=== PATIENT | female | born 1985 | race Caucasian/White ===

== ENCOUNTER → 2017-05-20 08:01 | Outpatient (CLI) | payer OTHER, SELFPAY ==
[2017-05-21 18:37] LABS: Vitamin B12 945 pg/mL (232-1245)
== END ==
PROVIDERS: PCP Family Medicine; Visit Provider Family Medicine
DX: G62.9 Polyneuropathy, unspecified (principal)
CPT/HCPCS: 36415; 82607

== ENCOUNTER → 2017-12-01 15:44 | Outpatient (CLI) | payer OTHER, SELFPAY | PROVIDERS: PCP Family Medicine; Visit Provider Nurse Practitioner | DX: G47.30 Sleep apnea, unspecified (principal); R06.83 Snoring; E66.9 Obesity, unspecified | CPT/HCPCS: 95806 ==

== ENCOUNTER → 2017-12-19 13:41 | Outpatient (CLI) | payer OTHER, SELFPAY ==
--- NOTE | 2017-12-19 13:45 | XR_ITS ---
XR chest 2V HISTORY: ITS.REASON: COUGH ORDERING PHYSICIAN: Dangelo Gastelum MD PATIENT AGE: 32 years COMPARISON: 04/09/2011 FINDINGS: The cardiomediastinal silhouette and pulmonary vascularity are within normal limits. The lungs are clear without infiltrates, suspicious nodules, or pleural effusions. No acute bony abnormalities. IMPRESSION: Negative chest, no acute finding
== END ==
PROVIDERS: PCP Family Medicine; Visit Provider Internal Medicine
DX: I49.9 Cardiac arrhythmia, unspecified (principal); R05 Cough
CPT/HCPCS: 71046; 93005; 93225; 93226

== ENCOUNTER → 2018-01-12 10:17 | Outpatient (CLI) | payer OTHER, SELFPAY ==
[2018-01-12 10:19] LABS: Adenovirus,PCR Not Detected (NotDetected); Bordetella Pertussis Not Detected (NotDetected); Chlamydophila Pneumoniae, PCR Not Detected (NotDetected); Coronavirus 229E Not Detected (NotDetected); Coronavirus NL63 Not Detected (NotDetected); Coronavirus OC43 Not Detected (NotDetected); Coronovirus HKU1,PCR Not Detected (NotDetected); Human Metapneumovirus Not Detected (NotDetected); Influenza A, PCR Not Detected (NotDetected); Influenza AH1, 2009 Not Detected (NotDetected); Influenza AH1, PCR Not Detected (NotDetected); Influenza AH3,PCR Not Detected (NotDetected); Influenza B, PCR Not Detected (NotDetected); Mycoplasma Pneumoniae, PCR Not Detected (NotDected); Parainfluenza 1, PCR Not Detected (NotDetected); Parainfluenza 2, PCR Not Detected (NotDetected); Parainfluenza 3, PCR Not Detected (NotDetected); Parainfluenza 4, PCR Not Detected (NotDetected); Respiratory Syncytial Virus Not Detected (NotDetected); Rhinovirus/Enterovirus Not Detected (NotDetected)
[2018-01-12 10:34] LABS: Basophils % 0.3 % (0.1-2.0); Eosinophils # 0.1 K/mm3 (0.0-0.4); Eosinophils % 0.7 % (0.1-12.0); Hematocrit 41.6 % (37.0-47.0); Hemoglobin 13.8 g/dL (12.2-16.2); Lymphocytes # 1.3 K/mm3 (0.7-4.5); Lymphocytes % 19.4 K/mm3 (10-50); Mean Corpuscular HGB Conc 33.1 g/dL (31.8-35.4); Mean Corpuscular Hemoglobin 28.4 pg (27.0-31.2); Mean Platelet Volume 7.4 fl (7.4-10.4); Monocytes # 0.4 K/mm3 (0.1-1.0); Monocytes % 5.9 % (1.7-9.3); Neutrophils # 5.1 K/mm3 (1.8-7.8); Neutrophils % 73.7 % (37.0-80.0); Platelet Count 180 K/mm3 (142-424); Red Blood Count 4.84 M/mm3 (4.20-5.40); White Blood Count 6.9 K/mm3 (4.8-10.8)
== END ==
PROVIDERS: Visit Provider Family Medicine
DX: R50.9 Fever, unspecified (principal); R05 Cough
CPT/HCPCS: 36415; 85025; 87486; 87581; 87633; 87798

== ENCOUNTER → 2020-02-26 12:26 | Outpatient (CLI) | payer OTHER, SELFPAY ==
[2020-02-26 15:13] LABS: Vitamin B12 881 pg/mL (239-931)
[2020-02-26 15:14] LABS: Folate 4.18 ng/mL
[2020-03-01 23:10] LABS: Methylmalonic Acid 189 nmol/L (0-378)
== END ==
PROVIDERS: Visit Provider Family Medicine
DX: E53.8 Deficiency of other specified B group vitamins (principal); G56.92 Unspecified mononeuropathy of left upper limb; G56.91 Unspecified mononeuropathy of right upper limb
CPT/HCPCS: 36415; 82131; 82607; 82746

== ENCOUNTER → 2020-07-16 15:06 | Outpatient (CLI) | payer OTHER, SELFPAY ==
--- NOTE | 2020-07-16 15:10 | XR_ITS ---
PROCEDURE: XR FOOT WT BEARING RT 3V CLINICAL INDICATION: pain COMPARISON: No exams were available for comparison FINDINGS: No fracture or dislocation. No lytic or blastic change. There is normal mineralization. The joint spaces are well-preserved. No significant degenerative/arthritic changes. No erosive changes evident. Other findings:There is borderline pes planus. There is a small calcaneal spur and a small Achilles enthesophyte. IMPRESSION: No acute findings. Dictated by: Sam Adrian MD 07/16/2020 15:51 Sam Adrian MD in [place] 07/16/2020 15:51
--- NOTE | 2020-07-16 15:10 | XR_ITS ---
PROCEDURE: XR FOOT WT BEARING LT 3V CLINICAL INDICATION: pain COMPARISON: No exams were available for comparison FINDINGS: No fracture or dislocation. No lytic or blastic change. There is normal mineralization. The joint spaces are well-preserved. No significant degenerative/arthritic changes. No erosive changes evident. Other findings:Small calcaneal spur and small Achilles enthesophyte IMPRESSION: No acute findings. Dictated by: Sam Adrian MD 07/16/2020 15:52 Sam Adrian MD in [facility] 07/16/2020 15:52
--- NOTE | 2020-07-16 15:11 | XR_ITS ---
PROCEDURE: XR CERVICAL SPINE 5V CLINICAL INDICATION: CERVICOGENIC HEADACHE COMPARISON: No exams were available for comparison FINDINGS: No fracture or dislocation. No lytic or blastic change. There is normal mineralization. There is straightening of the cervical lordosis which may be due to patient positioning or muscle. The disc spaces are well preserved. No foraminal narrowing is evident Other findings:None. IMPRESSION: Straightening of cervical lordosis otherwise negative Dictated by: Sam Adrian MD 07/16/2020 15:50 Sam Adrian MD in [facility] 07/16/2020 15:50
== END ==
PROVIDERS: PCP Family Medicine; Visit Provider Family Medicine
DX: R51.9 Headache, unspecified (principal); M79.671 Pain in right foot; M79.672 Pain in left foot
CPT/HCPCS: 72050; 73630

== ENCOUNTER → 2020-10-16 13:42 | Outpatient (CLI) | payer BC, SELFPAY ==
--- NOTE | 2020-10-16 | ECG_ITS ---
APPROVED REPORT Exam: Resting ECG HR:90 bpm ECG Measurements Heart Rate 90 AXES GA 170 P 53 QRSd 96 QRS 22 QT 356 T 36 QTc 435 Conclusion Normal sinus rhythm Late R wave progression, unchanged from prior Abnormal ECG Electronically signed by : Carlos Coelho MD 10/17/2020 11:38:37
--- NOTE | 2020-10-16 13:50 | XR_ITS ---
PROCEDURE: XR CHEST 2V CLINICAL HISTORY: MORBID OBESITY COMPARISON: CR CXR2V XR chest 2V from 12/19/2017 FINDINGS: The cardiomediastinal silhouette and pulmonary vascularity are within normal limits. The lungs are clear without infiltrates, suspicious nodules, or pleural effusions. Several small nodules are present in the left lower lung zone stable suggesting granulomas. IMPRESSION: No acute findings. Dictated by: Sam Adrian MD 10/16/2020 15:53 Sam Adrian MD in [facility] 10/16/2020 15:53
== END ==
PROVIDERS: PCP Family Medicine; Visit Provider Physician Assistant
DX: E53.8 Deficiency of other specified B group vitamins (principal); E55.9 Vitamin D deficiency, unspecified; E66.01 Morbid (severe) obesity due to excess calories; Z68.43 Body mass index [BMI] 50.0-59.9, adult
CPT/HCPCS: 71046; 93005

== ENCOUNTER → 2020-10-18 07:59 | Outpatient (CLI) | payer BC, SELFPAY ==
[2020-10-18 10:04] LABS: Hematocrit 39.6 % (37.0-47.0); Hemoglobin 13.2 g/dL (12.2-16.2); Mean Corpuscular HGB Conc 33.4 g/dL (31.8-35.4); Mean Corpuscular Hemoglobin 26.7 pg (27.0-31.2); Platelet Count 248 K/mm3 (142-424); Red Blood Count 4.96 M/mm3 (4.20-5.40); Red Cell Distribution Width 14.8 % (11.5-17.5); White Blood Count 6.7 K/mm3 (4.8-10.8)
[2020-10-18 10:49] LABS: Hemoglobin A1C 5.5 % (4.0-6.0)
[2020-10-18 13:17] LABS: Alanine Aminotransferase 29 U/L (12-78); Albumin/Globulin Ratio 1.3 (1.1-1.8); Alkaline Phosphatase 80 U/L (38-126); Anion Gap 13.7 mEq/L (5-15); Aspartate Amino Transferase 24 U/L (14-36); Bilirubin,Total 0.4 mg/dl (0.2-1.3); Blood Urea Nitrogen 14 mg/dl (7-17); Calcium 9.1 mg/dl (8.4-10.2); Carbon Dioxide 27 mmol/L (22.0-30.0); Chloride 103 mmol/L (98-107); Chol/HDL Ratio 4.6 (1-3.5); Cholesterol 181 mg/dl (140-200); Estimated Glomerular Filt Rate 81 ml/min (>60); GFR (African American) 98 ML/MIN (>60); Glucose 96 mg/dl (74-100); HDL Cholesterol 39 mg/dl (40-60); Magnesium 1.8 mg/dl (1.6-2.3); Phosphorous 3.5 mg/dl (2.5-4.5); Potassium 4.7 mmoL/L (3.5-5.1); Sodium 139 mmol/L (136-145); Triglycerides 108 mg/dl (30-150); VLDL Cholesterol 22 mg/dL (0-40)
[2020-10-18 13:28] LABS: Direct LDL Cholesterol 112.09 mg/dL (100-129)
[2020-10-18 13:32] LABS: 25-OH Vitamin D, Total 22.1 ng/mL (30-100)
[2020-10-18 13:46] LABS: Thyroid Stimulating Hormone 0.56 uIU/mL (0.465-4.68)
[2020-10-18 14:29] LABS: Folate 5.26 ng/mL
[2020-10-18 14:38] LABS: Iron 58 ug/dL (37-170)
[2020-10-18 15:15] LABS: Ferritin 12.2 ng/ml (6.24-137)
[2020-10-19 09:17] LABS: Prealbumin 27 mg/dL (14-35)
[2020-10-22 00:06] LABS: Vitamin E Alpha Tocopherol 7.6 mg/L (5.9-19.4); Vitamin E Gamma Tocopherol 1.7 mg/L (0.7-4.9)
[2020-10-23 06:24] LABS: Methylmalonic Acid 213 nmol/L (0-378); Vitamin B1 153.3 nmol/L (66.5-200.0)
[2020-10-23 09:26] LABS: Vitamin A 37.8 ug/dL (18.9-57.3)
== END ==
PROVIDERS: Visit Provider Physician Assistant
DX: E53.8 Deficiency of other specified B group vitamins (principal); E66.01 Morbid (severe) obesity due to excess calories; Z71.3 Dietary counseling and surveillance; Z68.44 Body mass index [BMI] 60.0-69.9, adult
CPT/HCPCS: 80053; 80061; 82131; 82306; 82728; 82746; 83036; 83540; 83735; 83970; 84100; 84134; 84425; 84443; 84446; 84590; 85014; 85018; 85048; 85049

== ENCOUNTER → 2020-11-06 08:20 | Outpatient (CLI) | payer SELFPAY ==
--- NOTE | 2020-11-06 08:23 | CT_ITS ---
PROCEDURE: CT HEART W CALCIUM SCORE CLINICAL HISTORY: screening COMPARISON: No exams were available for comparison TECHNIQUE: Axial images obtained with sagittal and coronal reformats. All CT scans at the facility use one or more dose reduction, viz: automated exposure control, ma/kV adjustment per patient size (including targeted exams where dose is matched to indication, i.e. head), or iterative reconstruction technique. FINDINGS: Coronary artery calcium score is 0. No identifiable calcific atherosclerotic plaque with very low cardiovascular disease risk. Incidental note made calcified hilar nodes. There is a 5 mm opacity in the left upper lobe on the very 1st image and could even be due to partial volume averaging from an overlying vessel. Scattered calcified granulomas are present. IMPRESSION: No identifiable calcific atherosclerotic plaque with very low cardiovascular disease risk Nonspecific 5 mm nodular opacity in the left upper lobe as described above Dictated by: Sam Adrian MD 11/06/2020 10:57 Sam Adrian MD in [facility] 11/06/2020 10:57
== END ==
PROVIDERS: PCP Family Medicine; Visit Provider Internal Medicine Cardiovascular Disease
DX: Z13.6 Encounter for screening for cardiovascular disorders (principal); E11.9 Type 2 diabetes mellitus without complications; R94.31 Abnormal electrocardiogram [ECG] [EKG]; Z82.49 Family history of ischemic heart disease and other diseases of the circulatory system
CPT/HCPCS: 75571

== ENCOUNTER → 2020-11-06 08:28 | Outpatient (CLI) | payer BC, SELFPAY ==
--- NOTE | 2020-11-06 08:29 | CA_ITS ---
APPROVED REPORT EXAM: Comprehensive 2D, Doppler, and color-flow Echocardiogram Finger Buff Sewer: Shelia Brandt RT(R) Ht: 5 ft 3 in Wt: 340lbs BSA: 2.42 BP: 156/98 mmHg Indications: Pre-op bariatric surgery, Abn EKG, SVT, Obesity Echo Enhancing Agent Indication: Endocardial border delineation Agent(s) / Amount(s) Used: Definity 2 cc 2D Dimensions LVOT 2.08 cm (M/F) 1.5-2.5 M-Mode Dimensions RVDd 2.77 cm (0.9-2.6) LA Diam 3.13 cm (1.9-4.0) LVDd 5.08 cm (3.5-5.7) Ao Diam 2.63 cm (2.0-3.7) LVDs 3.90 cm (3.5-5.7) IVSd 0.95 cm (0.6-1.1) PWd 0.76 cm (0.6-1.1) EF (Teich) 46.30% FS 23.20% EDV (Teich) 122.70 mL ESV (Teich) 65.90 mL LV Diastology E Decel Time 270.00 (160-240 msec) E/A Ratio 1.26 MED E' 10.80 (< 7 cm/sec) E'/MED E' Ratio 8.11 (>14) LAT E' 11.80 (<10 cm/sec) E/LAT E' Ratio 7.42 (>14) Mitral Valve MV E Max Davey. 88.00 (40-130 cm/s) MV A Velocity 69.00 (40-130 cm/s) E/A Ratio 1.26 MV Decel. Time 270.00 (160-240 ms) MV PHT 79.00 ms Left Ventricle Left atrium is normal size, left ventricle is normal size, there is no concentric left ventricular hypertrophy, visually estimated ejection fraction 55% with no regional wall motion abnormality, diastolic parameters are within normal range. Definity contrast was utilized to delineate the endocardial surfaces, there is no left ventricular thrombus seen. Right Ventricle Right atrium and right ventricle are normal size and contractility. Aortic Valve Aortic valve is grossly normal, there is no aortic stenosis or aortic insufficiency. Mitral Valve Mitral valve is grossly normal, there is trace mitral regurgitation. Tricuspid Valve Tricuspid valve grossly normal, there is trace tricuspid regurgitation, tricuspid regurgitation jet velocity is inadequate for calculation of the right ventricular systolic pressure. Pulmonic Valve Pulmonic valve is poorly visualized. Great Vessels Aortic root is normal size. Pericardium No significant pericardial effusion noted. Conclusion 1. Normal left ventricular size, preserved left ventricular systolic function, visually estimated ejection fraction 55% with no regional wall motion abnormality, diastolic parameters are within normal range. Definity contrast was utilized to delineate the endocardial surfaces, there is no left ventricular thrombus seen. 2. Trace mitral and tricuspid regurgitation. 3. No significant pericardial effusion noted. Electronically signed by : Matt Whitmore MD 11/07/2020 11:21:19
== END ==
LOC: RT 08:29
PROVIDERS: PCP Family Medicine; Visit Provider Internal Medicine Cardiovascular Disease
DX: Z01.810 Encounter for preprocedural cardiovascular examination (principal); R94.31 Abnormal electrocardiogram [ECG] [EKG]; Z82.49 Family history of ischemic heart disease and other diseases of the circulatory system
CPT/HCPCS: 93306; Q9957

== ENCOUNTER → 2020-11-24 09:08 | Outpatient (CLI) | payer SELFPAY | PROVIDERS: PCP Family Medicine; Visit Provider Family Medicine | DX: U07.1 COVID-19 (principal) | CPT/HCPCS: C9803; U0003; U0005 ==

== ENCOUNTER → 2021-05-06 15:09 | Outpatient (CLI) | payer OTHER, SELFPAY ==
--- NOTE | 2021-05-06 | ECG_ITS ---
APPROVED REPORT Exam: Resting ECG HR:103 bpm ECG Measurements Heart Rate 103 AXES WI 136 P 35 QRSd 98 QRS -1 QT 333 T 13 QTc 393 Conclusion SINUS TACHYCARDIA LOW QRS VOLTAGE IN PRECORDIAL LEADS [QRS DEFLECTION < 1.0 mV IN CHEST LEADS] ABNORMAL RHYTHM ECG UNCONFIRMED REPORT Electronically signed by : Carlos Coelho MD 05/06/2021 21:53:46
--- NOTE | 2021-05-06 15:14 | XR_ITS ---
FINAL REPORT TECHNIQUE: Chest PA & Lateral CLINICAL HISTORY: S/P COVID in November 2020 COMPARISON: October 2020 FINDINGS: 2 views of the chest were performed. The heart size is normal. The mediastinum is within normal limits. There is no acute cardiopulmonary process. There are no pleural effusions. There is no pneumothorax. The bony thorax appears intact. IMPRESSION: No acute cardiopulmonary process. Reviewed, Interpreted and Dictated by Jay Jay Spear MD Transcribed by MELANI Wells Authenticated by Jay Jay Spear MD on 05/06/2021 04:19:34 PM [facility]
== END ==
PROVIDERS: PCP Family Medicine; Visit Provider Physician Assistant
DX: E66.01 Morbid (severe) obesity due to excess calories (principal); K21.9 Gastro-esophageal reflux disease without esophagitis; E53.8 Deficiency of other specified B group vitamins; G47.33 Obstructive sleep apnea (adult) (pediatric); Z71.3 Dietary counseling and surveillance
CPT/HCPCS: 71046; 93005

== ENCOUNTER → 2021-07-15 16:12 | Outpatient (CLI) | payer OTHER, SELFPAY ==
[2021-07-15 16:41] LABS: Hematocrit 40.2 % (37.0-47.0); Hemoglobin 14.1 g/dL (12.2-16.2); Mean Corpuscular HGB Conc 35.1 g/dL (31.8-35.4); Mean Corpuscular Hemoglobin 28.3 pg (27.0-31.2); Mean Corpuscular Volume 80.8 fl (81-99); Platelet Count 231 K/mm3 (142-424); Red Blood Count 4.98 M/mm3 (4.20-5.40); Red Cell Distribution Width 15.4 % (11.5-17.5); White Blood Count 6.3 K/mm3 (4.8-10.8)
[2021-07-15 17:16] LABS: Chloride 106 mmol/L (98-107)
[2021-07-15 17:17] LABS: Potassium 3.8 mmoL/L (3.5-5.1); Sodium 137 mmol/L (136-145)
[2021-07-15 17:20] LABS: Albumin Level 4.2 g/dl (3.5-5.0); Albumin/Globulin Ratio 1.5 (1.1-1.8); Calcium 10.2 mg/dl (8.4-10.2); Globulin 2.8 g/dL (1.3-3.2); Glucose 93 mg/dl (74-100); Magnesium 1.7 mg/dl (1.6-2.3)
[2021-07-15 17:38] LABS: 25-OH Vitamin D, Total 21.4 ng/mL (30-100)
[2021-07-15 17:51] LABS: Thyroid Stimulating Hormone < 0.02 uIU/mL (0.465-4.68)
[2021-07-15 17:55] LABS: Ferritin 15.7 ng/ml (6.24-137)
[2021-07-15 19:04] LABS: Alanine Aminotransferase 51 U/L (12-78); Alkaline Phosphatase 94 U/L (38-126); Anion Gap 12.8 mEq/L (5-15); Aspartate Amino Transferase 31 U/L (14-36); Blood Urea Nitrogen 9 mg/dl (7-17); Carbon Dioxide 22 mmol/L (22.0-30.0); Estimated Glomerular Filt Rate 94 ml/min (>60); GFR (African American) 114 ML/MIN (>60)
[2021-07-15 19:09] LABS: Bilirubin,Total 0.1 mg/dl (0.2-1.3)
[2021-07-15 19:16] LABS: Intact Parathyroid Hormone 11.1 pg/mL (7.5-53.5)
[2021-07-15 20:11] LABS: Folate 6.32 ng/mL
[2021-07-15 20:38] LABS: Iron 42 ug/dL (37-170)
[2021-07-17 12:13] LABS: Prealbumin 22 mg/dL (14-35)
[2021-07-24 01:09] LABS: Vitamin A 28.5 ug/dL (18.9-57.3); Vitamin E Alpha Tocopherol 4.9 mg/L (5.9-19.4); Vitamin E Gamma Tocopherol 1.2 mg/L (0.7-4.9)
[2021-07-24 18:22] LABS: Methylmalonic Acid 132 nmol/L (0-378)
[2021-07-27 14:11] LABS: Vitamin B1 106.8 nmol/L (66.5-200.0)
== END ==
PROVIDERS: Visit Provider Physician Assistant
DX: R63.4 Abnormal weight loss (principal); E55.9 Vitamin D deficiency, unspecified; Z13.21 Encounter for screening for nutritional disorder; Z90.3 Acquired absence of stomach [part of]
CPT/HCPCS: 36415; 80053; 82131; 82306; 82728; 82746; 83540; 83735; 83970; 84100; 84134; 84425; 84443; 84446; 84590; 85014; 85018; 85048; 85049

== ENCOUNTER → 2021-09-11 14:15 | Outpatient (CLI) | payer OTHER, SELFPAY ==
[2021-09-11 16:41] LABS: T4 (Thyroxine) 9.5 ug/dl (5.53-11.0)
[2021-09-11 16:54] LABS: Thyroid Stimulating Hormone 0.19 uIU/mL (0.465-4.68)
== END ==
PROVIDERS: PCP Internal Medicine Adolescent Medicine; Visit Provider Internal Medicine Adolescent Medicine
DX: E03.9 Hypothyroidism, unspecified (principal)
CPT/HCPCS: 36415; 84436; 84443

== ENCOUNTER → 2021-10-22 09:14 | Outpatient (CLI) | payer OTHER, SELFPAY ==
[2021-10-22 09:55] LABS: Hematocrit 42.8 % (37.0-47.0); Hemoglobin 13.2 g/dL (12.2-16.2); Mean Corpuscular HGB Conc 30.8 g/dL (31.8-35.4); Mean Corpuscular Hemoglobin 27.3 pg (27.0-31.2); Mean Corpuscular Volume 88.6 fl (81-99); Platelet Count 246 K/mm3 (142-424); Red Blood Count 4.83 M/mm3 (4.20-5.40); White Blood Count 5.3 K/mm3 (4.8-10.8)
[2021-10-22 10:02] LABS: Hemoglobin A1C 5.5 % (4.0-6.0)
[2021-10-22 10:26] LABS: Chloride 107 mmol/L (98-107); Potassium 4.2 mmoL/L (3.5-5.1); Sodium 142 mmol/L (136-145)
[2021-10-22 10:29] LABS: Alanine Aminotransferase 34 U/L (12-78); Albumin/Globulin Ratio 1.5 (1.1-1.8); Alkaline Phosphatase 95 U/L (38-126); Anion Gap 10.2 mEq/L (5-15); Aspartate Amino Transferase 30 U/L (14-36); Blood Urea Nitrogen 11 mg/dl (7-17); Calcium 9.7 mg/dl (8.4-10.2); Carbon Dioxide 29 mmol/L (22.0-30.0); Cholesterol 157 mg/dl (140-200); Estimated Glomerular Filt Rate 70 ml/min (>60); GFR (African American) 85 ML/MIN (>60); Globulin 2.7 g/dL (1.3-3.2); Glucose 105 mg/dl (74-100); Iron 63 ug/dL (37-170); Total Protein,Serum 6.7 g/dl (6.3-8.2); Triglycerides 150 mg/dl (30-150); VLDL Cholesterol 30 mg/dL (0-40)
[2021-10-22 10:30] LABS: Chol/HDL Ratio 4.8 (1-3.5); HDL Cholesterol 33 mg/dl (40-60)
[2021-10-22 10:36] LABS: Bilirubin,Total < 0.1 mg/dl (0.2-1.3)
[2021-10-22 11:05] LABS: Ferritin 15.9 ng/ml (6.24-137)
[2021-10-22 11:13] LABS: Intact Parathyroid Hormone 21.5 pg/mL (7.5-53.5)
[2021-10-22 11:38] LABS: 25-OH Vitamin D, Total 43.4 ng/mL (30-100)
[2021-10-22 11:50] LABS: Folate > 20.00 ng/mL
[2021-10-23 08:19] LABS: Direct LDL Cholesterol 93 mg/dL (100-129)
[2021-10-23 10:15] LABS: Prealbumin 23 mg/dL (14-35)
[2021-10-25 17:19] LABS: Methylmalonic Acid 168 nmol/L (0-378)
[2021-10-26 13:02] LABS: Vitamin A 35.3 ug/dL (18.9-57.3)
[2021-10-26 14:10] LABS: Vitamin B1 146.7 nmol/L (66.5-200.0)
[2021-10-27 15:18] LABS: Vitamin E Alpha Tocopherol 8.7 mg/L (5.9-19.4); Vitamin E Gamma Tocopherol 1.9 mg/L (0.7-4.9)
== END ==
PROVIDERS: PCP Internal Medicine Adolescent Medicine; Visit Provider Physician Assistant
DX: R63.4 Abnormal weight loss (principal); L65.9 Nonscarring hair loss, unspecified; Z13.21 Encounter for screening for nutritional disorder; Z90.3 Acquired absence of stomach [part of]
CPT/HCPCS: 36415; 80053; 80061; 82131; 82306; 82728; 82746; 83036; 83540; 83970; 84134; 84425; 84446; 84590; 85014; 85018; 85048; 85049

== ENCOUNTER → 2022-03-19 09:50 | Outpatient (CLI) | payer OTHER, SELFPAY ==
[2022-03-19 11:14] LABS: Basophils % 0.7 % (0.1-2.0); Eosinophils # 0.1 K/mm3 (0.0-0.4); Eosinophils % 0.9 % (0.1-12.0); Hematocrit 42.5 % (37.0-47.0); Hemoglobin 13.7 g/dL (12.2-16.2); Lymphocytes # 1.9 K/mm3 (0.7-4.5); Mean Corpuscular HGB Conc 32.1 g/dL (31.8-35.4); Mean Corpuscular Hemoglobin 27.7 pg (27.0-31.2); Mean Corpuscular Volume 86.4 fl (81-99); Monocytes # 0.4 K/mm3 (0.1-1.0); Monocytes % 6.7 % (1.7-9.3); Neutrophils # 3.6 K/mm3 (1.8-7.8); Neutrophils % 59.7 % (37.0-80.0); Platelet Count 263 K/mm3 (142-424); Red Blood Count 4.93 M/mm3 (4.20-5.40); Red Cell Distribution Width 14.2 % (11.5-17.5)
[2022-03-19 11:37] LABS: Alanine Aminotransferase 22 U/L (12-78); Albumin/Globulin Ratio 1.4 (1.1-1.8); Alkaline Phosphatase 86 U/L (38-126); Anion Gap 11.1 mEq/L (5-15); Aspartate Amino Transferase 23 U/L (14-36); Bilirubin,Total 0.4 mg/dl (0.2-1.3); Blood Urea Nitrogen 12 mg/dl (7-17); Calcium 8.9 mg/dl (8.4-10.2); Carbon Dioxide 27 mmol/L (22.0-30.0); Chloride 106 mmol/L (98-107); Chol/HDL Ratio 4.9 (1-3.5); Cholesterol 176 mg/dl (140-200); Estimated Glomerular Filt Rate 70 ml/min (>60); GFR (African American) 85 ML/MIN (>60); Globulin 2.8 g/dL (1.3-3.2); Glucose 90 mg/dl (74-100); HDL Cholesterol 36 mg/dl (40-60); Potassium 4.1 mmoL/L (3.5-5.1); Sodium 140 mmol/L (136-145); Total Protein,Serum 6.8 g/dl (6.3-8.2); Triglycerides 117 mg/dl (30-150); VLDL Cholesterol 23 mg/dL (0-40)
[2022-03-19 11:45] LABS: Iron 75 ug/dL (37-170)
[2022-03-19 11:49] LABS: Direct LDL Cholesterol 110.49 mg/dL (100-129)
[2022-03-19 11:54] LABS: 25-OH Vitamin D, Total 21.5 ng/mL (30-100)
[2022-03-19 12:02] LABS: Total Iron Binding Capacity 362 ug/dL (265-497)
[2022-03-19 12:23] LABS: Hemoglobin A1C 5.3 % (4.0-6.0)
[2022-03-19 12:44] LABS: Folate 4.68 ng/mL
[2022-03-23 14:30] LABS: Methylmalonic Acid 156 nmol/L (0-378)
[2022-03-24 00:07] LABS: Vitamin B1 143.1 nmol/L (66.5-200.0)
[2022-03-24 23:38] LABS: Vitamin E Alpha Tocopherol 6.9
[2022-03-25 00:09] LABS: Vitamin A 42.5 ug/dL (18.9-57.3); Vitamin E Gamma Tocopherol 1.3 mg/L (0.7-4.9)
== END ==
PROVIDERS: PCP Internal Medicine Adolescent Medicine; Visit Provider Nurse Practitioner Family
DX: Z90.3 Acquired absence of stomach [part of] (principal); E55.9 Vitamin D deficiency, unspecified
CPT/HCPCS: 36415; 80053; 80061; 82131; 82306; 82728; 82746; 83036; 83540; 83550; 84425; 84446; 84590; 85025

== ENCOUNTER → 2022-06-28 12:46 | Outpatient (CLI) | payer OTHER, SELFPAY ==
[2022-06-28 14:52] LABS: Chloride 104 mmol/L (98-107); Sodium 140 mmol/L (136-145)
[2022-06-28 14:55] LABS: Alanine Aminotransferase 19 U/L (12-78); Alkaline Phosphatase 91 U/L (38-126); Amylase 64 U/L (30-110); Aspartate Amino Transferase 22 U/L (14-36); Bilirubin,Total 0.3 mg/dl (0.2-1.3); Blood Urea Nitrogen 13 mg/dl (7-17); Calcium 9.1 mg/dl (8.4-10.2); Carbon Dioxide 25 mmol/L (22.0-30.0); Estimated Glomerular Filt Rate 70 ml/min (>60); GFR (African American) 85 ML/MIN (>60); Glucose 89 mg/dl (74-100); Lipase 123 U/L (23-300)
[2022-06-28 14:56] LABS: Albumin/Globulin Ratio 1.2 (1.1-1.8); Globulin 3.3 g/dL (1.3-3.2); Total Protein,Serum 7.3 g/dl (6.3-8.2)
--- NOTE | 2022-06-28 15:00 | US_ITS ---
FINAL REPORT CLINICAL HISTORY: abnormal uterine bleeding FINDINGS: Transvaginal Ultrasound Technique: Transvaginal sonographic images of the pelvis were obtained. Findings: The uterus is a mildly lobular contour and measures 9.1 x 5.7 x 5.1 cm. The endometrium is within normal limits at 3 mm. The right ovary is not identified. The left ovary is unremarkable. There is no significant free fluid. IMPRESSION: Mildly lobular uterus. Small fibroids cannot be excluded. Right ovary not identified. Reviewed, Interpreted and Dictated by Leandro Flores III, MD Transcribed by Ezio Sams Authenticated and [facility]
[2022-06-28 15:18] LABS: Basophils % 0.2 % (0.1-2.0); Eosinophils # 0.2 K/mm3 (0.0-0.4); Eosinophils % 2.9 % (0.1-12.0); Hematocrit 42.1 % (37.0-47.0); Hemoglobin 13.7 g/dL (12.2-16.2); Lymphocytes # 2.1 K/mm3 (0.7-4.5); Lymphocytes % 27.5 % (10-50); Mean Corpuscular HGB Conc 32.6 g/dL (31.8-35.4); Mean Corpuscular Hemoglobin 27.3 pg (27.0-31.2); Mean Corpuscular Volume 83.8 fl (81-99); Mean Platelet Volume 8.8 fl (7.4-10.4); Monocytes # 0.6 K/mm3 (0.1-1.0); Monocytes % 7.9 % (1.7-9.3); Neutrophils # 4.6 K/mm3 (1.8-7.8); Neutrophils % 61.6 % (37.0-80.0); Platelet Count 276 K/mm3 (142-424); Red Blood Count 5.02 M/mm3 (4.20-5.40); Red Cell Distribution Width 13.6 % (11.5-17.5); White Blood Count 7.5 K/mm3 (4.8-10.8)
== END ==
PROVIDERS: PCP Internal Medicine Adolescent Medicine; Visit Provider Obstetrics & Gynecology
DX: N93.9 Abnormal uterine and vaginal bleeding, unspecified (principal)
CPT/HCPCS: 36415; 76830; 80053; 82150; 83690; 85025

== ENCOUNTER 2022-07-06 19:58 | Emergency (ER) | payer OTHER, SELFPAY ==
[2022-07-06] VITALS (7 sets, daily range): BP systolic 127–149; BP diastolic 75–102; PULSE 74–103; RESP 13–24; TEMP 36.7–37; O2SAT 98–99; BMI 46.7
--- NOTE | 2022-07-06 20:07 | ECG_ITS ---
APPROVED REPORT Exam: Resting ECG HR:98 bpm ECG Measurements Heart Rate 98 AXES NJ 167 P 52 QRSd 92 QRS 18 QT 350 T 30 QTc 405 Conclusion SINUS RHYTHM NORMAL ECG UNCONFIRMED REPORT Electronically signed by : Carlos Coelho MD 07/07/2022 20:29:05
--- NOTE | 2022-07-06 20:19 | XR_ITS ---
PROCEDURE INFORMATION: Exam: XR Chest Exam date and time: 07/06/2022 8:22 PM Age: 36 years old Clinical indication: Other: Palpitations; Patient HX: C/O epigastric pain that radiates posterior TECHNIQUE: Imaging protocol: Radiologic exam of the chest. Views: 2 views. COMPARISON: CR XR CHEST 2V 05/06/2021 3:19 PM FINDINGS: Lungs: Unremarkable. No consolidation. Pleural spaces: Unremarkable. No pleural effusion. No pneumothorax. Heart/Mediastinum: Unremarkable. No cardiomegaly. Bones/joints: Unremarkable. IMPRESSION: Stable chest x-ray with no acute disease.
[2022-07-06 20:30] LABS: Basophils % 0.2 % (0.1-2.0); Eosinophils # 0.1 K/mm3 (0.0-0.4); Eosinophils % 0.3 % (0.1-12.0); Hematocrit 44.2 % (37.0-47.0); Hemoglobin 14.6 g/dL (12.2-16.2); Lymphocytes # 1.5 K/mm3 (0.7-4.5); Mean Corpuscular Hemoglobin 27.2 pg (27.0-31.2); Mean Corpuscular Volume 82.3 fl (81-99); Mean Platelet Volume 7.8 fl (7.4-10.4); Monocytes % 6.5 % (1.7-9.3); Neutrophils # 12.5 K/mm3 (1.8-7.8); Platelet Count 329 K/mm3 (142-424); Red Blood Count 5.36 M/mm3 (4.20-5.40); Red Cell Distribution Width 13.6 % (11.5-17.5); White Blood Count 15.1 K/mm3 (4.8-10.8)
--- NOTE | 2022-07-06 20:30 | CT_ITS ---
PROCEDURE INFORMATION: Exam: CTA Chest With Contrast Exam date and time: 07/06/2022 8:43 PM Age: 36 years old Clinical indication: Patient HX: C/O epigastric pain that radiates posterior and to abd; Additional info: Back and abd pain TECHNIQUE: Imaging protocol: Computed tomographic angiography of the chest with contrast. 3D rendering (Not supervised by radiologist): MIP and/or 3D reconstructed images were created by the technologist. Radiation optimization: All CT scans at this facility use at least one of these dose optimization techniques: automated exposure control; mA and/or kV adjustment per patient size (includes targeted exams where dose is matched to clinical indication); or iterative reconstruction. Contrast material: ISOVUE; Contrast volume: 100 ml; Contrast route: INTRAVENOUS (IV); REPORTING DATA: Count of CT and Cardiac NM exams in prior 12 months: This patient has received 0 known CTs and 0 known cardiac nuclear medicine studies in the 12 months prior to the current study. COMPARISON: CR XR CHEST 2V 07/06/2022 8:22 PM FINDINGS: Pulmonary arteries: Normal. No pulmonary emboli. Aorta: Unremarkable. No aortic aneurysm. No aortic dissection. Thyroid: Enlarged right lobe of the thyroid with a 24 mm nodule. Lungs: Bilateral calcified pulmonary nodules compatible with old granulomas. Lungs are otherwise clear. Pleural spaces: Unremarkable. No pneumothorax. No pleural effusion. Heart: Unremarkable. No cardiomegaly. No pericardial effusion. Lymph nodes: Unremarkable. No enlarged lymph nodes. Stomach and bowel: Status post gastric sleeve procedure. Upper abdomen viscera otherwise unremarkable. Bones/joints: Unremarkable. No acute fracture. Soft tissues: See Stomach and bowel finding. IMPRESSION: 1. No evident PE. No other acute findings. 2. Incidental enlarged right lobe of the thyroid with a 24 mm nodule. Advise further assessment with nonemergent ultrasound of the thyroid. COMMENTS: Consistent with the [employer]'s Incidental Findings Committee white paper (J Am Carola Radiol 2015): In patients aged 35 years and older with an incidental thyroid nodule equal to or greater than 1.[address], MRI or extrathyroidal US, further evaluation with dedicated thyroid US is recommended for patients with normal life expectancy and without comorbidities. For smaller nodules without suspicious features, no further evaluation or follow up is recommended.
[2022-07-06 20:32] LABS: MANUAL DIFFERENTIAL MANUAL DIFFERENTIAL (MANUAL DIFF)
[2022-07-06 20:41] LABS: Amylase 79 U/L (30-110); Anion Gap 11.9 mEq/L (5-15); Blood Urea Nitrogen 17 mg/dl (7-17); Calcium 9.1 mg/dl (8.4-10.2); Carbon Dioxide 27 mmol/L (22.0-30.0); Chloride 102 mmol/L (98-107); Creatinine Clearance Estimated 70 mL/min (50-200); Estimated Glomerular Filt Rate 70 ml/min (>60); GFR (African American) 85 ML/MIN (>60); Glucose 101 mg/dl (74-100); Lipase 165 U/L (23-300); Magnesium 2.1 mg/dl (1.6-2.3); Potassium 3.9 mmoL/L (3.5-5.1); Sodium 137 mmol/L (136-145)
[2022-07-06 20:46] LABS: C-Reactive Protein 4.9 mg/L (0-4)
[2022-07-06 20:58] LABS: Erythrocyte Sedimentation Rate 12 mm/hr (0-20)
[2022-07-06 20:59] LABS: Procalcitonin < 0.030 ng/mL (0.0-2.0); Troponin I < 0.01 ng/ml (0.00-0.034)
--- NOTE | 2022-07-06 21:06 | HMH.EDGENADL ---
Discharge Plan Disposition Patient Disposition: Home, Self-Care Prescriptions Prescriptions: New hyoscyamine sulfate [Levsin/SL] 0.125 mg tablet, sublingual 0.125 mg PO Q8H PRN (Reason: dyspepsia) Qty: 10 0RF No Action esomeprazole magnesium 40 mg capsule,delayed release(DR/EC) 40 mg PO DAILY Label Comments: TAKE 1 CAPSULE BY MOUTH ONCE DAILY FOR 30 DAYS prednisone 20 mg tablet 20 mg PO BID Label Comments: TAKE ONE TABLET BY MOUTH TWICE DAILY -- FINISH ALL MEDICINE -- famotidine 20 mg tablet 20 mg PO DAILY Label Comments: TAKE ONE TABLET BY MOUTH TWICE DAILY levonorgestrel-ethinyl estrad [Aviane] 0.1-20 mg-mcg tablet 1 tab PO DAILY clobetasol 0.05 % cream 1 applic topical HS Referrals Follow up/Referrals: Carlos Coelho MD [Primary Care Provider] - See instructions Clinical Impressions Clinical Impression: Abdominal pain, Dysfunction of sphincter of Oddi Instructions Patient Instructions: DI for Acute Pain -- Adult Discharge ED Provider: Mayra (ED)Piero General Adult HPI General Chief complaint: PAIN Stated complaint: upper Abd pain,back, pain Time Seen by Provider: 07/06/22 21:00 Mode of Arrival: Family Vehicle Source of Information: Patient, Spouse and Medical Record Limitations: No Limitations Description of Symptoms (Recalled from ER Triage Doc. by RN): Pt c/o pain throughout abdomen that radiates to her upper to low back. Reports that she hurt my back on 06/20 while lifting tree trunks. States her pain resolved on its own for about a week. Then her pain returned much worse that occurs at rest. Pt saw her PCP, Dr. Coelho, and he ordered labs and prescribed 1 wk of Prednisone and would re-eval on Tuesday (07/10). Pt reports she only had 1 days left of her steriods and she does not feel any better. Reports the pain is sharp & stabbing from abd to her back. Denies any n/v/d, SOA, dyspnea or fever. Pt begain to feel heart palpitations at rest this afternoon, which prompted her to come to the ER. History of Present Illness HPI narrative: upper abd pain over the last few days - worse now with rad to back - has been seen by pcp and has been on steroids for possible radicular pain - no fever /vomiting/diarrhea or melanotic stool- did have episodes of palpitations today Onset (ago): day(s) Location: abdomen Radiation: back Severity: severe Quality: sharp Consistency: intermittent Associated symptoms: denies other symptoms Related Data Home Medications Medication Instructions Recorded Confirmed esomeprazole magnesium 40 mg 40 mg PO DAILY gerd 08/04/20 07/06/22 capsule,delayed release clobetasol 0.05 % topical cream 1 applic topical HS apply to area 07/06/22 07/06/22 famotidine 20 mg tablet 20 mg PO DAILY gerd 07/06/22 07/06/22 levonorgestrel-ethinyl estradiol 1 tab PO DAILY hormone 07/06/22 07/06/22 0.1 mg-20 mcg tablet (Aviane) prednisone 20 mg tablet 20 mg PO BID acute injury 07/06/22 07/06/22 Previous Rx's Medication Instructions Recorded hyoscyamine sulfate 0.125 mg 0.125 mg PO Q8H PRN dyspepsia #10 07/06/22 sublingual tablet (Levsin/SL) tabs Allergies Allergy/AdvReac Type Severity Reaction Status Date / Time erythromycin base Allergy Intermediate I-RASH Verified 06/08/22 10:55 [ERYTHROMYCIN BASE] sulfamethoxazole Allergy Intermediate I-HIVES Verified 06/08/22 10:55 [From BACTRIM] trimethoprim [From BACTRIM] Allergy Intermediate I-HIVES Verified 06/08/22 10:55 PFSH PFS Disclaimer: The information contained in this section may have been updated after the patient was seen, as this information can be updated by other users. Medical History Abnormal EKG Dysmenorrhea Encounter for pre-operative cardiovascular clearance Family history of heart disease Hypertrophic lichen planus of vulva Menorrhagia Vulvar abscess Surgical History (Reviewed 06/08/22 @ 12:08
[2022-07-06 21:13] LABS: Lymphocytes % 17 % (10-50); Monocytes % 3 % (2-9); Neutrophils % 80 % (42-76); Platelet Estimate Normal; RBC Morphology Normal; Total Cells Counted 100
--- NOTE | 2022-07-06 21:14 | CT_ITS ---
PROCEDURE INFORMATION: Exam: CT Abdomen And Pelvis Without Contrast Exam date and time: 07/06/2022 9:18 PM Age: 36 years old Clinical indication: Abdominal pain; Additional info: Abd pain TECHNIQUE: Imaging protocol: Computed tomography of the abdomen and pelvis without contrast. Radiation optimization: All CT scans at this facility use at least one of these dose optimization techniques: automated exposure control; mA and/or kV adjustment per patient size (includes targeted exams where dose is matched to clinical indication); or iterative reconstruction. REPORTING DATA: Count of CT and Cardiac NM exams in prior 12 months: This patient has received 0 known CTs and 0 known cardiac nuclear medicine studies in the 12 months prior to the current study. COMPARISON: US TRANSVAGINAL 06/28/2022 4:02 PM FINDINGS: Lungs: Lung bases are clear. Liver: Normal. No mass. Gallbladder and bile ducts: Gallbladder has been removed. No evident bile duct dilatation. Pancreas: Normal. No ductal dilation. Spleen: Normal. No splenomegaly. Adrenal glands: Normal. No mass. Kidneys and ureters: Residual contrast noted in the pelvocaliceal systems and ureters from earlier contrast-enhanced CT chest. Kidneys and ureters otherwise unremarkable with no obstructing stones or uropathy. Stomach and bowel: Gastric sleeve procedure noted. GI tract structures otherwise unremarkable with no evident wall thickening allowing for incomplete distention. Appendix: Appendix is normal. No evidence of appendicitis. Intraperitoneal space: Unremarkable. No free air. No significant fluid collection. Vasculature: Unremarkable. No abdominal aortic aneurysm. Lymph nodes: Unremarkable. No enlarged lymph nodes. Urinary bladder: Residual contrast noted in the bladder from the earlier contrast-enhanced CT chest. Asymmetric prominence of the left ovary which contains a 20 mm low-density lesion with a density of 26. Pelvic viscera otherwise unremarkable. Reproductive: See Urinary bladder finding. Bones/joints: Unremarkable. No acute fracture. Soft tissues: See Urinary bladder finding. IMPRESSION: 1. No acute findings of the abdomen and pelvis. 2. Incidental asymmetric prominence of the left ovary that contains a 20 mm low-density lesion with greater than fluid density that may reflect a complex or hemorrhagic cyst. Consider further assessment with ultrasound of the pelvis.
--- NOTE | 2022-07-06 21:19 | PC.NURSE ---
v/o for t4,tsh r/t cta chest reading
[2022-07-06 21:52] LABS: T4 (Thyroxine) 12.2 ug/dl (5.53-11.0)
[2022-07-06 22:05] LABS: Thyroid Stimulating Hormone < 0.02 uIU/mL (0.465-4.68)
== END 2022-07-06 23:21 | disposition home or self-care (01) ==
PROVIDERS: Emergency Provider Emergency Medicine; PCP Internal Medicine Adolescent Medicine
DX: K83.4 Spasm of sphincter of Oddi (principal); R10.10 Upper abdominal pain, unspecified
CPT/HCPCS: 71046; 71275; 74176; 80048; 82150; 83690; 83735; 84145; 84436; 84443; 84484; 85007; 85025; 85651; 86140; 93005; 96361; 96374; 96375; 99285; Q9967

== ENCOUNTER → 2022-07-16 08:47 | Outpatient (CLI) | payer OTHER, SELFPAY ==
--- NOTE | 2022-07-16 | MR_ITS ---
FINAL REPORT CLINICAL HISTORY: mid back and lower back pain bilateral radiation anteriorly x 1 month FINDINGS: Multiplanar MR imaging of the thoracic spine was performed without contrast. On the sagittal T2-weighted images, mild disc degeneration is seen throughout. There is no evidence of fracture. The vertebral alignment is normal. There is a rounded focus of signal abnormality in T9 which shows increased signal on the T1 and T2 weighted images, probably related to a hemangioma. The thoracic cord demonstrates normal signal and configuration. On the axial images, no focal disc protrusion is identified. There is no evidence of significant canal stenosis. No paraspinous soft tissue abnormality is seen. IMPRESSION: Mild disc degeneration without significant disc bulge or protrusion. Reviewed, Interpreted and Dictated by Jay Jay Spear MD Transcribed by Anila Whalen Authenticated and [facility]
--- NOTE | 2022-07-16 | MR_ITS ---
FINAL REPORT CLINICAL HISTORY: mid back and lower back pain bilateral radiation anteriorly x 1 month FINDINGS: Multiplanar MR imaging of the lumbar spine was performed without contrast. On the sagittal T2-weighted images, abnormal decreased signal is seen from L3-4 through L5-S1. The vertebrae are of normal height. The vertebral alignment is normal. L1-2: There is no significant canal stenosis or neural foraminal narrowing. L2-3: There is no significant canal stenosis or neural foraminal narrowing. L3-4: There is no significant canal stenosis or neural foraminal narrowing. L4-5: Small midline disc protrusion is present with mild spinal canal compromise. L5-S1: There is no significant canal stenosis or neural foraminal narrowing. IMPRESSION: Small midline disc protrusion is present with mild spinal canal compromise. Reviewed, Interpreted and Dictated by Jay Jay Spear MD Transcribed by Anila Whalen Authenticated and . [facility]
== END ==
LOC: RAD 08:47
PROVIDERS: PCP Internal Medicine Adolescent Medicine; Visit Provider Internal Medicine Adolescent Medicine
DX: M54.6 Pain in thoracic spine (principal); M79.2 Neuralgia and neuritis, unspecified; M54.41 Lumbago with sciatica, right side
CPT/HCPCS: 72146; 72148; 76376

== ENCOUNTER 2022-07-23 12:32 | Day surgery (SDC) | payer OTHER, SELFPAY ==
[2022-07-23 12:40] VITALS: BP 137/84; PULSE 91; RESP 20; BMI 46.5
[2022-07-23 13:00] VITALS: BP 128/91; PULSE 91; RESP 20
--- NOTE | 2022-07-23 13:29 | EXP.PAIN.PRO ---
Procedure Date: 07/23/22 Time: 13:29 Anesthesiologist:: Rishi Collado MD Complications:: None Pre-procedure Diagnosis:: Degenerative disc disease of lumbar spine with lumbar radiculopathy symptoms Post-procedure Diagnosis:: Same Indications for Procedure:: The patient is a pleasant 36-year-old white female who we are treating for low back pain with lumbar radicular symptoms. She was referred to [facility] by Dr. Powell for possible surgical intervention. They said that she was not a surgical candidate and schedule her for injections. She was unable to get a lumbar epidural steroid injection at [facility] for several weeks so she presented to us for lumbar epidural steroid injection under fluoroscopy. Most of her pain is in her back and down her legs. Procedure Details:: Informed consent was obtained and the risk and benefits of the procedure was explained to the patient. The patient was taken to the procedure room. The patient was placed prone on the procedure table. The patient was prepped and draped in sterile fashion. C-arm fluoroscopy was used to view the lumbar spine. Skin and subcutaneous tissues were anesthetized using lidocaine. I placed an 18-gauge epidural needle and advanced into the L4-L5 interspace using fluoroscopic guidance and [id number] to air. After confirmation of needle placement in the epidural space with dye I injected 2 mL of lidocaine 1.5% with Depo-Medrol 80 mg. Patient tolerated the procedure well with no complications. Plan and Disposition:: We will follow-up with this patient in 2 weeks. Will reevaluate symptoms at that time.
== END 2022-07-23 13:00 | disposition home or self-care (01) ==
PROVIDERS: PCP Internal Medicine Adolescent Medicine; Visit Provider Anesthesiology
DX: M51.16 Intervertebral disc disorders with radiculopathy, lumbar region (principal)
CPT/HCPCS: 62323; J1040; Q9966

== ENCOUNTER → 2022-08-06 08:03 | Outpatient (POV) | payer OTHER, SELFPAY ==
[2022-08-06 08:12] VITALS: BP 129/97; PULSE 104; RESP 18; BMI 45.7
--- NOTE | 2022-08-06 09:20 | EXP.PAIN.SOA ---
[facility] Pain Management SOAP Note Subjective:: This patient is a very pleasant 36-year-old female comes our clinic today for follow-up visit after having lumbar epidural steroid injection at the L4-5 level. Patient reports 70 to 80% improvement in her overall low back symptoms as well as bilateral hip and leg radicular symptoms. 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 She is on her feet 8 to 12 hours a day. Patient states she is able to work with minimal pain now. Work around the house and yard with minimal pain. Patient's lumbar MRI shows multilevel degenerative disc. Patient rates her pain today 05/21. Patient's Stuart report #[id number] is been reviewed and appropriate. Objective:: Patient is awake alert [place] x3. In no acute distress. Flexion-extension lumbar spine somewhat guarded secondary to pain. Deep tendon reflexes upper lower extremities normal. Motor strength upper and lower extremities normal. There is no gross sensory deficit. Gait is normal. Assessment:: Degenerative disc disease lumbar spine multilevels. Lumbar radiculopathy Plan:: Patient will schedule a second lumbar epidural steroid injection for the near future. I discussed in detail with the patient regarding a second lumbar epidural steroid injection. She will cancel the appointment if in fact she is continuing to feel well. Otherwise, we will give her a second epidural. [facility] Disclaimer: The information contained in this section may have been updated after the patient was seen, as this information can be updated by other users. Medical History Abnormal EKG Dysmenorrhea Encounter for pre-operative cardiovascular clearance Family history of heart disease Hypertrophic lichen planus of vulva Menorrhagia Vulvar abscess Surgical History History of sleeve gastrectomy Hx of section Hx of cholecystectomy Hx of tonsillectomy Hx of tubal ligation Family History Other Cancer Diabetes Hyperlipidemia Hypertension Social History (Updated 07/23/22 @ 12:48 by Tonia Abbott RN) Smoking Status: Never smoker alcohol intake: never substance use type: denies use current occupational status: employed Travel in the last 8 weeks: None housing: house
--- NOTE | 2022-08-06 09:40 | PC.NURSE ---
called in Rx to [facility] pharmacy for Flexeril 10mg PO HS #30 with no refills per provider order.
== END ==
PROVIDERS: PCP Internal Medicine Adolescent Medicine; Visit Provider Nurse Anesthetist, Certified Registered
DX: M51.16 Intervertebral disc disorders with radiculopathy, lumbar region (principal)
CPT/HCPCS: 99212; G0463

== ENCOUNTER → 2022-10-08 09:24 | Outpatient (CLI) | payer OTHER, SELFPAY ==
[2022-10-08 10:42] LABS: Basophils % 0.6 % (0.1-2.0); Eosinophils # 0.1 K/mm3 (0.0-0.4); Eosinophils % 1.3 % (0.1-12.0); Hematocrit 40.8 % (37.0-47.0); Hemoglobin 13.2 g/dL (12.2-16.2); Lymphocytes # 1.8 K/mm3 (0.7-4.5); Lymphocytes % 27.3 % (10-50); Mean Corpuscular HGB Conc 32.4 g/dL (31.8-35.4); Mean Corpuscular Volume 83.3 fl (81-99); Mean Platelet Volume 8.2 fl (7.4-10.4); Monocytes # 0.6 K/mm3 (0.1-1.0); Monocytes % 8.5 % (1.7-9.3); Neutrophils # 4.1 K/mm3 (1.8-7.8); Neutrophils % 62.4 % (37.0-80.0); Platelet Count 257 K/mm3 (142-424); Red Cell Distribution Width 14.5 % (11.5-17.5); White Blood Count 6.5 K/mm3 (4.8-10.8)
[2022-10-08 11:01] LABS: Hemoglobin A1C 5.2 % (4.0-6.0)
[2022-10-08 11:44] LABS: Alanine Aminotransferase 26 U/L (12-78); Albumin/Globulin Ratio 1.3 (1.1-1.8); Alkaline Phosphatase 91 U/L (38-126); Anion Gap 10.4 mEq/L (5-15); Aspartate Amino Transferase 23 U/L (14-36); Bilirubin,Total 0.2 mg/dl (0.2-1.3); Blood Urea Nitrogen 13 mg/dl (7-17); Calcium 9.3 mg/dl (8.4-10.2); Carbon Dioxide 26 mmol/L (22.0-30.0); Chloride 108 mmol/L (98-107); Chol/HDL Ratio 5.5 (1-3.5); Cholesterol 180 mg/dl (140-200); Estimated Glomerular Filt Rate 80 ml/min (>60); GFR (African American) 97 ML/MIN (>60); Globulin 3.1 g/dL (1.3-3.2); Glucose 88 mg/dl (74-100); HDL Cholesterol 33 mg/dl (40-60); Potassium 4.4 mmoL/L (3.5-5.1); Sodium 140 mmol/L (136-145); Total Protein,Serum 7.1 g/dl (6.3-8.2); Triglycerides 129 mg/dl (30-150); VLDL Cholesterol 26 mg/dL (0-40)
[2022-10-08 11:56] LABS: Direct LDL Cholesterol 109.19 mg/dL (100-129)
[2022-10-08 12:01] LABS: 25-OH Vitamin D, Total 35.8 ng/mL (30-100)
[2022-10-08 12:02] LABS: Free Thyroxine Index 3.8 ug/dL (5.93-13.13); T4 (Thyroxine) 11.6 ug/dl (5.53-11.0); Triiodothryronine (T3) Uptake 33 % (23.5-40.5)
[2022-10-08 12:16] LABS: Thyroid Stimulating Hormone < 0.02 uIU/mL (0.465-4.68)
[2022-10-08 12:35] LABS: Vitamin B12 338 pg/mL (239-931)
== END ==
PROVIDERS: PCP Internal Medicine Adolescent Medicine; Visit Provider Internal Medicine Adolescent Medicine
DX: E05.90 Thyrotoxicosis, unspecified without thyrotoxic crisis or storm (principal); R53.81 Other malaise; R53.83 Other fatigue; Z90.3 Acquired absence of stomach [part of]; Z86.39 Personal history of other endocrine, nutritional and metabolic disease
CPT/HCPCS: 36415; 80053; 80061; 82306; 82607; 83036; 84436; 84443; 84479; 85025

== ENCOUNTER → 2022-11-18 09:53 | Outpatient (CLI) | payer OTHER, SELFPAY ==
--- NOTE | 2022-11-18 09:55 | US_ITS ---
FINAL REPORT CLINICAL HISTORY: NODULE THS LEVELS ARE LOW COMPARISON: None FINDINGS: THYROID ULTRASOUND: The right lobe of the thyroid gland is enlarged, measuring 5.8 x 2.4 x 3.4 cm in size. There is a 4.4 x 2.2 x 2.9 cm well-circumscribed mass in the right lobe, which is mixed cystic and solid isoechoic with a thin hypoechoic rim. This is a TI-RADS 2 category nodule. The left lobe of the thyroid measures 4.8 x 1 x 1.9 cm in size, and no focal nodules or masses are identified. The isthmus is 4 mm in thickness and unremarkable in appearance. IMPRESSION: 4.4 x 2.2 x 2.9 cm well-circumscribed mass in the right lobe as described, a TI-RADS 2 category nodule. Reviewed, Interpreted and Dictated by Leandro Flores III, MD Transcribed by Sunita Conti Authenticated and [facility]
[2022-11-19 05:11] LABS: Thyroid Peroxidase Antibodies 156 IU/mL (0-34)
[2022-11-19 19:35] LABS: Thyroglobulin Level <1.0 IU/mL (0.0-0.9)
== END ==
PROVIDERS: PCP Internal Medicine Adolescent Medicine; Visit Provider Internal Medicine Adolescent Medicine
DX: E05.90 Thyrotoxicosis, unspecified without thyrotoxic crisis or storm (principal); E04.1 Nontoxic single thyroid nodule; R79.9 Abnormal finding of blood chemistry, unspecified
CPT/HCPCS: 36415; 76536; 86376; 86800

== ENCOUNTER → 2022-12-16 06:51 | Outpatient (CLI) | payer OTHER, SELFPAY ==
--- OUTSIDE RECORDS SUMMARY | 2022-12-16 06:53 | XMS_ITS ---
Author Name Unknown Address [address] [place] [address] Phone Organization [facility] , [facility] Address [address] [place] [address] Phone Care Team Providers Care Seat Builder Name Role Phone GRANT BIRCH, ELIAZAR Unavailable [phone] Tracey BIRCH, [facility] Unavailable [phone] Problems Includes: Active, inactive, and resolved Problems All Visits Onset Date Resolved Date Provider Condition S tatus Lower Back Pain 07/20/2022 ROBERT WALLIS PA-C Active Plan of Treatment Instructions to patient Lose weight Last Documented On 3 2:43PM ; [facility] Assessments Includes: Assessments for all patient encounters No Assessments Recorded Instructions Includes: Instructions for all patient encounters Instructions to patient Lose weight Last Documented On 3 2:43PM ; [facility] Medical Equipment - Implanted Devices Includes: Current and historical Devices No Medical Equipment Recorded Medications Includes: Current and historical Medications Current Medications (continue as prescribed) NexIUM 20 MG Oral Capsule Delayed Release 07/20/2022 Provider: Diagnosis:
--- OUTSIDE RECORDS SUMMARY | 2022-12-16 06:53 | XMS_ITS ---
Care Plan - [facility], [facility] Created on: December 16, 2022 Garrett Feliz : 1985 Sex: Female Author Name Unknown Address [address] [place] [address] Phone Organization [facility] Address [address] [place] [address] Phone Care Team Providers Care Egg Grader Name Role Phone GRANT BIRCH, ELIAZAR Unavailable [phone] Tracey BIRCH, Abiola Unavailable [phone]
--- OUTSIDE RECORDS SUMMARY | 2022-12-16 06:53 | XMS_ITS | Clinical Summary ---
Author Name Unknown Address [address] [place] [address] Phone Organization [facility] , [facility] Address [address] [place] [address] Phone Care Team Providers Care Rough Rib Grader Name Role Phone GRANT BIRCH, ELIAZAR Unavailable [phone] Tracey BIRCH, [facility] Unavailable [phone] Reason for Visit and Chief Complaint The Chief Complaint is: Lumbar Spine Pain Problems Includes: Problems addressed during this encounter and other active Problems Current Visit Onset Date Resolved Date Provider Alisa marquez Status Lower Back Pain 07/20/2022 ROBERT WALLIS PA-C Active Plan of Treatment We will set up for an epidural injection to see if this will improve her symptoms further. She may also require some facet blocks depending on her response to the epidural. I do not see any immediate surgical needs. - Last Documented On 07/20/2022 3:30PM ; [facility] Instructions to patient Lose weight Last Documented On 2:43PM ; [facility] Assessments Includes: Assessments from this encounter Findings Symptomatic disc bulge L4-5 with some facet arthritis L4-5 L5-S1. This seems to be causing some lower back pain and right sciatic symptoms but not associated with nerve root compression. - Last Documented On 07/20/2022 3:30PM ; [facility] Instructions Includes: Instructions from this encounter
--- NOTE | 2022-12-16 06:54 | NM_ITS ---
FINAL REPORT TECHNIQUE: Nuclear medicine I-123 examination with 25-hour uptake and imaging. CLINICAL HISTORY: THYROID NODULE 7:00 am 356 uci I123 taken orally FINDINGS: The patient received an oral dose of 356 uCi I-123. Imaging of the thyroid was performed at 25 hours. 25-hour uptake were performed. Thyroid gland uptake is elevated at 43% at 25 hours. There is tracer activity in the right thyroid lobe corresponding to a right thyroid lobe mass consistent with hyperfunctioning nodule/mass and can be seen with both benign and malignant nodules. IMPRESSION: Tracer activity in the right thyroid lobe consistent with a hyperfunctioning nodule/mass and can be seen with both benign and malignant nodules. Reviewed, Interpreted and Dictated by Leandro Flores III, MD Transcribed by Ching Lazar Authenticated and [facility]
== END ==
PROVIDERS: PCP Internal Medicine Adolescent Medicine; Visit Provider Internal Medicine Adolescent Medicine
DX: E05.90 Thyrotoxicosis, unspecified without thyrotoxic crisis or storm (principal)
CPT/HCPCS: 78014; A9516

== ENCOUNTER 2023-06-15 12:29 | Outpatient (CLI) | payer OTHER, SELFPAY ==
[2023-06-16 08:54] LABS: Prolactin 12.4 ng/mL (4.8-33.4)
[2023-06-16 12:01] LABS: Triiodothyronine (T3) Total 147 ng/dL (71-180)
== END 2023-06-15 23:59 ==
LOC: LAB 12:29
PROVIDERS: Specialist; PCP Internal Medicine Adolescent Medicine; Visit Provider Internal Medicine Adolescent Medicine
DX: E04.1 Nontoxic single thyroid nodule (principal); E05.90 Thyrotoxicosis, unspecified without thyrotoxic crisis or storm; E07.9 Disorder of thyroid, unspecified; E65 Localized adiposity
CPT/HCPCS: 36415; 84146; 84480

== ENCOUNTER 2023-06-24 07:39 | Outpatient (CLI) | payer OTHER, SELFPAY ==
--- OUTSIDE RECORDS SUMMARY | 2023-06-24 07:42 | XMS_ITS ---
Care Plan - [facility], [facility] Created on: June 24, 2023 Garrett Feliz : 1985 Sex: Female Author Name Unknown Address [address] [place] [address] Phone Organization [facility] Address [address] [place] [address] Phone Care Team Providers Care Computer Support Technician Name Role Phone GRANT BIRCH, ELIAZAR Unavailable [phone] Tracey BIRCH, Abiola Unavailable [phone]
--- OUTSIDE RECORDS SUMMARY | 2023-06-24 07:42 | XMS_ITS ---
Author Name Unknown Address [address] [place] [address] Phone Organization [facility] , [facility] Address [address] [place] [address] Phone Care Team Providers Care Blockmason Name Role Phone GRANT BIRCH, ELIAZAR Unavailable [phone] Tracey BIRCH, [facility] Unavailable [phone] Problems Includes: Active, inactive, and resolved Problems All Visits Onset Date Resolved Date Provider Condition S tatus Lower Back Pain 07/20/2022 ROBERT WALLIS PA-C Active Last Documented On 3 2:43PM ; [facility] Plan of Treatment Instructions to patient Lose weight Last Documented On 3 2:43PM ; [facility] Assessments Includes: Assessments for all patient encounters No Assessments Recorded Instructions Includes: Instructions for all patient encounters Instructions to patient Lose weight Last Documented On 3 2:43PM ; [facility] Medical Equipment - Implanted Devices Includes: Current and historical Devices No Medical Equipment Recorded Medications Includes: Current and historical Medications Current Medications (continue as prescribed) NexIUM 20 MG Oral Capsule Delayed Release 07/20/2022 Provider: Diagnosis: Last Documented On 3 3:17PM By Garrett Key ; [facility] ZyrTEC Allergy 10 MG Oral Tablet 07/20/2022 Provider : Diagnosis: Last Documented On 3 3:17PM By Garrett Key ; [facility] MiraLax Mix-In [place] 17 GM Oral Packet 07/20/2022 Prov ider: Diagnosis: Last Documented On 3 3:17PM By Garrett Key ; [facility] Daily Multiple Vitamins Oral Tablet 07/20/2022 Provi bettina: Diagnosis: Last Documented On 3 3:17PM By Garrett Key ; [facility] Vitamin D3 1.25 MG (49380 UT) Oral Capsule 07/12/2022 Provider: Diagnosis: Last Documented On 3 3:16PM By Garrett Key ; [facility] HYDROcodone-Acetaminophen 7. 5-325 MG Oral Tablet 07/10/2022 Provider: ELIAZAR BURNS MD Diagnosis: Last Documented On 3 3:16PM By Garrett Key ; [facility] predniSONE 20 MG Oral Tablet 06/30/2022 Provider: ELIAZAR BURNS MD Diagnosis: Last Documented On 3 3:16PM By Garrett Key ; [facility] Medications Administered Includes: Administered Medications in patient's chart No Administered Medications Recorded Vital Signs Includes: Vital Signs from 06/23/2022 through 06/24/2023 Vital Name 07/20/2022 02:43P Height (in) 63 Weight (lb) 263 Body Mass Index 46.6 Body Surface Area 2.2 Note: asn Last Documented: On 07/20/2022 3:08PM ; [facility] Results Includes: Results from 06/23/2022 through 06/24/2023 No Results Recorded For Specified Dates History of Present Illness History of Present Illness not supported for this document type No History of Present Illness Recorded Social History Description Last Updated Tobacco non-user 07/20/2022 Last Documented On 3 3:30PM ; [facility] Caffeine use 07/20/2022 Last Documented On 3 3:30PM ; [facility] Exercising regularly 07/20/2022 Last Documented On 3 3:30PM ; [facility] No recent change in diet 07/20/2022 Last Documented On 3 3:30PM ; [facility] Not a current smoker. 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 Last Documented On 3 3:30PM ; [facility] Smoking Status Unknown Procedures and Surgical History Includes: Procedures from 06/23/2022 through 06/24/2023 Procedures Code Diagnosis Performing Provider Service Location Service Date X-RAY EXAM OF LOWER SPINE 2-3 VIEWS LIMITED 00161 Other intervertebral disc displacement, lumbar region, Sciatica, right side ROBERT WALLIS PA-C [facility] 07/20/2022 Last Documented On 3 8:42AM ; [facility] Surgical History Last Updated Hernia repair 07/20/2022 Last Documented On 3 3:30PM ; [facility] History of Past Surgical History: 2022 Last Documented On 3 3:30PM ; [facility] Medical History Includes: Medical History in patient's chart Description Last Updated Depression 07/20/2022 Last Documented On 3 3:30PM ; [facility] Heartburn / Acid Reflux 07/20/2022 Last Documented On 3 3:30PM ; [facility] History of Fractures 07/20/2022 Last Documented On 3 3:30PM ; [facility] History of Gallbladder 07/20/2022 Last Documented On 3 3:30PM ; [facility] Hypertension 07/20/2022 Last Documented On 3 3:30PM ; [facility] Family History Includes: Family History in patient's chart Description Last Updated Diabetes mellitus 07/20/2022 Last Documented On 3 3:30PM ; [facility] Family history of cancer 07/20/2022 Last Documented On 3 3:30PM ; [facility] Family history of heart disease 07/21/19 Last Documented On 3 3:30PM ; [facility] Family history of systemic hypertension 07/20/2022 Last Documented On 3 3:30PM ; [facility] Maternal grandfather's history of family history of cancer 07/20/2022 Last Documented On 3 3:30PM ; [facility] Maternal grandfather's history of family history of heart disease 07/20/2022 Last Documented On 3 3:30PM ; [facility] Maternal grandfather's history of system ic hypertension 07/20/2022 Last Documented On 3 3:30PM ; [facility] Maternal grandmother's history of diabet es mellitus 07/20/2022 Last Documented On 3 3:30PM ; [facility] Maternal grandmother's history of family history of heart disease 07/20/2022 Last Documented On 3 3:30PM ; [facility] Maternal grandmother's history of system ic hypertension 07/20/2022 Last Documented On 3 3:30PM ; [facility] Maternal history of systemic hypertensio n 07/20/2022 Last Documented On 3 3:30PM ; [facility] Paternal grandfather's history of family history of cancer 07/20/2022 Last Documented On 3 3:30PM ; [facility] Paternal grandfather's history of system ic hypertension 07/20/2022 Last Documented On 3 3:30PM ; [facility] Paternal grandmother's history of family history of cancer 07/20/2022 Last Documented On 3 3:30PM ; [facility] Paternal grandmother's history of system ic hypertension 07/20/2022 Last Documented On 3 3:30PM ; [facility] Paternal history of family history of he art disease 07/20/2022 Last Documented On 3 3:30PM ; [facility] Paternal history of systemic hypertensio n 07/20/2022 Last Documented On 3 3:30PM ; [facility] Review of Systems Review of Systems not supported for this document type No Review of Systems Recorded Mental Status Description Anxiety Depression Functional Status No Functional Status Recorded Physical Exam Physical Exam not supported for this document type No Physical Exam Recorded Allergies Includes: Active, inactive, and resolved Allergies Substance Type Reaction Onset Date Resolved Date Statu s Erythromycin Allergy 07/20/2022 Active Last Documented On 3 3:16PM ; [facility] Bactrim Allergy 07/20/2022 Active Last Documented On 3 3:15PM ; [facility] Encounters Includes: Encounters from 06/23/2022 through 06/24/2023 Encounter Provider Location Date Check-In Time Check-Out Time Diagnosis Physician Specified ROBERT WALLIS PA-C [facility] 07/21/19 23 2:38PM 3:37PM Insurance Includes: Active Insurance Policies Plan Name Member ID Group # Subscriber Relationship Effect lamont Dates 1 - [facility] [id number] Garrett Feliz Self Clinical Notes Includes: Signed Clinical Notes starting from 02/25/2022 * Progress note Date Encounter Last Documented by 07/20/2022 Physician Specified Last thuan karson on 07/20/2022; 3:30 PM, ROBERT WALLIS PA-C; [facility] Active Problems & Conditions - Lower Back Pain Chief Complaint The Chief Complaint is: Lumbar Spine Pain. Referred Here Referred by Dr. Burns. History of Present Illness Garrett Feliz is a 36 year old female. - Symptoms Pain is better with lying on the left side and pain medication Pain is worse with bending, lifting and standing. - Allergy list reviewed - Problem list reviewed - Medication list reviewed - Previous history of new onset pain 06/2022 Injury is not work related or an automotive accident - Patient pain level from 1-10: 8 - Yes, previous treatment. Dr. Burns, PCP Medications used for this condition: Patient presents today with ongoing complaints of pain across the lower back into the right hip and buttock area. Patient reports her symptoms started back on Tuesday when she was throwing wood into the back of a trailer on the. Patient started having symptoms immediately at that time. And since then she has had quite a bit of pain and discomfort across the lumbosacral area and into the right buttock area. Activities worsen her symptoms but she can still get pain at rest. She does not have nerve root compression complaints associated with this. Patient has seen her family physician. He is treated this with some oral steroids and some anti- inflammatories which do not seem to help much. She has had some physical therapy also without much improvement. 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 Patient's come to see us for further assessment treatment options. Current Medication - Daily Multiple Vitamins Oral Tablet 0 days, 0 refills - HYDROcodone-Acetaminophen 7.5-325 MG Oral Tablet 7 days, 0 refills - MiraLax Mix-In [place] 17 GM Oral Packet 0 days, 0 refills - NexIUM 20 MG Oral Capsule Delayed Release 0 days, 0 refills - predniSONE 20 MG Oral Tablet 7 days, 0 refills - Vitamin D3 1.25 MG (13107 UT) Oral Capsule 28 days, 0 refills - ZyrTEC Allergy 10 MG Oral Tablet 0 days, 0 refills Past Medical/Surgical History Reported: History of Fractures. Diagnoses: Heartburn / Acid Reflux Hypertension. Depression Procedural: - History of Gallbladder Surgical: - Past Surgical History: - Hernia repair Social History Not a current smoker. Current diet: No recent change in diet. Caffeine use: Caffeine use. Tobacco use: Tobacco non-user. Never smoked. Alcohol: Not using alcohol. Never drank alcohol. Drug Use: Not using drugs. Habits: Exercising regularly. 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 Allergies - Bactrim - Erythromycin Family History Cancer Heart disease Diabetes mellitus Systemic hypertension Paternal: Heart disease Systemic hypertension Maternal: Systemic hypertension Paternal grandfather's: Cancer Systemic hypertension Paternal grandmother's: Cancer Systemic hypertension Maternal grandfather's: Cancer Heart disease Systemic hypertension Maternal grandmother's: Heart disease Systemic hypertension Diabetes mellitus Review Of Systems Systemic: No symptoms, not feeling tired, no recent weight loss, and no recent weight gain. Head: Headache. No sinus pain. Eyes: No vision problems and no Cataracts. Glasses/Contacts. No Glaucoma. Otolaryngeal: No hearing loss and no tinnitus. Cardiovascular: No chest pain or discomfort, no palpitations, no Hypertension, and no High Cholesterol. Pulmonary: No daytime asthma symptoms and no chronic cough. No wheezing. Gastrointestinal: Heartburn. No abdominal pain. No Indigestion, no Acid Reflux, no Peptic Ulcer, no GI Stomach Bleed, and no Ulcers. Endocrine: No hot flashes. Muscle weakness. No Diabetes and no Hypothyroid. Hyperthyroid. Hematologic: No easy bleeding, no tendency for easy bruising, and no Anemia. Musculoskeletal: No Arthritis and no lower back pain. No soft tissue swelling. Pain localized to one or more joints. Neurological: No dizziness, no convulsions, and no numbness. Psychological: Anxiety. No emotional lability. Depression. No insomnia. Not crying for no reason. Skin: No dry skin. No Ulcers, no Scars, and no rash. Allergic and Immunologic: Complaint of seasonal allergic reaction. Physical Findings - Vitals taken 07/20/2022 02:43 pm asn Height 63 in 60 - 75 Weight 263 lbs 98 - 183 Body Mass Index 46.6 kg/m2 Body Surface Area 2.2 m2 Standard Measurements: - Patient was overweight. Skin is unremarkable. No appreciable spasm or scoliosis. She has some pain with forward flexion. But mostly with extension causing increasing pain across the lower back and into the right buttock and sciatic nerve area. Hip knee and ankle motion normal. She has normal gait. Straight leg raising causing increasing pain in the lower back and right buttock area. But no nerve root compression symptoms distally. Tests X-rays demonstrate some disc degeneration facet arthritis. No evidence of fractures or gross instability. Recent MRI scanning identifying a disc bulge at the L4-5 level which appears to be encroaching upon the nerve roots at that level. Assessment Symptomatic disc bulge L4-5 with some facet arthritis L4-5 L5-S1. This seems to be causing some lower back pain and right sciatic symptoms but not associated with nerve root compression. Previous Tests Imaging: MRI Scan: An MRI was performed. Counseling/Education - Lose weight Plan We will set up for an epidural injection to see if this will improve her symptoms further. She may also require some facet blocks depending on her response to the epidural. I do not see any immediate surgical needs. Notes This dictation was done with voice recognition software and may contain errors and omissions. Practice Management Use of tobacco assessment performed. Care Team - ELIAZAR BURNS MD - EDUCATION OFFICER Health Reminders - Assess BMI satisfied 07/20/2022. - Assess Tobacco Use satisfied 07/20/2022. - Follow Up Plan BMI Management satisfied 07/20/2022.
--- OUTSIDE RECORDS SUMMARY | 2023-06-24 07:42 | XMS_ITS | Clinical Summary ---
Author Name Unknown Address [address] [place] [address] Phone Organization [facility] , [facility] Address [address] [place] [address] Phone Care Team Providers Care Tag Meter Operator Name Role Phone GRANT BIRCH, ELIAZAR Unavailable [phone] Tracey BIRCH, [facility] Unavailable [phone] Reason for Visit and Chief Complaint The Chief Complaint is: Lumbar Spine Pain Problems Includes: Problems addressed during this encounter and other active Problems Current Visit Onset Date Resolved Date Provider Alisa marquez Status Lower Back Pain 07/20/2022 ROBERT WALLIS PA-C Active Last Documented On 3 2:43PM ; [facility], [facility] Plan of Treatment We will set up for an epidural injection to see if this will improve her symptoms further. She may also require some facet blocks depending on her response to the epidural. I do not see any immediate surgical needs. - Last Documented On 07/20/2022 3:30PM ; [facility], [facility] Instructions to patient Lose weight Last Documented On 3 2:43PM ; [facility], [facility] Assessments Includes: Assessments from this encounter Findings Symptomatic disc bulge L4-5 with some facet arthritis L4-5 L5-S1. This seems to be causing some lower back pain and right sciatic symptoms but not associated with nerve root compression. - Last Documented On 07/20/2022 3:30PM ; [facility], [facility] Instructions Includes: Instructions from this encounter Instructions to patient Lose weight Last Documented On 3 2:43PM ; [facility], [facility] Medical Equipment - Implanted Devices Includes: Current Devices No Medical Equipment Recorded Medications Includes: Medications discussed during this encounter and other current Medications Current Medications (continue as prescribed) NexIUM 20 MG Oral Capsule Delayed Release 07/20/2022 Provider: Diagnosis: Last Documented On 3 3:17PM By Garrett Key ; [facility], [facility] ZyrTEC Allergy 10 MG Oral Tablet 07/20/2022 Provider : Diagnosis: Last Documented On 3 3:17PM By Garrett Key ; [facility], [facility] MiraLax Mix-In Delta 17 GM Oral Packet 07/20/2022 Prov ider: Diagnosis: Last Documented On 3 3:17PM By Garrett Key ; [facility], [facility] Daily Multiple Vitamins Oral Tablet 07/20/2022 Provi bettina: Diagnosis: Last Documented On 3 3:17PM By Garrett Key ; [facility], [facility] Vitamin D3 1.25 MG (73045 UT) Oral Capsule 07/12/2022 Provider: Diagnosis: Last Documented On 3 3:16PM By Garrett Key ; [facility], [facility] HYDROcodone-Acetaminophen 7. 5-325 MG Oral Tablet 07/10/2022 Provider: ELIAZAR BURNS MD Diagnosis: Last Documented On 3 3:16PM By Garrett Key ; [facility] predniSONE 20 MG Oral Tablet 06/30/2022 Provider: ELIAZAR BURNS MD Diagnosis: Last Documented On 3 3:16PM By Garrett Key ; [facility] Medications Administered Includes: Administered Medications from this encounter No Administered Medications Recorded Vital Signs Includes: Vital Signs from this encounter Vital Name 07/20/2022 02:43P Height (in) 63 Weight (lb) 263 Body Mass Index 46.6 Body Surface Area 2.2 Note: asn Last Documented: On 07/20/2022 3:08PM ; [facility], [facility] Results Includes: Results discussed during this encounter No Results Recorded For Specified Dates History of Present Illness Includes: History of Present Illness from this encounter HPI Garrett Feliz is a 36 year old [...] 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 Patient's come to see us for further assessment treatment options. Social History Description Last Updated Tobacco non-user 07/20/2022 Last Documented On 3 3:30PM ; [facility], [facility] Caffeine use 07/20/2022 Last Documented On 3 3:30PM ; [facility], [facility] Exercising regularly 07/20/2022 Last Documented On 3 3:30PM ; [facility], [facility] No recent change in diet 07/20/2022 Last Documented On 3 3:30PM ; [facility], [facility] Not a current smoker. 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 Last Documented On 3 3:30PM ; [facility], [facility] Smoking Status Unknown Procedures and Surgical History Includes: Procedures from this encounter Procedures Code Diagnosis Performing Provider Service Location Service Date X-RAY EXAM OF LOWER SPINE 2-3 VIEWS LIMITED 61900 Other intervertebral disc displacement, lumbar region, Sciatica, right side ROBERT WALLIS PA-C [facility] 07/20/2022 Last Documented On 3 8:42AM ; [facility], [facility] use of tobacco assessment performed 1000F Last Documented On 3 2:43PM ; [facility], [facility] an MRI was performed 71850 Last Documented On 3 3:15PM ; [facility], [facility] Surgical History Last Updated Hernia repair 07/20/2022 Last Documented On 3 3:30PM ; [facility], [facility] History of Past Surgical History: 2022 Last Documented On 3 3:30PM ; [facility], [facility] Medical History Includes: Medical History addressed during this encounter Description Last Updated Depression 07/20/2022 Last Documented On 3 3:30PM ; [facility], [facility] Heartburn / Acid Reflux 07/20/2022 Last Documented On 3 3:30PM ; [facility], [facility] History of Fractures 07/20/2022 Last Documented On 3 3:30PM ; [facility], [facility] History of Gallbladder 07/20/2022 Last Documented On 3 3:30PM ; [facility], [facility] Hypertension 07/20/2022 Last Documented On 3 3:30PM ; [facility], [facility] Family History Includes: Family History addressed during this encounter Description Last Updated Diabetes mellitus 07/20/2022 Last Documented On 3 3:30PM ; [facility], [facility] Family history of cancer 07/20/2022 Last Documented On 3 3:30PM ; [facility], [facility] Family history of heart disease 07/21/19 Last [...] 3 3:30PM ; [facility] Paternal history of family history of he art disease 07/20/2022 Last Documented On 3 3:30PM ; [facility] Paternal history of systemic hypertensio n 07/20/2022 Last Documented On 3 3:30PM ; [facility] Review of Systems Includes: Review of Systems from this encounter Systemic: No symptoms, not feeling tired, no [...] and Immunologic: Complaint of seasonal allergic reaction. Mental Status Includes: Mental Status from this encounter Description Anxiety Depression Functional Status Includes: Functional Status from this encounter No Functional Status Recorded Physical Exam Includes: Physical Exam from this encounter Allergies Includes: Active Allergies Substance Type Reaction Onset Date Resolved Date Statu s Erythromycin Allergy 07/20/2022 Active Last Documented On 3 3:16PM ; [facility] Bactrim Allergy 07/20/2022 Active Last Documented On 3 3:15PM ; [facility] Encounters Encounter Provider Location Date Check-In Time Check-Out Time Diagnosis Physician Specified ROBERT WALLIS PA-C [facility] 07/21/19 23 2:38PM 3:37PM Insurance Includes: Active Insurance Policies Plan Name Member ID Group # Subscriber Relationship Effect lamont Dates 1 - [facility] [id number] Garrett Feliz Self Clinical Notes Includes: Clinical Notes from this encounter * Progress note Date Encounter Last Documented by 07/20/2022 Physician Specified Last thuan ty on 07/20/2022; 3:30 PM, ROBERT WALLIS PA-C; [facility], [facility] Active Problems & Conditions - Lower Back [...] 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 Patient's come to see us for further assessment treatment options. Current Medication - Daily Multiple Vitamins Oral Tablet 0 days, 0 refills - HYDROcodone-Acetaminophen 7.5-325 MG Oral Tablet 7 days, 0 refills - MiraLax Mix-In Delta 17 GM Oral Packet 0 days, 0 refills - NexIUM 20 MG Oral Capsule Delayed Release 0 days, 0 refills - predniSONE 20 MG Oral Tablet 7 days, 0 refills - Vitamin D3 1.25 MG (94442 UT) Oral Capsule 28 days, 0 refills [...] using drugs. Habits: Exercising regularly. 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 Allergies - Bactrim - Erythromycin Family History [...] Care Team - ELIAZAR BURNS MD - SHOE ASSOCIATE Health Reminders - Assess BMI satisfied 07/20/2022. - Assess Tobacco Use satisfied 07/20/2022. - Follow Up Plan BMI Management satisfied 07/20/2022.
[2023-07-02 07:04] LABS: Miscellaneous Test SCANNED IMAGE
== END 2023-06-24 23:59 | disposition home or self-care (01) ==
LOC: LAB.DROPOF 07:40
PROVIDERS: PCP Internal Medicine Adolescent Medicine; Visit Provider Specialist
DX: E65 Localized adiposity (principal)

== ENCOUNTER 2023-07-15 13:08 | Outpatient (CLI) | payer OTHER, SELFPAY ==
--- OUTSIDE RECORDS SUMMARY | 2023-07-15 13:10 | XMS_ITS ---
Care Plan - [facility], [facility] Created on: July 15, 2023 Garrett Feliz : 1985 Sex: Female Author Name Unknown Address [address] [place] [address] Phone Organization [facility] Address [address] [place] [address] Phone Care Team Providers Care Saddle Stitching Machine Operator Name Role Phone GRANT BIRCH, ELIAZAR Unavailable [phone] Tracey BIRCH, Abiola Unavailable [phone]
--- OUTSIDE RECORDS SUMMARY | 2023-07-15 13:10 | XMS_ITS | Clinical Summary ---
Author Name Unknown Address [address] [place] [address] Phone Organization [facility] , [facility] Address [address] [place] [address] Phone Care Team Providers Care Sack Lifter Name Role Phone GRANT BIRCH, ELIAZAR Unavailable [phone] Tracey BIRCH, [facility] Unavailable [phone] Reason for Visit and Chief Complaint The Chief Complaint is: Lumbar Spine Pain Problems Includes: Problems addressed during this encounter and other active Problems Current Visit Onset Date Resolved Date Provider Alisa marquez Status Lower Back Pain 07/20/2022 ROBERT WALLIS PA-C Active Last Documented On 3 2:43PM ; [facility], [facility] Plan of Treatment We will set up for an epidural injection to see if this will improve her symptoms further. She may also require some facet blocks depending on her response to the epidural. I do not see any immediate surgical needs. - Last Documented On 07/20/2022 3:30PM ; [facility], [facility] Instructions to patient Lose weight Last Documented On 3 2:43PM ; [facility], [facility] Assessments Includes: Assessments from this encounter Findings Symptomatic disc bulge L4-5 with some facet arthritis L4-5 L5-S1. This seems to be causing some lower back pain and right sciatic symptoms but not associated with nerve root compression. - Last Documented On 07/20/2022 3:30PM ; [facility], [facility] Instructions Includes: Instructions from this encounter Instructions to patient Lose weight Last Documented On 3 2:43PM ; [facility], [facility] Medical Equipment - Implanted Devices Includes: Current Devices No Medical Equipment Recorded Medications Includes: Medications discussed during this encounter and other current Medications Current Medications (continue as prescribed) NexIUM 20 MG Oral Capsule Delayed Release 07/20/2022 Provider: Diagnosis: Last Documented On 3 3:17PM By Garrett Key ; [facility], [facility] ZyrTEC Allergy 10 MG Oral Tablet 07/20/2022 Provider : Diagnosis: Last Documented On 3 3:17PM By Garrett Key ; [facility], [facility] MiraLax Mix-In [place] 17 GM Oral Packet 07/20/2022 Prov ider: Diagnosis: Last Documented On 3 3:17PM By Garrett Key ; [facility], [facility] Daily Multiple Vitamins Oral Tablet 07/20/2022 Provi bettina: Diagnosis: Last Documented On 3 3:17PM By Garrett Key ; [facility], [facility] Vitamin D3 1.25 MG (83707 UT) Oral Capsule 07/12/2022 Provider: Diagnosis: Last Documented On 3 3:16PM By Garrett Key ; [facility], [facility] HYDROcodone-Acetaminophen 7. 5-325 MG Oral Tablet 07/10/2022 Provider: ELIAZAR BURNS MD Diagnosis: Last Documented On 3 3:16PM By Garrett Key ; [facility] predniSONE 20 MG Oral Tablet 06/30/2022 Provider: ELIAZAR BURNS MD Diagnosis: Last Documented On 3 3:16PM By Garrett Key ; [facility] Medications Administered Includes: Administered Medications from this encounter No Administered Medications Recorded Vital Signs Includes: Vital Signs from this encounter Vital Name 07/20/2022 02:43P Height (in) 63 Weight (lb) 263 Body Mass Index 46.6 Body Surface Area 2.2 Note: asn Last Documented: On 07/20/2022 3:08PM ; [facility], [facility] Results Includes: Results discussed during [...] 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 Social History Description Last Updated Tobacco non-user 07/20/2022 Last Documented On 3 3:30PM ; [facility], [facility] Caffeine use 07/20/2022 Last Documented On 3 3:30PM ; [facility], [facility] Exercising regularly 07/20/2022 Last Documented On 3 3:30PM ; [facility], [facility] No recent change in diet 07/20/2022 Last Documented On 3 3:30PM ; [facility], [facility] Not a current smoker. 07/20/2022 Last Documented On 3 3:30PM ; [facility], [facility] Not using alcohol 07/20/2022 Last Documented On 3 3:30PM ; [facility], [facility] Not using drugs 07/20/2022 Last Documented On 3 3:30PM ; [facility], [facility] Never drank alcohol 07/20/2022 Last Documented On 3 3:30PM ; [facility], [facility] Never smoked 07/20/2022 Last Documented On 3 3:30PM ; [facility], [facility] 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 Last Documented On 3 3:30PM ; [facility], [facility] Smoking Status Unknown Procedures and Surgical History Includes: Procedures from this encounter Procedures Code Diagnosis Performing Provider Service Location Service Date X-RAY EXAM OF LOWER SPINE 2-3 VIEWS LIMITED 97286 Other intervertebral disc displacement, lumbar region, Sciatica, right side ROBERT WALLIS PA-C [facility] 07/20/2022 Last Documented On 3 8:42AM ; [facility], [facility] use of tobacco assessment performed 1000F Last Documented On 3 2:43PM ; [facility], [facility] an MRI was performed 01984 Last Documented On 3 3:15PM ; [facility], [facility] Surgical History Last Updated Hernia repair 07/20/2022 Last Documented On 3 3:30PM ; [facility], [facility] History of Past Surgical History: 2022 Last Documented On 3 3:30PM ; [facility], [facility] Medical History Includes: Medical History addressed during this encounter Description Last Updated Depression 07/20/2022 Last Documented On 3 3:30PM ; [facility], [facility] Heartburn / Acid Reflux 07/20/2022 Last Documented On 3 3:30PM ; [facility], [facility] History of Fractures 07/20/2022 Last Documented On 3 3:30PM ; [facility], [facility] History of Gallbladder 07/20/2022 Last Documented On 3 3:30PM ; [facility], [facility] Hypertension 07/20/2022 Last Documented On 3 3:30PM ; [facility], [facility] Family History Includes: Family History addressed during this encounter Description Last Updated Diabetes mellitus 07/20/2022 Last Documented On 3 3:30PM ; [facility], [facility] Family history of cancer 07/20/2022 Last Documented On 3 3:30PM ; [facility], [facility] Family history of heart disease [...] Time Diagnosis Physician Specified ROBERT WALLIS PA-C [facility] 07/21/19 23 2:38PM 3:37PM Insurance Includes: Active Insurance Policies Plan Name Member ID Group # Subscriber Relationship Effect lamont Dates 1 - [facility] [id number] Garrett Feliz Self Clinical Notes Includes: Clinical Notes from this encounter * Progress note Date Encounter Last Documented by 07/20/2022 Physician Specified Last thuan ty on 07/20/2022; 3:30 PM, ROBERT WALLIS PA-C; [facility], [facility] Active Problems & Conditions - [...] 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 Current Medication - Daily Multiple Vitamins Oral Tablet 0 days, 0 refills - HYDROcodone-Acetaminophen 7.5-325 MG Oral Tablet 7 days, 0 refills - MiraLax Mix-In [place] 17 GM Oral Packet 0 days, 0 refills - NexIUM 20 MG Oral Capsule Delayed Release 0 days, 0 refills - predniSONE 20 MG Oral Tablet 7 days, 0 refills - Vitamin D3 1.25 MG (07407 UT) Oral Capsule 28 days, 0 refills [...] using drugs. Habits: Exercising regularly. 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 Allergies - Bactrim - Erythromycin Family History [...] Care Team - ELIAZAR BURNS MD - OIL PAINT SHADER Health Reminders - Assess BMI satisfied 07/20/2022. - Assess Tobacco Use satisfied 07/20/2022. - Follow Up Plan BMI Management satisfied 07/20/2022.
--- OUTSIDE RECORDS SUMMARY | 2023-07-15 13:10 | XMS_ITS ---
Author Name Unknown Address [address] [place] [address] Phone Organization [facility] , [facility] Address [address] [place] [address] Phone Care Team Providers Care Hydrochloric Acid Operator Name Role Phone GRANT BIRCH, ELIAZAR Unavailable [phone] Tracey BIRCH, [facility] Unavailable [phone] Problems Includes: Active, inactive, and resolved Problems All Visits Onset Date Resolved Date Provider Condition S tatus Lower Back Pain 07/20/2022 ROBERT WALLIS PA-C Active Last Documented On 3 2:43PM ; [facility], [facility] Plan of Treatment Instructions to patient Lose weight Last Documented On 3 2:43PM ; [facility], [facility] Assessments Includes: Assessments for all patient encounters No Assessments Recorded Instructions Includes: Instructions for all patient encounters Instructions to patient Lose weight Last Documented On 3 2:43PM ; [facility], [facility] Medical Equipment - Implanted Devices Includes: Current and historical Devices No Medical Equipment Recorded Medications Includes: Current and historical Medications Current Medications (continue as prescribed) NexIUM 20 MG Oral Capsule Delayed Release 07/20/2022 Provider: Diagnosis: Last Documented On 3 3:17PM By Garrett Key ; [facility], [facility] ZyrTEC Allergy 10 MG Oral Tablet 07/20/2022 Provider : Diagnosis: Last Documented On 3 3:17PM By Garrett Key ; [facility], [facility] MiraLax Mix-In Lisco 17 GM Oral Packet 07/20/2022 Prov ider: Diagnosis: Last Documented On 3 3:17PM By Garrett Key ; MARILU PINEDO [facility] Daily Multiple Vitamins Oral Tablet 07/20/2022 Provi bettina: Diagnosis: Last Documented On 3 3:17PM By Garrett Key ; [facility]ILU PINEDO, [facility] Vitamin D3 1.25 MG (79917 UT) Oral Capsule 07/12/2022 Provider: Diagnosis: Last [...] Recorded Vital Signs Includes: Vital Signs from 07/14/2022 through 07/15/2023 Vital Name 07/20/2022 02:43P Height (in) 63 Weight (lb) 263 Body Mass Index 46.6 Body Surface Area 2.2 Note: asn Last Documented: On 07/20/2022 3:08PM ; MARILU PINEDO [facility] Results Includes: Results from 07/14/2022 through 07/15/2023 No Results Recorded For Specified Dates History [...] Documented On 3 3:30PM ; MARILU PINEDO [facility] No recent change in diet 07/20/2022 Last Documented On 3 3:30PM ; MARYBETH ALICEA Not a current smoker. 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 07/20/2022 Last Documented On 3 8:42AM ; [facility] Surgical History Last Updated Hernia repair 07/20/2022 Last Documented On 3 3:30PM ; [facility] History of Past Surgical History: 2022 Last Documented On 3 3:30PM ; [facility] Medical History Includes: Medical History in patient's chart Description Last Updated Depression 07/20/2022 Last Documented On 3 3:30PM ; [facility], [facility] Heartburn / Acid Reflux 07/20/2022 Last Documented On 3 3:30PM ; [facility] History of Fractures 07/20/2022 Last Documented On 3 3:30PM ; [facility] History of Gallbladder 07/20/2022 Last Documented On 3 3:30PM ; [facility] Hypertension 07/20/2022 Last Documented On 3 3:30PM ; [facility], [facility] Family History Includes: Family History in [...] 07/20/2022 Last Documented On 3 3:30PM ; [facility] Paternal history of family history of he art disease 07/20/2022 Last Documented On 3 3:30PM ; [facility] Paternal history of systemic hypertensio n 07/20/2022 Last Documented On 3 3:30PM ; [facility] Review of Systems Review of Systems not [...] Active Last Documented On 3 3:16PM ; [facility] Bactrim Allergy 07/20/2022 Active Last Documented On 3 3:15PM ; [facility] Encounters Includes: Encounters from 07/14/2022 through 07/15/2023 Encounter Provider Location Date Check-In Time Check-Out Time Diagnosis Physician Specified ROBERT WALLIS PA-C [facility] 07/21/19 23 2:38PM 3:37PM Insurance Includes: Active Insurance Policies Plan Name Member ID Group # Subscriber Relationship Effect lamont Dates 1 - [facility] [id number] Garrett Feliz Self Clinical Notes Includes: Signed Clinical Notes starting from 02/25/2022 * Progress note Date Encounter Last Documented by 07/20/2022 Physician Specified Last thuan karson on 07/20/2022; 3:30 PM, ROBERT WALLIS PA-C; [facility] Active Problems & Conditions - Lower Back [...] 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 Patient's come to see us for further assessment treatment options. Current Medication - Daily Multiple Vitamins Oral Tablet 0 days, 0 refills - HYDROcodone-Acetaminophen 7.5-325 MG Oral Tablet 7 days, 0 refills - MiraLax Mix-In Lisco 17 GM Oral Packet 0 days, 0 refills - NexIUM 20 MG Oral Capsule Delayed Release 0 days, 0 refills - predniSONE 20 MG Oral Tablet 7 days, 0 refills - Vitamin D3 1.25 MG (90916 UT) Oral Capsule 28 days, 0 refills [...] using drugs. Habits: Exercising regularly. 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 Allergies - Bactrim - Erythromycin Family History [...] Care Team - ELIAZAR BURNS MD - AGENCY SERVICE COORDINATOR Health Reminders - Assess BMI satisfied 07/20/2022. - Assess Tobacco Use satisfied 07/20/2022. - Follow Up Plan BMI Management satisfied 07/20/2022.
[2023-07-15 14:39] LABS: Free T4 (Free Thyroxine) 1.11 ng/dl (0.78-2.19)
[2023-07-15 14:58] LABS: Thyroid Stimulating Hormone < 0.02 uIU/mL (0.465-4.68)
== END 2023-07-15 23:59 | disposition home or self-care (01) ==
LOC: LAB 13:08
PROVIDERS: PCP Internal Medicine Adolescent Medicine; Visit Provider Specialist
DX: E04.1 Nontoxic single thyroid nodule (principal)
CPT/HCPCS: 36415; 84439; 84443

== ENCOUNTER 2023-12-01 10:19 | Outpatient (CLI) | payer OTHER, SELFPAY ==
--- NOTE | 2023-12-01 10:36 | XR_ITS ---
FINAL REPORT CLINICAL HISTORY: Pre-Op Testing Palpitations, sob COMPARISON: 05/06/2021 FINDINGS: 2 views of the chest were obtained . The heart is normal in size. The mediastinum is within normal limits. The lungs are clear. There is no pneumothorax. Osseous structures are unremarkable. IMPRESSION: No acute cardiopulmonary process. Reviewed, Interpreted and Dictated by Jay Jay Spear MD Transcribed by Alexa Sultana Authenticated and [facility]
[2023-12-01 10:50] LABS: Urine Pregnancy, HCG Qual. Negative (Negative)
--- NOTE | 2023-12-01 10:52 | ECG_ITS ---
APPROVED REPORT Exam: Resting ECG HR:77 bpm ECG Measurements Heart Rate 77 AXES WY 164 P 42 QRSd 117 QRS 23 QT 368 T 16 QTc 400 Conclusion SINUS RHYTHM LOW QRS VOLTAGE IN PRECORDIAL LEADS [QRS DEFLECTION < 1.0 mV IN CHEST LEADS] MODERATE INTRAVENTRICULAR CONDUCTION DELAY [110+ ms QRS DURATION] BORDERLINE ECG UNCONFIRMED REPORT Electronically signed by : Carlos Coelho MD 12/02/2023 14:18:32
[2023-12-01 10:53] LABS: Basophils # 0.1 K/mm3 (0-0.2); Eosinophils # 0.2 K/mm3 (0.0-0.4); Eosinophils % 2.7 % (0.1-12.0); Hematocrit 28.9 % (37.0-47.0); Hemoglobin 8.6 g/dL (12.2-16.2); Lymphocytes # 1.8 K/mm3 (0.7-4.5); Lymphocytes % 31.5 % (10-50); Mean Corpuscular HGB Conc 29.8 g/dL (31.8-35.4); Mean Corpuscular Hemoglobin 19.6 pg (27.0-31.2); Mean Corpuscular Volume 65.8 fl (81-99); Mean Platelet Volume 8.2 fl (7.4-10.4); Monocytes # 0.6 K/mm3 (0.1-1.0); Monocytes % 10.5 % (1.7-9.3); Neutrophils % 54.3 % (37.0-80.0); Platelet Count 364 K/mm3 (142-424); Red Cell Distribution Width 17.8 % (11.5-17.5); White Blood Count 5.6 K/mm3 (4.8-10.8)
[2023-12-01 11:06] LABS: Albumin Level 3.9 g/dl (3.5-5.0); Chloride 108 mmol/L (98-107); Sodium 137 mmol/L (136-145)
[2023-12-01 11:09] LABS: Alanine Aminotransferase 24 U/L (12-78); Albumin/Globulin Ratio 1.3 (1.1-1.8); Alkaline Phosphatase 87 U/L (38-126); Aspartate Amino Transferase 25 U/L (14-36); Bilirubin,Total 0.4 mg/dl (0.2-1.3); Blood Urea Nitrogen 15 mg/dl (7-17); Carbon Dioxide 26 mmol/L (22.0-30.0); Estimated Glomerular Filt Rate 61 ml/min (>60); GFR (African American) 74 ML/MIN (>60); Globulin 2.9 g/dL (1.3-3.2); Total Protein,Serum 6.8 g/dl (6.3-8.2)
[2023-12-01 11:10] LABS: Calcium 9.4 mg/dl (8.4-10.2); Glucose 99 mg/dl (74-100)
== END 2023-12-01 23:59 | disposition home or self-care (01) ==
PROVIDERS: PCP Internal Medicine Adolescent Medicine; Visit Provider Nurse Practitioner
DX: E04.1 Nontoxic single thyroid nodule (principal); E05.90 Thyrotoxicosis, unspecified without thyrotoxic crisis or storm
CPT/HCPCS: 36415; 71046; 80053; 81025; 85025; 93005

== ENCOUNTER 2023-12-02 10:02 | Outpatient (CLI) | payer OTHER, SELFPAY ==
[2023-12-02 11:09] LABS: Iron 32 ug/dL (37-170)
[2023-12-02 11:19] LABS: Total Iron Binding Capacity 469 ug/dL (265-497)
[2023-12-02 11:45] LABS: Ferritin 4.63 ng/ml (6.24-137)
== END 2023-12-02 23:59 | disposition home or self-care (01) ==
LOC: LAB 10:03
PROVIDERS: PCP Internal Medicine Adolescent Medicine; Visit Provider Internal Medicine Adolescent Medicine
DX: D64.9 Anemia, unspecified (principal)
CPT/HCPCS: 36415; 82728; 83540; 83550

== ENCOUNTER 2023-12-06 14:03 | Outpatient (CLI) | payer OTHER, SELFPAY ==
[2023-12-06 12:19] LABS: Microscopic, Urine URINE MICROSCOPIC (MICROSCOPIC)
[2023-12-06 12:57] LABS: Appearance,Urine CLEAR (Clear); Blood, Urine Negative (Negative); Color,Urine YELLOW (Yellow); Glucose,Urine (UA) Negative (Negative); Ketones,Urine TRACE (Negative); Leukocyte Esterase,Urine Negative (Negative); Nitrate,Urine Negative (Negative); Protein,Urine 1+ (Negative); Specific Gravity, Urine >= 1.030 (1.005-1.030)
[2023-12-06 13:02] LABS: Bilirubin,Urine 1+ (Negative)
[2023-12-06 13:15] LABS: Bacteria,Urine 2+ /lpf; Hyaline Casts,Urine OCC #/lpf (0); Yeast,Urine Occasional /lpf
[2023-12-06 13:31] LABS: Cholesterol 170 mg/dl (140-200); HDL Cholesterol 34 mg/dl (40-60); Triglycerides 143 mg/dl (30-150); VLDL Cholesterol 29 mg/dL (0-40)
[2023-12-06 13:53] LABS: Free T4 (Free Thyroxine) 1.26 ng/dl (0.78-2.19)
[2023-12-06 14:02] LABS: Thyroid Stimulating Hormone 0.09 uIU/mL (0.465-4.68)
[2023-12-06 14:14] LABS: 25-OH Vitamin D, Total 31.4 ng/mL (30-100)
[2023-12-06 14:52] LABS: Vitamin B12 871 pg/mL (239-931)
[2023-12-06 15:24] LABS: Hemoglobin A1C 5.4 % (4.0-6.0)
[2023-12-06 15:40] LABS: HIV (1&2) Antibody Rapid NONREACTIVE (NONREACTIVE)
[2023-12-07 08:35] LABS: HCV Ab Non Reactive (Non Reactive)
== END 2023-12-06 23:59 | disposition home or self-care (01) ==
LOC: LAB.DROPOF 14:04
PROVIDERS: PCP Nurse Practitioner Family; Visit Provider Nurse Practitioner Family
DX: R53.83 Other fatigue (principal); D50.9 Iron deficiency anemia, unspecified; E04.1 Nontoxic single thyroid nodule; Z13.1 Encounter for screening for diabetes mellitus; E06.3 Autoimmune thyroiditis; Z13.220 Encounter for screening for lipoid disorders; Z11.4 Encounter for screening for human immunodeficiency virus [HIV]; E05.90 Thyrotoxicosis, unspecified without thyrotoxic crisis or storm; Z11.59 Encounter for screening for other viral diseases
CPT/HCPCS: 80061; 81001; 82306; 82607; 83036; 84439; 84443; 86803; 87086; 87389

== ENCOUNTER 2023-12-09 11:30 | Outpatient (CLI) | payer OTHER, SELFPAY ==
[2023-12-09 12:00] VITALS: BP 123/90; PULSE 91; RESP 18; TEMP 36.9; O2SAT 98
[2023-12-09] MEDS: SODIUM CHLORIDE 0.9% 50ML BAG 50 ML IV (12:00)
[2023-12-09] MEDS: FERRIC CARBOXYMALTOSE 750 MG in 0.9 % SODIUM CHLORIDE 250 ML 530 MG IV (12:01)
[2023-12-09] MEDS: SODIUM CHLORIDE 0.9% 10ML FLUSH SYRINGE 10 ML IV (12:01)
== END 2023-12-09 12:45 | disposition home or self-care (01) ==
LOC: INF 11:30
PROVIDERS: PCP Nurse Practitioner Family; Visit Provider Nurse Practitioner Family
DX: D50.9 Iron deficiency anemia, unspecified (principal)
CPT/HCPCS: 96365; J1439

== ENCOUNTER 2023-12-16 11:32 | Outpatient (CLI) | payer OTHER, SELFPAY ==
[2023-12-16 11:53] VITALS: BP 129/74; PULSE 109; RESP 20; O2SAT 98
[2023-12-16] MEDS: FERRIC CARBOXYMALTOSE 750 MG in 0.9 % SODIUM CHLORIDE 250 ML 530 MG IV (11:53)
[2023-12-16] MEDS: SODIUM CHLORIDE 0.9% 50ML BAG 50 ML IV (11:53)
[2023-12-16] MEDS: SODIUM CHLORIDE 0.9% 10ML FLUSH SYRINGE 10 ML IV (11:53)
== END 2023-12-16 12:29 | disposition home or self-care (01) ==
LOC: INF 11:32
PROVIDERS: PCP Nurse Practitioner Family; Visit Provider Nurse Practitioner Family
DX: D50.9 Iron deficiency anemia, unspecified (principal)
CPT/HCPCS: 96365; J1439

== ENCOUNTER 2023-12-21 10:25 | Outpatient (CLI) | payer OTHER, SELFPAY ==
[2023-12-21 11:32] LABS: Basophils % 0.8 % (0.1-2.0); Eosinophils # 0.1 K/mm3 (0.0-0.4); Eosinophils % 1.1 % (0.1-12.0); Hematocrit 37.7 % (37.0-47.0); Hemoglobin 11.7 g/dL (12.2-16.2); Lymphocytes # 1.5 K/mm3 (0.7-4.5); Lymphocytes % 27.4 % (10-50); Mean Corpuscular HGB Conc 30.9 g/dL (31.8-35.4); Mean Corpuscular Volume 74.5 fl (81-99); Mean Platelet Volume 7.4 fl (7.4-10.4); Monocytes # 0.4 K/mm3 (0.1-1.0); Monocytes % 7.4 % (1.7-9.3); Neutrophils # 3.4 K/mm3 (1.8-7.8); Neutrophils % 63.3 % (37.0-80.0); Platelet Count 288 K/mm3 (142-424); Red Blood Count 5.06 M/mm3 (4.20-5.40); White Blood Count 5.4 K/mm3 (4.8-10.8)
[2023-12-21 11:36] LABS: Red Cell Distribution Width 32.5 % (11.5-17.5)
[2023-12-21 11:44] LABS: Hemoglobin A1C 4.3 % (4.0-6.0)
[2023-12-21 11:48] LABS: Chloride 105 mmol/L (98-107)
[2023-12-21 11:49] LABS: Albumin Level 4.2 g/dl (3.5-5.0); Potassium 4.2 mmoL/L (3.5-5.1); Sodium 138 mmol/L (136-145)
[2023-12-21 11:51] LABS: Alanine Aminotransferase 29 U/L (12-78); Anion Gap 11.2 mEq/L (5-15); Aspartate Amino Transferase 27 U/L (14-36); Blood Urea Nitrogen 12 mg/dl (7-17); Carbon Dioxide 26 mmol/L (22.0-30.0); Estimated Glomerular Filt Rate 69 ml/min (>60); GFR (African American) 84 ML/MIN (>60)
[2023-12-21 11:52] LABS: Albumin/Globulin Ratio 1.4 (1.1-1.8); Alkaline Phosphatase 77 U/L (38-126); Bilirubin,Total 0.5 mg/dl (0.2-1.3); Calcium 9.6 mg/dl (8.4-10.2); Chol/HDL Ratio 4.7 (1-3.5); Cholesterol 156 mg/dl (140-200); Glucose 90 mg/dl (74-100); HDL Cholesterol 33 mg/dl (40-60); Iron 73 ug/dL (37-170); Total Protein,Serum 7.2 g/dl (6.3-8.2); Triglycerides 117 mg/dl (30-150); VLDL Cholesterol 23 mg/dL (0-40)
[2023-12-21 12:02] LABS: Total Iron Binding Capacity 362 ug/dL (265-497)
[2023-12-21 12:03] LABS: Direct LDL Cholesterol 86.89 mg/dL (100-129)
[2023-12-21 12:09] LABS: Free T4 (Free Thyroxine) 1.43 ng/dl (0.78-2.19)
[2023-12-21 12:13] LABS: 25-OH Vitamin D, Total 31.2 ng/mL (30-100)
[2023-12-21 12:25] LABS: Thyroid Stimulating Hormone < 0.02 uIU/mL (0.465-4.68)
[2023-12-21 12:31] LABS: Ferritin 392 ng/ml (6.24-137)
[2023-12-21 13:47] LABS: Folate 2.75 ng/mL
[2023-12-22 08:19] LABS: Prealbumin 24 mg/dL (14-35)
[2023-12-26 07:09] LABS: Vitamin B1 134.5 nmol/L (66.5-200.0)
[2023-12-27 23:08] LABS: Vitamin A 44.8 ug/dL (20.1-62.0)
[2023-12-28 06:14] LABS: Methylmalonic Acid 226 nmol/L (0-378)
[2023-12-28 19:10] LABS: Vitamin E Alpha Tocopherol 7.3 mg/L (7.0-25.1)
== END 2023-12-21 23:59 | disposition home or self-care (01) ==
LOC: LAB 10:26
PROVIDERS: PCP Nurse Practitioner Family; Visit Provider Nurse Practitioner Family
DX: I10 Essential (primary) hypertension (principal); E55.9 Vitamin D deficiency, unspecified; Z91.89 Other specified personal risk factors, not elsewhere classified
CPT/HCPCS: 36415; 80050; 80053; 80061; 82306; 82728; 82746; 83036; 83540; 83550; 83921; 84134; 84425; 84439; 84443; 84446; 84590; 85025

== ENCOUNTER 2023-12-22 13:46 | Outpatient (CLI) | payer OTHER, SELFPAY ==
--- NOTE | 2023-12-22 13:46 | MM_ITS ---
PROCEDURE INFORMATION: Exam: MG Bilateral Screening 3D Mammography Exam date and time: 12/22/2023 2:07 PM Age: 38 years old Clinical indication: Screening examination. TECHNIQUE: Imaging protocol: Bilateral Screening tomosynthesis and 2D mammography including computer-aided detection (CAD) when performed. COMPARISON: No relevant prior studies available. FINDINGS: MAMMOGRAPHY: Breast composition: There are scattered areas of fibroglandular density. Mass: None. Architectural distortion: None. Calcifications: No suspicious calcifications. Asymmetric density: None. Skin thickening: None. Axillary adenopathy: None. IMPRESSION: No mammographic evidence of malignancy. Annual screening is recommended unless otherwise clinically indicated. ASSESSMENT: BI-RADS Category 1: Negative.
== END 2023-12-22 23:59 | disposition home or self-care (01) ==
LOC: RAD 13:46
PROVIDERS: PCP Nurse Practitioner Family; Visit Provider Nurse Practitioner Family
DX: Z12.31 Encounter for screening mammogram for malignant neoplasm of breast (principal)
CPT/HCPCS: 77063; 77067

== ENCOUNTER 2024-03-24 07:56 | Outpatient (CLI) | payer OTHER, SELFPAY ==
[2024-03-24 08:28] LABS: Basophils % 0.6 % (0.1-2.0); Eosinophils # 0.2 K/mm3 (0.0-0.4); Eosinophils % 2.2 % (0.1-12.0); Hematocrit 39.9 % (37.0-47.0); Hemoglobin 13.5 g/dL (12.2-16.2); Lymphocytes # 1.6 K/mm3 (0.7-4.5); Lymphocytes % 23.2 % (10-50); Mean Corpuscular HGB Conc 33.8 g/dL (31.8-35.4); Mean Corpuscular Hemoglobin 28.4 pg (27.0-31.2); Mean Platelet Volume 10.1 fl (7.4-10.4); Monocytes # 0.7 K/mm3 (0.1-1.0); Monocytes % 10.3 % (1.7-9.3); Neutrophils # 4.3 K/mm3 (1.8-7.8); Neutrophils % 63.4 % (37.0-80.0); Platelet Count 272 K/mm3 (142-424); Red Blood Count 4.75 M/mm3 (4.20-5.40); Red Cell Distribution Width 14.3 % (11.5-17.5); White Blood Count 6.8 K/mm3 (4.8-10.8)
[2024-03-24 08:55] LABS: Albumin Level 4.1 g/dl (3.5-5.0)
[2024-03-24 08:56] LABS: Chloride 107 mmol/L (98-107); Potassium 3.9 mmoL/L (3.5-5.1); Sodium 137 mmol/L (136-145)
[2024-03-24 08:58] LABS: Alanine Aminotransferase 34 U/L (12-78); Aspartate Amino Transferase 27 U/L (14-36); Blood Urea Nitrogen 11 mg/dl (7-17); Estimated Glomerular Filt Rate 79 ml/min (>60); GFR (African American) 96 ML/MIN (>60)
[2024-03-24 08:59] LABS: Albumin/Globulin Ratio 1.5 (1.1-1.8); Alkaline Phosphatase 84 U/L (38-126); Anion Gap 8.9 mEq/L (5-15); Bilirubin,Total 0.2 mg/dl (0.2-1.3); Calcium 9.6 mg/dl (8.4-10.2); Carbon Dioxide 25 mmol/L (22.0-30.0); Chol/HDL Ratio 6.5 (1-3.5); Cholesterol 176 mg/dl (140-200); Globulin 2.8 g/dL (1.3-3.2); Glucose 94 mg/dl (74-100); HDL Cholesterol 27 mg/dl (40-60); Iron 81 ug/dL (37-170); Total Protein,Serum 6.9 g/dl (6.3-8.2); Triglycerides 163 mg/dl (30-150); VLDL Cholesterol 33 mg/dL (0-40)
[2024-03-24 09:03] LABS: Hemoglobin A1C 5.3 % (4.0-6.0)
[2024-03-24 09:09] LABS: Total Iron Binding Capacity 388 ug/dL (265-497)
[2024-03-24 09:10] LABS: Direct LDL Cholesterol 117.59 mg/dL (100-129)
[2024-03-24 09:15] LABS: Free T4 (Free Thyroxine) 1.24 ng/dl (0.78-2.19)
[2024-03-24 10:10] LABS: Folate 2.44 ng/mL
[2024-03-24 10:13] LABS: Thyroid Stimulating Hormone < 0.02 uIU/mL (0.465-4.68)
[2024-03-25 07:08] LABS: Prealbumin 23 mg/dL (14-35)
[2024-03-28 18:08] LABS: Vitamin E Alpha Tocopherol 8.1 mg/L (7.0-25.1); Vitamin E Gamma Tocopherol 1.1 mg/L (0.5-5.5)
[2024-03-28 18:08] LABS: Vitamin B1 145.1 nmol/L (66.5-200.0)
[2024-03-28 23:07] LABS: Methylmalonic Acid 182 nmol/L (0-378)
[2024-03-29 06:03] LABS: Vitamin A 37.1 ug/dL (20.1-62.0)
== END 2024-03-24 23:59 | disposition home or self-care (01) ==
PROVIDERS: PCP Nurse Practitioner Family; Visit Provider Nurse Practitioner Family
DX: Z91.89 Other specified personal risk factors, not elsewhere classified (principal); E61.1 Iron deficiency; I10 Essential (primary) hypertension; E55.9 Vitamin D deficiency, unspecified
CPT/HCPCS: 36415; 80053; 80061; 82306; 82746; 83036; 83540; 83550; 83921; 84134; 84425; 84439; 84443; 84446; 84590; 85025

== ENCOUNTER 2024-05-23 11:50 | Outpatient (CLI) | payer OTHER, SELFPAY ==
--- NOTE | 2024-05-23 12:18 | ECG_ITS ---
APPROVED REPORT Exam: Resting ECG HR:76 bpm ECG Measurements Heart Rate 76 AXES TN 171 P 38 QRSd 98 QRS -6 QT 361 T -2 QTc 392 Conclusion SINUS RHYTHM LOW QRS VOLTAGE IN PRECORDIAL LEADS [QRS DEFLECTION < 1.0 mV IN CHEST LEADS] MINIMAL VOLTAGE CRITERIA FOR LVH, CONSIDER NORMAL VARIANT [MEETS CRITERIA IN ONE OF: R(aVL), S(V1), R(V5), R(V5/V6)+S(V1)] POSSIBLE ANTERIOR MYOCARDIAL INFARCTION , PROBABLY OLD [30 ms Q WAVE IN V3/V4, OR R < 0.2 mV IN V4] BORDERLINE ECG UNCONFIRMED REPORT Electronically signed by : Carlos Coelho MD 05/28/2024 08:55:10
[2024-05-23 12:22] VITALS: BMI 52.6
[2024-05-23 12:33] LABS: Basophils % 0.4 % (0.1-2.0); Eosinophils # 0.1 K/mm3 (0.0-0.4); Eosinophils % 0.9 % (0.1-12.0); Hematocrit 39.6 % (37.0-47.0); Lymphocytes % 25.2 % (10-50); Mean Corpuscular HGB Conc 32.8 g/dL (31.8-35.4); Mean Corpuscular Hemoglobin 28.3 pg (27.0-31.2); Mean Corpuscular Volume 86.1 fl (81-99); Mean Platelet Volume 10.3 fl (7.4-10.4); Monocytes # 0.9 K/mm3 (0.1-1.0); Monocytes % 11.1 % (1.7-9.3); Neutrophils # 4.9 K/mm3 (1.8-7.8); Platelet Count 294 K/mm3 (142-424); Red Cell Distribution Width 13.6 % (11.5-17.5); White Blood Count 7.9 K/mm3 (4.8-10.8)
[2024-05-23 12:44] LABS: Anion Gap 10.8 mEq/L (5-15); Blood Urea Nitrogen 13 mg/dl (7-17); Carbon Dioxide 24 mmol/L (22.0-30.0); Chloride 108 mmol/L (98-107); Creatinine Clearance Estimated 69 mL/min (50-200); Estimated Glomerular Filt Rate 69 ml/min (>60); GFR (African American) 84 ML/MIN (>60); Glucose 86 mg/dl (74-100); Potassium 3.8 mmoL/L (3.5-5.1); Sodium 139 mmol/L (136-145)
[2024-05-23 12:50] LABS: HCG Qualitative, Serum Negative (Negative)
== END 2024-05-23 23:59 | disposition home or self-care (01) ==
LOC: PREOP 11:51
PROVIDERS: PCP Nurse Practitioner Family; Visit Provider Student in an Organized Health Care Education/Training Program
DX: Z01.810 Encounter for preprocedural cardiovascular examination (principal); Z01.812 Encounter for preprocedural laboratory examination; R94.31 Abnormal electrocardiogram [ECG] [EKG]
CPT/HCPCS: 80048; 84703; 85025; 93005

== ENCOUNTER 2024-05-30 14:49 | Observation (INO) | payer OTHER, SELFPAY ==
[2024-05-23 12:53] VITALS: BMI 52.6
[2024-05-30] VITALS (26 sets, daily range): BP systolic 110–150; BP diastolic 61–96; PULSE 57–88; RESP 16–20; TEMP 35.8–36.8; O2SAT 90–97; BMI 53.2
--- NOTE | 2024-05-30 08:48 | EXP.ANES.CKL ---
[facility] Disclaimer: The information contained in this section may have been updated after the patient was seen, as this information can be updated by other users. 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 Hx of tonsillectomy Hx of tubal ligation Hx of section Family History Other Cancer Diabetes Hyperlipidemia Hypertension Social History Smoking Status: Never smoker alcohol intake: never substance use type: denies use current occupational status: employed Travel in the last 8 weeks: None housing: house Have you lived/traveled outside US in past 30 days?: No Contact w/someone who lives/traveled outside US past 30 days?: No Exposure to someone with infectious disease in past 14 days?: No Do you have a fever (greater than 100.4 F or 38 C)?: No Have you tested positive for COVID-19: No Exposed to someone with COVID-19 in past 14 days?: No Do you have a sore throat?: No Do you have a cough?: No Do you have any weakness?: No Do you have any diarrhea?: No Are you experiencing any unusual bleeding?: No Do you have any muscle aches/pain?: No Do you have any abdominal pain?: No Are you experiencing loss of taste or smell?: No [facility] Anesthesia Checklist Patient Identification Patient Identification: Arm Band Structural Data Admitted From: Home Planned Operative Procedure/s: Right Hemithyroidectomy Consent for Planned Operative Procedure(s) Verified: Yes Verified Documents: Surgical Consent and History and Physical NPO Status Verified Time NPO: 00:00 Additional verifications Anesthesia Reactions: Yes (PONV after Gastric Sleeve) Hx Blood Transfusions: No Blood Transfusion Reaction: No Airway Assessment Mallampati Score:: Class II C-Spine Mobility Assessed: Yes TMJ Mobility Assessed: Yes Dentition: Good Dentition Neurological Assessment Level of Consciousness: Awake, Alert and Appropriate Anesthesia Plan Anesthesia Risk discussed: Yes Anesthesia Plan: Verified ASA Class: III Anesthesia Type: General
[2024-05-30] MEDS: LACTATED RINGERS 1000ML 1,000 ML 25 ML IV (08:53)
[2024-05-30] MEDS: CEFAZOLIN SODIUM 2 GM in 0.9 % SODIUM CHLORIDE 100 ML IV (09:40)
[2024-05-30] MEDS: LIDOCAINE 1% W/EPI 1:100,000 20ML VIAL 20 ML (10:02)
--- NOTE | 2024-05-30 12:34 | P.OP_ITS ---
Date of procedure: 05/30/24 Pre-op Diagnosis:: subclinical hyperthyroidism thyroid nodule Post-op Diagnosis:: same Procedure performed:: right hemithyroidectomy Surgeon:: Ubaldo Faulkner MD FISHERIES DIRECTOR:: Dasha Craven Anesthesia: CLAY Estimated blood loss (mL): 20 Operative findings:: large right thyroid nodule Operative note:: The patient was brought to the OR, laid in the supine position, and general anesthesia with a Nims nerve monitoring endotracheal tube was induced.? The nerve monitor was set up and confirmed to be working appropriately.? Patient was prepped and draped in usual fashion.? Lidocaine with epinephrine 1-100,000 was injected below the transverse neck incision site.? I dissected through the skin, subcutaneous tissues, and platysma.? The strap muscles were identified at the midline raphae.? The strap muscles were divided at the raphae.? I then began to dissect the strap muscles off of the right side of the thyroid. She had a palpable large nodule within this love.? I isolated the superior pedicle and was taken down with a harmonic.?? We then came inferiorly again freeing thyroid from the surrounding tissue.? I then began to roll the thyroid in a lateral to medial fashion out of the patient's neck.? The recurrent laryngeal nerve was identified and preserved during this process.? I dissected through Prasad's ligament and dissected the lobe off the trachea. The thyroid was divided at the midline isthmus and then sent for permanent pathology.? Patient's neck was then thoroughly irrigated out.? Hemostasis was achieved with bipolar cautery.? The recurrent laryngeal nerve stimulated both proximally and distally at the end of the case.? 15 Solomon Islander drain was fashioned in the patient's neck.? The incision was then closed in three layers.? They were then turned back over to anesthesia to be awoken and extubated. Condition: stable Disposition: PACU Complications:: none
[2024-05-30] MEDS: MORPHINE 2MG/ML SYRINGE 1 MG IV ×2 (12:48→12:54)
[2024-05-30] MEDS: HYDROMORPHONE 2MG/ML SYRINGE 0.5 MG IV (13:14)
[2024-05-30] MEDS: ACETAMINOPHEN 1,000MG/100ML VIAL 1000 MG IV (13:15)
[2024-05-30] MEDS: HYDROCODONE 10MG/APAP 325MG TAB 1 TAB PO (13:34)
[2024-05-30] MEDS: IBUPROFEN 400 MG TABLET PO (13:35)
[2024-05-30] MEDS: ONDANSETRON 4MG/2ML VIAL 4 MG IV ×2 (13:42→18:07)
--- NOTE | 2024-05-30 15:27 | SUR.PHASEII ---
1435: Dr. Faulkner in [place] seeing patient related to pain control. Decision to admit made per MD to admit to floor over night for pain management.
[2024-05-30] MEDS: HYDROMORPHONE 2MG/ML SYRINGE 1 MG IV ×2 (15:35→21:27)
--- NOTE | 2024-05-30 17:58 | P.HP_ITS ---
History of Present Illness *Admission Date: 05/30/24 *Reason for visit:: Intractable pain *History of present illness: Ms. Feliz is a 38-year-old female who has hypermetabolic thyroid nodule. Presented for elective partial thyroidectomy today. After procedure, patient had intractable pain. Discussed case with ENT, request admission for pain control and monitoring overnight. I agreed to admit for further care. Patient states her pain was so bad that it is radiating up the right side of her head, causing her to have double vision. Denies chest pain or shortness of breath. Was having some nausea associated with pain. Afebrile at this time. Minimal blood in SHEA. Otherwise baseline health prior to surgery today. Takes minimal medication, on propranolol for PVC's. On Nexium for GERD. Vitamin supplementation due to history of gastric bypass. at bedside, he is her surrogate decision-maker. [facility] Disclaimer: The information contained in this section may have been updated after the patient was seen, as this information can be updated by other users. 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 pylori) Pain in both feet Plantar fasciitis, bilateral Plantar fasciitis Calcaneal spur of both feet Arch pain of left foot Muscle strain, lower leg Abdominal pain Dysmenorrhea Menorrhagia Hypertrophic lichen planus of vulva Vulvar abscess Family history of heart disease Abnormal EKG Encounter for pre-operative cardiovascular clearance Surgical History History of esophagogastroduodenoscopy (EGD) Hx of cholecystectomy History of sleeve gastrectomy Hx of tonsillectomy Hx of tubal ligation Hx of section Family History Diabetes Hyperlipidemia Cancer Hypertension Social History Smoking Status: Never smoker alcohol intake: never substance use type: denies use current occupational status: employed Travel in the last 8 weeks: None housing: house Have you lived/traveled outside US in past 30 days?: No Contact w/someone who lives/traveled outside US past 30 days?: No Exposure to someone with infectious disease in past 14 days?: No Do you have a fever (greater than 100.4 F or 38 C)?: No Have you tested positive for COVID-19: No Exposed to someone with COVID-19 in past 14 days?: No Do you have a sore throat?: No Do you have a cough?: No Do you have any weakness?: No Do you have any diarrhea?: No Are you experiencing any unusual bleeding?: No Do you have any muscle aches/pain?: No Do you have any abdominal pain?: No Are you experiencing loss of taste or smell?: No Other Medical History Have you received the Flu Vaccine for this season: Yes Have you received the Pneumonia Vaccine: No Review of Systems Review of Systems Review of systems (narrative): 14 point review of systems performed, pertinent positives and negatives as per [facility] Meds Home Medications and Allergies Home Medications ?Medication ?Instructions ?Recorded ?Confirmed ?Type esomeprazole magnesium 40 mg 40 mg PO DAILY 08/04/20 05/30/24 History capsule,delayed release propranolol 20 mg tablet 20 mg PO BID 10/04/23 05/30/24 History cyclobenzaprine 10 mg tablet 10 mg PO HS PRN muscle spasms 12/06/23 05/30/24 History cyanocobalamin (vitamin B-12) 1,000 mcg IM MONTHLY 02/02/24 05/30/24 History 1,000 mcg/mL injection solution cholecalciferol (vitamin D3) 10 10 mcg PO DAILY 05/23/24 05/30/24 History mcg (400 unit) capsule (Vitamin D3) hydrocodone 5 mg-acetaminophen 325 1 tab PO Q6H PRN pain 7 days #20 05/30/24 Rx mg tablet tabs ondansetron HCl 4 mg tablet 4 mg PO TIDP PRN Nausea #10 tabs 05/30/24 Rx New Prescriptions to Start Prescriptions: hydrocodone-acetaminophen Ubaldo Faulkner ondansetron HCl Ubaldo Faulkner Allergies Allergy/AdvReac Type Severity Reaction Status Date / Time tetracycline Allergy Severe Rash Verified 05/30/24 08:19 erythromycin base Allergy Intermediate I-RASH Verified 05/30/24 08:19 (ERYTHROMYCIN BASE) sulfamethoxazole (From Allergy Intermediate I-HIVES Verified 05/30/24 08:19 BACTRIM) trimethoprim (From BACTRIM) Allergy Intermediate I-HIVES Verified 05/30/24 08:19 Exam Data for Last 24 hours Vital signs and Labs for Last 24 Hours: Temp Pulse Resp BP Pulse Ox O2 Del Method 98.0 F 78 18 128/88 96 Room Air 05/30/24 17:30 05/30/24 17:30 05/30/24 17:30 05/30/24 17:30 05/30/24 17:30 05/30/24 17:30 I & O for Last 24 hours: Intake & Output 05/27/24 05/28/24 05/29/24 05/30/24 23:59 23:59 23:59 23:59 Output Total 0 / 0 Balance 0 / 0 Weight 136.259 kg Constitutional Constitutional: mild distress, morbidly obese and cooperative *Routine HEENT Exam Head: Present normocephalic Eye: Present EOMI and PERRL ENT: Present mucous membranes moist *Routine Neck Exam Neck: Present supple; Absent lymphadenopathy Comments: Clean incision anterior neck with SHEA with bloody discharge. Tender to palpation. *Routine Respiratory Exam Respiratory: Present CTA bilaterally; Absent rhonchi, wheezes or crackles *Routine Cardiovascular Exam Cardiovascular: Present RRR *Routine Abdominal Exam Abdominal: Present soft and normoactive bowel sounds; Absent tenderness *Routine Rectal Exam Rectal:: deferred *Routine Genitalia Exam Genitalia:: deferred *Routine Extremities Exam Extremities: Absent cyanosis, clubbing or edema *Routine Skin Exam Skin: Present intact and warm; Absent rash *Routine Neurological Exam Neurological: Present alert, oriented X3 and moving all extremities; Absent altered mental status Routine Psychiatric Exam Psychiatric: Present normal affect Assessment and Plan *Assessment and plan (1) Post-operative pain: Status: Acute Category: Medical Code(s): G89.18 - Other acute postprocedural pain (2) S/P partial thyroidectomy: Status: Acute Category: Surgical Code(s): E89.0 - Postprocedural hypothyroidism (3) Thyroid nodule: Status: Acute Category: Medical Code(s): E04.1 - Nontoxic single thyroid nodule (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 Had on controllable pain postop. Discussed case with ENT, request admission for pain control. I agreed to admit for further management. Started on aggressive opiate regimen with Dilaudid IV and oxycodone p.o. Monitoring for toxicity. ENT to evaluate in the morning and remove SHEA drain if not having significant output. Will continue home medications including Nexium for GERD, propranolol for PVCs and headache prophylaxis, Flexeril 10 mg nightly for muscle spasm. Zofran 4 mg as needed every 6 hours for nausea CBC, CMP, magnesium ordered for the morning. Review of chart shows preop labs obtained 1 week ago with normal white count of 7.9, hemoglobin normal with 13. Platelets 294. Kidney function normal with BUN 13, creatinine 0.9. Full code Regular diet
[2024-05-30] MEDS: OXYCODONE 10MG W/APAP 325MG TABLET 1 EACH PO (18:02)
[2024-05-30] MEDS: PROPRANOLOL 20MG TAB 20 MG PO (20:33)
[2024-05-30] MEDS: PANTOPRAZOLE 40MG TABLET 40 MG PO (20:33)
[2024-05-31] VITALS: BP 124/94; PULSE 91; RESP 18; TEMP 37.1; O2SAT 98
[2024-05-31] MEDS: OXYCODONE 10MG W/APAP 325MG TABLET 1 EACH PO ×2 (00:39→08:09)
[2024-05-31 04:00] VITALS: BP 144/74; PULSE 63; RESP 16; TEMP 36.6; O2SAT 96; BMI 52.8
[2024-05-31] MEDS: HYDROMORPHONE 2MG/ML SYRINGE 1 MG IV ×2 (04:30→09:50)
[2024-05-31 06:13] LABS: Basophils % 0.1 % (0.1-2.0); Hematocrit 34.8 % (37.0-47.0); Hemoglobin 11.4 g/dL (12.2-16.2); Lymphocytes # 1.6 K/mm3 (0.7-4.5); Lymphocytes % 17.6 % (10-50); Mean Corpuscular HGB Conc 32.8 g/dL (31.8-35.4); Mean Corpuscular Hemoglobin 28.4 pg (27.0-31.2); Mean Corpuscular Volume 86.6 fl (81-99); Mean Platelet Volume 10.5 fl (7.4-10.4); Monocytes # 0.9 K/mm3 (0.1-1.0); Monocytes % 10.2 % (1.7-9.3); Neutrophils # 6.3 K/mm3 (1.8-7.8); Neutrophils % 71.9 % (37.0-80.0); Platelet Count 258 K/mm3 (142-424); Red Blood Count 4.02 M/mm3 (4.20-5.40); Red Cell Distribution Width 13.6 % (11.5-17.5); White Blood Count 8.8 K/mm3 (4.8-10.8)
[2024-05-31 06:42] LABS: Alanine Aminotransferase 30 U/L (12-78); Albumin Level 3.9 g/dl (3.5-5.0); Albumin/Globulin Ratio 1.4 (1.1-1.8); Alkaline Phosphatase 66 U/L (38-126); Anion Gap 9.9 mEq/L (5-15); Aspartate Amino Transferase 36 U/L (14-36); Bilirubin,Total 0.3 mg/dl (0.2-1.3); Blood Urea Nitrogen 14 mg/dl (7-17); Calcium 9.1 mg/dl (8.4-10.2); Carbon Dioxide 23 mmol/L (22.0-30.0); Chloride 106 mmol/L (98-107); Creatinine Clearance Estimated 74 mL/min (50-200); Estimated Glomerular Filt Rate 79 ml/min (>60); GFR (African American) 96 ML/MIN (>60); Globulin 2.7 g/dL (1.3-3.2); Glucose 100 mg/dl (74-100); Potassium 3.9 mmoL/L (3.5-5.1); Sodium 135 mmol/L (136-145); Total Protein,Serum 6.6 g/dl (6.3-8.2)
[2024-05-31 08:00] VITALS: BP 116/87; PULSE 53; RESP 17; TEMP 36.4; O2SAT 97
--- NOTE | 2024-05-31 08:18 | EXP.ANES.I ---
[facility] Anesthesia Record Part I Anesthesia Record I Intake, IV Amount: 800 Hydration: Adequate Estimated blood loss (mL): 50 Urine output (mL): 0 Blood Products used (#): none Blood Pressure: 149/104 SaO2: 92 Pulse Rate: 79 Airway Patency: Patent Respiratory Rate: 18 Temperature: 96.5 F Patient is:: Awake and Stable Stable to PACU at:: 12:31
[2024-05-31 08:19] VITALS: BP 149/104; PULSE 79; RESP 18; TEMP 35.8; O2SAT 92
--- NOTE | 2024-05-31 08:31 | EXP.ANES.II ---
[facility] Anesthesia Record Part II Anesthesia Record Part II Discharge Time: 13:56 Destination: Medical Surgical Department PACU nurse assessment reviewed?: Yes Patient Condition:: Good Anesthesia Complications:: None Swallowing reflex intact?: Yes Airway Patency: Patent Cyanosis?: No Blood Pressure: 138/85 SaO2: 94 Respiratory Rate: 16 Pulse Rate: 70 Temperature: 96.5 F Mental Status: Alert & Oriented Pain level:: 4 Nausea and/or vomitting:: None Intake, IV Amount: 800 Hydration: Adequate
[2024-05-31 08:33] VITALS: BP 138/85; PULSE 70; RESP 16; TEMP 35.8; O2SAT 94
--- NOTE | 2024-05-31 10:40 | P.CONS_ITS ---
History of Present Illness *Admission Date: 05/30/24 *History of present illness: Ms. Feliz is a 38-year-old female who had hypermetabolic thyroid nodule; thus resulting in a elective partial thyroidectomy on 05/30/2024. After procedure was completed patient had intractable pain and was admitted overnight for observation due to pain control. Patient did well overnight and is ultimately ready for discharge today 05/31/2024. [facility] Disclaimer: The information contained in this section may have been updated after the patient was seen, as this information can be updated by other users. 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 pylori) Pain in both feet Plantar fasciitis, bilateral Plantar fasciitis Calcaneal spur of both feet Arch pain of left foot Muscle strain, lower leg Abdominal pain Dysmenorrhea Menorrhagia Hypertrophic lichen planus of vulva Vulvar abscess Family history of heart disease Abnormal EKG Encounter for pre-operative cardiovascular clearance Surgical History History of esophagogastroduodenoscopy (EGD) Hx of cholecystectomy History of sleeve gastrectomy Hx of tonsillectomy Hx of tubal ligation Hx of section Family History Diabetes Hyperlipidemia Cancer Hypertension Social History Smoking Status: Never smoker alcohol intake: never substance use type: denies use current occupational status: employed Travel in the last 8 weeks: None housing: house Review of Systems Review of Systems Review of systems:: pertinent systems reviewed and negative unless documented below ENT Ears, Nose, Mouth, and Throat: Reports as per HPI and Reports neck pain (Secondary to partial thyroidectomy performed on 05/30/2024) *Musculoskeletal Musculoskeletal: Reports neck pain (Secondary to partial thyroidectomy performed on 05/30/2024) Meds Home Medications and Allergies Home Medications ?Medication ?Instructions ?Recorded ?Confirmed ?Type esomeprazole magnesium 40 mg 40 mg PO DAILY 08/04/20 05/30/24 History capsule,delayed release propranolol 20 mg tablet 20 mg PO BID 10/04/23 05/30/24 History cyclobenzaprine 10 mg tablet 10 mg PO HS PRN muscle spasms 12/06/23 05/30/24 History cyanocobalamin (vitamin B-12) 1,000 mcg IM MONTHLY 02/02/24 05/30/24 History 1,000 mcg/mL injection solution cholecalciferol (vitamin D3) 10 10 mcg PO DAILY 05/23/24 05/30/24 History mcg (400 unit) capsule (Vitamin D3) hydrocodone 5 mg-acetaminophen 325 1 tab PO Q6H PRN pain 7 days #20 05/30/24 Rx mg tablet tabs ondansetron HCl 4 mg tablet 4 mg PO TIDP PRN Nausea #10 tabs 05/30/24 Rx New Prescriptions to Start Prescriptions: hydrocodone-acetaminophen Ubaldo Faulkner ondansetron HCl Ubaldo Faulkner Allergies Allergy/AdvReac Type Severity Reaction Status Date / Time tetracycline Allergy Severe Rash Verified 05/30/24 08:19 erythromycin base Allergy Intermediate I-RASH Verified 05/30/24 08:19 (ERYTHROMYCIN BASE) sulfamethoxazole (From Allergy Intermediate I-HIVES Verified 05/30/24 08:19 BACTRIM) trimethoprim (From BACTRIM) Allergy Intermediate I-HIVES Verified 05/30/24 08:19 Results Labs 05/31/24 05:25 05/31/24 05:25 Labs: Abnormal lab results 05/31/24 Range/Units 05:25 RBC 4.02 L (4.20-5.40) M/mm3 Hgb 11.4 L (12.2-16.2) g/dL Hct 34.8 L (37.0-47.0) % MPV 10.5 H (7.4-10.4) fl [place] % (Auto) 10.2 H (1.7-9.3) % Eos % (Auto) 0.0 L (0.1-12.0) % Sodium 135 L (136-145) mmol/L H & H 05/31/24 Range/Units 05:25 Hgb 11.4 L (12.2-16.2) g/dL Hct 34.8 L (37.0-47.0) % All other labs normal. Assessment and Plan *Assessment and plan (1) S/P partial thyroidectomy: Status: Acute Category: Surgical Code(s): E89.0 - Postprocedural hypothyroidism (2) Post-operative pain: Status: Acute Category: Medical Code(s): G89.18 - Other acute postprocedural pain Plan Patient had a SHEA drain that was placed yesterday 05/30/2024 directly postoperative partial thyroidectomy. Upon further report from nurse, overnight patient had approximately 20 cc of blood drainage emptied from the SEHA drain. Upon arrival to her room today. Patient is sitting up in bed in no acute distress with at bedside ready to have the drain removed and be discharged home. Approximately 10 cc was present in the bulb drainage and emptied. The drain was then removed atraumatically and the patient tolerated well. Dressing placed over puncture site where the drain was in place. Patient will be discharged home and will follow-up in approximately [address] Faulkner (surgical MD). Patient to continue all at home medications as directed. Patient to remain on activity restrictions until follow-up in approximately 2 weeks. Patient to contact office for any further concerns or symptoms.
--- NOTE | 2024-05-31 10:43 | EXP.DC.SUM ---
General Admission date:: 05/30/24 Discharge date: 05/31/24 HPI HPI HPI: Ms. Feliz is a 38-year-old female who has hypermetabolic thyroid nodule. Presented for elective partial thyroidectomy today. After procedure, patient had intractable pain. Discussed case with ENT, request admission for pain control and monitoring overnight. I agreed to admit for further care. Patient states her pain was so bad that it is radiating up the right side of her head, causing her to have double vision. Denies chest pain or shortness of breath. Was having some nausea associated with pain. Afebrile at this time. Minimal blood in SHEA. Otherwise baseline health prior to surgery today. Takes minimal medication, on propranolol for PVC's. On Nexium for GERD. Vitamin supplementation due to history of gastric bypass. at bedside, he is her surrogate decision-maker. Hospital Course Hospital Course Hospital Course: 38-year-old female who presents for elective partial thyroidectomy. Had on controllable pain postop. Discussed case with ENT, request admission for pain control. I agreed to admit for further management. Started on aggressive opiate regimen with Dilaudid IV and oxycodone p.o. no signs of toxicity. Pain improved overnight. ENT evaluated in the morning and remove SHEA drain. Plan for close follow-up. Continued home medications including her Nexium for GERD and propranolol for PVCs and headache prophylaxis. Nausea improved by morning. Tolerating p.o. intake. Labs remain stable. Stable discharge home with close follow-up with ENT. Pain meds already sent by ENT after surgery. Exam Data for Last 24 hours Vital signs and Labs for Last 24 Hours: Temp Pulse Resp BP Pulse Ox O2 Del Method 96.5 F L 79 16 149/104 H 97 Room Air 05/31/24 08:19 05/31/24 08:19 05/31/24 08:33 05/31/24 08:19 05/31/24 08:00 05/31/24 08:00 Laboratory Results - last 24 hr 05/31/24 05:25: WBC 8.8, RBC 4.02 L, Hgb 11.4 L, Hct 34.8 L, MCV 86.6, MCH 28.4, MCHC 32.8, RDW 13.6, Plt Count 258, MPV 10.5 H, Neut % (Auto) 71.9, Lymph % (Auto) 17.6, [place] % (Auto) 10.2 H, Eos % (Auto) 0.0 L, Baso % (Auto) 0.1, Neut # (Auto) 6.3, Lymph # (Auto) 1.6, [place] # (Auto) 0.9, Eos # (Auto) 0.0, Baso # (Auto) 0.0, Sodium 135 L, Potassium 3.9, Chloride 106, Carbon Dioxide 23, Anion Gap 9.9, BUN 14, Creatinine 0.80, Estimated Creat Clear 74, Estimated GFR 79, Est GFR ( Amer) 96, Glucose 100, Calcium 9.1, Magnesium 2.0, Total Bilirubin 0.3, AST 36, ALT 30, Alkaline Phosphatase 66, Total Protein 6.6, Albumin 3.9, Globulin 2.7, Albumin/Globulin Ratio 1.4 I & O for Last 24 hours: Intake & Output 05/28/24 05/29/24 05/30/24 05/31/24 23:59 23:59 23:59 23:59 Intake Total 2079 Output Total 0 / 0 0 / 0 Balance 0 / 480 2079 Weight 136.259 kg 135.171 kg Constitutional Constitutional: no acute distress and cooperative *Routine HEENT Exam Head: Present normocephalic Eye: Present EOMI and PERRL ENT: Present mucous membranes moist *Routine Neck Exam Neck: Present supple; Absent lymphadenopathy Comments: Clean anterior incision of neck with stable bruising on right side of neck. SHEA site clean dry and intact after removal. *Routine Respiratory Exam Respiratory: Present CTA bilaterally; Absent rhonchi, wheezes or crackles *Routine Cardiovascular Exam Cardiovascular: Present RRR *Routine Abdominal Exam Abdominal: Present soft and normoactive bowel sounds; Absent tenderness *Routine Rectal Exam Patient deferred: visual exam *Routine Exam Patient deferred: external exam *Routine Extremities Exam Extremities: Absent cyanosis, clubbing or edema *Routine Skin Exam Skin: Present warm; Absent rash *Routine Neurological Exam Neurological: Present alert, oriented X3 and moving all extremities; Absent altered mental status Results Data Completed and Pending Labs on day of discharge: Labs from last 24 hours 05/31/24 05:25 WBC 8.8 RBC 4.02 L Hgb 11.4 L Hct 34.8 L MCV 86.6 MCH 28.4 MCHC 32.8 RDW 13.6 Plt Count 258 MPV 10.5 H Neut % (Auto) 71.9 Lymph % (Auto) 17.6 [place] % (Auto) 10.2 H Eos % (Auto) 0.0 L Baso % (Auto) 0.1 Neut # (Auto) 6.3 Lymph # (Auto) 1.6 [place] # (Auto) 0.9 Eos # (Auto) 0.0 Baso # (Auto) 0.0 Sodium 135 L Potassium 3.9 Chloride 106 Carbon Dioxide 23 Anion Gap 9.9 BUN 14 Creatinine 0.80 Estimated Creat Clear 74 Estimated GFR 79 Est GFR ( Amer) 96 Glucose 100 Calcium 9.1 Magnesium 2.0 Total Bilirubin 0.3 AST 36 ALT 30 Alkaline Phosphatase 66 Total Protein 6.6 Albumin 3.9 Globulin 2.7 Albumin/Globulin Ratio 1.4 DS: Diagnosis Discharge Diagnosis (1) Post-operative pain: Status: Acute Code(s): G89.18 - Other acute postprocedural pain (2) S/P partial thyroidectomy: Status: Acute Code(s): E89.0 - Postprocedural hypothyroidism (3) Thyroid nodule: Status: Acute Code(s): E04.1 - Nontoxic single thyroid nodule (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 Meds Home Medications and Allergies Home Medications ?Medication ?Instructions ?Recorded ?Confirmed ?Type esomeprazole magnesium 40 mg 40 mg PO DAILY 08/04/20 05/30/24 History capsule,delayed release propranolol 20 mg tablet 20 mg PO BID 10/04/23 05/30/24 History cyclobenzaprine 10 mg tablet 10 mg PO HS PRN muscle spasms 12/06/23 05/30/24 History cyanocobalamin (vitamin B-12) 1,000 mcg IM MONTHLY 02/02/24 05/30/24 History 1,000 mcg/mL injection solution cholecalciferol (vitamin D3) 10 10 mcg PO DAILY 05/23/24 05/30/24 History mcg (400 unit) capsule (Vitamin D3) hydrocodone 5 mg-acetaminophen 325 1 tab PO Q6H PRN pain 7 days #20 05/30/24 Rx mg tablet tabs ondansetron HCl 4 mg tablet 4 mg PO TIDP PRN Nausea #10 tabs 05/30/24 Rx New Prescriptions to Start Prescriptions: hydrocodone-acetaminophen Ubaldo Faulkner ondansetron HCl Ubaldo Faulkner Allergies Allergy/AdvReac Type Severity Reaction Status Date / Time tetracycline Allergy Severe Rash Verified 05/30/24 08:19 erythromycin base Allergy Intermediate I-RASH Verified 05/30/24 08:19 (ERYTHROMYCIN BASE) sulfamethoxazole (From Allergy Intermediate I-HIVES Verified 05/30/24 08:19 BACTRIM) trimethoprim (From BACTRIM) Allergy Intermediate I-HIVES Verified 05/30/24 08:19 Discharge Plan Disposition Patient Disposition: Home, Self-Care Condition: Fair Follow up Plan Follow up with: Ubaldo Faulkner MD [Physician] - 06/27/24 3:00 pm Clari Bailey APRN [Primary Care Provider] - 06/14/24 1:00 pm Prescriptions/Medication Reconciliation: New hydrocodone-acetaminophen 5-325 mg tablet 1 tab PO Q6H PRN (Reason: pain) 7 Days Qty: 20 0RF ondansetron HCl 4 mg tablet 4 mg PO TIDP PRN (Reason: Nausea) Qty: 10 0RF Continued esomeprazole magnesium 40 mg capsule,delayed release(DR/EC) 40 mg PO DAILY Patient Comments: TAKE 1 CAPSULE BY MOUTH ONCE DAILY FOR 30 DAYS propranolol 20 mg tablet 20 mg PO BID Patient Comments: TAKE ONE TABLET BY MOUTH TWICE DAILY cyanocobalamin (vitamin B-12) 1,000 mcg/mL solution 1,000 mcg IM MONTHLY cyclobenzaprine 10 mg tablet 10 mg PO HS PRN (Reason: muscle spasms) cholecalciferol (vitamin D3) [Vitamin D3] 10 mcg (400 unit) Capsule 10 mcg PO DAILY Problem Reconciliation Problems Reviewed?: Yes Patient Discharge Instructions ACTIVITY: Limited activity DIET: continue same diet Additional Instructions: no strenuous activity for one week Print Language: Mozambican Providers Primary Care Provider: Clari Bailey Admit Provider: Yaw Carrillo Attending Provider: Yaw Carrillo
--- NOTE | 2024-06-01 10:29 | SW/DCPLANNER ---
Spoke with patient on the phone. Patient stated that she is doing better just a little horse. Patient stated that she is aware of her upcoming appointments. Patient stated that she was able to get her medicine from clinic pharmacy and that she done the meds to bed. Patient stated that she has no concerns or questions at this time. Tiffany Sherman
== END 2024-05-31 11:30 | disposition home or self-care (01) ==
LOC: 2ND 14:49
PROVIDERS: Student in an Organized Health Care Education/Training Program; Admitting Provider Internal Medicine Adolescent Medicine; PCP Nurse Practitioner Family; Visit Provider Internal Medicine Adolescent Medicine
PROC: (CPT 60220; principal; 2024-05-30 09:45)
DX: E04.1 Nontoxic single thyroid nodule (principal); E06.3 Autoimmune thyroiditis; G89.18 Other acute postprocedural pain
CPT/HCPCS: 60220; 36415; 80053; 83735; 85025; G0378; J0131; J0690; J1100; J1171; J2250; J2270; J2405; J3010; J7120

== ENCOUNTER 2024-06-27 15:35 | Outpatient (CLI) | payer OTHER, SELFPAY ==
[2024-06-27 16:11] LABS: Basophils % 0.5 % (0.1-2.0); Eosinophils # 0.3 K/mm3 (0.0-0.4); Eosinophils % 4.1 % (0.1-12.0); Hematocrit 38.9 % (37.0-47.0); Hemoglobin 12.7 g/dL (12.2-16.2); Lymphocytes # 2.1 K/mm3 (0.7-4.5); Lymphocytes % 34.6 % (10-50); Mean Corpuscular HGB Conc 32.6 g/dL (31.8-35.4); Mean Corpuscular Hemoglobin 27.7 pg (27.0-31.2); Mean Corpuscular Volume 84.9 fl (81-99); Mean Platelet Volume 9.4 fl (7.4-10.4); Monocytes # 0.6 K/mm3 (0.1-1.0); Monocytes % 9.9 % (1.7-9.3); Neutrophils # 3.1 K/mm3 (1.8-7.8); Neutrophils % 50.7 % (37.0-80.0); Nucleated Red Blood Cells # 0 10^3/uL; Nucleated Red Blood Cells % 0 %; Platelet Count 275 K/mm3 (142-424); Red Blood Count 4.58 M/mm3 (4.20-5.40); Red Cell Distribution Width 13.5 % (11.5-17.5); Red Cell Distribution Width-SD 41.8 fL; White Blood Count 6.1 K/mm3 (4.8-10.8)
[2024-06-27 17:14] LABS: Free T4 (Free Thyroxine) 1.02 ng/dl (0.78-2.19)
[2024-06-27 17:26] LABS: Thyroid Stimulating Hormone 6.97 uIU/mL (0.465-4.68)
[2024-07-12 11:55] LABS: Miscellaneous Test SCANNED IMAGE
== END 2024-06-27 23:59 | disposition home or self-care (01) ==
PROVIDERS: Specialist; PCP Nurse Practitioner Family; Visit Provider Student in an Organized Health Care Education/Training Program
DX: E89.0 Postprocedural hypothyroidism (principal)
CPT/HCPCS: 36415; 84439; 84443; 85025

== ENCOUNTER 2024-08-03 12:50 | Outpatient (CLI) | payer OTHER, SELFPAY ==
--- OUTSIDE RECORDS SUMMARY | 2024-08-03 12:54 | XMS_ITS | Data Portability ---
Author Organization [place] - [facility] [place] [facility] [place] [facility] ADMIN Address [address] [place] [id number] Care Team Providers Care Editor Book Name Role Phone EMERSON CROSSA Primary Care Provider [phone] Assessment Encounter Date Assessment Date Assessment LastModified by Organization Details LastModified Time 12/20/2023 12/20/2023 A total of 20 minutes was spent with the pt today. ??? Recommendations: 1. Start taking MVI with 45 mg of iron 2. Provided pt with a list of high to moderate sources of foods with iron - pair plant based iron products with a vitamin C for better absorption 3. Start tracking calories and protein with UCROO tammy 4. Add in 1 protein shake per day, try protein water, and try making own smoothies 5. Try adding in more fiber such as fruits, oats 6. F/U with RD in 3 months ??? Pt doing well overall. Addressed concerns today. Pt was reassured at today's visit. Pt verbally agreed to recommendations and goals. Denied further questions/concerns . ??? RDN will monitor weight loss, labs, meds, and lifestyle modifications. Will f/up as scheduled or PRN. [email or web address] Not available 12/20/2023 15:43:40 Plan of Treatment Reminders Order Date Submit Date Provider Last Modified By Organization Details Last Modified Time Details Appointments OV EST 20 2024 01:20P M Raffi Pruitt, DNP, LADDERMAN, TECHNICAL EDITOR-C Not available Not available Not available Lab iron + TIBC + ferritin, serum 2024 025 [email or web address] [facility], [address], [address], [place], [address], 04/06/2024 12:14:45 folate, serum 2024 025 [email or web address] [facility], [address], [address], [place], [address], 04/06/2024 12:14:45 vitamin D, 25-hydrox y, total, serum 2024 025 VANESSA [facility], [address], [address], [place], [address], 03/24/2024 10:52:24 H pylori Ag, qual immunoass ay, stool 2024 025 [email or web address] Not available 04/06/2024 12:14:46 prealbumi n, serum 2024 025 VANESSA [facility], [address], [address], [place], [address], 03/29/2024 08:47:03 thiamine, QN, blood 2024 025 [facility], [address], [address], [place], [address], 04/06/2024 12:14:45 methylmal ruel, QN, serum or plasma 2024 025 [email or web address] [facility], [address], [address], [place], [address], 04/06/2024 12:14:45 vitamin E, serum 2024 025 VANESSA [facility], [address], [address], [place], [address], 03/29/2024 02:57:35 vitamin A (retinol) , serum 2024 025 [email or web address] [facility], [address], [address], [place], [address], 04/06/2024 12:14:45 CBC w/ auto diff 2024 025 VANESSA [facility], [address], [address], [place], [address], 03/24/2024 10:42:19 CMP, serum or plasma 2024 025 VANESSA [facility], [address], [address], [place], [address], 03/24/2024 11:09:55 HbA1c (hemoglob in A1c), blood 2024 025 [facility], [address], [address], [place], [address], 04/06/2024 12:14:45 TSH + free T4, serum 2024 025 [email or web address] [facility], [address], [address], [place], [address], 04/06/2024 12:14:46 lipid panel, serum 2024 025 [email or web address] [facility], [address], [address], [place], [address], 04/06/2024 12:14:46 vitamin D, 25-hydrox y, total, serum 2023 024 VANESSA [facility], [address], [address], [place], [address], 12/21/2023 13:08:14 iron + TIBC + ferritin, serum 2023 024 [email or web address] [facility], [address], [address], [place], [address], 12/27/2023 15:36:37 folate, serum 2023 [email or web address] [facility], [address], [address], [place], [address], 12/27/2023 15:36:37 prealbumi n, serum 2023 024 [email or web address] [facility], [address], [address], [place], [address], 12/27/2023 15:36:38 thiamine, QN, blood 2023 024 [email or web address] [facility], [address], [address], [place], [address], 12/27/2023 15:36:38 methylmal ruel, QN, serum or plasma 2023 024 [email or web address] [facility], [address], [address], [place], [address], 12/27/2023 15:36:38 vitamin E, serum 2023 024 [email or web address] [facility], [address], [address], [place], [address], 12/27/2023 15:36:38 vitamin A (retinol) , serum 2023 024 [email or web address] [facility], [address], [address], [place], [address], 12/27/2023 15:36:38 CBC w/ auto diff 2023 024 VANESSA [facility], [address], [address], [place], [address], 12/21/2023 12:38:48 CMP, serum or plasma 2023 024 VANESSA [facility], [address], [address], [place], [address], 12/21/2023 14:06:08 HbA1c (hemoglob in A1c), blood 2023 024 [email or web address] [facility], [address], [address], [place], [address], 12/27/2023 15:36:38 TSH + free T4, serum 2023 024 VANESSA [facility], [address], [address], [place], [address], 12/21/2023 14:06:09 lipid panel, serum 2023 024 VANESSA [facility], [address], [address], [place], [address], 12/21/2023 14:06:08 CBC w/ auto diff 2022 023 [email or web address] 17 Not available 12/15/2022 11:47:48 CMP, serum or plasma 2022 023 [email or web address] 17 Not available 12/15/2022 11:47:48 HbA1c (hemoglob in A1c), blood 2022 023 [email or web address] 17 Not available 12/15/2022 11:47:48 lipid panel, blood 2022 023 [email or web address] 17 Not available 12/15/2022 11:47:49 iron + TIBC + ferritin, serum 2022 023 [email or web address] 17 Not available 12/15/2022 11:47:49 folate, serum 2022 023 [email or web address] 17 Not available 12/15/2022 11:47:49 mma (methylma lonic acid), serum 2022 023 [email or web address] 17 Not available 12/15/2022 11:47:49 vitamin B1 (thiamine ), blood 2022 023 [email or web address] 17 Not available 12/15/2022 11:47:49 vitamin D, 25-hydrox y, total, serum 2022 023 [email or web address] 17 Not available 12/15/2022 11:47:49 vitamin E, serum 2022 023 [email or web address] 17 Not available 12/15/2022 11:47:49 vitamin A (retinol) , serum 2022 023 [email or web address] 17 Not available 12/15/2022 11:47:50 TSH, serum or plasma 2022 023 [email or web address] 17 Not available 12/15/2022 11:47:50 CBC w/ auto diff 2022 023 [email or web address] [facility], [address] [place] [address] [address] [place], [id number], 07/14/2022 13:58:21 CMP, serum or plasma 2022 023 [email or web address] [facility], [address] [place] [address] [address] [place], [id number], 07/14/2022 13:58:22 HbA1c (hemoglob in A1c), blood 2022 023 [email or web address] 53 [facility], [address] [place] [address] [address] [place], [id number], 07/14/2022 13:58:22 lipid panel, blood 2022 023 [email or web address] 53 [facility], [address] [place] [address] [address] [place], [id number], 07/14/2022 13:58:22 iron + TIBC + ferritin, serum 2022 023 [email or web address] 53 [facility], [address] [place] [address] [address] [place], [id number], 07/14/2022 13:58:22 folate, serum 2022 [facility] [place] [address] [facility], [address] [place] [address] [place], [id number], 07/14/2022 13:58:22 mma (methylma lonic acid), serum [address] [facility], [address] [place] [address] [place], [id number], 07/14/2022 13:58:22 vitamin B1 (thiamine ), blood [address], [address] [place] [address] [place], [id number], 07/14/2022 13:58:23 vitamin D, 25-hydrox y, total, serum 2022 023 [facility] [place] [address] Pharmacy [facility], [address] [place] [address] [place], [id number], 07/14/2022 13:58:23 vitamin E, serum 2022 023 [facility] [place] [address], [address] [place] [address] [place], [id number], 07/14/2022 13:58:23 vitamin A (retinol) , serum 2022 023 [facility] [place] [address] Pharmacy [facility], [address] [place] [address] [place], [id number], 07/14/2022 13:58:23 Referral None recorded. Procedures None recorded. Surgeries esophagog astroduod enoscopy (SURG) 2023 024 [email or web address] Mar Dolan MD, [address], [address], [place], [address], 03/01/2024 13:21:48 Imaging XR, abdomen + RF, upper gastroint estinal tract, w/ contrast PO 2023 [email or web address] [facility] ([facility]), [address] [place] [address] [address], [place], [address], 03/08/2024 11:43:03 Medication Orders ondansetr on 4 mg disintegr ating tablet 2023 [facility], [address] [place] [address] [address], [place], [id number], 03/05/2024 17:09:00 Patient TargetsNo targets recorded. Patient InstructionsNo instructions recorded. Reason for Referral None Reported. Results Created Date Observation Date Name Description Value Unit Range Abnormal Flag Note LastModifiedBy Organization Detail LastModifiedTime 01/05/2001/06/[address] (H PYLOR I AB QUAL) meghan test 20 min NEGATI VE negati ve Not Available [facility] ([facility]) [address] , [place], [address], 01/06/2024 09:52:41 01/05/2001/06/[address] (H PYLOR I AB QUAL) meghan test 1HR NEGATI VE negati ve Not Available [facility] ([facility]) [address] , [place], [address], 01/06/2024 09:52:41 01/05/2001/06/[address] (H PYLOR I AB QUAL) meghan test 3 HR NEGATI VE negati ve Not Available [facility] ([facility]) [address] , [place], [address], 01/06/2024 09:52:41 01/05/2001/06/[address] (H PYLOR I AB QUAL) meghan test 24 HR POSITI VE negati ve delta Not Available [facility] ([facility]) [address], [place], [address], 01/06/2024 09:52:41 01/05/2001/06/[address] (H PYLOR I AB QUAL) meghan test kit lot# [id number] Not Available [facility] ([facility]) [address] , [place], [address], 01/06/2024 09:52:41 01/05/2001/06/[address] (H PYLOR I AB QUAL) meghan test kit exp date 2023 Not Available [facility] ([facility]) [address] , [place], [address], 01/06/2024 09:52:41 Result Notes None recorded. Problems Name Problem SNOMED Code Status Onset Date Resolution Date Notes Provider Name and Address Organization Details Recorded Time History of Helicobac ter pylori infection 972408188188 23418 Active 2024 Raffi Pruitt DNP, LADDERMAN, TECHNICAL EDITOR-C [address], [place], [address] , [place] - [facility] [place] 5 11:01:52 Essential hypertens ion 22104478 Active 2022 Raffi Pruitt DNP, LADDERMAN, TECHNICAL EDITOR-C [address] [facility], [place], [address] , [place] [facility] [place] 3 11:09:29 Low back pain 434371612 Active 2022 Raffi Pruitt DNP, LADDERMAN, TECHNICAL EDITOR-C [address] [facility], [place], [address] , [place] [facility] [place] 3 11:57:53 Obstructi ve sleep apnea syndrome 73153872 Active 2020 Not Available [facility] 2 13:28:45 Morbid obesity 569177128 Active 2020 Morbid obesity Not Available [facility] 2 13:28:45 History of sleeve gastrecto my 356201537440 107 Active 2021 Not Available [facility] 2 13:28:45 Gastroeso phageal reflux disease without esophagit is 360724494 Active 2020 Not Available [facility] 2 13:28:45 Vitamin D deficienc y 87884289 Active 2023 Raffi Pruitt DNP, LADDERMAN, TECHNICAL EDITOR-C [address], [place], [place], [address] [place] [address] , [place] [facility] [place] 4 14:35:59 Unintenti onal weight gain 264531204634 104 Active 2023 Raffi Pruitt DNP, LADDERMAN, TECHNICAL EDITOR-C [address], [place], [place], [address] [place] [address] , [place] [facility] [place] 4 14:40:00 Abdominal pain 15467656 Active 2023 Raffi Pruitt DNP, LADDERMAN, TECHNICAL EDITOR-C [address], [place], [place], [address] [place] [address] , [place] [facility] [place] 4 14:49:15 Nausea 154366350 Active 2023 Raffi Pruitt DNP, LADDERMAN, TECHNICAL EDITOR-C [address], [place], [address] , [place] [facility] [place] 4 14:49:44 Dysphagia 82973841 Active 2023 Raffi Pruitt DNP, LADDERMAN, TECHNICAL EDITOR-C [address], [place], [address] , [place] [facility] [place] 4 14:52:23 Fatigue 18744488 Active 2023 Raffi Pruitt DNP, LADDERMAN, TECHNICAL EDITOR-C [address], [place], [address] [place] [address] , [place] [facility] [place] 4 15:12:50 Iron deficienc y 86506520 Active 2023 Raffi Pruitt, DNP, LADDERMAN, TECHNICAL EDITOR-C [address] [facility], [place], [address] , [facility] & [place] 4 15:12:59 Problem Notes None recorded. Procedures Surgical History Date Name Laterality Status Provider Name and Address Organization Details Recorded Time cholecystectomy completed Jim Paez [place] - [facility] & [place] 12/16/2021 14:48:38 laparoscopic sleeve gastrectomy completed Jim Paez [place] - [facility] & [place] 12/16/2021 14:49:01 ligation of fallopian tube completed Jim Paez m [place] - [facility] & [place] 12/16/2021 14:49:12 [facility] [place] - [facility] & [place] 12/16/2021 14:49:22 [facility] [place] [facility] & [place] 12/16/2021 14:49:35 Imaging Results None recorded. Procedure Notes None recorded. Medical Equipment None Reported. Allergies Allergen ID Allergen Name Allergen Category Reaction Reaction Severity Criticality Documentation Date Start Date Code Code System Note Provider Name and Address Organization Details Recorded Time 496721 Medicinal product containin g tetracycl ine structure and acting as antibacte rial agent (product) medicatio n Not available Not available Not available 03/23/2024 64512 1004 SNOMED Claudia Whittaker [facility], [place] - [facility] & [place] 5 10:45:03 4546 erythromy kendra medicatio n Not available Not available Not available 11/19/2021 4053 RxNorm React ion: Unkno wn, sever ity: Unkno wn Not Available [facility] 2 22:31:06 4548 peanut allergeni c extract food,medi cation Not available Not available Not available 11/19/2021 75444 8 RxNorm React ion: hives , swell ing, sever ity: Unkno wn Not Available [facility] 2 22:31:06 73382 Bactrim medicatio n Not available Not available Not available 03/22/2022 95475 9 RxNorm Jim Ino-Bec [facility], [place] - [facility] - [place] & [place] 3 11:00:17 Medications Name Sig Start Date Stop Date Status Note LastModified by Organization Details LastModified Time tetracyclin e 500 mg capsule TAKE ONE CAPSULE BY MOUTH FOUR TIMES DAILY FOR FOURTEEN DAYS 03/23 completed Not Available Not Available Not Available celecoxib 200 mg capsule TAKE 1 CAPSULE BY MOUTH TWICE DAILY 12/19 completed Not Available Not Available Not Available cyclobenzap rine 10 mg tablet TAKE ONE TABLET BY MOUTH AT BEDTIME active Not Available Not Available No t Available amoxicillin 500 mg capsule 03/23 completed Not Available Not Available Not Available clindamycin HCl 300 mg capsule TAKE ONE CAPSULE BY MOUTH EVERY 6 HOURS FOR 7 DAYS -- FINISH ALL MEDICINE -- 07/12 completed Not Available Not Available Not Available prednisone 20 mg tablet TAKE ONE TABLET BY MOUTH TWICE DAILY -- FINISH ALL MEDICINE -- 07/12 completed Not Available Not Available Not Available metronidazo le 250 mg tablet TAKE ONE TABLET BY MOUTH FOUR TIMES DAILY FOR FOURTEEN DAYS --AVOID ANY PRODUCT(S ) CONTAININ G ALCOHOL WHILE TAKING THIS MEDICATIO N-- 03/23 completed Not Available Not Available Not Available clobetasol 0.05 % topical cream APPLY TOPICALLY TO THE AFFECTED AREA(S) EVERY NIGHT AT BEDTIME DIRECTED -- FOR EXTERNAL USE ONLY-- 07/12 completed Not Available Not Available Not Available ciprofloxac in 500 mg tablet TAKE 1 TABLET BY MOUTH EVERY 12 HOURS FOR 7 DAYS 07/12 completed Not Available Not Available Not Available amoxicillin 500 mg tablet Take 2 tablets twice a day by oral route for 7 days. 03/23 completed Not Available Not Available Not Available meloxicam 7.5 mg tablet TAKE 1 TABLET BY MOUTH ONCE DAILY FOR PAIN AND INFLAMMAT ION 12/16 completed Not Available Not Available Not Available famotidine 20 mg tablet TAKE ONE TABLET BY MOUTH TWICE DAILY 12/19 completed Not Available Not Available Not Available hydrocodone 7.5 mg-acetamin ophen 325 mg tablet TAKE 1 TO 2 TABLETS BY MOUTH EVERY 6 HOURS FOR 7 DAYS (MAX OF 6 TABS PER DAY) 12/19 completed Not Available Not Available Not Available cyanocobala min (vit B-12) 1,000 mcg/mL injection solution inject 1ml intramusc ularly ONCE a MONTH active Not Available Not Available No t Available oseltamivir 75 mg capsule TAKE 1 CAPSULE BY MOUTH ONCE DAILY FOR 10 DAYS 12/16 completed Not Available Not Available Not Available esomeprazol e magnesium 40 mg capsule,del ayed release TAKE ONE CAPSULE BY MOUTH EVERY DAY active Not Available Not Available No t Available hyoscyamine 0.125 mg sublingual tablet DISSOLVE 1 TABLET IN MOUTH EVERY 8 HOURS NEEDED FOR DYSPEPSIA 07/12 completed Not Available Not Available Not Available promethazin e 25 mg tablet TAKE 1 TABLET BY MOUTH EVERY 6 HOURS NEEDED FOR NAUSEA AND VOMITING 12/19 completed Not Available Not Available Not Available metoprolol tartrate 50 mg tablet TAKE 1 TABLET BY MOUTH TWICE DAILY FOR 30 DAYS 12/19 completed Not Available Not Available Not Available gabapentin 300 mg capsule TAKE 1 CAPSULE BY MOUTH EVERY 8 HOURS NEEDED FOR 7 DAYS 12/16 completed Not Available Not Available Not Available omeprazole 20 mg capsule,del ayed release TAKE ONE CAPSULE BY MOUTH TWICE DAILY FOR FOURTEEN DAYS 03/23 completed Not Available Not Available Not Available propranolol 20 mg tablet TAKE ONE TABLET BY MOUTH TWICE DAILY active Not Available Not Available No t Available ondansetron 4 mg disintegrat ing tablet DISSOLVE ONE TABLET in MOUTH TWICE DAILY NEEDED FOR NAUSEA active Not Available Not Available No t Available tetracyclin e 500 mg tablet Take 1 tablet 4 times a day by oral route for 14 days. 03/23 completed Not Available Not Available Not Available hydroxyzine pamoate 25 mg capsule TAKE ONE CAPSULE BY MOUTH FOUR TIMES DAILY NEEDED FOR ANXIETY MAY CAUSE DROWSINES S 12/19 completed Not Available Not Available Not Available enoxaparin 60 mg/0.6 mL subcutaneou s syringe INJECT 1 SYRINGE SUBCUTANE OUSLY TWICE DAILY FOR 14 DAYS 12/16 completed Not Available Not Available Not Available escitalopra m 10 mg tablet TAKE ONE TABLET BY MOUTH EVERY DAY 12/19 completed Not Available Not Available Not Available ciprofloxac in 0.3 %-dexametha sone 0.1 % ear drops,suspe nsion 03/23 completed Not Available Not Available Not Available duloxetine 30 mg capsule,del ayed release TAKE ONE CAPSULE BY MOUTH EVERY DAY 12/19 completed Not Available Not Available Not Available Vitamin C active Not Available Not Gaby ilable Not Available calcium patch 12/19 completed Not Available Not Available Not Available biotin 12/19 completed Not Available Not Available Not Available cetirizine 12/19 completed Not Available Not Available Not Available multivitami n 12/19 completed Not Available Not Available Not Available cholecalcif akilah (vitamin D3) 1,250 mcg (50,000 unit) capsule TAKE 1 CAPSULE BY MOUTH ONCE A WEEK 12/19 completed Not Available Not Available Not Available Vitamin D3 10 mcg (400 unit) chewable tablet Take by oral route. active Not Available Not Available No t Available Vienva 0.1 mg-20 mcg tablet TAKE ONE TABLET BY MOUTH EVERY DAY 07/12 completed Not Available Not Available Not Available omeprazole 20 mg delayed release,dis integrating tablet Take 1 tablet twice a day by oral route for 14 days. 03/23 completed Not Available Not Available Not Available Injectafer 100 mg iron/2 mL intravenous solution Inject by intraveno us route. 03/23 completed Not Available Not Available Not Available bismuth subsalicyla te 525 mg tablet Take 1 tablet 4 times a day by oral route for 14 days. 03/23 completed Not Available Not Available Not Available Vitals Date Recorded Body height Body temperature Heart rate Body mass index (BMI) Body weight Systolic blood pressure Diastolic blood pressure Provider Name and Address Organization Details Last Updated DateTime 3 160.02 cm 97.5 [degF] 65 /min 47.4 kg/m2 130253. 6 g 149 mm[Hg] 104 mm[Hg] Jim Mckinnon-Bec [place] - [facility] - [place] & [place] 3 11:01:14 Date Recorded Body height Body mass index (BMI) Body weight Body temperature Heart rate Systolic blood pressure Diastolic blood pressure Provider Name and Address Organization Details Last Updated DateTime 3 160.02 cm 46.6 kg/m2 594947. 79 g 97.5 [degF] 78 /min 151 mm[Hg] 98 mm[Hg] Sierra Mcconnell [place] - [facility] & [place] 3 11:05:45 Date Recorded Body temperature Body weight Body mass index (BMI) Body height Heart rate Systolic blood pressure Diastolic blood pressure Provider Name and Address Organization Details Last Updated DateTime 4 97.1 [degF] 572615. 61 g 53.5 kg/m2 160.02 cm 78 /min 140 mm[Hg] 93 mm[Hg] Jim pineda [facility] & [place] 4 14:21:38 Date Recorded Body height Body temperature Heart rate Body mass index (BMI) Body weight Systolic blood pressure Diastolic blood pressure Provider Name and Address Organization Details Last Updated DateTime 5 160.02 cm 98.1 [degF] 68 /min 52.8 kg/m2 789252. 24 g 146 mm[Hg] 102 mm[Hg] Claudia Whittaker [facility] & [place] 5 10:49:47 Social History None recorded. Functional Status None recorded. Mental Status None recorded. Family History Relationship Description Onset Age of this Age Resolved Age Notes LastModified by Organization Details LastModified Time Maternal Grandmother Disorder of endocrine system pt. added direct ly (12/13) [email or web address] Not available 12/13/2021 13:21:57 Maternal Grandmother Hypercholest erolemia pt. added direct ly (12/13) [email or web address] Not available 12/13/2021 13:22:43 Maternal Grandmother Hypertensive disorder pt. added direct ly (12/13) [email or web address] Not available 12/13/2021 13:23:03 Maternal Aunt Disorder of endocrine system pt. added direct ly (12/13) [email or web address] Not available 12/13/2021 13:21:57 Maternal Aunt Hypertensive disorder pt. added direct ly (12/13) [email or web address] Not available 12/13/2021 13:23:03 Father Myocardial infarction pt. added direct ly (12/13) [email or web address] Not available 12/13/2021 13:22:08 Father Heart disease pt. added direct ly (12/13) [email or web address] Not available 12/13/2021 13:22:22 Father Hypercholest erolemia pt. added direct ly (12/13) [email or web address] Not available 12/13/2021 13:22:43 Father Hypertensive disorder pt. added direct ly (12/13) [email or web address] Not available 12/13/2021 13:23:03 Mother Hypercholest erolemia pt. added direct ly (12/13) [email or web address] Not available 12/13/2021 13:22:43 Mother Hypertensive disorder pt. added direct ly (12/13) [email or web address] Not available 12/13/2021 13:23:03 Mother Disorder of thyroid gland pt. added direct ly (12/13) [email or web address] Not available 12/13/2021 13:23:23 Maternal Grandfather Hypercholest erolemia pt. added direct ly (12/13) [email or web address] Not available 12/13/2021 13:22:43 Maternal Grandfather Hypertensive disorder pt. added direct ly (12/13) [email or web address] Not available 12/13/2021 13:23:03 Paternal Grandfather Hypercholest erolemia pt. added direct ly (12/13) [email or web address] Not available 12/13/2021 13:22:43 Paternal Grandfather Hypertensive disorder pt. added direct ly (12/13) [email or web address] Not available 12/13/2021 13:23:03 Medical History Condition Response Allergies/Hayfever Y Anxiety Disorder Y Muscle, Joint, or Bone Problems Y Other Y Anemia Y Constipation Y Reflux/GERD Y Headaches Y Hypertension Y Depression Y Gynecological HistoryNo gynecological history recorded. Obstetrics History GPAL:G 0 P 0 0 0 0 Past Encounters Encounter ID Performer Location Encounter Start Date Encounter Closed Date Diagnosis/Indication Diagnosis SNOMED-CT Code Diagnosis ICD10 Code Diagnosis Note [id number] Raffi Pruitt, DNP, LADDERMAN, TECHNICAL EDITOR-C [facility] [place] [facility] [address] [facility] [address] [place] [address] 12/16/2021 14:29:46 12/16/2021 15:35:52 History of bariatric surgical procedure 725227189 Z98.84 History of gastrectomy 340168565 Z90.3 Patient is status post bariatric surgery and at increased risk for vitamin deficienci es and malnutriti on. Bariatric vitamin panel ordered today. Patient will be contacted to correct any vitamin deficienci es. History of sleeve gastrectomy 7664621322 Z90.3 Obstructiv e sleep apnea syndrome 69658345 G47.33 Gastroesop hageal reflux disease without esophagitis 214681080 K21.9 Morbid obesity 863174932 E66.01 Intentiona l weight loss 532254547 R63.8 [id number] Raffi Pruitt DNP, LADDERMAN, TECHNICAL EDITOR-C [facility] [address] [facility] [address] [place] [place] [address] 03/22/2022 10:44:42 03/22/2022 11:24:55 History of bariatric surgical procedure 853372294 Z98.84 Advised qid intake 50% protein 3696-5379 calories/d y less than 100 carbs/dy Long discussion today of InBody results including PBF(percen t body fat) SMM (skeletal muscle mass) Visceral fat level level BMR Segmental Fat Analysis and Segmental Lean Analysis. Patient encouraged pt to take minimal calories as per BMR and to anticipate changes in SMM and PBF values not just total weight. Repeat CAROLINA in 2-3mth suggested Patient is to have bariatric vitamin lab panel. Patient was reassured on today's visit. Dialogue content in great detail regarding the benefits of proper diet as well as regular and routine exercise. In regards to exercise, we discussed reaching target heart rate for least 20 minutes 3 times a week. We also highlighte d the importance of staying well hydrated. Proper handwashin g was also encouraged . Patient was advised to keep in close contact with their primary care provider and/or any specialty provider (s). We will contact patient with any deficienci es. History of gastrectomy 540673906 Z90.3 Patient is status post bariatric surgery and at increased risk for vitamin deficienci es and malnutriti on. Bariatric vitamin panel ordered today. Patient will be contacted to correct any vitamin deficienci es. History of sleeve gastrectomy 8669492424 Z90.3 Intentiona l weight loss 098018745 R63.8 Obstructiv e sleep apnea syndrome 02995252 G47.33 Morbid obesity 639894860 E66.01 [id number] Raffi Pruitt DNP, LADDERMAN, TECHNICAL EDITOR-C [facility] [address] [facility] [address] [place] [address] 07/12/2022 10:47:58 07/12/2022 11:51:25 History of bariatric surgical procedure 288017642 Z98.84 Advised qid intake 50% protein 0202-1970 calories/d y less than 100 carbs/dyLo ng discussion today of InBody results including PBF(percen t body fat) SMM (skeletal muscle mass) Visceral fat level level BMR Segmental Fat Analysis and Segmental Lean Analysis. Patient encouraged pt to take minimal calories as per BMR and to anticipate changes in SMM and PBF values not just total weight. Repeat CAROLINA in 2-3mth suggestedP atient is to have bariatric vitamin lab panel. Patient was reassured on today's visit. Dialogue content in great detail regarding the benefits of proper diet as well as regular and routine exercise. In regards to exercise, we discussed reaching target heart rate for least 20 minutes 3 times a week. We also highlighte d the importance of staying well hydrated. Proper handwashin g was also encouraged . Patient was advised to keep in close contact with their primary care provider and/or any specialty provider (s). We will contact patient with any deficienci es. Pt will see dietitian today. History of gastrectomy 858597003 Z90.3 Patient is status post bariatric surgery and at increased risk for vitamin deficienci es and malnutriti on. Bariatric vitamin panel ordered today. Patient will be contacted to correct any vitamin deficienci es. Essential hypertension 44125953 I10 History of sleeve gastrectomy 7339337466 29946 Z90.3 Intentiona l weight loss 681098236 R63.8 Morbid obesity 468439831 E66.01 Obstructiv e sleep apnea syndrome 70831238 G47.33 Low back pain 625797991 M54.50 [id number] Raffi Pruitt DNP, LADDERMAN, TECHNICAL EDITOR-C [facility] [address] [facility] [address] [place] [address] 12/20/2023 14:11:37 12/21/2023 09:03:12 History of bariatric surgical procedure 578911719 Z98.84 Advised qid intake 50% protein 5617-4152 calories/d y less than 100 carbs/dyLo ng discussion today of InBody results including PBF(percen t body fat) SMM (skeletal muscle mass) Visceral fat level level BMR Segmental Fat Analysis and Segmental Lean Analysis. Patient encouraged pt to take minimal calories as per BMR and to anticipate changes in SMM and PBF values not just total weight. Repeat CAROLINA in 2-3mth suggestedP atient is to have bariatric vitamin lab panel. Patient was reassured on today's visit. Dialogue content in great detail regarding the benefits of proper diet as well as regular and routine exercise. In regards to exercise, we discussed reaching target heart rate for least 20 minutes 3 times a week. We also highlighte d the importance of staying well hydrated. Proper handwashin g was also encouraged . Patient was advised to keep in close contact with their primary care provider and/or any specialty provider (s). We will contact patient with any deficienci es. Pt will see dietitian today. Intentiona l weight loss 197509944 R63.8 History of gastrectomy 100815491 Z90.3 Advised qid intake 50% protein 0412-3928 calories/d y less than 100 carbs/dyLo ng discussion today of InBody results including PBF(percen t body fat) SMM (skeletal muscle mass) Visceral fat level level BMR Segmental Fat Analysis and Segmental Lean Analysis.E ncouraged pt to take minimal calories as per BMR and to anticipate changes in SMM and PBF values not just total weight.Fol low-up with Repeat CAROLINA in 3mth suggested . I have asked that patient get labs done here today but she states they will be cheaper if she gets them done at [facility]. She verbalizes that she will get these done fasting 1st thing in the morning. I will notify her with any abnormal results. Patient is status post bariatric surgery and at increased risk for vitamin deficienci es and malnutriti on. Bariatric vitamin panel ordered today. Patient will be contacted to correct any vitamin deficienci es. At community health risk of nutritional deficit 753624076 Z91.89 Essential hypertension 25748163 I10 History of sleeve gastrectomy [id number] 49644 Z90.3 Obstructiv e sleep apnea syndrome 83619169 G47.33 Vitamin D deficiency 347 12254 E55.9 Morbid obesity 045529864 E66.01 Unintentio nal weight gain 7159153329 79384 R63.5 Abdominal pain 58621661 R10.9 Nausea 743244301 R11.0 Dysphagia 29439666 R13.1 0 I would like to proceed with ordering upper GI as well as EGD. Patient will be notified of the time and date of these appointmen ts. I have asked that she contact me by Tuesday of this week if [facility] does not contact her about getting her scheduled for the upper GI. Patient verbalizes adequate understand ing. Iron deficiency 16443669 E61.[id number] [facility] n Bariatric s and Adv Surg [address] [facility] [address] [place] [address] 12/20/2023 15:12:42 12/20/2023 15:44:46 Dietary management surveillance 683452532 Z71.3 see klever caal for discussion and plan [id number] Raffi Pruitt, DNP, LADDERMAN, TECHNICAL EDITOR-C [facility] [address] [facility] [address] [place] [address] 03/23/2024 10:30:48 03/23/2024 11:58:53 History of bariatric surgical procedure 164376990 Z98.84 Advised qid intake 50% protein 6621-6966 calories/d y less than 100 carbs/dyLo ng discussion today of InBody results including PBF(percen t body fat) SMM (skeletal muscle mass) Visceral fat level level BMR Segmental Fat Analysis and Segmental Lean Analysis. Patient encouraged pt to take minimal calories as per BMR and to anticipate changes in SMM and PBF values not just total weight. Repeat CAR[place]INA in 2-3mth suggestedP atient is to have bariatric vitamin lab panel. Patient was reassured on today's visit. Dialogue content in great detail regarding the benefits of proper diet as well as regular and routine exercise. In regards to exercise, we discussed reaching target heart rate for least 20 minutes 3 times a week. We also highlighte d the importance of staying well hydrated. Proper handwashin g was also encouraged . Patient was advised to keep in close contact with their primary care provider and/or any specialty provider (s). We will contact patient with any deficienci es. Pt will not see dietitian today. Intentiona l weight loss 615088561 R63.8 History of gastrectomy 272584557 Z90.3 Advised qid intake 50% protein 4426-0727 calories/d y less than 100 carbs/dy Long discussion today of InBody results including PBF(percen t body fat) SMM (skeletal muscle mass) Visceral fat level level BMR Segmental Fat Analysis and Segmental Lean Analysis. Encouraged pt to take minimal calories as per BMR and to anticipate changes in SMM and PBF values not just total weight. Follow-up with Repeat CAROLINA in 3mth suggested Patient is status post bariatric surgery and at increased risk for vitamin deficienci es and malnutriti on. Bariatric vitamin panel ordered today. Patient will be contacted to correct any vitamin deficienci es. At community health risk of nutritional deficit 996920521 Z91.89 Essential hypertension 08516612 I10 Iron deficiency 67396359 E61.1 Vitamin D deficiency 347 83189 E55.9 Morbid obesity 538230658 E66.01 History of Helicobacter pylori infection 9420964846 3858374 Z86.19 Health Concerns Section Related Observation LastModified by Organization Detai ls LastModified Time None Recorded Concern Status LastModified by Organization Details LastModified Time None Recorded Advance Directives Directive None Recorded Payers Insurance Date Sequence Insurance Name Policy Number Policy Bolivar Covered Member ID Bolivar Member ID Guarantor Name 06/29/2021 2 *SELF PAY* Alycia rom Feliz 03/26/2024 1 UMR [id number] Garrett Feliz [id number] Garrett Feliz 06/22/2021 1 [place] [id number] Garrett Feliz [id number] Garrett Feliz 06/22/2021 2 [place] [id number] Garrett Feliz [id number] Garrett Feliz Notes Date Note Type Note Provider Name and Address Organization Details Recorded Time 03/22/2022 text/html Patient presents the office today for routine 9 month follow-up status post bariatric gastric sleeve surgery (06.15.2021). Patient doing well. Reports q.i.d. small meal intake. Reports 70-90g/dy protein intake and good hydration.Patient is drinking 64 ounces of water a day.Daily Calories 1200Taking routine vitamins as advised.Heartburn /gastroesophageal reflux: deniesPt Denies : abdominal pain, prandial issues Nausea, Vomiting, bowel or bladder issuesTotal Weight loss Since last office visit has been 10.6 lbsPt is happy with their quality of life after Weight loss Surgery.patient has recently seen primary care provider. He placed her on propranolol for her heart rate and BP. She is to follow up with him in 2 weeks.Today's InBody reveals a skeletal muscle mass = 67.9 lb,body fat mass = 145.0 lb,BMI = 47.4Percent body fat = 54.2Basal Metabolic Rate = 1568 kilo calories Raffi Pruitt DNP, LADDERMAN, TECHNICAL EDITOR-C [address] , [place], [address], [facility] & [place] 03/22/2022 11:24:09 07/12/2022 text/html Patient presents the office today for routine 12 month follow-up status post bariatric gastric sleeve surgery (06.15.2021). Patient doing well. Reports q.i.d. small meal intake. Reports 70-90g/dy protein intake and good hydration.Patient is drinking 64 ounces of water a day.Daily Calories 1300-1500Taking routine vitamins as advised.Heartburn /gastroesophageal reflux: deniesPt Denies : abdominal pain, prandial issues Nausea, Vomiting, bowel or bladder issuesTotal Weight loss Since last office visit has been 4.3 lbsPt is happy with their quality of life after Weight loss Surgery.She has been avoiding breads and pastas.she tells me that she has been having some low back pain for the past 3 weeks. She states that she was helping pruning a tree and was lifting some heavy limbs and developed low back pain. Since he has been having back pain she has not been able to concentrate much on her diet or exercise. She has had x-rays performed and is scheduled to have an MRI performed tomorrow. Today's InBody reveals a skeletal muscle mass = 67.0 lb,body fat mass = 142.6 lb,BMI = 46.6Percent body fat = 54.2Basal Metabolic Rate = 1550 kilo calories Raffi Pruitt DNP, LADDERMAN, TECHNICAL EDITOR-C [address], [place], [address], [place] - [facility] - [place] & [place] 07/12/2022 11:58:21 12/20/2023 text/html Patient presents the office today for routine follow-up status post bariatric gastric sleeve gastrectomy surgery (06.15.2021). She has not been seen since July 2022. Labs ordered on that visit and she did not get these performed. Patient doing well. Reports q.i.d. small meal intake. Reports has not been counting g/dy protein intake and good hydration.Patient is drinking 64 ounces of water a day.Daily Calories has not been counting.She has not been taking routine vitamins as advised. She is taking it D and Vit C. Hx of Vit D and Iron deficiencyHeajose luis rn/gastroesophage al reflux: denies. Is taking Nexium daily.Pt Denies : abdominal pain, prandial issues Nausea, Vomiting, bowel or bladder issues. She reports no blood in bowel movements.Patient states that she is felt really bad over the past several months. She was found to have a mass on the right thyroid. She has been followed by [facility] department of endocrinology. Biopsy has performed which did reveal not cancerous. She was persuaded to go ahead and have a thyroidectomy. She went for preop labs and was found to have a low hemoglobin and hematocrit of 8 and 28%. She was sent for iron studies. Iron levels were 32, iron saturation 6.28%, TIBC 469, ferritin was 4.63. She has had a total of 2 iron infusions over the past 2 weeks. This does make her feel better. She also tells me that all foods make her stomach hurt. She has been living off popcorn and fluids. She feels like there is a ball in her stomach. She is able to tolerate Nepali fries because they are easy to eat . She does skip breakfast. Her 1st meal isn't until 11:00 a.m. but she states that she snacks throughout the day . She also tells me that I do not know how gained so much weight . She does report symptoms of being fatigued, shortness of breath, palpitations. She can not walk up a flight of steps without getting short of air and she can not bend over to tie her shoe without getting short of breath.Total Weight gain Since last office visit has been 39.2 lbsPt is not happy with their quality of life after Weight loss Surgery. She is fearful that she is missed her surgery up. Today's InBody reveals a skeletal muscle mass = 72.8 lb,body fat mass = 172.1 lb,BMI = 53.5Percent body fat = 57.0Basal Metabolic Rate = 1644 kilo calories Raffi Pruitt, DNP, LADDERMAN, TECHNICAL EDITOR-C [address], [place], [address], [facility] & [place] 12/20/2023 15:22:44 12/20/2023 text/html RDN met w/ pt fo r 2 year f/up s/p sleeve . HT = 63 Current Weight: 302.2#BMI = 302.2 Notes on weight: desires continued weight loss at this time. Gained 39.2# from last visit a year ago. Inbody measurements:Musc le mass%: up 5.8%Body fat% up 2.8%BMR: 1644 Signs/SymptomsN/V /C/D: nausea, no vomiting, constipation/diar vinh both Meds and labs reviewed.Notes - b12, vit D, vit C. Has had 2 vitamin infusions. Physical activity: was doing walking and resistance bands but not lately Tracking meal intakes: was using lose it tammy, but stopped using it Est. daily kcal intake: unsure Est. daily protein intake: unsure Est. daily fluid intake: 64+ Meal Frequency/Pattern : Has not been focusing on protein. Has been living on pocorn and water. Meats/breads feel like a ball in stomach. Can tolerate soft things. Has not been doing protein shakes. Drinks: 64 fluid oz of water with kenyatta and diet soda. Foods Not Tolerated: meats/breads Additional notes/concerns: has been feeling fatigued, has low iron, low hgb, has a mass on thyroid. Will be going to get an EGD/upper GI done. JUWAN LIVINGSTON, RD [address] [facility], [place], [address], [facility] & [place] 12/20/2023 15:44:08 03/23/2024 text/html Patient presents the office today for routine follow-up status post bariatric gastric sleeve gastrectomy surgery (06.15.2021). She has not been seen since July 2022. Patient doing well. Reports q.i.d. small meal intake. Reports 40-50g/dy protein intake and good hydration.Patient is drinking 64 ounces of water a day.Daily Calories 1200Taking routine vitamins as advised. Hx of Iron and Vit D deficiencyHeartbu rn/gastroesophage al reflux deniesPt Denies : abdominal pain, prandial issues Nausea, Vomiting, bowel or bladder issuesTotal Weight loss Since last office visit has been 3.6 lbsPt is happy with their quality of life after Weight loss Surgery. completed treatment for H. pylori.Pain is so much better. Reports 95%. Today's InBody reveals a skeletal muscle mass = 73.4 lb,body fat mass = 167.4 lb,BMI = 52.9Percent body fat = 56.0Basal Metabolic Rate = 1656 kilo calories Raffi Pruitt, DNP, LADDERMAN, TECHNICAL EDITOR-C [address], [place], [address], [facility] - [place] & [place] 03/23/2024 11:57:40 OBGyn Episode No OBEpisode recorded.
--- NOTE | 2024-08-03 12:55 | US_ITS ---
FINAL REPORT CLINICAL HISTORY: THYROID CANCER COMPARISON: None FINDINGS: Sonographic images of the thyroid gland were obtained. The right thyroid lobe has been surgically resected. The left thyroid lobe measures 6.5 mL in volume. The thyroid isthmus measures 4 mm. There is no evidence of a mass seen in the right thyroid bed. No cervical adenopathy is identified. No mass or nodule is identified in the left lobe or isthmus. IMPRESSION: 1. Prior right thyroidectomy, without evidence of mass in the surgical bed. 2. No mass or nodule is noted in the left lobe of the thyroid or isthmus, and no cervical adenopathy is appreciated. Reviewed, Interpreted and Dictated by Aj Bellamy MD Transcribed by Sunita Conti Authenticated and [facility]
== END 2024-08-03 23:59 | disposition home or self-care (01) ==
LOC: RAD 12:51
PROVIDERS: PCP Nurse Practitioner; Visit Provider Nurse Practitioner
DX: C73 Malignant neoplasm of thyroid gland (principal); E89.0 Postprocedural hypothyroidism
CPT/HCPCS: 76536

== ENCOUNTER 2024-08-15 09:02 | Outpatient (CLI) | payer OTHER, SELFPAY ==
--- OUTSIDE RECORDS SUMMARY | 2024-08-15 09:06 | XMS_ITS | Data Portability ---
Author Organization [place] [facility] [place] [facility] [place] [facility] Address [address] [place] [address] Care Team Providers Care Psychological Assistant Name Role Phone LATONIA CROSS Primary Care Provider Assessment Encounter Date Assessment Date Assessment LastModified by Organization Details LastModified Time 12/20/2023 12/20/2023 A total of 20 minutes was spent with the pt today. Recommendations: 1. Start taking MVI with 45 mg of iron 2. Provided pt with a list of high to moderate sources of foods with iron - pair plant based iron products with a vitamin C for better absorption 3. Start tracking calories and protein with KeyMe tammy 4. Add in 1 protein shake per day, try protein water, and try making own smoothies 5. Try adding in more fiber such as fruits, oats 6. F/U with RD in 3 months Pt doing well overall. Addressed concerns today. Pt was reassured at today's visit. Pt verbally agreed to recommendations and goals. Denied further questions/concerns . RDN will monitor weight loss, labs, meds, and lifestyle modifications. Will f/up as scheduled or PRN. [email or web address] Not available 12/20/2023 15:43:40 Plan of Treatment Reminders Order Date Submit Date Provider Last Modified By Organization Details Last Modified Time Details Appointments OV EST 20 2024 01:20P M Raffi Pruitt, DNP, DRUGLESS DOCTOR, OPEN CUT EXAMINER-C Not available Not available Not available Lab iron + TIBC + ferritin, serum 2024 025 [email or web address] [facility], [address], [address], [place], [address], 04/06/2024 12:14:45 folate, serum 2024 025 [email or web address] [facility], [address], [address], [place], [address], 04/06/2024 12:14:45 vitamin D, 25-hydrox y, total, serum 2024 025 VANESSA [facility], [address], [address], [place], [address], 03/24/2024 10:52:24 H pylori Ag, qual immunoass ay, stool 2024 025 [email or web address] Not available 04/06/2024 12:14:46 prealbumi n, serum 2024 025 VANESSA [facility], [address], [address], [place], [address], 03/29/2024 08:47:03 thiamine, QN, blood 2024 025 [email or web address] [facility], [address], [address], [place], [address], 04/06/2024 12:14:45 methylmal ruel, QN, serum or plasma 2024 025 [email or web address] [facility], [address], [address], [place], [address], 04/06/2024 12:14:45 vitamin E, serum 2024 025 VANESSA [facility], [address], [address], [place], [address], 03/29/2024 02:57:35 vitamin A (retinol) , serum 2024 025 [email or web address] [facility], [address], [address], [place], [address], 04/06/2024 12:14:45 CBC w/ auto diff 2024 025 VANESSA [facility], [address], [address], [place], [address], 03/24/2024 10:42:19 CMP, serum or plasma 2024 025 VANESSA [facility], [address], [address], [place], [address], 03/24/2024 11:09:55 HbA1c (hemoglob in A1c), blood 2024 025 [email or web address] [facility], [address], [address], [place], [address], 04/06/2024 12:14:45 TSH + free T4, serum 2024 025 [email or web address] [facility], [address], [address], [place], [address], 04/06/2024 12:14:46 lipid panel, serum 2024 025 [email or web address] [facility], [address], [address], [place], [address], 04/06/2024 12:14:46 vitamin D, 25-hydrox y, total, serum 2023 024 VANESSA [facility], [address], [address], [place], [address], 12/21/2023 13:08:14 iron + TIBC + ferritin, serum 2023 024 [email or web address] [facility], [address], [address], [place], [address], 12/27/2023 15:36:37 folate, serum 2023 024 [facility], [address], [address], [place], [address], 12/27/2023 15:36:37 prealbumi n, serum 2023 024 [email or web address] [facility], [address], [address], [place], [address], 12/27/2023 15:36:38 thiamine, QN, blood 2023 024 [facility], [address], [address], [place], [address], 12/27/2023 15:36:38 methylmal ruel, QN, serum or plasma 2023 024 [email or web address] [facility], [address], [address], [place], [address], 12/27/2023 15:36:38 vitamin E, serum 2023 024 [email or web address] [facility], [address], [address], [place], [address], 12/27/2023 15:36:38 vitamin A (retinol) , serum 2023 [facility], [address], [address], [place], [address], 12/27/2023 15:36:38 CBC w/ auto diff 2023 024 VANESSA [facility], [address], [address], [place], [address], 12/21/2023 12:38:48 CMP, serum or plasma 2023 024 VANESSA [facility], [address], [address], [place], [address], 12/21/2023 14:06:08 HbA1c (hemoglob in A1c), blood 2023 024 [facility], [address], [address], [place], [address], 12/27/2023 15:36:38 TSH + free T4, serum 2023 024 VANESSA [facility], [address], [address], [place], [address], 12/21/2023 14:06:09 lipid panel, serum 2023 024 VANESSA [facility], [address], [address], [place], [address], 12/21/2023 14:06:08 CBC w/ auto diff 2022 [...] diff 2022 023 [email or web address] [facility], [address] [place] [address] [address], [id number], 07/14/2022 13:58:21 CMP, serum or plasma 2022 0[email or web address] [facility], [address] [place] [address] [address], [id number], 07/14/2022 13:58:22 HbA1c (hemoglob in A1c), blood 2022 023 [email or web address] [address] [facility], [address] [place] [address] [address], [id number], 07/14/2022 13:58:22 lipid panel, blood 2022 023 [email or web address] [address] [facility], [address] [place] [address] [address], [id number], 07/14/2022 13:58:22 iron + TIBC + ferritin, serum 2022 023 [email or web address] [address] [facility], [address] [place] [address] [address], [id number], 07/14/2022 13:58:22 folate, serum [address], [address] [place] [address] [place], [id number], 07/14/2022 13:58:22 mma (methylma lonic acid), serum [address], [address] [place] [address] [place], [id number], 07/14/2022 13:58:22 vitamin B1 (thiamine ), blood [address], [address] [place] [address] [place], [id number], 07/14/2022 13:58:23 vitamin D, 25-hydrox y, total, serum [address], [address] [place] [address] [place], [id number], 07/14/2022 13:58:23 vitamin E, serum [address], [address] [place] [address] [place], [id number], 07/14/2022 13:58:23 vitamin A (retinol) , serum [address], [address] [place] [address] [place], [id number], 07/14/2022 13:58:23 Referral None recorded. Procedures None recorded. Surgeries esophagog astroduod enoscopy (SURG) 2023 024 [email or web address] Mar Dolan MD, [address], [address], [place], [address], 03/01/2024 13:21:48 Imaging XR, abdomen + RF, upper gastroint estinal tract, w/ contrast PO 2023 [facility] ([facility]), [address] [place], [place] [address], [place], [address], 03/08/2024 11:43:03 Medication Orders ondansetr on 4 mg disintegr ating tablet 2023 [facility], [address] [place] [address] [address], [place], [id number], 03/05/2024 17:09:00 Patient TargetsNo targets recorded. Patient InstructionsNo instructions recorded. Reason for Referral None Reported. Results Created Date Observation Date Name Description Value Unit Range Abnormal Flag Note LastModifiedBy Organization Detail LastModifiedTime 01/05/2001/06/[address] (H PYLOR I AB QUAL) meghan test 20 min NEGATI VE negati ve Not Available [facility] ([facility]) [address] , [place], [address], 01/06/2024 09:52:41 01/05/2001/06/[address] (H PYLOR I AB QUAL) meghan test 1HR NEGATI VE negati ve Not Available [facility] ([facility]) [address] , [place], [address], 01/06/2024 09:52:41 01/05/2001/06/[address] (H PYLOR I AB QUAL) meghan test 3 HR NEGATI VE negati ve Not Available [facility] ([facility]) [address] , [place], [address], 01/06/2024 09:52:41 01/05/2001/06/[address] (H PYLOR I AB QUAL) meghan test 24 HR POSITI VE negati ve delta Not Available [facility] ([facility]) [address] [place], [address], 01/06/2024 09:52:41 01/05/2001/06/[address] (H PYLOR I AB QUAL) meghan test kit lot# [id number] 0 Not Available [facility] ([facility]) [address], [place], [address], 01/06/2024 09:52:41 01/05/2001/06/[address] (H PYLOR I AB QUAL) meghan test kit exp date 2023 Not Available [facility] ([facility]) [address], [place], [address], 01/06/2024 09:52:41 Result Notes None recorded. Problems Name Problem SNOMED Code Status Onset Date Resolution Date Notes Provider Name and Address Organization Details Recorded Time History of Helicobac ter pylori infection 497694539482 87118 Active 2024 Raffi Pruitt DNP, DRUGLESS DOCTOR, OPEN CUT EXAMINER-C [address], [place], [address] , [place] - [facility] [place] [facility] [place] 5 11:01:52 Essential hypertens ion 86069658 Active 2022 Raffi Pruitt DNP, DRUGLESS DOCTOR, OPEN CUT EXAMINER-C [address] [facility], [place], [address] , [place] - [facility] [place] [facility] [place] 3 11:09:29 Low back pain 861849803 Active 2022 Raffi Pruitt DNP, DRUGLESS DOCTOR, OPEN CUT EXAMINER-C [address] [facility], [place], [address] , [place] - [facility] [place] [facility] [place] 3 11:57:53 Obstructi ve sleep apnea syndrome 09152347 Active 2020 Not Available [facility] 2 13:28:45 Morbid obesity 778881642 Active 2020 Morbid obesity Not Available [facility] 2 13:28:45 History of sleeve gastrecto my 263039210375 107 Active 2021 Not Available [facility] 2 13:28:45 Gastroeso phageal reflux disease without esophagit is 928435517 Active 2020 Not Available [facility] 2 13:28:45 Vitamin D deficienc y 04728869 Active 2023 Raffi Pruitt DNP, LEANN, OPEN CUT EXAMINER-C [address], [place], [place], [address] [place] [address] , [place] - [facility] [place] [facility] [place] 4 14:35:59 Unintenti onal weight gain 970555059964 104 Active 2023 Raffi Pruitt DNP, LEANN, OPEN CUT EXAMINER-C [address], [place], [address] [place] [address] , [place] [facility] [place] [facility] [place] 4 14:40:00 Abdominal pain 97031421 Active 2023 Raffi Pruitt DNP, LEANN, OPEN CUT EXAMINER-C [address], [place], [address] [place] [address] , [place] - [facility] [place] [facility] [place] 4 14:49:15 Nausea 555044360 Active 2023 Raffi Pruitt DNP, DRUGLESS DOCTOR, OPEN CUT EXAMINER-C [address], [place], [address] [place] [address] , [place] [facility] [place] [facility] [place] 4 14:49:44 Dysphagia 40957690 Active 2023 Raffi Pruitt DNP, DRUGLESS DOCTOR, OPEN CUT EXAMINER-C [address], [place], [address] [place] [address] , [place] [facility] [place] [facility] [place] 4 14:52:23 Fatigue 08519756 Active 2023 Raffi Pruitt DNP, LEANN, OPEN CUT EXAMINER-C [address], [place], [address] [place] [address] , [place] [facility] [place] [facility] [place] 4 15:12:50 Iron deficienc y 09972840 Active 2023 Raffi Pruitt, DNP, DRUGLESS DOCTOR, OPEN CUT EXAMINER-C [address] [facility], [place], [address] , [facility] & [place] 4 15:12:59 Problem Notes None recorded. Procedures Surgical History Date Name Laterality Status Provider Name and Address Organization Details Recorded Time cholecystectomy completed Jim Paez m NAYELI - [facility] & [place] 12/16/2021 14:48:38 laparoscopic sleeve gastrectomy completed Jim DozierBeckjosefa m NAYELI - [facility] & [place] 12/16/2021 14:49:01 ligation of fallopian tube completed Jim DozierBeckjosefa m NAYELI - [facility] & [place] 12/16/2021 14:49:12 section completed Jim Paez m NAYELI - [facility] & [place] 12/16/2021 14:49:22 tonsillectomy completed Jim Paez NAYELI - [facility] & [place] 12/16/2021 14:49:35 Imaging Results None recorded. Procedure Notes None recorded. Medical Equipment None Reported. Allergies Allergen ID Allergen Name Allergen Category Reaction Reaction Severity Criticality Documentation Date Start Date Code Code System Note Provider Name and Address Organization Details Recorded Time 958769 Medicinal product containin g tetracycl ine structure and acting as antibacte rial agent (product) medicatio n Not available Not available Not available 03/23/2024 38810 1004 SNOMED Claudia nguyen, [facility] & [place] 5 10:45:03 4546 erythromy kendra medicatio n Not available Not available Not available 11/19/2021 4053 RxNorm React ion: Unkno wn, sever ity: Unkno wn Not Available [facility] 2 22:31:06 4548 peanut allergeni c extract food,medi cation Not available Not available Not available 11/19/2021 41163 8 RxNorm React ion: hives , swell ing, sever ity: Unkno wn Not Available [facility] 2 22:31:06 08945 Bactrim medicatio n Not available Not available Not available 03/22/2022 13280 9 RxNorm Jim [facility], [place] - [facility] - [place] [facility] [place] 3 11:00:17 Medications Name Sig Start Date [...] cm 97.5 [degF] 65 /min 47.4 kg/m2 039227. 6 g 149 mm[Hg] 104 mm[Hg] Jim pineda [place] - [facility] - [place] [facility] [place] 3 11:01:14 Date Recorded Body height Body temperature Heart rate Body mass index (BMI) Body weight Systolic blood pressure Diastolic blood pressure Provider Name and Address Organization Details Last Updated DateTime 5 160.02 cm 98.1 [degF] 68 /min 52.8 kg/m2 926874. 24 g 146 mm[Hg] 102 mm[Hg] Claudia Whittaker [place] - [facility] & [place] 5 10:49:47 Date Recorded Body height Body mass index (BMI) Body weight Body temperature Heart rate Systolic blood pressure Diastolic blood pressure Provider Name and Address Organization Details Last Updated DateTime 3 160.02 cm 46.6 kg/m2 179956. 79 g 97.5 [degF] 78 /min 151 mm[Hg] 98 mm[Hg] Sierra Mcconnell [place] - [facility] & [place] 3 11:05:45 Date Recorded Body temperature Body weight Body mass index (BMI) Body height Heart rate Systolic blood pressure Diastolic blood pressure Provider Name and Address Organization Details Last Updated DateTime 4 97.1 [degF] 902601. 61 g 53.5 kg/m2 160.02 cm 78 /min 140 mm[Hg] 93 mm[Hg] Jim pineda [place] - [facility] & [place] 4 14:21:38 Social History None recorded. Functional Status None [...] SNOMED-CT Code Diagnosis ICD10 Code Diagnosis Note [id number] Raffi Pruitt, DNP, DRUGLESS DOCTOR, OPEN CUT EXAMINER-C [facility] [address] [facility] [address] [place] [address] 12/16/2021 14:29:46 12/16/2021 15:35:52 History of bariatric surgical procedure 527609611 Z98.84 History of gastrectomy 065905382 Z90.3 Patient is status post bariatric surgery and at increased risk for vitamin deficienci es and malnutriti on. Bariatric vitamin panel ordered today. Patient will be contacted to correct any vitamin deficienci es. History of sleeve gastrectomy 5234440835 Z90.3 Obstructiv e sleep apnea syndrome 02500769 G47.33 Gastroesop hageal reflux disease without esophagitis 989388720 K21.9 Morbid obesity 172080489 E66.01 Intentiona l weight loss 225723354 R63.8 [id number] Raffi Pruitt DNP, DRUGLESS DOCTOR, OPEN CUT EXAMINER-C [facility] [address] [facility] [address] [place] [address] 03/22/2022 10:44:42 03/22/2022 11:24:55 History of bariatric surgical procedure 846775336 Z98.84 Advised qid intake 50% protein 4946-4080 calories/d y less than 100 carbs/dy Long [...] with any deficienci es. History of gastrectomy 885949363 Z90.3 Patient is status post bariatric surgery and at increased risk for vitamin deficienci es and malnutriti on. Bariatric vitamin panel ordered today. Patient will be contacted to correct any vitamin deficienci es. History of sleeve gastrectomy 4083390667 Z90.3 Intentiona l weight loss 155494791 R63.8 Obstructiv e sleep apnea syndrome 74145289 G47.33 Morbid obesity 418381329 E66.01 [id number] Raffi Pruitt DNP, DRUGLESS DOCTOR, OPEN CUT EXAMINER-C [facility] [address] [facility] [address] [place] [address] 07/12/2022 10:47:58 07/12/2022 11:51:25 History of bariatric surgical procedure 793573748 Z98.84 Advised qid intake 50% protein 6913-7262 calories/d y less than 100 carbs/dyLo ng [...] will see dietitian today. History of gastrectomy 790532937 Z90.3 Patient is status post bariatric surgery and at increased risk for vitamin deficienci es and malnutriti on. Bariatric vitamin panel ordered today. Patient will be contacted to correct any vitamin deficienci es. Essential hypertension 70143407 I10 History of sleeve gastrectomy 1639588891 95391 Z90.3 Intentiona l weight loss 136923644 R63.8 Morbid obesity 066594817 E66.01 Obstructiv e sleep apnea syndrome 61973638 G47.33 Low back pain 261848586 M54.50 [id number] Raffi Pruitt, DNP, DRUGLESS DOCTOR, OPEN CUT EXAMINER-C [facility] [address] [facility] [address] [place] [address] 12/20/2023 14:11:37 12/21/2023 09:03:12 History of bariatric surgical procedure 098943632 Z98.84 Advised qid intake 50% protein 9354-9944 calories/d y less than 100 carbs/dyLo ng [...] see dietitian today. Intentiona l weight loss 753496940 R63.8 History of gastrectomy 616621732 Z90.3 Advised qid intake 50% protein 0527-2649 calories/d y less than 100 carbs/dyLo ng [...] cheaper if she gets them done at [facility]. She verbalizes that she will get these done fasting 1st thing in the morning. I will notify her with any abnormal results. Patient is status post bariatric surgery and at increased risk for vitamin deficienci es and malnutriti on. Bariatric vitamin panel ordered today. Patient will be contacted to correct any vitamin deficienci es. At counts include [facility] beds at the [facility] risk of nutritional deficit 331545410 Z91.89 Essential hypertension 97279564 I10 History of sleeve gastrectomy 9268882546 23901 Z90.3 Obstructiv e sleep apnea syndrome 87907391 G47.33 Vitamin D deficiency 347 43550 E55.9 Morbid obesity 180009354 E66.01 Unintentio nal weight gain 6659581534 01514 R63.5 Abdominal pain 56394738 R10.9 Nausea 449993184 R11.0 Dysphagia 92141787 R13.1 0 I would like to proceed with ordering upper GI as well as EGD. Patient will be notified of the time and date of these appointmen ts. I have asked that she contact me by Tuesday of this week if [facility] does not contact her about getting her scheduled for the upper GI. Patient verbalizes adequate understand ing. Iron deficiency 34482791 E61.[id number] [facility] [address] [facility] [address] [place] [address] 12/20/2023 15:12:42 12/20/2023 15:44:46 Dietary management surveillance 477176555 Z71.3 see recommenda afua for discussion and plan [id number] Raffi Pruitt, DNP, DRUGLESS DOCTOR, OPEN CUT EXAMINER-C [facility] [address] [facility] [address] [place] [address] 03/23/2024 10:30:48 03/23/2024 11:58:53 History of bariatric surgical procedure 727467520 Z98.84 Advised qid intake 50% protein 0073-2311 calories/d y less than 100 carbs/dyLo ng [...] see dietitian today. Intentiona l weight loss 836543113 R63.8 History of gastrectomy 975149033 Z90.3 Advised qid intake 50% protein 9608-9401 calories/d y less than 100 carbs/dy Long [...] to correct any vitamin deficienci es. At counts include [address] beds at the [facility] risk of nutritional deficit 894473171 Z91.89 Essential hypertension 41293861 I10 Iron deficiency 30358948 E61.1 Vitamin D deficiency 347 42893 E55.9 Morbid obesity 087416772 E66.01 History of Helicobacter pylori infection 0030889946 4399188 Z86.19 Health Concerns Section Related Observation LastModified by Organization Detai ls LastModified Time None Recorded Concern Status LastModified by Organization Details LastModified Time None Recorded Advance Directives Directive None Recorded Payers Insurance Date Sequence Insurance Name Policy Number Policy Bolivar Covered Member ID Bolivar Member ID Guarantor Name 06/29/2021 2 *SELF PAY* Alycia rom Feliz 03/26/2024 1 UMR [id number] Garrett Feliz [id number] Garrett Feliz 06/22/2021 1 [place] [id number] Garrett Feliz [id number] Garrett Feliz 06/22/2021 2 [place] [id number] Garrett Feliz [id number] Garrett Feliz Notes Date Note Type [...] = 1568 kilo calories Raffi Pruitt DNP, DRUGLESS DOCTOR, OPEN CUT EXAMINER-C [address] [place], [address], [facility] 03/22/2022 11:24:09 07/12/2022 text/html Patient presents the [...] = 1550 kilo calories Raffi Pruitt DNP, DRUGLESS DOCTOR, OPEN CUT EXAMINER-C [address] , [place], [address], [facility] & [place] 07/12/2022 11:58:21 12/20/2023 text/html Patient presents the [...] C. Hx of Vit D and Iron deficiencyHeartbu rn/gastroesophage al reflux: denies. Is taking Nexium daily.Pt Denies : abdominal pain, prandial issues Nausea, Vomiting, bowel or bladder issues. She reports no blood in bowel movements.Patient states that she is felt really bad over the past several months. She was found to have a mass on the right thyroid. She has been followed by [facility] department of endocrinology. Biopsy has performed [...] her stomach. She is able to tolerate Irish fries because they are easy to eat [...] = 1644 kilo calories Raffi Pruitt, DNP, DRUGLESS DOCTOR, OPEN CUT EXAMINER-C [address], [place], [address], [facility] & [place] 12/20/2023 15:22:44 12/20/2023 text/html RDN met w/ [...] EGD/upper GI done. JUWAN [address]IV[address], RD [address] [facility], [place], [address], [facility] & [place] 12/20/2023 15:44:08 03/23/2024 text/html Patient presents the office today for routine follow-up status post bariatric gastric sleeve gastrectomy surgery (4.). She has not been seen since July [...] Rate = 1656 kilo calories Raffi Pruitt, ROGER, DRUGLESS DOCTOR, OPEN CUT EXAMINER-C [address], [place], [address], [facility] - [place] - [place] & [place] 03/23/2024 11:57:40 OBGyn Episode No OBEpisode recorded.
[2024-08-15] MEDS: SODIUM CHLORIDE 0.9% 50ML BAG 50 ML IV (09:13)
[2024-08-15] MEDS: IRON SUCROSE COMPLEX 200 MG in 0.9 % SODIUM CHLORIDE 100 ML 220 MG IV (09:13)
[2024-08-15 09:15] VITALS: BP 126/74; PULSE 77; RESP 18; TEMP 36.7; O2SAT 100
[2024-08-15 09:45] VITALS: BP 124/69; PULSE 77
== END 2024-08-15 09:50 | disposition home or self-care (01) ==
LOC: INF 09:03
PROVIDERS: PCP Nurse Practitioner; Visit Provider Family Medicine
DX: D64.9 Anemia, unspecified (principal)
CPT/HCPCS: 96365; J1756

== ENCOUNTER 2024-08-22 12:49 | Outpatient (CLI) | payer OTHER, SELFPAY ==
--- OUTSIDE RECORDS SUMMARY | 2023-12-28 10:15 | XMS_ITS ---
Author Organization [facility] Address [address] [place] [address] Care Team Providers Care Cylinder Machine Operator Pulp Drier Name Role Phone Carlos Coelho Primary Care Provider [phone] Yaw Carrillo [phone] REASON FOR VISIT lab work Encounters Encounter Location Date Provider Diagnosis [facility] [address] [place], [place] [address] 12/28/2023 Carlos Coelho Plan Of Treatment No Information Progress Notes * Pam HIGHTOWERB:1985 (38 yo F)Acc No.[id number]:12/28/2023 Progress Notes Patient: Garrett PAN Provider: Bartolo Coelho MD :1985 A ge:38 Y S ex:Female Date:12/28/2023 Address:[address], [id number] Subjective: * Chief Complaints: * 1 . Lab work. * Medical History: Objective: * Vitals: Assessment: Plan: * Treatment: * * Electronic signature of Yuri Coelho MD FAAP on 08/22/2024 at 12:53 PM EDT Sign off status: Pending * Provider: Bartolo Coelho MD Date: 1 Generated for Printi ng/Faxing/eTransmitting on: 0 08/22/2024 12:53 PM EDT
--- OUTSIDE RECORDS SUMMARY | 2024-06-16 17:30 | XMS_ITS ---
Author Organization [facility] D R[facility] Address [address] [place], [place] [address] Care Team Providers Care Family Court Justice Name Role Phone Carlos Coelho Primary Care Provider Yaw Carrillo Unavailable [phone] Migration, Provider Unavailable Unavailable Allergies Allergen (clinical drug ingredient) Drug/Non Drug Allergy documented on EMR Reaction Allergy Type Onset Date Status sulfamethoxazole / trimethoprim Bactrim epigatric pain Drug Allergy Active erythromycin Erythromycin rash Drug Allergy A ctive REASON FOR VISIT [facility] Conversion Encounter Medications Medication SIG (Take, Route, [...] Active Encounters Encounter Location Date Provider Diagnosis [facility] [address] [place], [place] [address] 06/16/2024 Provider Migration Plan Of Treatment No Information Progress Notes * Christiano HIGHTOWER:1985 (38 yo F)Acc No.[id number]:06/16/2024 Patient: Garrett PAN Provider: Rosetta Suarez :1985 A ge:38 Y S ex:Female Date:06/16/2024 Address: [address], [place], [id number] Pcp:Carlos Coelho Subjective: * Chief Complaints: * [...] Electronic signature of Prov ider Migration on 08/22/2024 at 12:53 PM EDT Sign off status: Pending * Provider: Rosetta schwarz Erick Date: 0 06/16/2024 Generated for López garcia/Kurtis/Fred on: 0 08/22/2024 12:53 PM EDT
--- OUTSIDE RECORDS SUMMARY | 2024-06-26 14:40 | XMS_ITS | Encounter Summary ---
Author Organization [facility] Address [address] [place] [address] Care Team Providers Care Senior Electrical Estimator Name Role Phone Carlos Lind MD Primary Care Provider [phone] Reason for Referral * Consultation (Routine) - Authorized Specialty Diagnoses / Procedures Referred By Contac t Referred To Contact Diagnoses Thyroid cancer (CMS/HCC) Delfino Atwood MD [address] [address] Phone: tel: fax: Referral ID Status Reason Start Date Expiration Date V isits Requested Visits Authorized [id number] Authorized 06/26/2024 12/26/2025 1 1 Reason for Visit * Reason Comments thyroidectomy Encounter Details Date Type Department Care Team (Late st Contact Info) Description 06/26/2024 2:40 PM EDT Office Visit [facility] Endocrinology [address] [place] [address] Delfino Atwood MD [address] [address] Thyroid cancer (CMS/HCC) (Primary Dx); Status post thyroidectomy; Fatigue, unspecified type; Iron deficiency; Dorsocervical fat pad Social History Tobacco Use Types Packs/Day Years Used Date Smoking Tobacco: Never Smokeless Tobacco: Never Alcohol Use Standard Drinks/Week Comments No 0 (1 standard drink = 0.6 oz pur e alcohol) PHQ-2 Answer Date Recorded Patient Health Questionnaire-2 Score 0 06/26/2024 Comments Unknown Sex and Gender Information Value Date Recorded Sex Assigned at Not on file Legal Sex Female 7:48 PM EDT Gender Identity Not on file Sexual Orientation Not on file documented as of this encounter Last Filed Vital Signs Vital Sign Reading Time Taken Comments Blood Pressure 134/91 06/26/2024 2:25 PM EDT Pulse 94 06/26/2024 2:25 PM EDT Temperature - - Respiratory Rate - - Oxygen Saturation - - Inhaled Oxygen Concentration - - Weight 137 kg (302 lb 4 oz) 06/26/2024 2:25 PM E DT Height 160 cm (5' 3 ) 06/26/2024 2:25 PM EDT Body Mass Index 53.54 06/26/2024 2:25 PM EDT documented in this encounter Functional Status * Over the past 2 weeks, how often have you been bothered by any of the following problems? Question Answer Date of Assessment Author Little interest or pleasure in doing things Not at all 06/26/2024 2:31 PM EDT Siliva Mckinnon Feeling down, depressed, or hopeless Not at all 06/26/2024 2:31 PM EDT Silvia Mckinnon Patient Health Questionnaire -2 Score 0 06/26/2024 2:31 PM EDT Silvia Mckinnon documented as of this encounter Miscellaneous Notes * Progress Notes - Delfino Atwood MD - 06/26/2024 2:40 PM EDT Reason for visit: F/U re: Thyroid cancer. She was initially seen at Endocrinology on 05/27/2023 and had a follow-up visit on 09/01/2023. Subjective Garrett Feliz is a 38 y.o. female. The Pt reported that after she had gastric sleeve surgery in 06/2021, her TSH was found < 0.02 on07/15/21 and it stayed in this range on subsequent checks except for a level of 0.19 once. She had TSH checks since 2016 and it was NL prior to 07/2021. Her PCP checked her neck and felt a R thyroid lump on exam in 2022 and sent her for a thyroid US which she had on 11/18/22 and she was later sent for a thyroid uptake and scan which she had in 12/2022. She had a F/U Thyroid US on 05/27/23 followed by FNA of a 4.2 cm R thyroid nodule on 09/01/23 (benign). She is S/P R thyroidectomy on 05/30/24 and her pathology showed a 6 mm PTC. She had Fe def anemia in Fall 2023 which had to be treated before she could undergo thyroid surgery. The anxiousness, palpitations, tremor, and heat intolerance resolved after her anemia was treated. She still has fatigue. The patient reports no problems with swallowing. She has some hoarseness (recovering from surgery). The patient reports weight loss (100 lbs after her wt loss surgery but gained some wt since her visit in 05/2023). She has not been on thyroid drug RX but she has been on Propranolol mainly for CAUSEY. (Metoprolol was stopped d/t tiredness). She had GBS in 2016 and was started on b12 then and she continues on it. She has not been on Fe. She has regular period. Sometimes, it is heavy. There is no personal history of radiation exposure. There is no personal history of cancer other than thyroid cancer. There is no family history of thyroid cancer. There is no family history of thyroid problems. Objective VS: Blood pressure (!) 134/91, pulse 94, height 1.6 m (5' 3 ), weight 137 kg (302 lb 4 oz). Body mass index is 53.54 kg/m??. PE: Constitutional: Appearance: not ill-appearing. HENT: NL voice. Healed thyroid surgery scar. No palpable lymph nodes. Cardiovascular: Heart rate and rhythm: Normal. Normal S1 and S2. Pulmonary: Effort: Pulmonary effort is normal. No wheezing. Neurological: Mental Status: alert. No resting tremor. Laboratory Tests Reviewed 10/08/22: WBC 6.5 Hb 13.2 Cr 0.8 Ca 9.3 AST 23 ALT 26 11/18/22: TPO Ab 156, Tg <1 (this is supposed to be Tg Ab) 06/2023: NIGHT SALIVARY CORTISOL 0.024, 0.019, 0.030 06/15/2023: T3 147 07/15/23: TSH <0.02 FT4 1.11 Thyroid scan and uptake 12/16/22 Thyroid gland uptake is elevated at 43%. There is tracer activity in the R lobe corresponding to the R thyroid mass consistent w/ hyperfunctioning nodule / mass. Thyroid US 11/18/22 The right lobe of the thyroid is enlarged, measuring 5.8 x 2.4 x 3.4 cm. There is a 4.4 x 2.2 x 2.9cm well-circumscribed mass in the right lobe which is mixed cystic and solid isoechoic with a thin hypoechoic rim. This is a TI-RADS 2 category nodule. The left lobe of the thyroid measures 4.8 x 1 x1.9 cm, no focal nodules. The isthmus is 4 mm and unremarkable in appearance. Chest / abdomen CT W/ IV contrast 04/10/16 Mediastinum and Pleura: No mediastinal or hilar adenopathy. No pleural or pericardial effusion. Lungs: Several scattered calcified granulomas. No suspicious lesions within the remaining lungs. Abdomen and Pelvis: Hepatic steatosis. No suspicious focal lesions within solid abdominal organs. Asymmetric prominence of the left ovary, 3.5 x 3 cm in image 67 of series 2, nonspecific. No abnormal soft tissue densities in the regions of right adnexa. C-spine MR 04/09/16 Prevertebral and Paraspinal Soft Tissues: There is no prevertebral or paraspinal soft tissue swelling or mass. Head MR 04/09/16: unremarkable. Assessment/Plan PTC pT1a She was found w/ a 4.4 cm R thyroid nodule on thyroid US in 11/2022. This nodule was reported to be hyperfunctioning on a thyroid uptake and scan in 12/2022. However, her nodule did not appear to be hyperactive based on thyroid US in 05/2023 and the echotexture was suggestive of autoimmune thyroiditis. FNA benign in 08/2023. She is S/P R thyroid LOBECTOMY on 05/30/2024. 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 However, will check a baseline Tg and monitor w/ thyroid US 6-12 months post op. H/O Subclinical hyperthyroidism TSH still low but FT4 normal in 07/2023. T3 nl in 06/2023. She has fatigue. Will check TFTs and start LT4 if needed. Fatigue / Fe def anemia Check CBC. Dorsocervical Pad Nighttime Salivary cortisol in 06/2023 not suggestive of hypercortisolemia. RTC: TSH FT4 Tg CBC soon . Electronically signed by: Delfino Atwood MD [facility] [address] [facility] [address] [place]. [address] PHONE [phone] FAX: [phone] documented in this encounter Plan of Treatment Upcoming Encounters Date Type Department Care Team (Late st Contact Info) Description 12/03/2024 1:00 PM EDT Office Visit [facility] Endocrinology [address] [place] [address] Delfino Atwood MD [address] [facility] [address] [place] [address] Scheduled Orders Name Type Priority Associated Diagnoses Orde r Schedule TSH Lab Routine Status post thyroidectomy Expected: 06/26/2024, Expires: 06/26/2025 T4, free Lab Routine Status post thyroidectomy Expected: 06/26/2024, Expires: 06/26/2025 CBC and differential Lab Routine Fatigue, unspecified type Expected: 06/26/2024, Expires: 06/26/2025 Thyroglobulin Antibody and Thyroglobulin (JARRED or LC-MSMS) Lab Routine Thyroid cancer (CMS/HCC) Fatigue, unspecified type Expected: 06/26/2024, Expires: 12/26/2025 Scheduled Referrals Name Type Priority Associated Diagnoses Orde r Schedule Follow Up [facility] Outpatient Referral Routine Thyroid cancer (CMS/HCC) Expected: 2024, Expires: 07/26/2025 documented as of this encounter Visit Diagnoses Diagnosis Thyroid cancer (CMS/HCC)- Primary Malignant neoplasm of thyroid gland Status post thyroidectomy Other postprocedural status Fatigue, unspecified type Iron deficiency Disorders of iron metabolism Dorsocervical fat pad documented in this encounter Additional Health Concerns Assessment Noted Time A fall risk assessment has been complete d for the patient 09/01/2023 9:07 AM EDT A Body Mass Index follow-up plan has been documented for the patient 07/01/2024 8:33 PM EDT documented as of this encounter Care Teams Senior Electrical Estimator Relationship Specialty Start Date End Date Carlos Lind MD [address] [place] [address] PCP - General 07/25/20 documented as of this encounter
--- OUTSIDE RECORDS SUMMARY | 2024-08-22 12:53 | XMS_ITS | Encounter Summary ---
Author Organization [facility] Address [address] [place] [address] Care Team Providers Care Contact Center Representative Name Role Phone Carlos Lind MD Primary Care Provider [phone] Encounter Details Date Type Department Care Team (Late Contact Info) Description 07/02/2024 Orders Only [facility] Endocrinology [address] [place] [address] Delfino Atwood MD [address] [address] Status post thyroidectomy (Primary Dx) Social History Tobacco Use Types Packs/Day Years [...] on file documented as of this encounter Plan of Treatment Upcoming Encounters Date Type Department Care Team (Late st Contact Info) Description 12/03/2024 1:00 PM EDT Office Visit [facility] Endocrinology [address] [place] [address] Delfino Atwood MD [address] [address] Scheduled Orders Name Type Priority Associated Diagnoses Orde r Schedule TSH Lab Routine Status post thyroidectomy Expected: 08/15/2024, Expires: 07/02/2025 T4, free Lab Routine Status post thyroidectomy Expected: 08/15/2024, Expires: 07/02/2025 documented as of this encounter Visit Diagnoses Diagnosis Status post thyroidectomy- Primary Other postprocedural status documented in this encounter Additional Health Concerns Assessment Noted Time A fall risk assessment has been complete d for the patient 09/01/2023 9:07 AM EDT A Body Mass Index follow-up plan has been documented for the patient 07/01/2024 8:33 PM EDT documented as of this encounter Care Teams Contact Center Representative Relationship Specialty Start Date End Date Carlos Lind MD [address] [place] [address] PCP - General 07/25/20 documented as of this encounter
--- OUTSIDE RECORDS SUMMARY | 2024-08-22 12:53 | XMS_ITS | Data Portability ---
Author Organization [place] [facility] [place] [facility] ADMIN Address [address] [place] [address] Care Team Providers Care Crabbing Machine Operator Name Role Phone LATONIA CROSS Primary Care [...] 3. Start tracking calories and protein with [employer] tammy 4. Add in 1 protein shake [...] modifications. Will f/up as scheduled or PRN. Not available 12/20/2023 15:43:40 Plan of Treatment Reminders Order Date Submit Date Provider Last Modified By Organization Details Last Modified Time Details Appointments OV EST 20 2024 01:20P M Raffi Pruitt, DNP, SQL ETL DEVELOPER, [employer] Not available Not available Not available Lab iron + TIBC + ferritin, serum 2024 025 [email or web address] [facility], [address], [address], [place], [address], 04/06/2024 12:14:45 folate, serum 2024 025 [email or web address] [facility], [address], [address], [place], [address], 04/06/2024 12:14:45 vitamin D, 25-hydrox y, total, serum 2024 025 VANESSA [facility], [address], [address], [place], [address], 03/24/2024 10:52:24 H pylori Ag, qual immunoass ay, stool 2024 025 [email or web address] Not available 04/06/2024 12:14:46 prealbumi n, serum 2024 025 VANESSA [facility], [address], [address], [place], [address], 03/29/2024 08:47:03 thiamine, QN, blood 2024 025 [email or web address] [facility], [address], [address], [place], [address], 04/06/2024 12:14:45 methylmal ruel, QN, serum or plasma 2024 025 [facility], [address], [address], [place], [address], 04/06/2024 12:14:45 vitamin E, serum 2024 025 VANESSA [facility], [address], [address], [place], [address], 03/29/2024 02:57:35 vitamin A (retinol) , serum 2024 025 [email or web address] [facility], [address], [address], [place], [address], 04/06/2024 12:14:45 CBC w/ auto diff 2024 025 VANESSA [facility], [address], [address], [place], [address], 03/24/2024 10:42:19 CMP, serum or plasma 2024 025 VANESSA [facility], [address], [address], [place], [address], 03/24/2024 11:09:55 HbA1c (hemoglob in A1c), blood 2024 025 [email or web address] [facility], [address], [address], [place], [address], 04/06/2024 12:14:45 TSH + free T4, serum 2024 025 [email or web address] [facility], [address], [address], [place], [address], 04/06/2024 12:14:46 lipid panel, serum 2024 025 [email or web address] [facility], [address], [address], [place], [address], 04/06/2024 12:14:46 vitamin D, 25-hydrox y, total, serum 2023 024 VANESSA [facility], [address], [address], [place], [address], 12/21/2023 13:08:14 iron + TIBC + ferritin, serum 2023 024 [email or web address] [facility], [address], [address], [place], [address], 12/27/2023 15:36:37 folate, serum 2023 024 [email or web address] [facility], [address], [address], [place], [address], 12/27/2023 15:36:37 prealbumi n, serum 2023 024 [email or web address] [facility], [address], [address], [place], [address], 12/27/2023 15:36:38 thiamine, QN, blood 2023 024 [email or web address] [facility], [address], [address], [place], [address], 12/27/2023 15:36:38 methylmal ruel, QN, serum or plasma 2023 024 [facility], [address], [address], [place], [address], 12/27/2023 15:36:38 vitamin E, serum 2023 024 [email or web address] [facility], [address], [address], [place], [address], 12/27/2023 15:36:38 vitamin A (retinol) , serum 2023 [email or web address] [facility], [address], [address], [place], [address], 12/27/2023 15:36:38 CBC w/ auto diff 2023 024 VANESSA [facility], [address], [address], [place], [address], 12/21/2023 12:38:48 CMP, serum or plasma 2023 024 VANESSA [facility], [address], [address], [place], [address], 12/21/2023 14:06:08 HbA1c (hemoglob in A1c), blood 2023 024 [email or web address] [facility], [address], [address], [place], [address], 12/27/2023 15:36:38 TSH + free T4, serum 2023 024 VANESSA [facility], [address], [address], [place], [address], 12/21/2023 14:06:09 lipid panel, serum 2023 024 VANESSA [facility], [address], [address], [place], [address], 12/21/2023 14:06:08 CBC w/ auto diff 2022 [...] diff 2022 023 [email or web address] [facility], [address] [place] [address] [address], [id number], 07/14/2022 13:58:21 CMP, serum or plasma 2022 023 [email or web address] [facility], [address] [place] [address] [address], [id number], 07/14/2022 13:58:22 HbA1c (hemoglob in A1c), blood 2022 023 [email or web address] 53 [facility], [address] [place] [address] [address], [id number], 07/14/2022 13:58:22 lipid panel, blood 2022 023 [email or web address] 53 [facility], [address] [place] [address] [address], [id number], 07/14/2022 13:58:22 iron + TIBC + ferritin, serum 2022 023 [email or web address] 53 [facility], [address] [place] [address] [address], [id number], 07/14/2022 13:58:22 folate, serum [address], [address] [place] [address] [place], [id number], 07/14/2022 13:58:22 mma (methylma lonic acid), serum [address], [address] [place] [address] [place], [id number], 07/14/2022 13:58:22 vitamin B1 (thiamine ), blood [address], [address] [place] [address] [place], [id number], 07/14/2022 13:58:23 vitamin D, 25-hydrox y, total, serum [address], [address] [place] [address] [place], [id number], 07/14/2022 13:58:23 vitamin E, serum [address], [address] [place] [address] [place], [id number], 07/14/2022 13:58:23 vitamin A (retinol) , serum [address], [address] [place] [address] [place], [id number], 07/14/2022 13:58:23 Referral None recorded. Procedures None recorded. Surgeries esophagog astroduod enoscopy (SURG) 2023 024 [email or web address] Mar Dolan MD, [address], [address], [place], [address], 03/01/2024 13:21:48 Imaging XR, abdomen + RF, upper gastroint estinal tract, w/ contrast PO 2023 [email or web address] [facility] [address] [place], [place] [address], [place], [address], 03/08/2024 11:43:03 Medication Orders ondansetr on 4 mg disintegr ating tablet 2023 [facility], [address] [place] [address] [address], [place], [id number], 03/05/2024 17:09:00 Patient TargetsNo targets recorded. Patient InstructionsNo instructions recorded. Reason for Referral None Reported. Results Created Date Observation Date Name Description Value Unit Range Abnormal Flag Note LastModifiedBy Organization Detail LastModifiedTime 01/05/2001/06/[address] (H PYLOR I AB QUAL) meghan test 20 min NEGATI VE negati ve Not Available [facility] ([facility]) [address] , [place], [address], 01/06/2024 09:52:41 01/05/2001/06/[address] (H PYLOR I AB QUAL) meghan test 1HR NEGATI VE negati ve Not Available [facility] ([facility]) [address] , [place], [address], 01/06/2024 09:52:41 01/05/2001/06/[address] (H PYLOR I AB QUAL) meghan test 3 HR NEGATI VE negati ve Not Available [facility] ([facility]) [address] , [place], [address], 01/06/2024 09:52:41 01/05/2001/06/[address] (H PYLOR I AB QUAL) meghan test 24 HR POSITI VE negati ve delta Not Available [facility] ([facility]) [address] [place], [address], 01/06/2024 09:52:41 01/05/2001/06/[address] (H PYLOR I AB QUAL) meghan test kit lot# [id number] Not Available [facility] ([facility]) [address], [place], [address], 01/06/2024 09:52:41 01/05/2001/06/[address] (H PYLOR I AB QUAL) meghan test kit exp date 2023 Not Available [facility] ([facility]) [address], [place], [address], 01/06/2024 09:52:41 Result Notes None recorded. Problems Name Problem SNOMED Code Status Onset Date Resolution Date Notes Provider Name and Address Organization Details Recorded Time History of Helicobac ter pylori infection 890122008944 88326 Active 2024 Raffi Pruitt DNP, SQL ETL DEVELOPER, [employer] [address], [place], [address] , [place] - [facility] [place] [facility] [place] 5 11:01:52 Essential hypertens ion 73182860 Active 2022 Raffi Pruitt DNP, SQL ETL DEVELOPER, [employer]C [address] [facility], [place], [address] , [place] - [facility] [place] 3 11:09:29 Low back pain 634902901 Active 2022 Raffi Pruitt DNP, SQL ETL DEVELOPER, [employer] [address] [facility], [place], [address] , [place] [facility] [place] 3 11:57:53 Obstructi ve sleep apnea syndrome 63104770 Active 2020 Not Available [facility] 2 13:28:45 Morbid obesity 510914718 Active 2020 Morbid obesity Not Available [facility] 2 13:28:45 History of sleeve gastrecto my 073556123792 107 Active 2021 Not Available [facility] 2 13:28:45 Gastroeso phageal reflux disease without esophagit is 342890246 Active 2020 Not Available [facility] 2 13:28:45 Vitamin D deficienc y 18013850 Active 2023 Raffi Pruitt DNP, LEANN, [employer] [address], [place], [place], [address] [place] [address] , [place] [facility] [place] 4 14:35:59 Unintenti onal weight gain 654903073697 104 Active 2023 Raffi Pruitt DNP, LEANN, [employer] [address], [place], [place], [address] [place] [address] , [place] [facility] [place] 4 14:40:00 Abdominal pain 73999632 Active 2023 Raffi Pruitt DNP, LEANN, [employer] [address], [place], [address] [place] [address] , [place] [facility] [place] 4 14:49:15 Nausea 621498858 Active 2023 Raffi Pruitt DNP, SQL ETL DEVELOPER, [employer] [address], [place], [address] [place] [address] , [place] [facility] [place] 4 14:49:44 Dysphagia 90446428 Active 2023 Raffi Pruitt DNP, SQL ETL DEVELOPER, [employer] [address], [place], [address] [place] [address] , [place] [facility] [place] 4 14:52:23 Fatigue 59356307 Active 2023 Raffi Pruitt DNP, LEANN, [employer] [address], [place], [address] [place] [address] , [place] [facility] [place] 4 15:12:50 Iron deficienc y 30865922 Active 2023 Raffi Pruitt, DNP, SQL ETL DEVELOPER, [employer]ER-C [address] [facility], [place], [address] , [facility] & [place] 4 15:12:59 Problem Notes None recorded. Procedures Surgical History Date Name Laterality Status Provider Name and Address Organization Details Recorded Time cholecystectomy completed Jim Paez m NAYELI - [facility] & [place] 12/16/2021 14:48:38 laparoscopic sleeve gastrectomy completed Jim DozierBeckjosefa m NAYELI - [facility] & [place] 12/16/2021 14:49:01 ligation of fallopian tube completed Jim DozierBeckjosefa m NAYELI - [facility] & [place] 12/16/2021 14:49:12 section completed Jim Paez m NAYELI - [facility] & [place] 12/16/2021 14:49:22 tonsillectomy completed Jim Paez NAYELI - [facility] & [place] 12/16/2021 14:49:35 Imaging Results None recorded. Procedure Notes None recorded. Medical Equipment None Reported. Allergies Allergen ID Allergen Name Allergen Category Reaction Reaction Severity Criticality Documentation Date Start Date Code Code System Note Provider Name and Address Organization Details Recorded Time 949188 Medicinal product containin g tetracycl ine structure and acting as antibacte rial agent (product) medicatio n Not available Not available Not available 03/23/2024 30209 1004 SNOMED Claudia nguyen, [facility] & [place] 5 10:45:03 4546 erythromy kendra medicatio n Not available Not available Not available 11/19/2021 4053 RxNorm React ion: Unkno wn, sever ity: Unkno wn Not Available [facility] 2 22:31:06 4548 peanut allergeni c extract food,medi cation Not available Not available Not available 11/19/2021 50835 8 RxNorm React ion: hives , swell ing, sever ity: Unkno wn Not Available [facility] 2 22:31:06 43657 Bactrim medicatio n Not available Not available Not available 03/22/2022 00561 9 RxNorm Jim [facility], [place] - [facility] - [place] 3 11:00:17 Medications Name Sig [...] cm 97.5 [degF] 65 /min 47.4 kg/m2 649069. 6 g 149 mm[Hg] 104 mm[Hg] Jim pineda [place] - [facility] - [place] 3 11:01:14 Date Recorded Body height Body temperature Heart rate Body mass index (BMI) Body weight Systolic blood pressure Diastolic blood pressure Provider Name and Address Organization Details Last Updated DateTime 5 160.02 cm 98.1 [degF] 68 /min 52.8 kg/m2 095794. 24 g 146 mm[Hg] 102 mm[Hg] Claudia Whittaker [place] - [facility] & [place] 5 10:49:47 Date Recorded Body height Body mass index (BMI) Body weight Body temperature Heart rate Systolic blood pressure Diastolic blood pressure Provider Name and Address Organization Details Last Updated DateTime 3 160.02 cm 46.6 kg/m2 109793. 79 g 97.5 [degF] 78 /min 151 mm[Hg] 98 mm[Hg] Sierra Mcconnell [place] - [facility] & [place] 3 11:05:45 Date Recorded Body temperature Body weight Body mass index (BMI) Body height Heart rate Systolic blood pressure Diastolic blood pressure Provider Name and Address Organization Details Last Updated DateTime 4 97.1 [degF] 177757. 61 g 53.5 kg/m2 160.02 cm 78 /min 140 mm[Hg] 93 mm[Hg] Jim pineda [place] - [facility] & [place] 4 14:21:38 Social History [...] SNOMED-CT Code Diagnosis ICD10 Code Diagnosis Note [id number] Raffi Pruitt, DNP, SQL ETL DEVELOPER, [employer]ER-C [facility] [address] [facility] [address] [place] [address] 12/16/2021 14:29:46 12/16/2021 15:35:52 History of bariatric surgical procedure 345532406 Z98.84 History of gastrectomy 530243823 Z90.3 Patient is status post bariatric surgery and at increased risk for vitamin deficienci es and malnutriti on. Bariatric vitamin panel ordered today. Patient will be contacted to correct any vitamin deficienci es. History of sleeve gastrectomy 4259179478 Z90.3 Obstructiv e sleep apnea syndrome 68995703 G47.33 Gastroesop hageal reflux disease without esophagitis 039254774 K21.9 Morbid obesity 768685401 E66.01 Intentiona l weight loss 243233702 R63.8 [id number] Raffi Pruitt DNP, SQL ETL DEVELOPER, [employer]-C [facility] [address] [facility] [address] [place] [address] 03/22/2022 10:44:42 03/22/2022 11:24:55 History of bariatric surgical procedure 223711299 Z98.84 Advised qid intake 50% protein 4101-4397 calories/d y less than 100 carbs/dy Long [...] with any deficienci es. History of gastrectomy 699909716 Z90.3 Patient is status post bariatric surgery and at increased risk for vitamin deficienci es and malnutriti on. Bariatric vitamin panel ordered today. Patient will be contacted to correct any vitamin deficienci es. History of sleeve gastrectomy 6482414585 Z90.3 Intentiona l weight loss 949881118 R63.8 Obstructiv e sleep apnea syndrome 10571858 G47.33 Morbid obesity 200528796 E66.01 [id number] Raffi Pruitt DNP, SQL ETL DEVELOPER, [employer]-C Effie marquez [facility] [address] [facility] [address] [place] [address] 07/12/2022 10:47:58 07/12/2022 11:51:25 History of bariatric surgical procedure 077940312 Z98.84 Advised qid intake 50% protein 9946-2125 calories/d y less than 100 carbs/dyLo ng [...] will see dietitian today. History of gastrectomy 501212368 Z90.3 Patient is status post bariatric surgery and at increased risk for vitamin deficienci es and malnutriti on. Bariatric vitamin panel ordered today. Patient will be contacted to correct any vitamin deficienci es. Essential hypertension 21009274 I10 History of sleeve gastrectomy 4037662174 13775 Z90.3 Intentiona l weight loss 730453670 R63.8 Morbid obesity 241688902 E66.01 Obstructiv e sleep apnea syndrome 93908286 G47.33 Low back pain 895760468 M54.50 [id number] Raffi Pruitt, DNP, SQL ETL DEVELOPER, [employer]-C [facility] [address] [facility] [address] [place] [address] 12/20/2023 14:11:37 12/21/2023 09:03:12 History of bariatric surgical procedure 230350927 Z98.84 Advised qid intake 50% protein 2802-5898 calories/d y less than 100 carbs/dyLo ng [...] see dietitian today. Intentiona l weight loss 463546576 R63.8 History of gastrectomy 041586325 Z90.3 Advised qid intake 50% protein 9667-9053 calories/d y less than 100 carbs/dyLo ng [...] cheaper if she gets them done at [facility]. She verbalizes that she will get these done fasting 1st thing in the morning. I will notify her with any abnormal results. Patient is status post bariatric surgery and at increased risk for vitamin deficienci es and malnutriti on. Bariatric vitamin panel ordered today. Patient will be contacted to correct any vitamin deficienci es. At [facility] risk of nutritional deficit 000297618 Z91.89 Essential hypertension 59142763 I10 History of sleeve gastrectomy 2612049892 68966 Z90.3 Obstructiv e sleep apnea syndrome 34770581 G47.33 Vitamin D deficiency 347 36337 E55.9 Morbid obesity 795455562 E66.01 Unintentio nal weight gain 9013636036 18424 R63.5 Abdominal pain 13972980 R10.9 Nausea 745290569 R11.0 Dysphagia 32111670 R13.1 0 I would like to proceed with ordering upper GI as well as EGD. Patient will be notified of the time and date of these appointmen ts. I have asked that she contact me by Tuesday of this week if [facility] does not contact her about getting her scheduled for the upper GI. Patient verbalizes adequate understand ing. Iron deficiency 46804734 E61.[id number] [facility] [address] [facility] [address] [place] [address] 12/20/2023 15:12:42 12/20/2023 15:44:46 Dietary management surveillance 927401027 Z71.3 see recommenda afua for discussion and plan [id number] Raffi Pruitt, DNP, SQL ETL DEVELOPER, [employer]ER-C [facility] [address] [facility] [address] [place] [address] 03/23/2024 10:30:48 03/23/2024 11:58:53 History of bariatric surgical procedure 280650928 Z98.84 Advised qid intake 50% protein 9880-6095 calories/d y less than 100 carbs/dyLo ng [...] see dietitian today. Intentiona l weight loss 030373954 R63.8 History of gastrectomy 085972440 Z90.3 Advised qid intake 50% protein 9202-4838 calories/d y less than 100 carbs/dy Long [...] to correct any vitamin deficienci es. At [facility] risk of nutritional deficit 935126172 Z91.89 Essential hypertension 44775435 I10 Iron deficiency 24903094 E61.1 Vitamin D deficiency 347 86136 E55.9 Morbid obesity 298703476 E66.01 History of Helicobacter pylori infection 9740479469 2303367 Z86.19 Health Concerns Section Related Observation LastModified by Organization Detai ls LastModified Time None Recorded Concern Status LastModified by Organization Details LastModified Time None Recorded Advance Directives Directive None Recorded Payers Insurance Date Sequence Insurance Name Policy Number Policy Bolivar Covered Member ID Bolivar Member ID Guarantor Name 06/29/2021 2 *SELF PAY* Alycia rom Feliz 03/26/2024 1 UMR [id number] Garrett Feliz [id number] Garrett Feliz 06/22/2021 1 [id number] [id number] Garrett Feliz [id number] Garrett Feliz 06/22/2021 2 [place] [id number] Garrett Feliz [id number] Garrett Feliz Notes Date Note Type [...] = 1568 kilo calories Raffi Pruitt DNP, SQL ETL DEVELOPER, [employer]-C [address] [place], [address], [facility] 03/22/2022 11:24:09 07/12/2022 text/html Patient presents [...] = 1550 kilo calories Raffi Pruitt DNP, SQL ETL DEVELOPER, [employer]-C [address] , [place], [address], [facility] & [place] 07/12/2022 11:58:21 12/20/2023 text/html Patient [...] right thyroid. She has been followed by [facility] department of endocrinology. Biopsy has performed which [...] her stomach. She is able to tolerate Syriac fries because they are easy to eat [...] = 1644 kilo calories Raffi Pruitt, DNP, SQL ETL DEVELOPER, [employer]-C [address], [place], [address], [facility] & [place] 12/20/2023 15:22:44 12/20/2023 [...] EGD/upper GI done. [address], [address] [facility], [place], [address], [facility] & [place] 12/20/2023 15:44:08 03/23/2024 [...] = 1656 kilo calories Raffi Pruitt, ROGER, SQL ETL DEVELOPER, [employer]ER-C [address], [place], [address], [facility] - [place] - [place] 03/23/2024 11:57:40 OBGyn Episode No OBEpisode recorded.
--- OUTSIDE RECORDS SUMMARY | 2024-08-22 12:53 | XMS_ITS | Encounter Summary ---
Author Organization [facility] Address [address] [place] [address] Care Team Providers Care Pit Boss Name Role Phone Carlos Lind MD Primary Care Provider [phone] Encounter Details Date Type Department Care Team (Late Contact Info) Description 06/08/2024 Lab Requisition [facility] [address] [place] [address] Delfino Atwood MD [address] [address] Nontoxic single thyroid nodule Social History Tobacco Use Types Packs/Day Years Used Date Smoking Tobacco: Never Smokeless Tobacco: Never Alcohol Use Standard Drinks/Week Comments No 0 (1 standard drink = 0.6 oz pur e alcohol) PHQ-2 Answer Date Recorded Patient Health Questionnaire-2 Score 0 09/01/2023 Comments Unknown Sex and Gender Information Value Date Recorded Sex Assigned at Not on file Legal Sex Female 7:48 PM EDT Gender Identity Not on file Sexual Orientation Not on file documented as of this encounter Plan of Treatment Upcoming Encounters Date Type Department Care Team (Late Contact Info) Description 12/03/2024 1:00 PM EDT Office Visit [facility] Endocrinology [address] [place] [address] Delfino Atwood MD [address] [address] documented as of this encounter Procedures Procedure Name Priority Date/Time Associated Diagnosis Comments SURGICAL PATHOLOGY CONSULT Routine 06/08/2024 10:44 AM EDT Nontoxic single thyroid nodule documented in this encounter Results * Surgical Pathology Consult (06/08/2024 10:44 AM EDT) Case Report Sugical Pathology Consult Case: [id number] Authorizing Provider: Delfino Atwood MD Collected: 06/08/2024 1044 Ordering Location: [facility] Lab Received: 06/08/2024 1044 Pathologist: Lauro Alfaro MD Specimen: Thyroid, [id number] 06/11/2024 11:07 AM EDT [facility] Final Diagnosis A. THYROID, RIGHT, LOBECTOMY (OUTSIDE CASE NUMBER. 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 [id number] Received along with a corresponding pathology report from [facility] are 14 slides labeled outside case: [id number] collected on 05/30/2024. 06/11/2024 11:07 AM EDT [facility] Note: A resident was involved in the service. I attest I examined the relevant preparations for the specimens and confirmed the diagnosis or interpretation. 06/11/2024 11:07 AM EDT [facility] Tissue Thyroid structure / Unknown 06/08/2024 10:44 AM EDT 06/08/2024 10:44 AM EDT us Delfino Atwood MD LAB PATHOLOGY ORDERABLES Final Result [facility] [address] [place] [address] documented in this encounter Visit Diagnoses Diagnosis Nontoxic single thyroid nodule Nontoxic uninodular goiter documented in this encounter Additional Health Concerns Assessment Noted Time A fall risk assessment has been complete d for the patient 09/01/2023 9:07 AM EDT A Body Mass Index follow-up plan has been documented for the patient 09/01/2023 7:36 PM EDT documented as of this encounter Care Teams Pit Boss Relationship Specialty Start Date End Date Carlos Lind MD [address] [place] [address] PCP - General 07/25/20 documented as of this encounter
--- OUTSIDE RECORDS SUMMARY | 2024-08-22 12:53 | XMS_ITS | Encounter Summary ---
Author Organization [facility] Address [address] [place] [address] Care Team Providers Care Commissions Analyst Name Role Phone Carlos Lind MD Primary Care Provider [phone] Reason for Referral * Consultation (Routine) - Closed Specialty Diagnoses / Procedures Referred By Contac t Referred To Contact Endocrinology Diagnoses Hot thyroid nodule Abnormal thyroid scan Carlos Coelho MD [address] [place] [address] Phone: tel: fax: Referral ID Status Reason Start Date Expiration Date V isits Requested Visits Authorized [id number] Closed Specialty Services Required 12/20/2022 06/20/2024 1 1 Encounter Details Date Type Department Care Team ([facility] Contact Info) Description 12/20/2022 [facility] [address] [place] [address] Carlos Coelho MD [address] [place] [address] Hot thyroid nodule (Primary Dx); Abnormal thyroid scan Social History Tobacco Use Types Packs/Day Years Used Date Smoking Tobacco: Never Alcohol Use Standard Drinks/Week Comments No 0 (1 standard drink = 0.6 oz pur e alcohol) Comments Unknown Sex and Gender Information Value Date Recorded Sex Assigned at Not on file Legal Sex Female 7:48 PM EDT Gender Identity Not on file Sexual Orientation Not on file documented as of this encounter Plan of Treatment Upcoming Encounters Date Type Department Care Team ([facility] Contact Info) Description 12/03/2024 1:00 PM EDT [facility] [address] [place] [address] Delfino Atwood MD [address] [facility] [address] [place] [address] Scheduled Referrals Name Type Priority Associated Diagnoses Order Schedule Ambulatory referral to Endocrinology Outpatient Referral Routine Hot thyroid nodule Abnormal thyroid scan Ordered: 12/20/2022 documented as of this encounter Visit Diagnoses Diagnosis Hot thyroid nodule- Primary Nontoxic uninodular goiter Abnormal thyroid scan Nonspecific abnormal results of thyroid function study documented in this encounter Care Teams Commissions Analyst Relationship Specialty Start Date End Date Carlos Lind MD [address] [place] [address] PCP - General 07/25/20 documented as of this encounter
--- OUTSIDE RECORDS SUMMARY | 2024-08-22 12:53 | XMS_ITS | Clinical Summary ---
Author Organization [facility] Address [address] [place] [address] Care Team Providers Care Full Stack Software Engineer Name Role Phone Carlos Lind MD Primary Care Provider Allergies Active Allergy Reactions Criticality Noted Date Comments Erythromycin Rash,Unknown - Patie nt states they do not know rxn details Low 12/26/2014 Sulfamethoxazole-Trimethop rim Other - please document in the comment field,Unknown - Patient states they do not know rxn details Low 04/08/2016 chest pain Medications cyanocobalamin (Vitamin B-12) 1000 MCG/ML injection INJECT 1 ML INTRAMUSCULARLY ONCE EVERY MONTH DIRECTED Active cyclobenzaprin e (Flexeril) 10 MG tablet PRN. 10/14/19 23 Active propranolol (Inderal) 20 MG tablet Take 1 tablet (20 mg) by mouth 2 (two) times a day. 05/04/19 24 Active esomeprazole (NexIUM) [address] capsule Take 1 capsule (40 mg) by mouth 1 (one) time each day before breakfast. Do not open capsule. Active levothyroxine (Synthroid, Levoxyl) 100 MCG tablet Take 1 tablet by mouth daily. 90 tablet 07/03/19 25 025 Active Active Problems Problem Noted Date Diagnosed Date Facial weakness 05/27/2023 Personal history of other diseases of the digest lamont system 05/27/2023 Encounters Date Type Department Care Team Description 07/02/2024 Orders Only [facility] Endocrinology [address] [place] [address] Delfino Atwood MD Status post thyroidectomy (Primary Dx) 06/28/2024 Results Follow-Up [facility] Endocrinology [address] [place] [address] Delfino Atwood MD 06/28/2024 Orders Only [facility] Endocrinology [address] [place] [address] Delfino Atwood MD 06/26/2024 2:40 PM EDT Office Visit [facility] Endocrinology [address] [place] [address] Delfino Atwood MD Thyroid cancer (CMS/HCC) (Primary Dx); Status post thyroidectomy; Fatigue, unspecified type; Iron deficiency; Dorsocervical fat pad 06/26/2024 Travel 06/11/2024 Results Follow-Up [facility] Endocrinology [address] [place] [address] Delfino Atwood MD 06/08/2024 Lab Requisition [facility] [address] [place] [address] Delfino Atwood MD Nontoxic single thyroid nodule from Last 3 Months Immunizations Immunization Administration Dates Next Due IG 04/14/2016,04/13/2016,04/12/2016 ,04/11/2016,04/10/2016 Family History Medical History Relation Name Comments Cardiac disorder Father Relation Name Status Comments Father Social History Tobacco Use Types Packs/Day Years [...] on file Sexual Orientation Not on file Last Filed Vital Signs Vital Sign Reading [...] Mass Index 53.54 06/26/2024 2:25 PM EDT Plan of Treatment Upcoming Encounters Date Type Department Care Team (Late st Contact Info) Description 12/03/2024 1:00 PM EDT [facility] [address] [place] [address] Delfino Atwood MD [address] [place] [address] Health Maintenance Due Date Last Done Comments [facility]-/Child/Adol SDOH Screenings 1983 [facility]-Varicella Vaccines (1 of 2 - 13+ 2-dose series) 10/25/1996 [facility]- SDOH Screenings 10/25/2001 [facility]-Adult SDOH Screenings 10/25/2001 [facility]-DTaP,Tdap,and Td Vaccine s (1 - Tdap) 10/25/2002 [facility]-Hepatitis B Vaccines (1 of 3 - 19+ 3-dose series) 10/25/2002 [facility]-Pneumococcal Vaccine: Pediatrics (0 to 5 Years) and At-Risk Patients (6 to 49 Years) (1 of 2 - PCV) 10/25/2002 [facility]-Zoster Vaccines (1 of 2) 10/25/2002 [facility]-Pap Smear 04/10/2019 04/10/2016 [facility]-Cervical Cancer Screening 04/10/2021 [facility]-HPV/Cotest 04/10/2021 04/10/2016 FRA-ENTPV-16 Vaccine ( season) 2023 03/27/2021, 04/11/2020, 03/12/2020 [facility]-Influenza Vaccine (Seaso n Ended) 2024 [facility]-Depression Screening 06/26/2025 06/26/2024 [facility]-HIV Screening Completed 04/08/2016 [facility]-Hepatitis C Screening Completed 04/10/2016 [facility]-Obesity Intervention Completed 025, 09/01/2023, 05/27/2023 HPV Vaccines Aged Out No longer eligi ble based on patient's age to complete this topic [facility]-HIB Vaccines Aged Out No longer e ligible based on patient's age to complete this topic [facility]-Hepatitis A Vaccines Aged Out No longer eligible based on patient's age to complete this topic [facility]-IPV Vaccines Aged Out No longer e ligible based on patient's age to complete this topic [facility]-Rotavirus Vaccines Aged Out No lo nger eligible based on patient's age to complete this topic Procedures Procedure Name Priority Date/Time Associated Diagnosis Comments CBC W/DIFF Routine 06/27/2024 8:03 AM EDT SURGICAL PATHOLOGY CONSULT Routine 06/08/2024 10:44 AM EDT Nontoxic single thyroid nodule HEPATITIS C ANTIBODY W/REFLEX TO HCV QUANT PCR Routine 04/10/2016 5:47 PM EST CYTO DATA CONVERSION Routine 04/10/2016 12:00 AM EST HIV 1/2 ANTIBODY/ANTIGEN SCREEN WITH REFLEX TO HIV I/II DIFFERENTIATION Routine 04/08/2016 7:27 PM EST from Last 3 Months or Most Recently Relevant to Health Maintenance Results * CBC W/DIFF (06/27/2024 8:03 AM EDT) Delfino Atwood MD LAB BLOOD ORDERABLES Final Resu lt * Surgical Pathology Consult (06/08/2024 10:44 AM EDT) Case Report Sugical Pathology Consult Case: [id number] Authorizing Provider: Delfino Atwood MD Collected: 06/08/2024 1044 Ordering Location: [facility] Lab Received: 06/08/2024 1044 Pathologist: Lauro Alfaro MD Specimen: Thyroid, [id number] 06/11/2024 11:07 AM EDT [facility] Final Diagnosis A. THYROID, RIGHT, LOBECTOMY (OUTSIDE CASE NUMBER. 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 [id number] Received along with a corresponding pathology report from [facility] Laboratory are 14 slides labeled outside case: [id number] collected on 05/30/2024. 06/11/2024 11:07 AM EDT [facility] Note: A resident was involved in the service. I attest I examined the relevant preparations for the specimens and confirmed the diagnosis or interpretation. 06/11/2024 11:07 AM EDT [facility] Tissue Thyroid structure / Unknown 06/08/2024 10:44 AM EDT 06/08/2024 10:44 AM EDT us Delfino Atwood MD LAB PATHOLOGY ORDERABLES Final Result [facility] [address] [place] [address] * Hepatitis C Antibody (04/10/2016 5:47 PM EST) Hepatitis C Antibody NEGATIVE Reference Range: Negative [facility] 04/10/2016 5:47 PM EST 04/10/2016 8:55 PM EST us Lara Padron MD LAB BLOOD ORDERABLES Final Result [facility] * Cytology (04/10/2016 12:00 AM EST) Cerebrospinal fluid specimen (specimen) 04/10/2016 04/12/2016 7 :16 AM EST Narrative [facility] - 04/12/2016 2:53 PM EST [facility] MR #: [id number] [facility] [place] [address]AIN [id number] 1985 (Age: 30) FW Collect Date: 04/10/2016 00:00 Receipt Date: 04/12/2016 07:16 Page 1 DEPARTMENT OF PATHOLOGY AND LABORATORY MEDICINE CYTOPATHOLOGY REPORT Email: [email or web address] ATTENDING MD/Practitioner: Charity Padron MD Service: [place] Location: A06B OTHER MD(S): Sosa Reardon MD ( RES ) Reported: 04/12/2016 14:53 Collected: 04/10/2016 00:00 DIAGNOSIS A. CEREBROSPINAL FLUID: NO EVIDENCE OF MALIGNANCY. COMMENT Results from Core Lab and Cytology have been reviewed and correlated. Electronically Signed Out NORMA Sierra (ASCP) Aj Rodriguez M.D. PROCEDURES/ADDENDA GROSS DESCRIPTION: Tube 3 with 5 ml of clear fluid CLINICAL INFORMATION: CLINICAL DIAGNOSIS Suspected meningitis SPECIMEN DESCRIPTION: A: CEREBROSPINAL FLUID THIN PREP PROCESS CELLULAR ENHANCEMENT, SLIDES RECEIVED ICD: R83.9 Unspecified abnormal finding in cerebrospinal fluid F: [id number] SNOMED CODES: A; [id number] A resident has participated in this service. A pathologist has performed and is responsible for the reported pathologic evaluation. Lara Padron MD LAB PATHOLOGY ORDERABLES Fi nal Result Performing Organization Address [facility] Phone Number [facility] * HIV 1 & 2 Antibody/Antigen Screen (04/08/2016 7:27 PM EST) HIV 1 Result NONREACTIVE Screening for HIV 1 and 2 antibodies is NONREACTIVE. No confirmatory testing is required. [facility] 04/08/2016 7:27 PM EST 04/08/2016 7:39 PM EST Historical Provider LAB BLOOD ORDERABLES Yennifer l Result Performing Organization Address [facility] Phone Number [facility] from Last 3 Months or Most Recently Relevant to Health Maintenance [address] [address] [facility] Care Teams Full Stack Software Engineer Relationship Specialty Start Date End Date Carlos Lind MD [address] [place] [address] PCP - General 07/25/20
--- OUTSIDE RECORDS SUMMARY | 2024-08-22 12:53 | XMS_ITS | Encounter Summary ---
Author Organization [facility] Address [address] [place] [address] Care Team Providers Care Senior Production Manager Name Role Phone Carlos Lind MD Primary Care Provider [phone] Encounter Details Date Type Department Care Team (Late st Contact Info) Description 06/11/2024 Results Follow-Up [facility] Endocrinology [address] [place] [address] Delfino Atwood MD [address] [address] Social History Tobacco Use Types Packs/Day Years [...] on file documented as of this encounter Functional Status * Over the [...] Silvia Mckinnon documented as of this encounter Plan of Treatment Upcoming Encounters Date Type Department Care Team (Late st Contact Info) Description 12/03/2024 1:00 PM EDT Office Visit [facility] Endocrinology [address] [place] [address] Delfino Atwood MD [address] [facility] [address] [place] [address] documented as of this encounter Visit Diagnoses Not on filedocumented in this encounter Additional Health Concerns Assessment Noted Time A fall risk assessment has been complete d for the patient 09/01/2023 9:07 AM EDT A Body Mass Index follow-up plan has been documented for the patient 09/01/2023 7:36 PM EDT documented as of this encounter Care Teams Senior Production Manager Relationship Specialty Start Date End Date Carlos Lind MD [address] [place], [place] [id number] PCP - General 07/25/20 documented as of this encounter
--- OUTSIDE RECORDS SUMMARY | 2024-08-22 12:53 | XMS_ITS | Encounter Summary ---
Author Organization [facility] Address [address] [place] [address] Care Team Providers Care Commercial Sales Representative Name Role Phone Carlos Lind MD Primary Care Provider [phone] Encounter Details Date Type Department Care Team (Late Contact Info) Description 06/28/2024 Results Follow-Up [facility] Endocrinology [address] [place] [address] Delfino Atwood MD [address] [address] Social History Tobacco Use Types [...] Description 12/03/2024 1:00 PM EDT Office Visit [facility] Endocrinology [address] [place] [address] Delfino Atwood MD [address] [address] documented as of this encounter Visit Diagnoses Not on filedocumented in this encounter Additional Health Concerns Assessment Noted Time A fall risk assessment has been complete d for the patient 09/01/2023 9:07 AM EDT A Body Mass Index follow-up plan has been documented for the patient 07/01/2024 8:33 PM EDT documented as of this encounter Care Teams Commercial Sales Representative Relationship Specialty Start Date End Date Carlos Lind MD [address] [place] [address] PCP - General 07/25/20 documented as of this encounter
--- OUTSIDE RECORDS SUMMARY | 2024-08-22 12:53 | XMS_ITS | Encounter Summary ---
Author Organization [facility] Address [address] [place] [address] Care Team Providers Care Cobol Developer Name Role Phone Carlos Lind MD Primary Care Provider [phone] Encounter Details Date Type Department Care Team (Latest Contact Info) Description 06/26/2024 Travel Social History Tobacco Use Types Packs/Day Years [...] Description 12/03/2024 1:00 PM EDT Office Visit [facility] Endocrinology [address] [place] [address] Delfino Atwood MD [address] [address] documented as of this encounter Visit Diagnoses Not on filedocumented in this encounter Additional Health Concerns Assessment Noted Time A fall risk assessment has been complete d for the patient 09/01/2023 9:07 AM EDT A Body Mass Index follow-up plan has been documented for the patient 07/01/2024 8:33 PM EDT documented as of this encounter Care Teams Cobol Developer Relationship Specialty Start Date End Date Carlos Lind MD [address] [place] [address] PCP - General 07/25/20 documented as of this encounter
--- OUTSIDE RECORDS SUMMARY | 2024-08-22 12:53 | XMS_ITS | Patient Health Record ---
Author Organization [facility] Address [address] [place] [address] Care Team Providers Care Legal Billing Coordinator Name Role Phone NicoleCarlos qureshi Primary Care Provider Yaw Carrillo Unavailable [phone] Migration, Provider Unavailable Unavailable Allergies Allergen (clinical drug ingredient) Drug/Non Drug Allergy documented on EMR Reaction Allergy Type Onset Date Status sulfamethoxazole / trimethoprim Bactrim epigatric pain Drug Allergy Active erythromycin Erythromycin rash Drug Allergy A ctive Results Component Value Reference Range Notes M-Ferritin Reviewed date:12/02/2023 02:34:26 PM Interpretation: Performing Lab: Notes/Report: RANDY 4.63 6.24-137 ng/ml Delta: 11.0 o n 03/19/22-1004 H-FETIBC Reviewed date:12/02/2023 02:34:26 PM Interpretation: Performing Lab: Notes/Report: FE 32 37-170 ug/dL DTIBC 469 265-497 ug/dL IRONSAT 6.03269 15-55 % Reason For Referral No Information Medications Medication SIG (Take, Route, Frequency, Duration) [...] once a month for 90 days Active Social History Tobacco Use: Social History Observation Description Date Details (start date - stop date) Never Smoker NA - NA Smoking: Question Answer Notes Are you a: nonsmoker Problems Problem Type SNOMED Code ICD Code Onset Dates Problem Status W/U Status Risk Notes Problem 674328304 Thyroid nodule (E04.1) Active confirmed Problem 051934746 Gastroesophageal reflux disease without esophagitis (K21.9) Active confirmed Problem 87316814 Hyperthyroidism (E05.90) Active confirmed Problem 542445437 History of non anemic vitamin B12 deficiency (Z86.39) Active confirmed Problem 651519728 Microcytic anemi a (D50.9) Active confirmed Problem 058143244 Acute right-side d back pain with sciatica (M54.41) Active confirmed Problem 951750117696330 S/P gastric slee ve procedure (Z90.3) Active confirmed Vital Signs Heart Rate 92 /min 12/05/2023 Temperature 97.9 degrees Fahrenheit 12/05/2023 Blood pressure diastolic 84 mm Hg 12/05/2023 Height 5 ft 3 in in 12/05/2023 Blood pressure systolic 130 mm Hg 12/05/2023 Weight 308.6 lbs 12/05/2023 BMI 54.66 kg/m2 12/05/2023 Encounters Encounter Location Date Provider Diagnosis [facility] [address] [facility] [address] [place] [address] 06/16/2024 Provider Migration [facility] [address] [facility] [address] [place] [address] 10/24/2023 Carlos Coelho Gastroesophageal ref lux disease without esophagitis K21.9 ; Hyperthyroidism E05.90 ; History of non anemic vitamin B12 deficiency Z86.39 ; Other malaise R53.81 ; Other fatigue R53.83 and Encounter for routine adult medical examination Z00.00 [facility] [address] [facility] [address] [place] [address] 12/05/2023 Carlos Coelho Microcytic anemia D5 0.9 [facility] [address] [place] [facility] [address] [place] [address] 2023 Carlos Coelho History of non anemi c vitamin B12 deficiency Z86.39 Assessments Encounter Date Diagnosis (ICD Code) Assessment Notes Treatment Notes Treatment Clinical Notes Section Notes 10/24/2023 Gastroesophageal reflux disease without esophagitis (ICD-10 - K21.9) Under good control, no changes in plan 10/24/2023 Hyperthyroidism (ICD-10 - E05.90) Schedule for hemithyroidectom y. Do labs in January after surgery has been finished 2023 History of non anemic vitamin B12 deficiency (ICD-10 - Z86.39) 12/05/2023 Microcytic anemia (ICD-10 - D50.9) Iron studies reviewed, consistent with dietary iron deficiency, probably exacerbated by gastric sleeve surgery. She has not been on iron replacement therapy other than standard multivitamins. I advised her to do 324 mg of iron sulfate twice daily with food and vitamin C 500 mg twice daily. I do not know that IV iron would be indicated at this point given her levels and no symptoms at rest. Follow-up in 3 weeks with redo CBC and ferritin at that point. 10/24/2023 History of non anemic vitamin B12 deficiency (ICD-10 - Z86.39) Repeat labs in January as noted above 10/24/2023 Other malaise (ICD-10 - R53.81) Given symptoms of bodyaches, stress-induced fatigue and malaise I think Garrett is high risk for fibromyalgia versus underlying dysthymia symptoms. Talked about this with her at length. She is willing to trial duloxetine. Follow-up 3 to 4 weeks 10/24/2023 Other fatigue (ICD-10 - R53.83) 10/24/2023 Encounter for routine adult medical examination (ICD-10 - Z00.00) Patient has no indication for early breast or colon cancer screening. Up-to-date with vaccinations. Up-to-date with labs. Non-smoker, nondrinker. Safe home life. Plan Of Treatment Pending Test Test Name Order Date NUCLEAR MED : Thyroid Uptake Scan 2022 M-Thyroid Panel 09/10/2021 B-Mouc-Ovxyidwupzizo Antibody 10/13/2022 M-Vitamin B12 10/02/2022 M-Vitamin D 25 Hydroxy 10/02/2022 M-Thyroid Peroxidase Antibodies 10/14/19 Future Test Test Name Order Date M-Complete Blood Count Auto Diff 024 M-Basic Metabolic Panel 12/26/2023 M-Ferritin 12/26/2023 Insurance Providers Payer Name Payer Address Payer Phone Subscriber Number Group Number Insured Name Patient Relationship to Insured Coverage Start Date Coverage End Date [employer] [address] [address] [place] [address] [phone] [id number] Garrett Feliz Self - patient is the insured Medical (General) History Medical History History ICD Code GERd Migraines Anxiety Depression Jamie Peguero- 2016 Plantar fascaiitis Gastric sleeve- 2021 Hypothyroidism-thyroid nodule diagnosed 12/04 Surgical History Surgery Date(Month/Year) Tonsillectomy Cholecystectomy c/s x3 Tubal ligation Gastric sleeve- hiatal hernia repair 202 2 Hospitalization History Reason Date(Month/Year) [facility]- [facility] Peguero 2016 c/s x 3 [facility]-Gastric sleeve 2021
--- OUTSIDE RECORDS SUMMARY | 2024-08-22 12:53 | XMS_ITS | Encounter Summary ---
Author Organization [facility] Address [address] [place] [address] Care Team Providers Care Business Continuity Specialist Name Role Phone Carlos Lind MD Primary Care Provider [phone] Encounter Details Date Type Department Care Team (Late Contact Info) Description 06/28/[address] [facility] [address] [place] [address] Delfino Atwood MD [address] [address] Social History Tobacco Use Types [...] Description 12/03/2024 1:00 PM EDT [facility] [address] [place] [address] Delfino Atwood MD [address] [address] documented as of this encounter Procedures Procedure Name Priority Date/Time Associated Diagnosis Comments CBC W/DIFF Routine 06/27/2024 8:03 AM EDT documented in this encounter Results * CBC W/DIFF (06/27/2024 8:03 AM EDT) us Delfino Atwood MD LAB BLOOD ORDERABLES Final Resu lt documented in this encounter Visit Diagnoses Not on filedocumented in this encounter Additional Health Concerns Assessment Noted Time A fall risk assessment has been complete d for the patient 09/01/2023 9:07 AM EDT A Body Mass Index follow-up plan has been documented for the patient 07/01/2024 8:33 PM EDT documented as of this encounter Care Teams Business Continuity Specialist Relationship Specialty Start Date End Date Carlos Lind MD [address] [place] [address] PCP - General 07/25/20 documented as of this encounter
[2024-08-22] MEDS: SODIUM CHLORIDE 0.9% 50ML BAG 50 ML IV (13:14)
[2024-08-22] MEDS: IRON SUCROSE COMPLEX 200 MG in 0.9 % SODIUM CHLORIDE 100 ML 220 MG IV (13:14)
[2024-08-22 13:20] VITALS: BP 117/78; PULSE 79; RESP 17; O2SAT 99
[2024-08-22 13:55] VITALS: BP 124/80; PULSE 72; RESP 17
== END 2024-08-22 14:05 | disposition home or self-care (01) ==
LOC: INF 12:50
PROVIDERS: PCP Nurse Practitioner; Visit Provider Nurse Practitioner
DX: D64.9 Anemia, unspecified (principal)
CPT/HCPCS: 96365; J1756

== ENCOUNTER 2024-08-24 09:53 | Outpatient (CLI) | payer OTHER, SELFPAY ==
--- OUTSIDE RECORDS SUMMARY | 2023-12-28 10:15 | XMS_ITS ---
Author Organization [facility] Address [address] [place] [address] Care Team Providers Care University Relations Recruiter Name Role Phone Carlos Coelho Primary Care Provider Yaw Carrillo [phone] REASON FOR VISIT lab work Encounters Encounter Location Date Provider Diagnosis [facility] [address] [place], [place] [address] 12/28/2023 Cralos Coelho Plan Of Treatment No Information Progress Notes * Pam HIGHTOWERB:1985 (38 yo F)Acc No.[id number]:12/28/2023 Progress Notes Patient: Garrett PAN Provider: Bartolo Coelho MD :1985 A ge:38 Y S ex:Female Date:12/28/2023 Address:[address], [id number] Subjective: * Chief Complaints: * 1 . Lab work. * Medical History: Objective: * Vitals: Assessment: Plan: * Treatment: * * Electronic signature of Yuri Coelho MD FAAP on 08/24/2024 at 09:56 AM EDT Sign off status: Pending * Provider: Bartolo Coelho MD Date: 1 Generated for Printi ng/Faxing/eTransmitting on: 0 08/24/2024 09:56 AM EDT
--- OUTSIDE RECORDS SUMMARY | 2024-06-16 17:30 | XMS_ITS ---
Author Organization [facility] PE D ROGER Address [address] [place], [place] [address] Care Team Providers Care Spring Former Machine Name Role Phone Carlos Coelho Primary Care Provider Yaw Carrillo Unavailable [phone] Migration, Provider Unavailable Unavailable Allergies Allergen (clinical drug ingredient) Drug/Non Drug Allergy documented on EMR Reaction Allergy Type Onset Date Status sulfamethoxazole / trimethoprim Bactrim epigatric pain Drug Allergy Active erythromycin Erythromycin rash Drug Allergy A [facility]ive [facility] Conversion Encounter Medications Medication SIG (Take, Route, Frequency, Duration) Notes Start Date End Date Status hydrOXYzine Pamoate 25 MG 1 cap(s) orall y 4 times a day for 14 days 05/04/2023 Active Propranolol HCl 20 MG 1 tab(s) orally 2 times a day for 90 days 11/20/2022 Active Esomeprazole Magnesium 40 MG 1 cap(s) orally once a day for 90 days 11/10/2022 Active Cyclobenzaprine HCl 10 MG 1 tab(s) orall y at bedtime for 90 days Active Cyanocobalamin 1000 MCG/ML as directed intramuscularly once a month for 90 days Active Encounters Encounter Location Date Provider Diagnosis [facility] [address] [place], [place] [address] 06/16/2024 Provider Migration Plan Of Treatment No Information Progress Notes * Christiano HIGHTOWER:1985 (38 yo F)Acc No.[id number]:06/16/2024 Patient: Garrett PAN Provider: Rosetta Suarez :1985 A ge:38 Y S ex:Female Date:06/16/2024 Address: [address], [place], [id number] Pcp:Carlos Coelho Subjective: * Chief Complaints: * 1 . [facility] Conversion Encounter. * Medical History: * Medications: [...] Electronic signature of Prov ider Migration on 08/24/2024 at 09:55 AM EDT Sign off status: Pending * Provider: Rosetta duncanMolina Date: 0 06/16/2024 Generated for López garcia/Kurtis/Fred on: 0 08/24/2024 09:55 AM EDT
--- OUTSIDE RECORDS SUMMARY | 2024-06-26 14:40 | XMS_ITS | Encounter Summary ---
Author Organization [facility] Address [address] [place] [address] Care Team Providers Care Remote Mortgage Underwriter Name Role Phone Carlos Lind MD Primary Care Provider Reason for Referral * Consultation (Routine) - Authorized Specialty Diagnoses / Procedures Referred By Contac t Referred To Contact Diagnoses Thyroid cancer (CMS/HCC) Delfino Atwood MD [address] [address] Phone: tel: fax: Referral ID Status Reason Start Date Expiration Date V isits Requested Visits Authorized [id number] Authorized 06/26/2024 12/26/2025 1 1 Reason for Visit * Reason Comments thyroidectomy Encounter Details Date Type Department Care Team (Late st Contact Info) Description 06/26/2024 2:40 PM EDT Office Visit [facility] Endocrinology [address] [place] [address] Delfino Atwood MD [address] [address] Thyroid cancer (CMS/HCC) (Primary Dx); [...] all 06/26/2024 2:31 PM EDT Silvia Mckinnon Feeling down, depressed, or hopeless Not [...] . Electronically signed by: Delfino Atwood MD [facility] [address] [facility]. [address] [place]. [address] PHONE [phone] FAX: [phone] documented in this encounter Plan of Treatment Upcoming Encounters Date Type Department Care Team (Late st Contact Info) Description 12/03/2024 1:00 PM EDT Office Visit [facility] Endocrinology [address] [place] [address] Delfino Atwood MD [address] [facility] [address] [place] [address] Scheduled Orders Name Type Priority Associated [...] Associated Diagnoses Orde r Schedule Follow Up [facility] Outpatient Referral Routine Thyroid cancer (CMS/HCC) Expected: [...] documented as of this encounter Care Teams Remote Mortgage Underwriter Relationship Specialty Start Date End Date Carlos Lind MD [address] [place] [address] PCP - General 07/25/20 documented as of this encounter
--- OUTSIDE RECORDS SUMMARY | 2024-08-24 09:55 | XMS_ITS | Encounter Summary ---
Author Organization [facility] Address [address] [place] [address] Care Team Providers Care Mining Detail Draftsperson Name Role Phone Carlos Lind MD Primary Care Provider [phone] Encounter Details Date Type Department Care Team [...] Description 12/03/2024 1:00 PM EDT Office Visit [facility] Endocrinology [address] [place] [address] Delfino Atwood MD [address] [address] documented as of this encounter Visit Diagnoses Not on filedocumented in this encounter Additional Health Concerns Assessment Noted Time A fall risk assessment has been complete d for the patient 09/01/2023 9:07 AM EDT A Body Mass Index follow-up plan has been documented for the patient 07/01/2024 8:33 PM EDT documented as of this encounter Care Teams Mining Detail Draftsperson Relationship Specialty Start Date End Date Carlos Lind MD [address] [place] [address] PCP - General 07/25/20 documented as of this encounter
--- OUTSIDE RECORDS SUMMARY | 2024-08-24 09:55 | XMS_ITS | Encounter Summary ---
Author Organization [facility] Address [address] [place] [address] Care Team Providers Care City Manager Name Role Phone Carlos Lind MD Primary Care Provider [phone] Encounter Details Date Type Department Care Team (Late Contact Info) Description 06/28/2024 Orders Only [facility] [address] [place] [address] Delfino Atwood MD [address] [address] Social History Tobacco Use Types [...] Description 12/03/2024 1:00 PM EDT [facility] [address] [place] [address] Delfino Atwood MD [address] [address] documented as of this encounter [...] documented as of this encounter Care Teams City Manager Relationship Specialty Start Date End Date Carlos Lind MD [address] [facility] [place] [address] PCP - General 07/25/20 documented as of this encounter
--- OUTSIDE RECORDS SUMMARY | 2024-08-24 09:55 | XMS_ITS | Encounter Summary ---
Author Organization [facility] Address [address] [place] [address] Care Team Providers Care Industrial Sales Manager Name Role Phone Carlos Lind MD Primary Care Provider [phone] Encounter Details Date Type Department Care Team (Late Contact Info) Description 06/28/2024 Results Follow-Up [facility] Endocrinology [address] [place] [address] Delfino Atwood MD [address] [address] Social History Tobacco Use Types [...] Description 12/03/2024 1:00 PM EDT Office Visit [facility] Endocrinology [address] [place] [address] Delfino Atwood MD [address] [address] documented as of this encounter Visit Diagnoses Not on filedocumented in this encounter Additional Health Concerns Assessment Noted Time A fall risk assessment has been complete d for the patient 09/01/2023 9:07 AM EDT A Body Mass Index follow-up plan has been documented for the patient 07/01/2024 8:33 PM EDT documented as of this encounter Care Teams Industrial Sales Manager Relationship Specialty Start Date End Date Carlos Lind MD [address] [place] [address] PCP - General 07/25/20 documented as of this encounter
--- OUTSIDE RECORDS SUMMARY | 2024-08-24 09:55 | XMS_ITS | Encounter Summary ---
Author Organization [facility] Address [address] [place] [address] Care Team Providers Care Fuel Assembler Name Role Phone Carlos Lind MD Primary Care Provider [phone] Encounter Details Date Type Department Care Team (Late st Contact Info) Description 06/11/2024 Results Follow-Up [facility] Endocrinology [address] [place] [address] Delfino Atwood MD [address] [address] Social History Tobacco Use Types [...] 12/03/2024 1:00 PM EDT Office Visit [facility] [address] [place] [address] Delfino Atwood MD [address] [facility] [address] [place] [address] documented as of this encounter Visit Diagnoses Not on filedocumented in this encounter Additional Health Concerns Assessment Noted Time A fall risk assessment has been complete d for the patient 09/01/2023 9:07 AM EDT A Body Mass Index follow-up plan has been documented for the patient 09/01/2023 7:36 PM EDT documented as of this encounter Care Teams Fuel Assembler Relationship Specialty Start Date End Date Carlos Lind MD [address] [place] [address] PCP - General 07/25/20 documented as of this encounter
--- OUTSIDE RECORDS SUMMARY | 2024-08-24 09:55 | XMS_ITS | Encounter Summary ---
Author Organization [facility] Address [address] [place] [address] Care Team Providers Care Frame Aligner Name Role Phone Carlos Lind MD Primary Care Provider Encounter Details Date Type Department Care Team (Late Contact Info) Description 06/08/2024 Lab Requisition [facility] [address] [place] [address] Delfino Atwood MD [address] [address] Nontoxic single thyroid nodule Social [...] Office Visit [facility] [address] [place] [address] Delfino Atwood MD [address] [address] documented as of this encounter Procedures Procedure Name Priority Date/Time Associated Diagnosis Comments SURGICAL PATHOLOGY CONSULT Routine 06/08/2024 10:44 AM EDT Nontoxic single thyroid nodule documented in this encounter Results * Surgical Pathology Consult (06/08/2024 10:44 AM EDT) Case Report Sugical Pathology Consult Case: [id number] Authorizing Provider: Delfino Atwood MD Collected: 06/08/2024 1044 Ordering Location: [facility] Lab Received: 06/08/2024 1044 Pathologist: Lauro Alfaro MD Specimen: Thyroid, [id number] 06/11/2024 11:07 AM EDT [facility] Final Diagnosis A. THYROID, RIGHT, LOBECTOMY (OUTSIDE CASE NUMBER. 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 [id number] Received along with a corresponding pathology report from [facility] are 14 slides labeled outside case: [id number] collected on 05/30/2024. 06/11/2024 11:07 AM EDT [facility] Note: A resident was involved in the service. I attest I examined the relevant preparations for the specimens and confirmed the diagnosis or interpretation. 06/11/2024 11:07 AM EDT [facility] Tissue Thyroid structure / Unknown 06/08/2024 10:44 AM EDT 06/08/2024 10:44 AM EDT us Delfino Atwood MD LAB PATHOLOGY ORDERABLES Final Result [facility] [address] [place] [address] documented in this encounter Visit Diagnoses Diagnosis Nontoxic single thyroid nodule Nontoxic uninodular goiter documented in this encounter Additional Health Concerns Assessment Noted Time A fall risk assessment has been complete d for the patient 09/01/2023 9:07 AM EDT A Body Mass Index follow-up plan has been documented for the patient 09/01/2023 7:36 PM EDT documented as of this encounter Care Teams Frame Aligner Relationship Specialty Start Date End Date Carlos Lind MD [address] [facility] [place] [address] PCP - General 07/25/20 documented as of this encounter
--- OUTSIDE RECORDS SUMMARY | 2024-08-24 09:55 | XMS_ITS | Encounter Summary ---
Author Organization [facility] Address [address] [place] [address] Care Team Providers Care Paddock Judge Name Role Phone Carlos Lind MD Primary Care Provider [phone] Encounter Details Date Type Department Care Team (Late Contact Info) Description 07/02/2024 Orders Only [facility] Endocrinology [address] [place] [address] Delfino Atwood MD [address] [address] Status post thyroidectomy (Primary Dx) [...] Description 12/03/2024 1:00 PM EDT Office Visit [facility] Endocrinology [address] [place] [address] Delfino Atwood MD [address] [address] Scheduled Orders Name Type Priority [...] documented as of this encounter Care Teams Paddock Judge Relationship Specialty Start Date End Date Carlos Lind MD [address] [place] [address] PCP - General 07/25/20 documented as of this encounter
--- OUTSIDE RECORDS SUMMARY | 2024-08-24 09:56 | XMS_ITS | Clinical Summary ---
Author Organization [facility] Address [address] [place] [address] Care Team Providers Care Dispatch Lead Name Role Phone Carlos Lind MD Primary Care Provider [phone] Allergies Active Allergy Reactions Criticality Noted Date [...] Care Team Description 07/02/2024 Orders Only [facility] Endocrinology [address] [place] [address] Delfino Atwood MD Status post thyroidectomy (Primary Dx) 06/28/2024 Results Follow-Up [facility] Endocrinology [address] [place] [address] Delfino Atwood MD 06/28/2024 Orders Only [facility] Endocrinology [address] [place] [address] Delfino Atwood MD 06/26/2024 2:40 PM EDT Office Visit [facility] Endocrinology [address] [place] [address] Delfino Atwood MD Thyroid cancer (CMS/HCC) (Primary Dx); Status post thyroidectomy; Fatigue, unspecified type; Iron deficiency; Dorsocervical fat pad 06/26/2024 Travel 06/11/2024 Results Follow-Up [facility] Endocrinology [address] [place] [address] Delfino Atwood MD 06/08/2024 Lab Requisition [facility] [address] [place] [address] Delfino Atwood MD Nontoxic single thyroid nodule [...] Description 12/03/2024 1:00 PM EDT [facility] [address] [place] [address] Delfino Atwood MD [address] [place] [address] Health Maintenance Due Date Last [...] [facility]-Cervical Cancer Screening 04/10/2021 [facility]-HPV/Cotest 04/10/2021 04/10/2016 [id number]-15 Vaccine ( season) 2023 03/27/2021, 04/11/2020, 03/12/2020 [...] EDT) Case Report Sug[facility] Pathology Consult Case: [id number] Authorizing Provider: Delfino Atwood MD Collected: 06/08/2024 1044 Ordering Location: [facility] Lab Received: 06/08/2024 1044 Pathologist: Lauro Alfaro MD Specimen: Thyroid, [id number] 06/11/2024 11:07 AM EDT [facility] Final Diagnosis A. THYROID, RIGHT, LOBECTOMY (OUTSIDE CASE NUMBER. 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 [id number] Received along with a corresponding pathology report from [facility] are 14 slides labeled outside case: [id number] collected on 05/30/2024. 06/11/2024 11:07 AM EDT [facility] Note: A resident was involved in the service. I attest I examined the relevant preparations for the specimens and confirmed the diagnosis or interpretation. 06/11/2024 11:07 AM EDT [facility] Tissue Thyroid structure / Unknown 06/08/2024 10:44 AM EDT 06/08/2024 10:44 AM EDT us Delfino Atwood MD LAB PATHOLOGY ORDERABLES Final Result [facility] [address] [place] [address] * Hepatitis C Antibody (04/10/2016 5:47 PM EST) Hepatitis C Antibody NEGATIVE Reference Range: Negative [facility] 04/10/2016 5:47 PM EST 04/10/2016 8:55 PM EST us Lara Padron MD LAB BLOOD ORDERABLES Final Result [facility] * Cytology (04/10/2016 12:00 AM EST) Cerebrospinal fluid specimen (specimen) 04/10/2016 04/12/2016 7 :16 AM EST Narrative [facility] - 04/12/2016 2:53 PM EST [facility] MR #: [id number] [facility] [place] JAIN [address] 1985 (Age: 30) FW Collect Date: 04/10/2016 00:00 Receipt Date: 04/12/2016 07:16 Page 1 DEPARTMENT OF PATHOLOGY AND LABORATORY MEDICINE CYTOPATHOLOGY REPORT Email: [email or web address] [phone] ATTENDING MD/Practitioner: Charity Padron MD Service: [place] [...] Unspecified abnormal finding in cerebrospinal fluid F: [id number] SNOMED CODES: A; [id number] A resident has participated in this service. A pathologist has performed and is responsible for the reported pathologic evaluation. Lara Padron MD LAB PATHOLOGY ORDERABLES Fi nal Result Performing Organization Address [facility] Co de Phone Number [facility] * HIV 1 & 2 Antibody/Antigen Screen (04/08/2016 7:27 PM EST) HIV 1 Result NONREACTIVE Screening for HIV 1 and 2 antibodies is NONREACTIVE. No confirmatory testing is required. [facility] 04/08/2016 7:27 PM EST 04/08/2016 7:39 PM EST Historical Provider LAB BLOOD ORDERABLES Yennifer l Result Performing Organization Address [facility] Co de Phone Number [facility] from Last 3 Months or Most Recently Relevant to Health Maintenance [place] [id number] [facility] Care Teams Dispatch Lead Relationship Specialty Start Date End Date Carlos Lind MD [address] [place] [address] [place] [address] PCP - General 07/25/20
--- OUTSIDE RECORDS SUMMARY | 2024-08-24 09:56 | XMS_ITS | Encounter Summary ---
Author Organization [facility] Address [address] [place] [address] Care Team Providers Care Linen Checker Name Role Phone Carlos Lind MD Primary Care Provider [phone] Reason for Referral * Consultation (Routine) - Closed Specialty Diagnoses / Procedures Referred By Contac t Referred To Contact Endocrinology Diagnoses Hot thyroid nodule Abnormal thyroid scan Carlos Coelho MD [address] [place] [address] Phone: tel: fax: Referral ID Status Reason Start Date Expiration Date V isits Requested Visits Authorized [id number] Closed Specialty Services Required 12/20/2022 06/20/2024 1 1 Encounter Details Date Type Department Care Team ([facility] Contact Info) Description 12/20/2022 [facility] [address] [place] [address] Carlos Coelho MD [address] [place] [address] Hot thyroid nodule (Primary Dx); Abnormal thyroid [...] Upcoming Encounters Date Type Department Care Team ([facility] Contact Info) Description 12/03/2024 1:00 PM EDT [facility] [address] [place] [address] Delfino Atwood MD [address] [address] Scheduled Referrals Name Type Priority Associated Diagnoses Order Schedule Ambulatory referral to Endocrinology Outpatient Referral Routine Hot thyroid nodule Abnormal thyroid scan Ordered: 12/20/2022 documented as of this encounter Visit Diagnoses Diagnosis Hot thyroid nodule- Primary Nontoxic uninodular goiter Abnormal thyroid scan Nonspecific abnormal results of thyroid function study documented in this encounter Care Teams Linen Checker Relationship Specialty Start Date End Date Carlos Lind MD [address] [place] [address] PCP - General 07/25/20 documented as of this encounter
--- OUTSIDE RECORDS SUMMARY | 2024-08-24 09:56 | XMS_ITS | Patient Health Record ---
Author Organization [facility] Address [address] [place] [address] Care Team Providers Care Superintendent Quarry Name Role Phone NicoleCarlos qureshi Primary Care Provider [phone] Yaw Carrillo Unavailable [phone] Migration, Provider Unavailable Unavailable Allergies Allergen (clinical drug ingredient) Drug/Non Drug Allergy documented on EMR Reaction Allergy Type Onset Date Status sulfamethoxazole / trimethoprim Bactrim epigatric pain Drug Allergy Active erythromycin Erythromycin rash Drug Allergy A ctive Results Component Value Reference Range Notes H-FETIBC Reviewed date:12/02/2023 02:34:26 PM Interpretation: Performing Lab: Notes/Report: FE 32 37-170 ug/dL DTIBC 469 265-497 ug/dL IRONSAT 6.48021 15-55 % M-Ferritin Reviewed date:12/02/2023 02:34:26 PM Interpretation: Performing Lab: Notes/Report: RANDY 4.63 6.24-137 ng/ml Delta: 11.0 o n 03/19/22-1003 Reason For Referral No Information Medications Medication [...] Problem Status W/U Status Risk Notes Problem 756169207 Thyroid nodule (E04.1) Active confirmed Problem 231705695 Gastroesophageal reflux disease without esophagitis (K21.9) Active confirmed Problem 76920419 Hyperthyroidism (E05.90) Active confirmed Problem 835677580 History of non anemic vitamin B12 deficiency (Z86.39) Active confirmed Problem 327090337 Microcytic anemi a (D50.9) Active confirmed Problem 504005779 Acute right-side d back pain with sciatica (M54.41) Active confirmed Problem 142082911059743 S/P gastric slee ve procedure (Z90.3) Active confirmed Vital Signs Heart Rate 92 /min 12/05/2023 Temperature 97.9 degrees Fahrenheit 12/05/2023 Blood pressure diastolic 84 mm Hg 12/05/2023 Height 5 ft 3 in in 12/05/2023 Blood pressure systolic 130 mm Hg 12/05/2023 Weight 308.6 lbs 12/05/2023 BMI 54.66 kg/m2 12/05/2023 Encounters Encounter Location Date Provider Diagnosis [facility] [address] [facility] [address] [place] [address] 06/16/2024 Provider Migration [facility] [address] [facility] [address] [place] [address] 10/24/2023 Carlos Coelho Gastroesophageal ref lux disease without esophagitis K21.9 ; Hyperthyroidism E05.90 ; History of non anemic vitamin B12 deficiency Z86.39 ; Other malaise R53.81 ; Other fatigue R53.83 and Encounter for routine adult medical examination Z00.00 [facility] [address] [facility] [address] [place] [address] 12/05/2023 Carlos Coelho Microcytic anemia D5 0.9 [facility] [address] [place] [facility] [address] [place] [address] 2023 Carlos Coelho History of non anemi [...] Thyroid Uptake Scan 2022 M-Thyroid Panel 09/10/2021 Q-Xfim-Pcnsrxgbpidqf Antibody 10/13/2022 M-Vitamin B12 10/02/2022 M-Vitamin D 25 Hydroxy 10/02/2022 M-Thyroid Peroxidase Antibodies 10/14/19 Future Test Test Name Order Date M-Complete Blood Count Auto Diff 024 M-Basic Metabolic Panel 12/26/2023 M-Ferritin 12/26/2023 Insurance Providers Payer Name Payer Address Payer Phone Subscriber Number Group Number Insured Name Patient Relationship to Insured Coverage Start Date Coverage End Date [employer] [address] [address] [place] [address] [id number] Garrett Feliz Self - patient is the insured Medical (General) History Medical History History ICD Code GERd Migraines Anxiety Depression Jamie Peguero- 2016 Plantar fascaiitis Gastric sleeve- 2021 Hypothyroidism-thyroid nodule diagnosed 12/04 Surgical History Surgery Date(Month/Year) Tonsillectomy Cholecystectomy c/s x3 Tubal ligation Gastric sleeve- hiatal hernia repair 202 2 Hospitalization History Reason Date(Month/Year) [facility]- Jamie Peguero 2016 c/s x 3 [facility]-Gastric sleeve 2021
--- OUTSIDE RECORDS SUMMARY | 2024-08-24 09:56 | XMS_ITS | Data Portability ---
Author Organization [place] - [facility] - [place] [facility] [place] [facility] ADMIN Address [address] [place] [address] Care Team Providers Care Bottling Room Worker Name Role Phone LATONIA CROSS Primary Care [...] 3. Start tracking calories and protein with Miradore tammy 4. Add in 1 protein shake [...] modifications. Will f/up as scheduled or PRN. [email or web address] Not available 12/20/2023 15:43:40 Plan of Treatment Reminders Order Date Submit Date Provider Last Modified By Organization Details Last Modified Time Details Appointments OV EST 20 2024 01:20P M Raffi Pruitt, DNP, [employer], [employer]-C Not available Not available Not available Lab iron + TIBC + ferritin, serum 2024 025 [facility], [address], [address], [place], [address], 04/06/2024 12:14:45 folate, serum 2024 025 [email or web address] [facility], [address], [address], [place], [address], 04/06/2024 12:14:45 vitamin D, 25-hydrox y, total, serum 2024 025 VANESSA [facility], [address], [address], [place], [address], 03/24/2024 10:52:24 H pylori Ag, qual immunoass ay, stool 2024 025 Not available 04/06/2024 12:14:46 prealbumi n, serum 2024 025 VANESSA [facility], [address], [address], [place], [address], 03/29/2024 08:47:03 thiamine, QN, blood 2024 025 [email or web address] [facility], [address], [address], [place], [address], 04/06/2024 12:14:45 methylmal ruel, QN, serum or plasma 2024 025 [email or web address] [facility], [address], [address], [place], [address], 04/06/2024 12:14:45 vitamin E, serum 2024 025 VANESSA [facility], [address], [address], [place], [address], 03/29/2024 02:57:35 vitamin A (retinol) , serum 2024 025 [email or web address] [facility], [address], [address], [place], [address], 04/06/2024 12:14:45 CBC w/ auto diff 2024 025 VANESSA [facility], [address], [address], [place], [address], 03/24/2024 10:42:19 CMP, serum or plasma 2024 025 VANESSA [facility], [address], [address], [place], [address], 03/24/2024 11:09:55 HbA1c (hemoglob in A1c), blood 2024 025 [email or web address] [facility], [address], [address], [place], [address], 04/06/2024 12:14:45 TSH + free T4, serum 2024 025 [email or web address] [facility], [address], [address], [place], [address], 04/06/2024 12:14:46 lipid panel, serum 2024 025 [email or web address] [facility], [address], [address], [place], [address], 04/06/2024 12:14:46 vitamin D, 25-hydrox y, total, serum 2023 024 VANESAS [facility], [address], [address], [place], [address], 12/21/2023 13:08:14 iron + TIBC + ferritin, serum 2023 024 [email or web address] [facility], [address], [address], [place], [address], 12/27/2023 15:36:37 folate, serum 2023 024 [email or web address] [facility], [address], [address], [place], [address], 12/27/2023 15:36:37 prealbumi n, serum 2023 024 [email or web address] [facility], [address], [address], [place], [address], 12/27/2023 15:36:38 thiamine, QN, blood 2023 024 [email or web address] [facility], [address], [address], [place], [address], 12/27/2023 15:36:38 methylmal ruel, QN, serum or plasma 2023 024 [email or web address] [facility], [address], [address], [place], [address], 12/27/2023 15:36:38 vitamin E, serum 2023 024 [email or web address] [facility], [address], [address], [place], [address], 12/27/2023 15:36:38 vitamin A (retinol) , serum 2023 [email or web address] [facility], [address], [address], [place], [address], 12/27/2023 15:36:38 CBC w/ auto diff 2023 024 VANESSA [facility], [address], [address], [place], [address], 12/21/2023 12:38:48 CMP, serum or plasma 2023 024 VANESSA [facility], [address], [address], [place], [address], 12/21/2023 14:06:08 HbA1c (hemoglob in A1c), blood 2023 024 [email or web address] [facility], [address], [address], [place], [address], 12/27/2023 15:36:38 TSH + free T4, serum 2023 024 VANESSA [facility], [address], [address], [place], [address], 12/21/2023 14:06:09 lipid panel, serum 2023 024 VANESSA [facility], [address], [address], [place], [address], 12/21/2023 14:06:08 CBC w/ auto diff 2022 [...] diff 2022 023 [email or web address] [facility], [address] [place] [address] [address], [id number], 07/14/2022 13:58:21 CMP, serum or plasma 2022 023 [email or web address] [facility], [address] [place] [address] [address], [id number], 07/14/2022 13:58:22 HbA1c (hemoglob in A1c), blood 2022 023 [email or web address] [facility], [address] [place] [address] [address], [id number], 07/14/2022 13:58:22 lipid panel, blood 2022 023 [email or web address] 53 [facility], [address] [place] [address] [address], [id number], 07/14/2022 13:58:22 iron + TIBC + ferritin, serum 2022 023 [email or web address] 53 [facility], [address] [place] [address] [address], [id number], 07/14/2022 13:58:22 folate, serum [address], [address] [place] [address] [place], [id number], 07/14/2022 13:58:22 mma (methylma lonic acid), serum [address], [address] [place] [address] [place], [id number], 07/14/2022 13:58:22 vitamin B1 (thiamine ), blood [address], [address] [place] [address] [place], [id number], 07/14/2022 13:58:23 vitamin D, 25-hydrox y, total, serum [address], [address] [place] [address] [place], [id number], 07/14/2022 13:58:23 vitamin E, serum [address], [address] [place] [address] [place], [id number], 07/14/2022 13:58:23 vitamin A (retinol) , serum [address], [address] [place] [address] [place], [id number], 07/14/2022 13:58:23 Referral None recorded. Procedures None recorded. Surgeries esophagog astroduod enoscopy (SURG) 2023 024 [email or web address] Mar Dolan MD, [address], [address], [place], [address], 03/01/2024 13:21:48 Imaging XR, abdomen + RF, upper gastroint estinal tract, w/ contrast PO 2023 [email or web address] [facility] ([facility]), [address] [place], [place] [address], [place], [address], 03/08/2024 11:43:03 Medication Orders ondansetr on 4 mg disintegr ating tablet 2023 [facility], [address] [place] [address] [address], [place], [id number], 03/05/2024 17:09:00 Patient TargetsNo targets recorded. Patient InstructionsNo instructions recorded. Reason for Referral None Reported. Results Created Date Observation Date Name Description Value Unit Range Abnormal Flag Note LastModifiedBy Organization Detail LastModifiedTime 01/05/2001/06/[address] (H PYLOR I AB QUAL) meghan test 20 min NEGATI VE negati ve Not Available [facility] ([facility]) [address] , [place], [address], 01/06/2024 09:52:41 01/05/2001/06/[address] (H PYLOR I AB QUAL) meghan test 1HR NEGATI VE negati ve Not Available [facility] ([facility]) [address] , [place], [address], 01/06/2024 09:52:41 01/05/2001/06/[address] (H PYLOR I AB QUAL) meghan test 3 HR NEGATI VE negati ve Not Available [facility] ([facility]) [address] , [place], [address], 01/06/2024 09:52:41 01/05/2001/06/[address] (H PYLOR I AB QUAL) meghan test 24 HR POSITI VE negati ve delta Not Available [facility] ([facility]) [address] [place], [address], 01/06/2024 09:52:41 01/05/2001/06/[address] (H PYLOR I AB QUAL) meghan test kit lot# [id number] 0 Not Available [facility] ([facility]) [address], [place], [address], 01/06/2024 09:52:41 01/05/2001/06/[address] (H PYLOR I AB QUAL) meghan test kit exp date 2023 Not Available [facility] ([facility]) [address], [place], [address], 01/06/2024 09:52:41 Result Notes None recorded. Problems Name Problem SNOMED Code Status Onset Date Resolution Date Notes Provider Name and Address Organization Details Recorded Time History of Helicobac ter pylori infection 247580477339 47927 Active 2024 Raffi Pruitt DNP, [employer], [employer] WORK[employer]-C [address], [place], [address] , [place] - [facility] - [place] 5 11:01:52 Essential hypertens ion 64629258 Active 2022 Raffi Pruitt DNP, [employer], [employer] WORKER-C [address] [facility], [place], [address] , [place] [facility] [place] 3 11:09:29 Low back pain 428834959 Active 2022 Raffi Pruitt DNP, [employer], [employer] WORKER-C [address] [facility], [place], [address] , [place] [facility] [place] 3 11:57:53 Obstructi ve sleep apnea syndrome 47752225 Active 2020 Not Available [facility] 2 13:28:45 Morbid obesity 217311570 Active 2020 Morbid obesity Not Available [facility] 2 13:28:45 History of sleeve gastrecto my 649087580973 107 Active 2021 Not Available [facility] 2 13:28:45 Gastroeso phageal reflux disease without esophagit is 065398977 Active 2020 Not Available [facility] 2 13:28:45 Vitamin D deficienc y 21510248 Active 2023 Raffi Pruitt DNP, LEANN, [employer]-C [address], [place], [place], [address] [place] [address] , [place] [facility] [place] 4 14:35:59 Unintenti onal weight gain 619798166577 104 Active 2023 Raffi Pruitt DNP, LEANN, [employer]-C [address], [place], [place], [address] [place] [address] , [place] [facility] [place] 4 14:40:00 Abdominal pain 22045296 Active 2023 Raffi Pruitt DNP, LEANN, [employer]-C [address], [place], [place], [address] [place] [address] , [place] [facility] [place] 4 14:49:15 Nausea 330385263 Active 2023 Raffi Pruitt DNP, [employer], [employer]YING [employer] WORKER-C [address], [place], [address] [place] [address] , [place] [facility] [place] 4 14:49:44 Dysphagia 28604006 Active 2023 Raffi Pruitt DNP, [employer], [employer]YING [employer] WORKER-C [address], [place], [address] [place] [address] , [place] [facility] [place] 4 14:52:23 Fatigue 53838324 Active 2023 Raffi Pruitt DNP, LEANN, [employer] WORK[employer]-C [address], [place], [address] [place] [address] , [place] [facility] [place] 4 15:12:50 Iron deficienc y 67796429 Active 2023 Raffi Pruitt DNP, [employer], [employer] WORKER-C [address] , [place], [address] , [facility] & [place] 15:12:59 Problem Notes Documentation Provider Name and Address Organization Details Recorded Time Dietitian Note : RDN met w/ Garrett Feliz who is s/p sleeve (surgery date 06/15/2021) following their 1 yr follow up. Pt has lost 73.9 lb since sx bringing her BMI to 46.6. Pt says she hurt her back 3 weeks ago, suspected herniated disk, currently on pains meds and is uncomfortable when eating. Pt expressed a lot of concern that with her injury and now at the 1 yr timbo she will no longer be able to lose weight. RDN reassured pt that as long as she remains tracking her intake, the sx tool will remain in place. RDN reviewed inbody, discussed BMR, and set intake goals. Discussed adjusting intake to activity levels and encouraged to follow all physical activity restrictions set by her PCP and other doctors. Pt was verbally agreeable to recommendations, denied further questions/concerns. MD Acuña Weight: 336.9 lb Current Weight: 263 lb Goal Weight: 160 lb Current BMR: 1550 kcals N/V/C/D: C - d/t pain meds, Other Symptoms: denies Pertinent Meds/Labs: Physical activity: not currently Food records: Lose It Estimated Current Intake Notes: Pt says intake has declined significantly since her injury Calories: 1500 kcal/d Protein: 70-90 g/d Fluid: 64 oz/d Additional Notes/Concerns: Recommendations: Protein: 90+g/day Calories: 9841-6385/day 1. Closely self monitor kcals, protein, and weight to ensure adequate intake 2. Limit physically activity as instructed by providers . Raffi Pruitt, ROGER, [employer], FLYING [employer] WORKER-C [address] , [place], [address], [facility] & [place] 12/20/2023 14:34:54 Procedures Surgical History Date Name Laterality Status Provider Name and Address Organization Details Recorded Time cholecystectomy completed Jim MEDEROS - [place] [facility] [place] 12/16/2021 14:48:38 laparoscopic sleeve gastrectomy completed Jim MEDEROS - [place] 12/16/2021 14:49:01 ligation of fallopian tube completed Jim MEDEROS - [place] 12/16/2021 14:49:12 section completed Jim MEDEROS - [place] 12/16/2021 14:49:22 tonsillectomy completed Jim MEDEROS - [place] 12/16/2021 14:49:35 Imaging Results None recorded. Procedure Notes None recorded. Medical Equipment None Reported. Allergies Allergen ID Allergen Name Allergen Category Reaction Reaction Severity Criticality Documentation Date Start Date Code Code System Note Provider Name and Address Organization Details Recorded Time 845318 Medicinal product containin g tetracycl ine structure and acting as antibacte rial agent (product) medicatio n Not available Not available Not available 03/23/2024 34249 1004 SNOMED Claudia nguyen, NAYELI MEDEROS [facility] & [place] 5 10:45:03 4546 erythromy kendra medicatio n Not available Not available Not available 11/19/2021 4053 RxNorm React ion: Unkno wn, sever ity: Unkno wn Not Available [facility] 2 22:31:06 4548 peanut allergeni c extract food,medi cation Not available Not available Not available 11/19/2021 76500 8 RxNorm React ion: hives , swell ing, sever ity: Unkno wn Not Available [facility] 2 22:31:06 27489 Bactrim medicatio n Not available Not available Not available 03/22/2022 34226 9 RxNorm Jim nguyen, NAYELI Olivares LPNT [facility] & [place] 3 11:00:17 Medications Name Sig Start Date [...] cm 97.5 [degF] 65 /min 47.4 kg/m2 049271. 6 g 149 mm[Hg] 104 mm[Hg] Jimterrell Martínez edwin [facility] & [place] 3 11:01:14 Date Recorded Body height Body temperature Heart rate Body mass index (BMI) Body weight Systolic blood pressure Diastolic blood pressure Provider Name and Address Organization Details Last Updated DateTime 5 160.02 cm 98.1 [degF] 68 /min 52.8 kg/m2 399692. 24 g 146 mm[Hg] 102 mm[Hg] Claudia Whittaker [facility] & [place] 5 10:49:47 Date Recorded Body height Body mass index (BMI) Body weight Body temperature Heart rate Systolic blood pressure Diastolic blood pressure Provider Name and Address Organization Details Last Updated DateTime 3 160.02 cm 46.6 kg/m2 597090. 79 g 97.5 [degF] 78 /min 151 mm[Hg] 98 mm[Hg] Sierra Mcconnell [place] [facility] - [place] 3 11:05:45 Date Recorded Body temperature Body weight Body mass index (BMI) Body height Heart rate Systolic blood pressure Diastolic blood pressure Provider Name and Address Organization Details Last Updated DateTime 4 97.1 [degF] 620959. 61 g 53.5 kg/m2 160.02 cm 78 /min 140 mm[Hg] 93 mm[Hg] Jim pineda [place] - [facility] - [place] 4 14:21:38 Social History None recorded. Functional [...] SNOMED-CT Code Diagnosis ICD10 Code Diagnosis Note [id number] Raffi Pruitt, DNP, [employer], [employer] WORKER-C [facility]ariatric s and Adv Surg [address] [facility] [address] [place] [address] 12/16/2021 14:29:46 12/16/2021 15:35:52 History of bariatric surgical procedure 636895740 Z98.84 History of gastrectomy 432183488 Z90.3 Patient is status post bariatric surgery and at increased risk for vitamin deficienci es and malnutriti on. Bariatric vitamin panel ordered today. Patient will be contacted to correct any vitamin deficienci es. History of sleeve gastrectomy 2470699313 95424 Z90.3 Obstructiv e sleep apnea syndrome 46281248 G47.33 Gastroesop hageal reflux disease without esophagitis 642551558 K21.9 Morbid obesity 159735361 E66.01 Intentiona l weight loss 856340496 R63.8 [id number] Raffi Pruitt DNP, [employer], [employer] WORKER-C [facility] Bariatric s and Adv Surg [address] [facility] [address] [place] [address] 03/22/2022 10:44:42 03/22/2022 11:24:55 History of bariatric surgical procedure 730521691 Z98.84 Advised qid intake 50% protein 5629-6012 calories/d y less than 100 carbs/dy Long [...] with any deficienci es. History of gastrectomy 197826380 Z90.3 Patient is status post bariatric surgery and at increased risk for vitamin deficienci es and malnutriti on. Bariatric vitamin panel ordered today. Patient will be contacted to correct any vitamin deficienci es. History of sleeve gastrectomy 1380712358 88641 Z90.3 Intentiona l weight loss 605610066 R63.8 Obstructiv e sleep apnea syndrome 71520203 G47.33 Morbid obesity 913656675 E66.01 [id number] Raffi Pruitt, ROGER, [employer], FLYING [employer] WORKER-C [facility] Bariatric s and Adv Surg [address] [facility] [address] [place] [address] 07/12/2022 10:47:58 07/12/2022 11:51:25 History of bariatric surgical procedure 702110729 Z98.84 Advised qid intake 50% protein 1678-0698 calories/d y less than 100 carbs/dyLo ng discussion today of InBody results including PBF(percen t body fat) SMM (skeletal muscle mass) Visceral fat level level BMR Segmental Fat Analysis and Segmental Lean Analysis. Patient encouraged pt to take minimal calories as per BMR and to anticipate changes in SMM and PBF values not just total weight. Repeat [place] [facility]. [...] will see dietitian today. History of gastrectomy 705345683 Z90.3 Patient is status post bariatric surgery and at increased risk for vitamin deficienci es and malnutriti on. Bariatric vitamin panel ordered today. Patient will be contacted to correct any vitamin deficienci es. Essential hypertension 97695602 I10 History of sleeve gastrectomy 6614597716 56775 Z90.3 Intentiona l weight loss 738826893 R63.8 Morbid obesity 711712901 E66.01 Obstructiv e sleep apnea syndrome 48820761 G47.33 Low back pain 319599230 M54.50 [id number] Raffi Pruitt, DNP, [employer], [employer] WORK[employer]-C [facility] [address] [facility] [address] [place] [address] 12/20/2023 14:11:37 12/21/2023 09:03:12 History of bariatric surgical procedure 034799543 Z98.84 Advised qid intake 50% protein 0452-6150 calories/d y less than 100 carbs/dyLo ng [...] see dietitian today. Intentiona l weight loss 929213213 R63.8 History of gastrectomy 138966356 Z90.3 Advised qid intake 50% protein 4828-8588 calories/d y less than 100 carbs/dyLo ng [...] cheaper if she gets them done at [facility]. She verbalizes that she will get these done fasting 1st thing in the morning. I will notify her with any abnormal results. Patient is status post bariatric surgery and at increased risk for vitamin deficienci es and malnutriti on. Bariatric vitamin panel ordered today. Patient will be contacted to correct any vitamin deficienci es. At [facility] risk of nutritional deficit 984554157 Z91.89 Essential hypertension 60084938 I10 History of sleeve gastrectomy 0672984679 86773 Z90.3 Obstructiv e sleep apnea syndrome 67172934 G47.33 Vitamin D deficiency 347 28383 E55.9 Morbid obesity 187129483 E66.01 Unintentio nal weight gain 8539619264 41840 R63.5 Abdominal pain 63190393 R10.9 Nausea 295181716 R11.0 Dysphagia 85728595 R13.1 0 I would like to proceed with ordering upper GI as well as EGD. Patient will be notified of the time and date of these appointmen ts. I have asked that she contact me by Tuesday of this week if [facility] does not contact her about getting her scheduled for the upper GI. Patient verbalizes adequate understand ing. Iron deficiency 18305199 E61.[id number] [facility] n Bariatric s and Adv Surg [address] [facility] [address] [place] [address] 12/20/2023 15:12:42 12/20/2023 15:44:46 Dietary management surveillance 410522171 Z71.3 see klever caal for discussion and plan [id number] Raffi Pruitt, DNP, [employer], [employer] WORKER-C [facility] n Bariatric s and Adv Surg [address] [facility] [address] [place] [address] 03/23/2024 10:30:48 03/23/2024 11:58:53 History of bariatric surgical procedure 900464522 Z98.84 Advised qid intake 50% protein 5933-0849 calories/d y less than 100 carbs/dyLo ng [...] see dietitian today. Intentiona l weight loss 809418098 R63.8 History of gastrectomy 833483071 Z90.3 Advised qid intake 50% protein 6330-4454 calories/d y less than 100 carbs/dy Long [...] to correct any vitamin deficienci es. At [facility] risk of nutritional deficit 088386412 Z91.89 Essential hypertension 50662057 I10 Iron deficiency 94016862 E61.1 Vitamin D deficiency 347 90061 E55.9 Morbid obesity 392089839 E66.01 History of Helicobacter pylori infection 7125652147 3242637 Z86.19 Health Concerns Section Related Observation LastModified by Organization Detai ls LastModified Time None Recorded Concern Status LastModified by Organization Details LastModified Time None Recorded Advance Directives Directive None Recorded Payers Insurance Date Sequence Insurance Name Policy Number Policy Bolivar Covered Member ID Bolivar Member ID Guarantor Name 06/29/2021 2 *SELF PAY* An rom Feliz 03/26/2024 1 UMR [id number] Garrett Feliz [id number] Garrett Feliz 06/22/2021 1 [id number] [id number] Garrett Feliz [id number] Garrett Feliz 06/22/2021 2 [place] [id number] Garrett Feliz [id number] Garrett Feliz Notes Date Note Type [...] = 1568 kilo calories Raffi Pruitt DNP, [employer], [employer] WORK[employer]-C [address], [place], [address], [facility] & [place] 03/22/2022 11:24:09 07/12/2022 text/html Patient presents the [...] = 1550 kilo calories Raffi Pruitt DNP, [employer], [employer]YING [employer] WORKER-C [address] , [place], [address], [facility] & [place] 07/12/2022 11:58:21 12/20/2023 text/html Patient presents the [...] right thyroid. She has been followed by [facility] department of endocrinology. Biopsy has performed [...] her stomach. She is able to tolerate Amharic fries because they are easy to eat [...] = 1644 kilo calories Raffi Pruitt, DNP, [employer], [employer]YING [employer] WORKER-C [address], [place], [address], [facility] & [place] 12/20/2023 15:22:44 12/20/2023 text/html RDN met w/ pt fo r 2 year f/up s/p sleeve . HT = 63 Current Weight: 302.2#BMI = 302.2 Notes on weight: desires continued weight loss at this time. Gained 39.2# from last visit a year ago. Inbody measurements:[facility] mass%: up 5.8%Body fat% up 2.8%BMR: 1644 Signs/SymptomsN/V /C/D: nausea, no vomiting, constipation/diar vinh both Meds and labs reviewed.Notes - b12, vit D, vit C. Has had 2 vitamin infusions. Physical activity: was doing walking and resistance bands but not lately Tracking meal intakes: was using IMNEXT it tammy, but stopped using it Est. [...] GI done. JUWAN LIVINGSTON, RD [address] [facility], [place], [address], [facility] & [place] 12/20/2023 15:44:08 03/23/2024 text/html Patient presents the [...] = 1656 kilo calories Raffi Pruitt, DNP, [employer], FLYING SQUAD WORKER-C [address] [facility], [place], [address], [facility] - [place] & [place] 03/23/2024 11:57:40 OBGyn Episode No OBEpisode recorded.
[2024-08-24] MEDS: IRON SUCROSE COMPLEX 200 MG in 0.9 % SODIUM CHLORIDE 100 ML 220 MG IV (10:03)
[2024-08-24] MEDS: SODIUM CHLORIDE 0.9% 50ML BAG 50 ML IV (10:03)
[2024-08-24 10:05] VITALS: BP 130/73; PULSE 75; RESP 20; TEMP 36.6; O2SAT 98
[2024-08-24] MEDS: SODIUM CHLORIDE 0.9% 10ML FLUSH SYRINGE 10 ML IV (10:12)
[2024-08-24 10:50] VITALS: BP 117/83; PULSE 67; RESP 20; O2SAT 98
== END 2024-08-24 10:50 | disposition home or self-care (01) ==
LOC: INF 09:53
PROVIDERS: PCP Nurse Practitioner; Visit Provider Nurse Practitioner
DX: D64.9 Anemia, unspecified (principal)
CPT/HCPCS: 96365; J1756

== ENCOUNTER 2024-08-27 09:56 | Outpatient (CLI) | payer OTHER, SELFPAY ==
--- OUTSIDE RECORDS SUMMARY | 2023-12-28 10:15 | XMS_ITS ---
Author Organization [facility] Address [address] [place] [address] Care Team Providers Care Clip Riveter Name Role Phone Carlos Coelho Primary Care Provider [phone] Yaw Carrillo [phone] REASON FOR VISIT lab work Encounters Encounter Location Date Provider Diagnosis [facility] [address] [place], [place] [address] 12/28/2023 Carlos Coelho Plan Of Treatment No Information Progress Notes * Pam HIGHTOWERB:1985 (38 yo F)Acc No.[id number]:12/28/2023 Progress Notes Patient: Garrett PAN Provider: Bartolo Coelho MD :1985 A ge:38 Y S ex:Female Date:12/28/2023 Address:[address], [id number] Subjective: * Chief Complaints: * 1 . Lab work. * Medical History: Objective: * Vitals: Assessment: Plan: * Treatment: * * Electronic signature of Yuri Coelho MD FAAP on 08/27/2024 at 10:03 AM EDT Sign off status: Pending * Provider: Bartolo Coelho MD Date: 1 Generated for Printi ng/Faxing/eTransmitting on: 0 08/27/2024 10:03 AM EDT
--- OUTSIDE RECORDS SUMMARY | 2024-06-16 17:30 | XMS_ITS ---
Author Organization [facility] PE D R[facility] Address [address] [place], [place] [address] Care Team Providers Care Training Professional Name Role Phone Carlos Coelho Primary Care Provider Yaw Carrillo Unavailable [phone] Migration, Provider Unavailable Unavailable Allergies Allergen (clinical drug ingredient) Drug/Non Drug Allergy documented on EMR Reaction Allergy Type Onset Date Status sulfamethoxazole / trimethoprim Bactrim epigatric pain Drug Allergy Active erythromycin Erythromycin rash Drug Allergy A ctive [facility]IT [facility] Conversion Encounter Medications Medication SIG (Take, Route, [...] Active Encounters Encounter Location Date Provider Diagnosis [facility] [address] [place], [place] [address] 06/16/2024 Provider Migration Plan Of Treatment No Information Progress Notes * Christiano HIGHTOWER:1985 (38 yo F)Acc No.[id number]:06/16/2024 Patient: Garrett PAN Provider: Rosetta Suarez :1985 A ge:38 Y S ex:Female Date:06/16/2024 Address: [address], [place], [id number] Pcp:Carlos Coelho Subjective: * Chief Complaints: * [...] Electronic signature of Prov ider Migration on 08/27/2024 at 10:03 AM EDT Sign off status: Pending * Provider: Rosetta duncanMolina Date: 0 06/16/2024 Generated for López garcia/Kurtis/Fred on: 08/27/2024 10:03 AM EDT
--- OUTSIDE RECORDS SUMMARY | 2024-08-27 10:03 | XMS_ITS | Clinical Summary ---
Author Organization [facility] Address [address] [place] [address] Care Team Providers Care Pen Or Pencil Assembly Machine Operator Name Role Phone Carlos Lind MD Primary Care Provider [phone] Allergies Active Allergy Reactions Criticality Noted Date [...] Care Team Description 07/02/2024 Orders Only [facility] Endocrinology [address] [place] [address] Delfino Atwood MD Status post thyroidectomy (Primary Dx) 06/28/2024 Results Follow-Up [facility] Endocrinology [address] [place] [address] Delfino Atwood MD 06/28/2024 Orders Only [facility] Endocrinology [address] [place] [address] Delfino Atwood MD 06/26/2024 2:40 PM EDT Office Visit [facility] Endocrinology [address] [place] [address] Delfino Atwood MD Thyroid cancer (CMS/HCC) (Primary Dx); Status post thyroidectomy; Fatigue, unspecified type; Iron deficiency; Dorsocervical fat pad 06/26/2024 Travel 06/11/2024 Results Follow-Up [facility] Endocrinology [address] [place] [address] Delfino Atwood MD 06/08/2024 Lab Requisition [facility] [address] [place] [address] Delfino Atwood MD Nontoxic single thyroid nodule [...] Description 12/03/2024 1:00 PM EDT [facility] [address] [place] [address] Delfino Atwood MD [address] [place] [address] Health Maintenance Due Date Last [...] [facility]-Cervical Cancer Screening 04/10/2021 [facility]-HPV/Cotest 04/10/2021 04/10/2016 [id number] Vaccine ( season) 2023 03/27/2021, 04/11/2020, 03/12/2020 [...] EDT) Case Report Sug[facility] Pathology Consult Case: [id number] Authorizing Provider: Delfino Atwood MD Collected: 06/08/2024 1044 Ordering Location: [facility] Lab Received: 06/08/2024 1044 Pathologist: Lauro Alfaro MD Specimen: Thyroid, [id number] 06/11/2024 11:07 AM EDT [facility] Final Diagnosis A. THYROID, RIGHT, LOBECTOMY (OUTSIDE CASE NUMBER. 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 [id number] Received along with a corresponding pathology report from [facility] are 14 slides labeled outside case: [id number] collected on 05/30/2024. 06/11/2024 11:07 AM EDT [facility] Note: A resident was involved in the service. I attest I examined the relevant preparations for the specimens and confirmed the diagnosis or interpretation. 06/11/2024 11:07 AM EDT [facility] Tissue Thyroid structure / Unknown 06/08/2024 10:44 AM EDT 06/08/2024 10:44 AM EDT us Delfino Atwood MD LAB PATHOLOGY ORDERABLES Final Result [facility] [address] [place] [address] * Hepatitis C Antibody (04/10/2016 5:47 PM EST) Hepatitis C Antibody NEGATIVE Reference Range: Negative [facility] 04/10/2016 5:47 PM EST 04/10/2016 8:55 PM EST us Lara Padron MD LAB BLOOD ORDERABLES Final Result [facility] * Cytology (04/10/2016 12:00 AM EST) Cerebrospinal fluid specimen (specimen) 04/10/2016 04/12/2016 7 :16 AM EST Narrative [facility]QUEST - 04/12/2016 2:53 PM EST [facility] MR #: [id number] [facility] [place] BREON[place] JAIN [id number] 1985 (Age: 30) FW Collect Date: 04/10/2016 00:00 Receipt Date: 04/12/2016 07:16 Page 1 DEPARTMENT OF PATHOLOGY AND LABORATORY MEDICINE CYTOPATHOLOGY REPORT Email: [email or web address] ATTENDING MD/Practitioner: Charity Padron MD Service: [place] [...] Unspecified abnormal finding in cerebrospinal fluid F: [id number] SNOMED CODES: A; [id number] A resident has participated in this service. A pathologist has performed and is responsible for the reported pathologic evaluation. Lara Padron MD LAB PATHOLOGY ORDERABLES Fi nal Result Performing Organization Address [facility] Co de Phone Number SUNQUEST * HIV 1 & 2 Antibody/Antigen Screen (04/08/2016 7:27 PM EST) HIV 1 Result NONREACTIVE Screening for HIV 1 and 2 antibodies is NONREACTIVE. No confirmatory testing is required. [facility] 04/08/2016 7:27 PM EST 04/08/2016 7:39 PM EST Historical Provider LAB BLOOD ORDERABLES Yennifer l Result Performing Organization Address [facility] Co de Phone Number SUNQUEST from Last 3 Months or Most Recently Relevant to Health Maintenance [address] [address] [facility] Care Teams Pen Or Pencil Assembly Machine Operator Relationship Specialty Start Date End Date Carlos Lind MD [address] [place] [address] [place] [address] PCP - General 07/25/20
--- OUTSIDE RECORDS SUMMARY | 2024-08-27 10:03 | XMS_ITS | Encounter Summary ---
Author Organization [facility] Address [address] [place] [address] Care Team Providers Care Desktop Publishing Associate Name Role Phone Carlos Lind MD Primary Care Provider [phone] Encounter Details Date Type Department Care Team (Late Contact Info) Description 06/08/2024 Lab Requisition [facility] [address] [place] [address] Delfino Atwood MD [address] [address] Nontoxic single thyroid nodule Social [...] Office Visit [facility] Endocrinology [address] [place] [address] Delfino Atwood MD [address] [address] documented as of this encounter Procedures Procedure Name Priority Date/Time Associated Diagnosis Comments SURGICAL PATHOLOGY CONSULT Routine 06/08/2024 10:44 AM EDT Nontoxic single thyroid nodule documented in this encounter Results * Surgical Pathology Consult (06/08/2024 10:44 AM EDT) Case Report Sug[facility] Pathology Consult Case: [id number] Authorizing Provider: Delfino Atwood MD Collected: 06/08/2024 1044 Ordering Location: [facility] Lab Received: 06/08/2024 1044 Pathologist: Lauro Alfaro MD Specimen: Thyroid, [id number] 06/11/2024 11:07 AM EDT [facility] Final Diagnosis A. THYROID, RIGHT, LOBECTOMY (OUTSIDE CASE NUMBER. 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 [id number] Received along with a corresponding pathology report from [facility]ology [facility] Cytology Laboratory are 14 slides labeled outside case: [id number] collected on 05/30/2024. 06/11/2024 11:07 AM EDT [facility] Note: A resident was involved in the service. I attest I examined the relevant preparations for the specimens and confirmed the diagnosis or interpretation. 06/11/2024 11:07 AM EDT [facility] Tissue Thyroid structure / Unknown 06/08/2024 10:44 AM EDT 06/08/2024 10:44 AM EDT us Delfino Atwood MD LAB PATHOLOGY ORDERABLES Final Result [facility] [address] [place] [address] documented in this encounter Visit Diagnoses Diagnosis Nontoxic single thyroid nodule Nontoxic uninodular goiter documented in this encounter Additional Health Concerns Assessment Noted Time A fall risk assessment has been complete d for the patient 09/01/2023 9:07 AM EDT A Body Mass Index follow-up plan has been documented for the patient 09/01/2023 7:36 PM EDT documented as of this encounter Care Teams Desktop Publishing Associate Relationship Specialty Start Date End Date Carlos Lind MD [address] [facility] [place] [address] PCP - General 07/25/20 documented as of this encounter
--- OUTSIDE RECORDS SUMMARY | 2024-08-27 10:03 | XMS_ITS | Encounter Summary ---
Author Organization [facility] Address [address] [place] [address] Care Team Providers Care Brush Maker Name Role Phone Carlos Lind MD Primary Care Provider [phone] Encounter Details Date Type Department Care Team (Late Contact Info) Description 07/02/2024 Orders Only [facility] Endocrinology [address] [place] [address] Delfino Atwood MD [address] [address] Status post thyroidectomy (Primary Dx) [...] Description 12/03/2024 1:00 PM EDT Office Visit [facility] Endocrinology [address] [place] [address] Delfino Atwood MD [address] [address] Scheduled Orders Name Type Priority [...] documented as of this encounter Care Teams Brush Maker Relationship Specialty Start Date End Date Carlos Lind MD [address] [place] [address] PCP - General 07/25/20 documented as of this encounter
--- OUTSIDE RECORDS SUMMARY | 2024-08-27 10:03 | XMS_ITS | Encounter Summary ---
Author Organization [facility] Address [address] [place] [address] Care Team Providers Care Drill Runner Name Role Phone Carlos Lind MD Primary Care Provider [phone] Encounter Details Date Type Department Care Team (Late st Contact Info) Description 06/11/2024 Results Follow-Up [facility] Endocrinology [address] [place] [address] Delfino Atwood MD [address] [address] Social History Tobacco Use Types [...] [facility] [address] [place] [address] Delfino Atwood MD [address] [facility] [address] [place] [address] documented as of this encounter Visit Diagnoses Not on filedocumented in this encounter Additional Health Concerns Assessment Noted Time A fall risk assessment has been complete d for the patient 09/01/2023 9:07 AM EDT A Body Mass Index follow-up plan has been documented for the patient 09/01/2023 7:36 PM EDT documented as of this encounter Care Teams Drill Runner Relationship Specialty Start Date End Date Carlos Lind MD [address] [place] [address] PCP - General 07/25/20 documented as of this encounter
--- OUTSIDE RECORDS SUMMARY | 2024-08-27 10:03 | XMS_ITS | Encounter Summary ---
Author Organization [facility] Address [address] [place] [address] Care Team Providers Care Screen Operator Name Role Phone Carlos Lind MD Primary Care Provider [phone] Encounter Details Date Type Department Care Team (Late Contact Info) Description 06/28/2024 Results Follow-Up [facility] Endocrinology [address] [place] [address] Delfino Atwood MD [address] [address] Social History Tobacco Use Types [...] Description 12/03/2024 1:00 PM EDT Office Visit [facility] Endocrinology [address] [place] [address] Delfino Atwood MD [address] [address] documented as of this encounter Visit Diagnoses Not on filedocumented in this encounter Additional Health Concerns Assessment Noted Time A fall risk assessment has been complete d for the patient 09/01/2023 9:07 AM EDT A Body Mass Index follow-up plan has been documented for the patient 07/01/2024 8:33 PM EDT documented as of this encounter Care Teams Screen Operator Relationship Specialty Start Date End Date Carlos Lind MD [address] [place] [address] PCP - General 07/25/20 documented as of this encounter
--- OUTSIDE RECORDS SUMMARY | 2024-08-27 10:03 | XMS_ITS | Encounter Summary ---
Author Organization [facility] Address [address] [place] [address] Care Team Providers Care Screwhead Stoner And Polisher Name Role Phone Carlos Lind MD Primary Care Provider [phone] Encounter Details Date Type Department Care Team (Late Contact Info) Description 06/28/2024 [facility] [address] [place] [address] Delfino Atwood MD [address] [address] Social History Tobacco Use Types [...] Description 12/03/2024 1:00 PM EDT [facility] [address] [place] [address] Delfino Atwood MD [address] [address] documented as of this encounter [...] documented as of this encounter Care Teams Screwhead Stoner And Polisher Relationship Specialty Start Date End Date Carlos Lind MD [address] [facility] [place] [address] PCP - General 07/25/20 documented as of this encounter
--- OUTSIDE RECORDS SUMMARY | 2024-08-27 10:03 | XMS_ITS | Patient Health Record ---
Author Organization [facility] Address [address] [place] [address] [place] [address] Care Team Providers Care Transmission Assembler Name Role Phone NicoleCarlos qureshi Primary Care Provider Yaw Carrillo Unavailable [phone] Migration, Provider Unavailable Unavailable Allergies Allergen (clinical drug ingredient) Drug/Non Drug Allergy documented on EMR Reaction Allergy Type Onset Date Status sulfamethoxazole / trimethoprim Bactrim epigatric pain Drug Allergy Active erythromycin Erythromycin rash Drug Allergy A ctive Results Component Value Reference Range Notes H-FETIBC Reviewed date:12/02/2023 02:34:26 PM Interpretation: Performing Lab: Notes/Report: FE 32 37-170 ug/dL DTIBC 469 265-497 ug/dL IRONSAT 6.46476 15-55 % M-Ferritin Reviewed date:12/02/2023 02:34:26 PM [...] Problem Status W/U Status Risk Notes Problem 352225375 Thyroid nodule (E04.1) Active confirmed Problem 605145159 Gastroesophageal reflux disease without esophagitis (K21.9) Active confirmed Problem 60539128 Hyperthyroidism (E05.90) Active confirmed Problem 537793296 History of non anemic vitamin B12 deficiency (Z86.39) Active confirmed Problem 372990389 Microcytic anemi a (D50.9) Active confirmed Problem 240104099 Acute right-side d back pain with sciatica (M54.41) Active confirmed Problem 174601017830044 S/P gastric slee ve procedure (Z90.3) Active confirmed Vital Signs Heart Rate 92 /min 12/05/2023 Temperature 97.9 degrees Fahrenheit 12/05/2023 Blood pressure diastolic 84 mm Hg 12/05/2023 Height 5 ft 3 in in 12/05/2023 Blood pressure systolic 130 mm Hg 12/05/2023 Weight 308.6 lbs 12/05/2023 BMI 54.66 kg/m2 12/05/2023 Encounters Encounter Location Date Provider Diagnosis [facility] [address] [facility] [address] [place] [address] 06/16/2024 Provider Migration [facility] [address] [facility] [address] [place] [address] 10/24/2023 Carlos Coelho Gastroesophageal ref lux disease without esophagitis K21.9 ; Hyperthyroidism E05.90 ; History of non anemic vitamin B12 deficiency Z86.39 ; Other malaise R53.81 ; Other fatigue R53.83 and Encounter for routine adult medical examination Z00.00 [facility] [address] [facility] [address] [place] [address] 12/05/2023 Carlos Coelho Microcytic anemia D5 0.9 [facility] [address] [place] [facility] [address] [place] [address] 2023 Carlos Coelho History of non anemi [...] Thyroid Uptake Scan 2022 M-Thyroid Panel 09/10/2021 E-Uaia-Oatpoyslvuuhe Antibody 10/13/2022 M-Vitamin B12 10/02/2022 M-Vitamin D 25 Hydroxy 10/02/2022 M-Thyroid Peroxidase Antibodies 10/14/19 Future Test Test Name Order Date M-Complete Blood Count Auto Diff 024 M-Basic Metabolic Panel 12/26/2023 M-Ferritin 12/26/2023 Insurance Providers Payer Name Payer Address Payer Phone Subscriber Number Group Number Insured Name Patient Relationship to Insured Coverage Start Date Coverage End Date [employer] [address] [address] [place] [address] [id number] Garrett Feliz Self - patient is the insured Medical (General) History Medical History History ICD Code GERd Migraines Anxiety Depression Jamie Peguero- 2016 Plantar fascaiitis Gastric sleeve- 2021 Hypothyroidism-thyroid nodule diagnosed 12/04 Surgical History Surgery Date(Month/Year) Tonsillectomy Cholecystectomy c/s x3 Tubal ligation Gastric sleeve- hiatal hernia repair 202 2 Hospitalization History Reason Date(Month/Year) [facility]- [facility] Peguero 2016 c/s x 3 [facility]-Gastric sleeve 2021
--- OUTSIDE RECORDS SUMMARY | 2024-08-27 10:03 | XMS_ITS | Data Portability ---
Author Organization ID - [facility] [place] [facility] [place] [facility] ADMIN Address [address] [place] [address] Care Team Providers Care [employer] Electrical Person Name Role Phone LATONIA CROSS Primary Care Provider [phone] Assessment Encounter Date Assessment Date Assessment LastModified [...] 3. Start tracking calories and protein with FlowPlay tammy 4. Add in 1 protein shake [...] modifications. Will f/up as scheduled or PRN. [email or web address] Not available 12/20/2023 15:43:40 Plan of Treatment Reminders Order Date Submit Date Provider Last Modified By Organization Details Last Modified Time Details Appointments OV EST 20 2024 01:20P M Raffi Pruitt, DNP, TRACK PRODUCTION ENGINEER, INDUSTRIAL SECURITY ANALYST-C Not available Not available Not available Lab iron + TIBC + ferritin, serum 2024 025 [email or web address] [facility], [address], [address], [place], [address], 04/06/2024 12:14:45 folate, serum 2024 025 [facility], [address], [address], [place], [address], 04/06/2024 12:14:45 vitamin D, 25-hydrox y, total, serum 2024 025 VANESSA [facility], [address], [address], [place], [address], 03/24/2024 10:52:24 H pylori Ag, qual immunoass ay, stool 2024 025 [email or web address] Not available 04/06/2024 12:14:46 prealbumi n, serum 2024 025 VANESSA [facility], [address], [address], [place], [address], 03/29/2024 08:47:03 thiamine, QN, blood 2024 025 [email or web address] [facility], [address], [address], [place], [address], 04/06/2024 12:14:45 methylmal ruel, QN, serum or plasma 2024 025 [email or web address] [facility], [address], [address], [place], [address], 04/06/2024 12:14:45 vitamin E, serum 2024 025 VANESSA [facility], [address], [address], [place], [address], 03/29/2024 02:57:35 vitamin A (retinol) , serum 2024 025 [facility], [address], [address], [place], [address], 04/06/2024 12:14:45 CBC w/ auto diff 2024 025 VANESSA [facility], [address], [address], [place], [address], 03/24/2024 10:42:19 CMP, serum or plasma 2024 025 VANESSA [facility], [address], [address], [place], [address], 03/24/2024 11:09:55 HbA1c (hemoglob in A1c), blood 2024 025 [email or web address] [facility], [address], [address], [place], [address], 04/06/2024 12:14:45 TSH + free T4, serum 2024 025 [email or web address] [facility], [address], [address], [place], [address], 04/06/2024 12:14:46 lipid panel, serum 2024 025 [email or web address] [facility], [address], [address], [place], [address], 04/06/2024 12:14:46 vitamin D, 25-hydrox y, total, serum 2023 024 VANESSA [facility], [address], [address], [place], [address], 12/21/2023 13:08:14 iron + TIBC + ferritin, serum 2023 024 [email or web address] [facility], [address], [address], [place], [address], 12/27/2023 15:36:37 folate, serum 2023 024 [facility], [address], [address], [place], [address], 12/27/2023 15:36:37 prealbumi n, serum 2023 024 [email or web address] [facility], [address], [address], [place], [address], 12/27/2023 15:36:38 thiamine, QN, blood 2023 024 [email or web address] [facility], [address], [address], [place], [address], 12/27/2023 15:36:38 methylmal ruel, QN, serum or plasma 2023 024 [email or web address] [facility], [address], [address], [place], [address], 12/27/2023 15:36:38 vitamin E, serum 2023 024 [email or web address] [facility], [address], [address], [place], [address], 12/27/2023 15:36:38 vitamin A (retinol) , serum 2023 [email or web address] [facility], [address], [address], [place], [address], 12/27/2023 15:36:38 CBC w/ auto diff 2023 024 VANESSA [facility], [address], [address], [place], [address], 12/21/2023 12:38:48 CMP, serum or plasma 2023 024 VANESSA [facility], [address], [address], [place], [address], 12/21/2023 14:06:08 HbA1c (hemoglob in A1c), blood 2023 024 [email or web address] [facility], [address], [address], [place], [address], 12/27/2023 15:36:38 TSH + free T4, serum 2023 024 VANESSA [facility], [address], [address], [place], [address], 12/21/2023 14:06:09 lipid panel, serum 2023 024 VANESSA [facility], [address], [address], [place], [address], 12/21/2023 14:06:08 CBC w/ auto diff 2022 [...] diff 2022 023 [email or web address] [facility], [address] [place] [address] [address], [id number], 07/14/2022 13:58:21 CMP, serum or plasma 2022 023 [email or web address] [facility], [address] [place] [address] [address], [id number], 07/14/2022 13:58:22 HbA1c (hemoglob in A1c), blood 2022 023 [email or web address] 53 [facility], [address] [place] [address] [address], [id number], 07/14/2022 13:58:22 lipid panel, blood 2022 023 [email or web address] 53 [facility], [address] [place] [address] [address], [id number], 07/14/2022 13:58:22 iron + TIBC + ferritin, serum 2022 023 [email or web address] 53 [facility], [address] [place] [address] [address], [place], [id number], 07/14/2022 13:58:22 folate, serum [address], [address] [place] [address] [place], [id number], 07/14/2022 13:58:22 mma (methylma lonic acid), serum [address], [address] [place] [address] [place], [id number], 07/14/2022 13:58:22 vitamin B1 (thiamine ), blood [address], [address] [place] [address] [place], [id number], 07/14/2022 13:58:23 vitamin D, 25-hydrox y, total, serum [address], [address] [place] [address] [place], [id number], 07/14/2022 13:58:23 vitamin E, serum [address], [address] [place] [address] [place], [id number], 07/14/2022 13:58:23 vitamin A (retinol) , serum [address], [address] [place] [address] [place], [id number], 07/14/2022 13:58:23 Referral None recorded. Procedures None recorded. Surgeries esophagog astroduod enoscopy (SURG) 2023 024 [email or web address] Mar Dolan MD, [address], [address], [place], [address], 03/01/2024 13:21:48 Imaging XR, abdomen + RF, upper gastroint estinal tract, w/ contrast PO 2023 [email or web address] [facility] ([facility]), [address] [place], [place] [address], [place], [id number], 03/08/2024 11:43:03 Medication Orders ondansetr on 4 mg disintegr ating tablet 2023 [facility], [address] [place] [address] [address], [place], [id number], 03/05/2024 17:09:00 Patient TargetsNo targets recorded. Patient InstructionsNo instructions recorded. Reason for Referral None Reported. Results Created Date Observation Date Name Description Value Unit Range Abnormal Flag Note LastModifiedBy Organization Detail LastModifiedTime 01/05/2001/06/[address] (H PYLOR I AB QUAL) meghan test 20 min NEGATI VE negati ve Not Available [facility] ([facility]) [address] , [place], [address], 01/06/2024 09:52:41 01/05/2001/06/[address] (H PYLOR I AB QUAL) meghan test 1HR NEGATI VE negati ve Not Available [facility] ([facility]) [address] , [place], [address], 01/06/2024 09:52:41 01/05/2001/06/[address] (H PYLOR I AB QUAL) meghan test 3 HR NEGATI VE negati ve Not Available [facility] ([facility]) [address] , [place], [address], 01/06/2024 09:52:41 01/05/2001/06/[address] (H PYLOR I AB QUAL) meghan test 24 HR POSITI VE negati ve delta Not Available [facility] ([facility]) [address] [place], [address], 01/06/2024 09:52:41 01/05/2001/06/[address] (H PYLOR I AB QUAL) meghan test kit lot# [id number] Not Available [facility] ([facility]) [address], [place], [address], 01/06/2024 09:52:41 01/05/2001/06/[address] (H PYLOR I AB QUAL) meghan test kit exp date 2023 Not Available [facility] ([facility]) [address], [place], [address], 01/06/2024 09:52:41 Result Notes None recorded. Problems Name Problem SNOMED Code Status Onset Date Resolution Date Notes Provider Name and Address Organization Details Recorded Time History of Helicobac ter pylori infection 154771672922 43075 Active 2024 Raffi Pruitt DNP, TRACK PRODUCTION ENGINEER, INDUSTRIAL SECURITY ANALYST-C [address], [place], [address] , [place] [facility] [place] 5 11:01:52 Essential hypertens ion 83703993 Active 2022 Raffi Pruitt DNP, TRACK PRODUCTION ENGINEER, INDUSTRIAL SECURITY ANALYST-C [address] [facility], [place], [address] , [place] [facility] [place] 3 11:09:29 Low back pain 404575711 Active 2022 Raffi Pruitt DNP, TRACK PRODUCTION ENGINEER, INDUSTRIAL SECURITY ANALYST-C [address] [facility], [place], [address] , [place] [facility] [place] 3 11:57:53 Obstructi ve sleep apnea syndrome 77622583 Active 2020 Not Available [facility] 2 13:28:45 Morbid obesity 917886506 Active 2020 Morbid obesity Not Available [facility] 2 13:28:45 History of sleeve gastrecto my 258973249230 107 Active 2021 Not Available [facility] 2 13:28:45 Gastroeso phageal reflux disease without esophagit is 753334882 Active 2020 Not Available [facility] 2 13:28:45 Vitamin D deficienc y 47451042 Active 2023 Raffi Pruitt DNP, ELANN, INDUSTRIAL SECURITY ANALYST-C [address], [place], [place], [address] [place] [address] , [place] [facility] [place] 4 14:35:59 Unintenti onal weight gain 814830413554 104 Active 2023 Raffi Pruitt DNP, LEANN, INDUSTRIAL SECURITY ANALYST-C [address], [place], [place], [address] [place] [address] , [place] [facility] [place] 4 14:40:00 Abdominal pain 67948386 Active 2023 Raffi Pruitt DNP, LEANN, INDUSTRIAL SECURITY ANALYST-C [address], [place], [address] [place] [address] , [place] [facility] [place] 4 14:49:15 Nausea 008271290 Active 2023 Raffi Pruitt DNP, TRACK PRODUCTION ENGINEER, INDUSTRIAL SECURITY ANALYST-C [address], [place], [address] [place] [address] , [place] [facility] [place] 4 14:49:44 Dysphagia 30904144 Active 2023 Raffi Pruitt DNP, TRACK PRODUCTION ENGINEER, INDUSTRIAL SECURITY ANALYST-C [address], [place], [address] [place] [address] , [place] [facility] [place] 4 14:52:23 Fatigue 64283344 Active 2023 Raffi Pruitt DNP, LEANN, INDUSTRIAL SECURITY ANALYST-C [address], [place], [address] [place] [address] , [place] [facility] [place] 4 15:12:50 Iron deficienc y 09069840 Active 2023 Raffi Pruitt DNP, TRACK PRODUCTION ENGINEER, INDUSTRIAL SECURITY ANALYST-C [address] , [place], [address] , [facility] [place] 15:12:59 Problem Notes Documentation Provider Name and Address Organization Details Recorded Time Dietitian Note : RDN met w/ Garrtet Feliz who is s/p sleeve (surgery date [...] oz/d Additional Notes/Concerns: Recommendations: Protein: 90+g/day Calories: 1633-6547/day 1. Closely self monitor kcals, protein, and weight to ensure adequate intake 2. Limit physically activity as instructed by providers . Raffi Pruitt, ROGER, TRACK PRODUCTION ENGINEER, INDUSTRIAL SECURITY ANALYST-C [address] , [place], [address], [facility] [place] 12/20/2023 14:34:54 Procedures Surgical History Date Name Laterality Status Provider Name and Address Organization Details Recorded Time cholecystectomy completed Jim MEDEROS - [place] [facility] [place] 12/16/2021 14:48:38 laparoscopic sleeve gastrectomy completed Jim MEDEROS - [place] [facility] [place] 12/16/2021 14:49:01 ligation of fallopian tube completed Jim MEDEROS - [place] [facility] [place] 12/16/2021 14:49:12 section completed Jim MEDEROS - [place] [facility] [place] 12/16/2021 14:49:22 tonsillectomy completed Jim MEDEROS - [place] [facility] [place] 12/16/2021 14:49:35 Imaging Results None recorded. Procedure Notes None recorded. Medical Equipment None Reported. Allergies Allergen ID Allergen Name Allergen Category Reaction Reaction Severity Criticality Documentation Date Start Date Code Code System Note Provider Name and Address Organization Details Recorded Time 032677 Medicinal product containin g tetracycl ine structure and acting as antibacte rial agent (product) medicatio n Not available Not available Not available 03/23/2024 73558 1004 SNOMED Claudia nguyen, NAYELI MEDEROS [facility] & [place] 5 10:45:03 4546 erythromy kendra medicatio n Not available Not available Not available 11/19/2021 4053 RxNorm React ion: Unkno wn, sever ity: Unkno wn Not Available [facility] 2 22:31:06 4548 peanut allergeni c extract food,medi cation Not available Not available Not available 11/19/2021 72930 8 RxNorm React ion: hives , swell ing, sever ity: Unkno wn Not Available [facility] 2 22:31:06 87580 Bactrim medicatio n Not available Not available Not available 03/22/2022 21481 9 RxNorm Jim nguyen, NAYELI Olivares [facility] [place] 3 11:00:17 Medications Name Sig Start Date [...] cm 97.5 [degF] 65 /min 47.4 kg/m2 183754. 6 g 149 mm[Hg] 104 mm[Hg] Jimterrell Martínez edwin [facility] & [place] 3 11:01:14 Date Recorded Body height Body temperature Heart rate Body mass index (BMI) Body weight Systolic blood pressure Diastolic blood pressure Provider Name and Address Organization Details Last Updated DateTime 5 160.02 cm 98.1 [degF] 68 /min 52.8 kg/m2 027691. 24 g 146 mm[Hg] 102 mm[Hg] Claudia Whittaker [facility] [place] 5 10:49:47 Date Recorded Body height Body mass index (BMI) Body weight Body temperature Heart rate Systolic blood pressure Diastolic blood pressure Provider Name and Address Organization Details Last Updated DateTime 3 160.02 cm 46.6 kg/m2 933752. 79 g 97.5 [degF] 78 /min 151 mm[Hg] 98 mm[Hg] Sierra Mcconnell [place] [facility] [place] [facility] [place] 3 11:05:45 Date Recorded Body temperature Body weight Body mass index (BMI) Body height Heart rate Systolic blood pressure Diastolic blood pressure Provider Name and Address Organization Details Last Updated DateTime 4 97.1 [degF] 469100. 61 g 53.5 kg/m2 160.02 cm 78 /min 140 mm[Hg] 93 mm[Hg] Jim pineda [place] [facility] [place] 4 14:21:38 Social History None recorded. Functional [...] available 12/13/2021 13:23:03 Medical History Condition Response Other Y Depression Y Anxiety Disorder Y Muscle, Joint, or Bone Problems Y Headaches Y Allergies/Hayfever Y Anemia Y Constipation Y Reflux/GERD Y Hypertension Y Gynecological HistoryNo gynecological history recorded. Obstetrics History GPAL:G 0 P 0 0 0 0 Past Encounters Encounter ID Performer Location Encounter Start Date Encounter Closed Date Diagnosis/Indication Diagnosis SNOMED-CT Code Diagnosis ICD10 Code Diagnosis Note [id number] Raffi Pruitt, DNP, TRACK PRODUCTION ENGINEER, INDUSTRIAL SECURITY ANALYST-C [facility] and Adv Surg [address] [facility] [address] [place] [address] 12/16/2021 14:29:46 12/16/2021 15:35:52 History of bariatric surgical procedure 526427916 Z98.84 History of gastrectomy 333441843 Z90.3 Patient is status post bariatric surgery and at increased risk for vitamin deficienci es and malnutriti on. Bariatric vitamin panel ordered today. Patient will be contacted to correct any vitamin deficienci es. History of sleeve gastrectomy 3232676168 14809 Z90.3 Obstructiv e sleep apnea syndrome 79597288 G47.33 Gastroesop hageal reflux disease without esophagitis 544913722 K21.9 Morbid obesity 686604207 E66.01 Intentiona l weight loss 270918494 R63.8 [id number] Raffi Pruitt DNP, TRACK PRODUCTION ENGINEER, INDUSTRIAL SECURITY ANALYST-C [facility] Adv S[facility] [address] [facility] [address] [place] [address] 03/22/2022 10:44:42 03/22/2022 11:24:55 History of bariatric surgical procedure 646793832 Z98.84 Advised qid intake 50% protein 4276-6880 calories/d y less than 100 carbs/dy Long [...] with any deficienci es. History of gastrectomy 619127512 Z90.3 Patient is status post bariatric surgery and at increased risk for vitamin deficienci es and malnutriti on. Bariatric vitamin panel ordered today. Patient will be contacted to correct any vitamin deficienci es. History of sleeve gastrectomy 4831427328 62028 Z90.3 Intentiona l weight loss 562771917 R63.8 Obstructiv e sleep apnea syndrome 20749494 G47.33 Morbid obesity 309977008 E66.01 [id number] Raffi Pruitt, ROGER, TRACK PRODUCTION ENGINEER, INDUSTRIAL SECURITY ANALYST-C [facility]ariatric s and Adv S[facility] [address] [facility] [address] [place] [address] 07/12/2022 10:47:58 07/12/2022 11:51:25 History of bariatric surgical procedure 977173755 Z98.84 Advised qid intake 50% protein 9388-1425 calories/d y less than 100 carbs/dyLo ng discussion today of [employer] results including PBF(percen t body fat) SMM (skeletal muscle mass) Visceral fat level level BMR Segmental Fat Analysis and Segmental Lean Analysis. Patient encouraged pt to take minimal calories as per BMR and to anticipate changes in SMM and PBF values not just total weight. Repeat [place] in 2[facility] [...] will see dietitian today. History of gastrectomy 547893154 Z90.3 Patient is status post bariatric surgery and at increased risk for vitamin deficienci es and malnutriti on. Bariatric vitamin panel ordered today. Patient will be contacted to correct any vitamin deficienci es. Essential hypertension 73798813 I10 History of sleeve gastrectomy 3487082531 87802 Z90.3 Intentiona l weight loss 227681863 R63.8 Morbid obesity 927800337 E66.01 Obstructiv e sleep apnea syndrome 34419834 G47.33 Low back pain 416069364 M54.50 [id number] Raffi Pruitt, DNP, TRACK PRODUCTION ENGINEER, INDUSTRIAL SECURITY ANALYST-C [facility] [address] [facility] [address] [place] [address] 12/20/2023 14:11:37 12/21/2023 09:03:12 History of bariatric surgical procedure 962366821 Z98.84 Advised qid intake 50% protein 2408-8518 calories/d y less than 100 carbs/dyLo ng [...] see dietitian today. Intentiona l weight loss 242923099 R63.8 History of gastrectomy 602738909 Z90.3 Advised qid intake 50% protein 0709-9253 calories/d y less than 100 carbs/dyLo ng [...] cheaper if she gets them done at [facility]. She verbalizes that she will get these done fasting 1st thing in the morning. I will notify her with any abnormal results. Patient is status post bariatric surgery and at increased risk for vitamin deficienci es and malnutriti on. Bariatric vitamin panel ordered today. Patient will be contacted to correct any vitamin deficienci es. At [facility] risk of nutritional deficit 088111968 Z91.89 Essential hypertension 37922723 I10 History of sleeve gastrectomy 2597742001 64538 Z90.3 Obstructiv e sleep apnea syndrome 45808891 G47.33 Vitamin D deficiency 347 56505 E55.9 Morbid obesity 179118270 E66.01 Unintentio nal weight gain 6797290715 37065 R63.5 Abdominal pain 92523814 R10.9 Nausea 836927253 R11.0 Dysphagia 90215337 R13.1 0 I would like to proceed with ordering upper GI as well as EGD. Patient will be notified of the time and date of these appointmen ts. I have asked that she contact me by Tuesday of this week if [facility] does not contact her about getting her scheduled for the upper GI. Patient verbalizes adequate understand ing. Iron deficiency 05856000 E61.[id number] [facility] n Bariatric s and Adv Surg [address] [facility] [address] [place] [address] 12/20/2023 15:12:42 12/20/2023 15:44:46 Dietary management surveillance 846976022 Z71.3 see klever caal for discussion and plan [id number] Raffi Pruitt, DNP, TRACK PRODUCTION ENGINEER, INDUSTRIAL SECURITY ANALYST-C [facility] n Bariatric s and Adv Surg [address] [facility] [address] [place] [address] 03/23/2024 10:30:48 03/23/2024 11:58:53 History of bariatric surgical procedure 682213591 Z98.84 Advised qid intake 50% protein 1381-9525 calories/d y less than 100 carbs/dyLo ng [...] see dietitian today. Intentiona l weight loss 153640863 R63.8 History of gastrectomy 173633540 Z90.3 Advised qid intake 50% protein 0388-9072 calories/d y less than 100 carbs/dy Long [...] to correct any vitamin deficienci es. At [facility] risk of nutritional deficit 903050811 Z91.89 Essential hypertension 19982118 I10 Iron deficiency 15722552 E61.1 Vitamin D deficiency 347 90627 E55.9 Morbid obesity 959332367 E66.01 History of Helicobacter pylori infection 3485409998 6085485 Z86.19 Health Concerns Section Related Observation LastModified by Organization Detai ls LastModified Time None Recorded Concern Status LastModified by Organization Details LastModified Time None Recorded Advance Directives Directive None Recorded Payers Insurance Date Sequence Insurance Name Policy Number Policy Bolivar Covered Member ID Bolivar Member ID Guarantor Name 06/29/2021 2 *SELF PAY* An rom Feliz 03/26/2024 1 UMR [id number] Garrett Feliz [id number] Garrett Feliz 06/22/2021 1 [id number] [id number] Garrett Feliz [id number] Garrett Feliz 06/22/2021 2 [place] [id number] Garrett Feliz [id number] Garrett Feliz Notes Date Note Type [...] = 1568 kilo calories Raffi Pruitt DNP, TRACK PRODUCTION ENGINEER, INDUSTRIAL SECURITY ANALYST-C [address], [place], [address], [facility] & [place] 03/22/2022 11:24:09 07/12/2022 text/html Patient presents the [...] = 1550 kilo calories Raffi Pruitt DNP, TRACK PRODUCTION ENGINEER, INDUSTRIAL SECURITY ANALYST-C [address] , [place], [address], [facility] & [place] 07/12/2022 11:58:21 12/20/2023 text/html Patient presents the [...] right thyroid. She has been followed by [facility] department of endocrinology. Biopsy has performed which [...] her stomach. She is able to tolerate Romanian fries because they are easy to eat [...] = 1644 kilo calories Raffi Pruitt, DNP, TRACK PRODUCTION ENGINEER, INDUSTRIAL SECURITY ANALYST-C [address], [place], [address], [facility] & [place] 12/20/2023 15:22:44 12/20/2023 text/html RDN met w/ pt fo r 2 year f/up s/p sleeve . HT = 63 Current Weight: 302.2#BMI = 302.2 Notes on weight: desires continued weight loss at this time. Gained 39.2# from last visit a year ago. Inbody measurements:[facility] le mass%: up 5.8%Body fat% up 2.8%BMR: 1644 Signs/SymptomsN/V /C/D: nausea, no vomiting, constipation/diar vinh both Meds and labs reviewed.Notes - b12, vit D, vit C. Has had 2 vitamin infusions. Physical activity: was doing walking and resistance bands but not lately Tracking meal intakes: was using [employer] it tammy, but stopped using it Est. [...] EGD/upper GI done. JUWAN [address]IVING[address], RD [address] [facility], [place], [address], [facility] & [place] 12/20/2023 15:44:08 03/23/2024 text/html Patient presents the [...] = 1656 kilo calories Raffi Pruitt, DNP, TRACK PRODUCTION ENGINEER, INDUSTRIAL SECURITY ANALYST-C [address] [facility], [place], [address], [facility] - [place] [facility] [place] 03/23/2024 11:57:40 OBGyn Episode No OBEpisode recorded.
--- OUTSIDE RECORDS SUMMARY | 2024-08-27 10:03 | XMS_ITS | Encounter Summary ---
Author Organization [facility] Address [address] [place] [address] Care Team Providers Care Resin Remover Name Role Phone Carlos Lind MD Primary Care Provider [phone] Reason for Referral * Consultation (Routine) - Closed Specialty Diagnoses / Procedures Referred By Contac t Referred To Contact Endocrinology Diagnoses Hot thyroid nodule Abnormal thyroid scan Carlos Coelho MD [address] [place] [address] Phone: tel: fax: Referral ID Status Reason Start Date Expiration Date V isits Requested Visits Authorized [id number] Closed Specialty Services Required 12/20/2022 06/20/2024 1 1 Encounter Details Date Type Department Care Team ([facility] Contact Info) Description 12/20/2022 [facility] [address] [place] [address] Carlos Coelho MD [address] [place] [address] Hot thyroid nodule (Primary Dx); Abnormal thyroid [...] Upcoming Encounters Date Type Department Care Team ([facility] Contact Info) Description 12/03/2024 1:00 PM EDT [facility] [address] [place] [address] Delfino Atwood MD [address] [address] Scheduled Referrals Name Type Priority Associated Diagnoses Order Schedule Ambulatory referral to Endocrinology Outpatient Referral Routine Hot thyroid nodule Abnormal thyroid scan Ordered: 12/20/2022 documented as of this encounter Visit Diagnoses Diagnosis Hot thyroid nodule- Primary Nontoxic uninodular goiter Abnormal thyroid scan Nonspecific abnormal results of thyroid function study documented in this encounter Care Teams Resin Remover Relationship Specialty Start Date End Date Carlos Lind MD [address] [place] [id number] PCP - General 07/25/20 documented as of this encounter
[2024-08-27] MEDS: IRON SUCROSE COMPLEX 200 MG in 0.9 % SODIUM CHLORIDE 100 ML 220 MG IV (10:13)
[2024-08-27 10:15] VITALS: BP 126/72; PULSE 71; RESP 18; TEMP 36.7; O2SAT 99
[2024-08-27 10:59] VITALS: BP 130/72; PULSE 77
== END 2024-08-27 11:06 | disposition home or self-care (01) ==
LOC: INF 09:56
PROVIDERS: PCP Nurse Practitioner; Visit Provider Nurse Practitioner
DX: D64.9 Anemia, unspecified (principal)
CPT/HCPCS: 96365; J1756

== ENCOUNTER 2024-08-31 09:49 | Outpatient (CLI) | payer OTHER, SELFPAY ==
--- OUTSIDE RECORDS SUMMARY | 2023-12-28 10:15 | XMS_ITS ---
Author Organization [facility] Address [address] [place] [address] Care Team Providers Care Net Developer Name Role Phone Carlos Coelho Primary Care Provider [phone] Yaw Carrillo [phone] REASON FOR VISIT lab work Encounters Encounter Location Date Provider Diagnosis [facility] [address] [place], [place] [address] 12/28/2023 Carlos Coelho Plan Of Treatment No Information Progress Notes * Pam HIGHTOWERB:1985 (38 yo F)Acc No.[id number]:12/28/2023 Progress Notes Patient: Garrett PAN Provider: Bartolo Coelho MD :1985 A ge:38 Y S ex:Female Date:12/28/2023 Address:[address], [id number] Subjective: * Chief Complaints: * 1 . Lab work. * Medical History: Objective: * Vitals: Assessment: Plan: * Treatment: * * Electronic signature of Yuri Coelho MD FAAP on 08/31/2024 at 09:53 AM EDT Sign off status: Pending * Provider: Bartolo Coelho MD Date: 1 Generated for Printi ng/Faxing/eTransmitting on: 0 08/31/2024 09:53 AM EDT
--- OUTSIDE RECORDS SUMMARY | 2024-06-16 17:30 | XMS_ITS ---
Author Organization [facility] PE D ROG[facility] Address [address] [place], [place] [address] Care Team Providers Care Insurance Clerk Name Role Phone Carlos Coelho Primary Care Provider Yaw Carrillo Unavailable [phone] Migration, Provider Unavailable Unavailable Allergies Allergen (clinical drug ingredient) Drug/Non Drug Allergy documented on EMR Reaction Allergy Type Onset Date Status sulfamethoxazole / trimethoprim Bactrim epigatric pain Drug Allergy Active erythromycin Erythromycin rash Drug Allergy A ctive [facility] Conversion Encounter Medications Medication SIG (Take, [...] Active Encounters Encounter Location Date Provider Diagnosis [facility] [address] [place], [place] [address] 06/16/2024 Provider Migration Plan Of Treatment No Information Progress Notes * Christiano HIGHTOWER:1985 (38 yo F)Acc No.[id number]:06/16/2024 Patient: Garrett PAN Provider: Rosetta Suarez :1985 A ge:38 Y S ex:Female Date:06/16/2024 Address: [address], [place], [id number] Pcp:Carlos Coelho Subjective: * Chief Complaints: * [...] Electronic signature of Prov ider Migration on 08/31/2024 at 09:52 AM EDT Sign off status: Pending * Provider: Rosetta duncanMolina Date: 0 06/16/2024 Generated for López garcia/Kurtis/Fred on: 0 08/31/2024 09:52 AM EDT
--- OUTSIDE RECORDS SUMMARY | 2024-08-31 09:52 | XMS_ITS | Data Portability ---
Author Organization [place] - [facility] - [place] [facility] ADMIN Address [address] [place] [address] Care Team Providers Care Scorer Helper Name Role Phone LATONIA CROSS Primary Care Provider [phone] Assessment Encounter Date Assessment Date Assessment LastModified [...] 3. Start tracking calories and protein with Cimetrix tammy 4. Add in 1 protein shake [...] modifications. Will f/up as scheduled or PRN. [email or web address] Not available 12/20/2023 15:43:40 Plan of Treatment Reminders Order Date Submit Date Provider Last Modified By Organization Details Last Modified Time Details Appointments OV EST 20 2024 01:20P M Raffi Pruitt, DNP, IMAGERY INTELLIGENCE, GATE MORTISER OPERATOR-C Not available Not available Not available Lab iron + TIBC + ferritin, serum 2024 025 [email or web address] [facility], [address], [address], [place], [address], 04/06/2024 12:14:45 folate, serum 2024 025 [email or web address] [facility], [address], [address], [place], [address], 04/06/2024 12:14:45 vitamin D, 25-hydrox y, total, serum 2024 025 VANESSA [facility], [address], [address], [place], [address], 03/24/2024 10:52:24 H pylori Ag, qual immunoass ay, stool 2024 025 [email or web address] Not available 04/06/2024 12:14:46 prealbumi n, serum 2024 025 VANESSA [facility], [address], [address], [place], [address], 03/29/2024 08:47:03 thiamine, QN, blood 2024 025 [email or web address] [facility], [address], [address], [place], [address], 04/06/2024 12:14:45 methylmal ruel, QN, serum or plasma 2024 025 [email or web address] [facility], [address], [address], [place], [address], 04/06/2024 12:14:45 vitamin E, serum 2024 025 VANESSA [facility], [address], [address], [place], [address], 03/29/2024 02:57:35 vitamin A (retinol) , serum 2024 025 [email or web address] [facility], [address], [address], [place], [address], 04/06/2024 12:14:45 CBC w/ auto diff 2024 025 VANESSA [facility], [address], [address], [place], [address], 03/24/2024 10:42:19 CMP, serum or plasma 2024 025 VANESSA [facility], [address], [address], [place], [address], 03/24/2024 11:09:55 HbA1c (hemoglob in A1c), blood 2024 025 [email or web address] [facility], [address], [address], [place], [address], 04/06/2024 12:14:45 TSH + free T4, serum 2024 025 [email or web address] [facility], [address], [address], [place], [address], 04/06/2024 12:14:46 lipid panel, serum 2024 025 [email or web address] [facility], [address], [address], [place], [address], 04/06/2024 12:14:46 vitamin D, 25-hydrox y, total, serum 2023 024 VANESSA [facility], [address], [address], [place], [address], 12/21/2023 13:08:14 iron + TIBC + ferritin, serum 2023 024 [email or web address] [facility], [address], [address], [place], [address], 12/27/2023 15:36:37 folate, serum 2023 024 [email or web address] [facility], [address], [address], [place], [address], 12/27/2023 15:36:37 prealbumi n, serum 2023 024 [email or web address] [facility], [address], [address], [place], [address], 12/27/2023 15:36:38 thiamine, QN, blood 2023 024 [facility], [address], [address], [place], [address], 12/27/2023 15:36:38 methylmal ruel, QN, serum or plasma 2023 024 [email or web address] [facility], [address], [address], [place], [address], 12/27/2023 15:36:38 vitamin E, serum 2023 024 [email or web address] [facility], [address], [address], [place], [address], 12/27/2023 15:36:38 vitamin A (retinol) , serum 2023 [email or web address] [facility], [address], [address], [place], [address], 12/27/2023 15:36:38 CBC w/ auto diff 2023 024 VANESSA [facility], [address], [address], [place], [address], 12/21/2023 12:38:48 CMP, serum or plasma 2023 024 VANESSA [facility], [address], [address], [place], [address], 12/21/2023 14:06:08 HbA1c (hemoglob in A1c), blood 2023 024 [email or web address] [facility], [address], [address], [place], [address], 12/27/2023 15:36:38 TSH + free T4, serum 2023 024 VANESSA [facility], [address], [address], [place], [address], 12/21/2023 14:06:09 lipid panel, serum 2023 024 VANESSA [facility], [address], [address], [place], [address], 12/21/2023 14:06:08 CBC w/ auto diff 2022 [...] diff 2022 023 [email or web address] [facility], [address] [place] [address] [address], [id number], 07/14/2022 13:58:21 CMP, serum or plasma 2022 023 [email or web address] [facility], [address] [place] [address] [address], [id number], 07/14/2022 13:58:22 HbA1c (hemoglob in A1c), blood 2022 023 [email or web address] [address] [facility], [address] [place] [address] [address], [id number], 07/14/2022 13:58:22 lipid panel, blood 2022 023 [email or web address] 53 [facility], [address] [place] [address] [address], [id number], 07/14/2022 13:58:22 iron + TIBC + ferritin, serum 2022 023 [email or web address] 53 [facility], [address] [place] [address] [address], [place], [id number], 07/14/2022 13:58:22 folate, serum [address], [address] [place] [address] [place], [id number], 07/14/2022 13:58:22 mma (methylma lonic acid), serum [address], [address] [place] [address] [place], [id number], 07/14/2022 13:58:22 vitamin B1 (thiamine ), blood [address], [address] [place] [address] [place], [id number], 07/14/2022 13:58:23 vitamin D, 25-hydrox y, total, serum [address], [address] [place] [address] [place], [id number], 07/14/2022 13:58:23 vitamin E, serum [address], [address] [place] [address] [place], [id number], 07/14/2022 13:58:23 vitamin A (retinol) , serum [address], [address] [place] [address] [place], [id number], 07/14/2022 13:58:23 Referral None recorded. Procedures None recorded. Surgeries esophagog astroduod enoscopy (SURG) 2023 024 Mar Dolan MD, [address], [address], [place], [address], 03/01/2024 13:21:48 Imaging XR, abdomen + RF, upper gastroint estinal tract, w/ contrast PO 2023 [email or web address] [facility] [address] [place], [place] [address]y [address], [place], [address], 03/08/2024 11:43:03 Medication Orders ondansetr on 4 mg disintegr ating tablet 2023 [facility], [address] [place] [address] [address], [place], [id number], 03/05/2024 17:09:00 Patient TargetsNo targets recorded. Patient InstructionsNo instructions recorded. Reason for Referral None Reported. Results Created Date Observation Date Name Description Value Unit Range Abnormal Flag Note LastModifiedBy Organization Detail LastModifiedTime 01/05/2001/06/[address] (H PYLOR I AB QUAL) meghan test 20 min NEGATI VE negati ve Not Available [facility] ([facility]) [address] , [place], [address], 01/06/2024 09:52:41 01/05/2001/06/[address] (H PYLOR I AB QUAL) meghan test 1HR NEGATI VE negati ve Not Available [facility] ([facility]) [address] , [place], [address], 01/06/2024 09:52:41 01/05/2001/06/[address] (H PYLOR I AB QUAL) meghan test 3 HR NEGATI VE negati ve Not Available [facility] ([facility]) [address] , [place], [address], 01/06/2024 09:52:41 01/05/2001/06/[address] (H PYLOR I AB QUAL) meghan test 24 HR POSITI VE negati ve delta Not Available [facility] ([facility]) [address] [place], [address], 01/06/2024 09:52:41 01/05/2001/06/[address] (H PYLOR I AB QUAL) meghan test kit lot# [id number] Not Available [facility] ([facility]) [address], [place], [address], 01/06/2024 09:52:41 01/05/2001/06/[address] (H PYLOR I AB QUAL) meghan test kit exp date 2023 Not Available [facility] ([facility]) [address], [place], [address], 01/06/2024 09:52:41 Result Notes None recorded. Problems Name Problem SNOMED Code Status Onset Date Resolution Date Notes Provider Name and Address Organization Details Recorded Time History of Helicobac ter pylori infection 458954280376 79055 Active 2024 Raffi Pruitt DNP, IMAGERY INTELLIGENCE, GATE MORTISER OPERATOR-C [address], [place], [address] , [place] - [facility] - [place] 5 11:01:52 Essential hypertens ion 86932289 Active 2022 Raffi Pruitt DNP, IMAGERY INTELLIGENCE, GATE MORTISER OPERATOR-C [address] [facility], [place], [address] , [place] [facility] [place] 3 11:09:29 Low back pain 129188928 Active 2022 Raffi Pruitt DNP, IMAGERY INTELLIGENCE, GATE MORTISER OPERATOR-C [address] [facility], [place], [address] , [place] [facility] [place] 3 11:57:53 Obstructi ve sleep apnea syndrome 83231777 Active 2020 Not Available [facility] 2 13:28:45 Morbid obesity 634858985 Active 2020 Morbid obesity Not Available [facility] 2 13:28:45 History of sleeve gastrecto my 098607141426 107 Active 2021 Not Available [facility] 2 13:28:45 Gastroeso phageal reflux disease without esophagit is 061882914 Active 2020 Not Available [facility] 2 13:28:45 Vitamin D deficienc y 23853128 Active 2023 Raffi Pruitt DNP, LEANN, GATE MORTISER OPERATOR-C [address], [place], [place], [address] [place] [address] , [place] [facility] [place] 4 14:35:59 Unintenti onal weight gain 995395914961 104 Active 2023 Raffi Pruitt DNP, LEANN, GATE MORTISER OPERATOR-C [address], [place], [place], [address] [place] [address] , [place] [facility] [place] 4 14:40:00 Abdominal pain 69211490 Active 2023 Raffi Pruitt DNP, LEANN, GATE MORTISER OPERATOR-C [address], [place], [place], [address] [place] [address] , [place] [facility] [place] 4 14:49:15 Nausea 794081690 Active 2023 Raffi Pruitt DNP, IMAGERY INTELLIGENCE, GATE MORTISER OPERATOR-C [address], [place], [place], [address] [place] [address] , [place] [facility] [place] 4 14:49:44 Dysphagia 69306758 Active 2023 Raffi Pruitt DNP, IMAGERY INTELLIGENCE, GATE MORTISER OPERATOR-C [address], [place], [place], [address] [place] [address] , [place] [facility] [place] 4 14:52:23 Fatigue 86795498 Active 2023 Raffi Pruitt DNP, LEANN, GATE MORTISER OPERATOR-C [address], [place], [place], [address] [place] [address] , [place] [facility] [place] 4 15:12:50 Iron deficienc y 09094334 Active 2023 Raffi Pruitt DNP, IMAGERY INTELLIGENCE, GATE MORTISER OPERATOR-C [address] , [place], [address] , [facility] & [place] 15:12:59 Problem Notes Documentation Provider Name and [...] injury and now at the 1 yr tmibo she will no longer be able to [...] oz/d Additional Notes/Concerns: Recommendations: Protein: 90+g/day Calories: 6024-9146/day 1. Closely self monitor kcals, protein, and weight to ensure adequate intake 2. Limit physically activity as instructed by providers . Raffi Pruitt, ROGER, IMAGERY INTELLIGENCE, GATE MORTISER OPERATOR-C [address] , [place], [address], [facility] & [place] 12/20/2023 14:34:54 Procedures Surgical History Date Name Laterality Status Provider Name and Address Organization Details Recorded Time cholecystectomy completed Jim MEDEROS - [place] 12/16/2021 14:48:38 laparoscopic sleeve gastrectomy completed Jim MEDEROS - [place] 12/16/2021 14:49:01 ligation of fallopian tube completed Jim MEDEROS - [place] 12/16/2021 14:49:12 section completed Jim MEDEROS - [place] 12/16/2021 14:49:22 tonsillectomy completed Jim MEDEROS - [place] 12/16/2021 14:49:35 Imaging Results None recorded. Procedure Notes None recorded. Medical Equipment None Reported. Allergies Allergen ID Allergen Name Allergen Category Reaction Reaction Severity Criticality Documentation Date Start Date Code Code System Note Provider Name and Address Organization Details Recorded Time 219529 Medicinal product containin g tetracycl ine structure and acting as antibacte rial agent (product) medicatio n Not available Not available Not available 03/23/2024 36853 1004 SNOMED Claudia nguyen, NAYELI MEDEROS [facility] & [place] 5 10:45:03 4546 erythromy kendra medicatio n Not available Not available Not available 11/19/2021 4053 RxNorm React ion: Unkno wn, sever ity: Unkno wn Not Available [facility] 2 22:31:06 4548 peanut allergeni c extract food,medi cation Not available Not available Not available 11/19/2021 43740 8 RxNorm React ion: hives , swell ing, sever ity: Unkno wn Not Available [facility] 2 22:31:06 14726 Bactrim medicatio n Not available Not available Not available 03/22/2022 78369 9 RxNorm Jim nguyen, NAYELI Olivares [facility] & [place] 3 11:00:17 Medications Name Sig Start Date [...] cm 97.5 [degF] 65 /min 47.4 kg/m2 241168. 6 g 149 mm[Hg] 104 mm[Hg] Jimterrell Martínez edwin [facility] & [place] 3 11:01:14 Date Recorded Body height Body temperature Heart rate Body mass index (BMI) Body weight Systolic blood pressure Diastolic blood pressure Provider Name and Address Organization Details Last Updated DateTime 5 160.02 cm 98.1 [degF] 68 /min 52.8 kg/m2 060291. 24 g 146 mm[Hg] 102 mm[Hg] Claudia Whittaker [facility] & [place] 5 10:49:47 Date Recorded Body height Body mass index (BMI) Body weight Body temperature Heart rate Systolic blood pressure Diastolic blood pressure Provider Name and Address Organization Details Last Updated DateTime 3 160.02 cm 46.6 kg/m2 371761. 79 g 97.5 [degF] 78 /min 151 mm[Hg] 98 mm[Hg] Sierra Mcconnell [place] - [facility] - [place] 3 11:05:45 Date Recorded Body temperature Body weight Body mass index (BMI) Body height Heart rate Systolic blood pressure Diastolic blood pressure Provider Name and Address Organization Details Last Updated DateTime 4 97.1 [degF] 679297. 61 g 53.5 kg/m2 160.02 cm 78 /min 140 mm[Hg] 93 mm[Hg] Jim pineda [place] - [facility] - [place] 4 14:21:38 Social History None recorded. Functional [...] 13:23:03 Medical History Condition Response Allergies/Hayfever Y Other Y Depression Y Anemia Y Constipation Y Anxiety Disorder Y Muscle, Joint, or Bone Problems Y Reflux/GERD Y Headaches Y Hypertension Y Gynecological HistoryNo gynecological history recorded. Obstetrics History GPAL:G 0 P 0 0 0 0 Past Encounters Encounter ID Performer Location Encounter Start Date Encounter Closed Date Diagnosis/Indication Diagnosis SNOMED-CT Code Diagnosis ICD10 Code Diagnosis Note [id number] Raffi Pruitt, DNP, IMAGERY INTELLIGENCE, GATE MORTISER OPERATOR-C [facility] Bariatric s and Adv Surg [address] [facility] [address] [place] [address] 12/16/2021 14:29:46 12/16/2021 15:35:52 History of bariatric surgical procedure 984533629 Z98.84 History of gastrectomy 608434708 Z90.3 Patient is status post bariatric surgery and at increased risk for vitamin deficienci es and malnutriti on. Bariatric vitamin panel ordered today. Patient will be contacted to correct any vitamin deficienci es. History of sleeve gastrectomy 1648462221 21035 Z90.3 Obstructiv e sleep apnea syndrome 82045607 G47.33 Gastroesop hageal reflux disease without esophagitis 517771188 K21.9 Morbid obesity 514629663 E66.01 Intentiona l weight loss 142761121 R63.8 [id number] Raffi Pruitt DNP, IMAGERY INTELLIGENCE, GATE MORTISER OPERATOR-C [facility] Bariatric s and Adv Surg [address] [facility] [address] [place] [address] 03/22/2022 10:44:42 03/22/2022 11:24:55 History of bariatric surgical procedure 725919203 Z98.84 Advised qid intake 50% protein 5093-2845 calories/d y less than 100 carbs/dy Long [...] with any deficienci es. History of gastrectomy 198278254 Z90.3 Patient is status post bariatric surgery and at increased risk for vitamin deficienci es and malnutriti on. Bariatric vitamin panel ordered today. Patient will be contacted to correct any vitamin deficienci es. History of sleeve gastrectomy 4512500808 85848 Z90.3 Intentiona l weight loss 667187279 R63.8 Obstructiv e sleep apnea syndrome 07884597 G47.33 Morbid obesity 174502751 E66.01 [id number] Raffi Pruitt, ROGER, IMAGERY INTELLIGENCE, GATE MORTISER OPERATOR-C [facility] Bariatric s and Adv Surg [address] [facility] [address] [place] [address] 07/12/2022 10:47:58 07/12/2022 11:51:25 History of bariatric surgical procedure 984870137 Z98.84 Advised qid intake 50% protein 7067-8517 calories/d y less than 100 carbs/dyLo ng discussion today of InBody results including PBF(percen t body fat) SMM (skeletal muscle mass) Visceral fat level level BMR Segmental Fat Analysis and Segmental Lean Analysis. Patient encouraged pt to take minimal calories as per BMR and to anticipate changes in SMM and PBF values not just total weight. Repeat [place] in 2[facility] [...] will see dietitian today. History of gastrectomy 875645973 Z90.3 Patient is status post bariatric surgery and at increased risk for vitamin deficienci es and malnutriti on. Bariatric vitamin panel ordered today. Patient will be contacted to correct any vitamin deficienci es. Essential hypertension 97950289 I10 History of sleeve gastrectomy 3800369826 28459 Z90.3 Intentiona l weight loss 661579714 R63.8 Morbid obesity 643001018 E66.01 Obstructiv e sleep apnea syndrome 99310671 G47.33 Low back pain 020538183 M54.50 [id number] Raffi Pruitt, DNP, IMAGERY INTELLIGENCE, GATE MORTISER OPERATOR-C [facility] [address] [facility] [address] [place] [address] 12/20/2023 14:11:37 12/21/2023 09:03:12 History of bariatric surgical procedure 509741319 Z98.84 Advised qid intake 50% protein 7841-4461 calories/d y less than 100 carbs/dyLo ng [...] see dietitian today. Intentiona l weight loss 776001233 R63.8 History of gastrectomy 203241179 Z90.3 Advised qid intake 50% protein 2274-8387 calories/d y less than 100 carbs/dyLo ng [...] cheaper if she gets them done at [facility]. She verbalizes that she will get these done fasting 1st thing in the morning. I will notify her with any abnormal results. Patient is status post bariatric surgery and at increased risk for vitamin deficienci es and malnutriti on. Bariatric vitamin panel ordered today. Patient will be contacted to correct any vitamin deficienci es. At [facility] risk of nutritional deficit 242358844 Z91.89 Essential hypertension 65427157 I10 History of sleeve gastrectomy 5948518155 78690 Z90.3 Obstructiv e sleep apnea syndrome 62600374 G47.33 Vitamin D deficiency 347 89245 E55.9 Morbid obesity 921292714 E66.01 Unintentio nal weight gain 9202633008 74124 R63.5 Abdominal pain 33877223 R10.9 Nausea 481752549 R11.0 Dysphagia 12037093 R13.1 0 I would like to proceed with ordering upper GI as well as EGD. Patient will be notified of the time and date of these appointmen ts. I have asked that she contact me by Tuesday of this week if [facility] does not contact her about getting her scheduled for the upper GI. Patient verbalizes adequate understand ing. Iron deficiency 61903386 E61.[id number] [facility] n Bariatric s and Adv Surg [address] [facility] [address] [place] [address] 12/20/2023 15:12:42 12/20/2023 15:44:46 Dietary management surveillance 048281032 Z71.3 see klever caal for discussion and plan [id number] Raffi Pruitt, DNP, IMAGERY INTELLIGENCE, GATE MORTISER OPERATOR-C [facility] n Bariatric s and Adv Surg [address] [facility] [address] [place] [address] 03/23/2024 10:30:48 03/23/2024 11:58:53 History of bariatric surgical procedure 081390382 Z98.84 Advised qid intake 50% protein 1610-5623 calories/d y less than 100 carbs/dyLo ng [...] see dietitian today. Intentiona l weight loss 107035939 R63.8 History of gastrectomy 854124266 Z90.3 Advised qid intake 50% protein 0628-7038 calories/d y less than 100 carbs/dy Long [...] to correct any vitamin deficienci es. At [facility] risk of nutritional deficit 634187400 Z91.89 Essential hypertension 17433253 I10 Iron deficiency 28711143 E61.1 Vitamin D deficiency 347 84919 E55.9 Morbid obesity 537317608 E66.01 History of Helicobacter pylori infection 3075248322 7807054 Z86.19 Health Concerns Section Related Observation LastModified by Organization Detai ls LastModified Time None Recorded Concern Status LastModified by Organization Details LastModified Time None Recorded Advance Directives Directive None Recorded Payers Insurance Date Sequence Insurance Name Policy Number Policy Bolivar Covered Member ID Bolivar Member ID Guarantor Name 06/29/2021 2 *SELF PAY* An rom Feliz 03/26/2024 1 UMR [id number] Garrett Feliz [id number] Garrett Feliz 06/22/2021 1 [id number] [id number] Garrett Feliz [id number] Garrett Feliz 06/22/2021 2 [place] [id number] Garrett Feliz [id number] Garrett Feliz Notes Date Note Type [...] = 1568 kilo calories Raffi Pruitt DNP, IMAGERY INTELLIGENCE, GATE MORTISER OPERATOR-C [address], [place], [address], [facility] & [place] 03/22/2022 11:24:09 07/12/2022 text/html Patient presents the [...] = 1550 kilo calories Raffi Pruitt DNP, IMAGERY INTELLIGENCE, GATE MORTISER OPERATOR-C [address] , [place], [address], [facility] & [place] 07/12/2022 11:58:21 12/20/2023 text/html Patient presents the [...] right thyroid. She has been followed by [facility] department of endocrinology. Biopsy has performed [...] her stomach. She is able to tolerate Albanian fries because they are easy to eat [...] = 1644 kilo calories Raffi Pruitt, DNP, IMAGERY INTELLIGENCE, GATE MORTISER OPERATOR-C [address], [place], [address], [facility] & [place] 12/20/2023 15:22:44 12/20/2023 text/html RDN met w/ pt fo r 2 year f/up s/p sleeve . HT = 63 Current Weight: 302.2#BMI = 302.2 Notes on weight: desires continued weight loss at this time. Gained 39.2# from last visit a year ago. Inbody measurements:[facility] le mass%: up 5.8%Body fat% up 2.8%BMR: 1644 Signs/SymptomsN/V /C/D: nausea, no vomiting, constipation/diar vinh both Meds and labs reviewed.Notes - b12, vit D, vit C. Has had 2 vitamin infusions. Physical activity: was doing walking and resistance bands but not lately Tracking meal intakes: was using Labochema it tammy, but stopped using it Est. [...] GI done. JUWAN LIVINGSTON, RD [address] [facility], [place], [address], [facility] & [place] 12/20/2023 15:44:08 03/23/2024 text/html Patient presents the [...] = 1656 kilo calories Raffi Pruitt, DNP, IMAGERY INTELLIGENCE, GATE MORTISER OPERATOR-C [address] [facility], [place], [address], [facility] - [place] 03/23/2024 11:57:40 OBGyn Episode No OBEpisode recorded.
--- OUTSIDE RECORDS SUMMARY | 2024-08-31 09:52 | XMS_ITS | Encounter Summary ---
Author Organization [facility] Address [address] [place] [address] Care Team Providers Care Reference Library Assistant Name Role Phone Carlos Lind MD Primary Care Provider [phone] Encounter Details Date Type Department Care Team (Late st Contact Info) Description 06/11/2024 Results Follow-Up [facility] Endocrinology [address] [place] [address] Delfino Atwood MD [address] [address] Social History Tobacco Use Types [...] [facility] [address] [place] [address] Delfino Atwood MD [address] [facility] [address] [place] [address] documented as of this encounter Visit Diagnoses Not on filedocumented in this encounter Additional Health Concerns Assessment Noted Time A fall risk assessment has been complete d for the patient 09/01/2023 9:07 AM EDT A Body Mass Index follow-up plan has been documented for the patient 09/01/2023 7:36 PM EDT documented as of this encounter Care Teams Reference Library Assistant Relationship Specialty Start Date End Date Carlos Lind MD [address] [place] [address] PCP - General 07/25/20 documented as of this encounter
--- OUTSIDE RECORDS SUMMARY | 2024-08-31 09:52 | XMS_ITS | Encounter Summary ---
Author Organization [facility] Address [address] [place] [address] Care Team Providers Care Footwear Machinery Instructor Name Role Phone Carlos Lind MD Primary Care Provider [phone] Encounter Details Date Type Department Care Team (Late Contact Info) Description 06/28/2024 Orders [facility] [address] [place] [address] Delfino Atwood MD [address] [address] Social History Tobacco Use Types [...] 12/03/2024 1:00 PM EDT [facility] [address] [place] [address] Delfino Atwood MD [address] [address] documented as of this encounter [...] documented as of this encounter Care Teams Footwear Machinery Instructor Relationship Specialty Start Date End Date Carlos Lind MD [address] [facility] [place] [address] PCP - General 07/25/20 documented as of this encounter
--- OUTSIDE RECORDS SUMMARY | 2024-08-31 09:52 | XMS_ITS | Encounter Summary ---
Author Organization [facility] Address [address] [place] [address] Care Team Providers Care Practice Billing Associate Name Role Phone Carlos Lind MD Primary Care Provider [phone] Encounter Details Date Type Department Care Team (Late Contact Info) Description 06/08/2024 Lab Requisition [facility] [address] [place] [address] Delfino Atwood MD [address] [address] Nontoxic single thyroid nodule Social [...] Office Visit [facility] Endocrinology [address] [place] [address] Delfino Atwood MD [address] [address] documented as of this encounter Procedures Procedure Name Priority Date/Time Associated Diagnosis Comments SURGICAL PATHOLOGY CONSULT Routine 06/08/2024 10:44 AM EDT Nontoxic single thyroid nodule documented in this encounter Results * Surgical Pathology Consult (06/08/2024 10:44 AM EDT) Case Report Sugical Pathology Consult Case: [id number] Authorizing Provider: Delfino Atwood MD Collected: 06/08/2024 1044 Ordering Location: [facility] Lab Received: 06/08/2024 1044 Pathologist: Lauro Alfaro MD Specimen: Thyroid, [id number] 06/11/2024 11:07 AM EDT [facility] Final Diagnosis A. THYROID, RIGHT, LOBECTOMY (OUTSIDE CASE NUMBER. 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 [id number] Received along with a corresponding pathology report from [facility] are 14 slides labeled outside case: [id number] collected on 05/30/2024. 06/11/2024 11:07 AM EDT [facility] Note: A resident was involved in the service. I attest I examined the relevant preparations for the specimens and confirmed the diagnosis or interpretation. 06/11/2024 11:07 AM EDT [facility] Tissue Thyroid structure / Unknown 06/08/2024 10:44 AM EDT 06/08/2024 10:44 AM EDT us Delfino Atwood MD LAB PATHOLOGY ORDERABLES Final Result [facility] [address] [place] [address] documented in this encounter Visit Diagnoses Diagnosis Nontoxic single thyroid nodule Nontoxic uninodular goiter documented in this encounter Additional Health Concerns Assessment Noted Time A fall risk assessment has been complete d for the patient 09/01/2023 9:07 AM EDT A Body Mass Index follow-up plan has been documented for the patient 09/01/2023 7:36 PM EDT documented as of this encounter Care Teams Practice Billing Associate Relationship Specialty Start Date End Date Carlos Lind MD [address] [facility] [place] [address] PCP - General 07/25/20 documented as of this encounter
--- OUTSIDE RECORDS SUMMARY | 2024-08-31 09:52 | XMS_ITS | Encounter Summary ---
Author Organization [facility] Address [address] [place] [address] Care Team Providers Care Scow Captain Name Role Phone Carlos Lind MD Primary Care Provider [phone] Encounter Details Date Type Department Care Team (Late Contact Info) Description 07/02/2024 Orders Only [facility] Endocrinology [address] [place] [address] Delfino Atwood MD [address] [place] [place] [address] [address] Status post thyroidectomy (Primary Dx) [...] [facility] Endocrinology [address] [place] [address] Delfino Atwood MD [address] [place] [place] [address] [address] Scheduled Orders Name Type Priority [...] documented as of this encounter Care Teams Scow Captain Relationship Specialty Start Date End Date Carlos Lind MD [address] [place] [address] PCP - General 07/25/20 documented as of this encounter
--- OUTSIDE RECORDS SUMMARY | 2024-08-31 09:52 | XMS_ITS | Encounter Summary ---
Author Organization [facility] Address [address] [place] [address] Care Team Providers Care Can Operator Name Role Phone Carlos Lind MD Primary Care Provider [phone] Encounter Details Date Type Department Care Team (Late Contact Info) Description 06/28/2024 Results Follow-Up [facility] Endocrinology [address] [place] [address] Delfino Atwood MD [address] [address] Social History Tobacco Use Types [...] Office Visit [facility]ocrinology [address] [place] [address] Delfino Atwood MD [address] [address] documented as of this encounter Visit Diagnoses Not on filedocumented in this encounter Additional Health Concerns Assessment Noted Time A fall risk assessment has been complete d for the patient 09/01/2023 9:07 AM EDT A Body Mass Index follow-up plan has been documented for the patient 07/01/2024 8:33 PM EDT documented as of this encounter Care Teams Can Operator Relationship Specialty Start Date End Date Carlos Lind MD [address] [place] [address] PCP - General 07/25/20 documented as of this encounter
--- OUTSIDE RECORDS SUMMARY | 2024-08-31 09:53 | XMS_ITS | Patient Health Record ---
Author Organization [facility] Address [address] [place] [address] [place] [address] Care Team Providers Care Bedspread Seamer Name Role Phone NicoleCarlos qureshi Primary Care Provider Yaw Carrillo Unavailable [phone] Migration, Provider Unavailable Unavailable Allergies Allergen (clinical [...] 37-170 ug/dL DTIBC 469 265-497 ug/dL IRONSAT 6.44877 15-55 % Reason For Referral No Information [...] Problem Status W/U Status Risk Notes Problem 269434151 Thyroid nodule (E04.1) Active confirmed Problem 825809252 Gastroesophageal reflux disease without esophagitis (K21.9) Active confirmed Problem 86581447 Hyperthyroidism (E05.90) Active confirmed Problem 541959033 History of non anemic vitamin B12 deficiency (Z86.39) Active confirmed Problem 333661118 Microcytic anemi a (D50.9) Active confirmed Problem 269409448 Acute right-side d back pain with sciatica (M54.41) Active confirmed Problem [id number] S/P gastric slee ve procedure (Z90.3) Active confirmed Vital Signs Heart Rate 92 /min 12/05/2023 Temperature 97.9 degrees Fahrenheit 12/05/2023 Blood pressure diastolic 84 mm Hg 12/05/2023 Height 5 ft 3 in in 12/05/2023 Blood pressure systolic 130 mm Hg 12/05/2023 Weight 308.6 lbs 12/05/2023 BMI 54.66 kg/m2 12/05/2023 Encounters Encounter Location Date Provider Diagnosis [facility] [address] [facility] [address] [place] [address] 06/16/2024 Provider Migration [facility] [address] [facility] [address] [place] [address] 10/24/2023 Carlos Coelho Gastroesophageal ref lux disease without esophagitis K21.9 ; Hyperthyroidism E05.90 ; History of non anemic vitamin B12 deficiency Z86.39 ; Other malaise R53.81 ; Other fatigue R53.83 and Encounter for routine adult medical examination Z00.00 [facility] [address] [facility] [address] [place] [address] 12/05/2023 Carlos Coelho Microcytic anemia D5 0.9 [facility] [address] [place] [facility] [address] [place] [address] 2023 Carlos Coelho History of non anemi [...] Thyroid Uptake Scan 2022 M-Thyroid Panel 09/10/2021 Z-Vvhl-Hrddvztgkkhjs Antibody 10/13/2022 M-Vitamin B12 10/02/2022 M-Vitamin D 25 Hydroxy 10/02/2022 M-Thyroid Peroxidase Antibodies 10/14/19 Future Test Test Name Order Date M-Complete Blood Count Auto Diff 024 M-Basic Metabolic Panel 12/26/2023 M-Ferritin 12/26/2023 Insurance Providers Payer Name Payer Address Payer Phone Subscriber Number Group Number Insured Name Patient Relationship to Insured Coverage Start Date Coverage End Date [employer] [address] [address] [place] [address] [id number] Garrett Feliz Self - patient is the insured Medical (General) History Medical History History ICD Code GERd Migraines Anxiety Depression Jamie Peguero- 2016 Plantar fascaiitis Gastric sleeve- 2021 Hypothyroidism-thyroid nodule diagnosed 12/04 Surgical History Surgery Date(Month/Year) Tonsillectomy Cholecystectomy c/s x3 Tubal ligation Gastric sleeve- hiatal hernia repair 202 2 Hospitalization History Reason Date(Month/Year) [facility]- [facility] Peguero 2016 c/s x 3 [facility]-Gastric sleeve 2021
--- OUTSIDE RECORDS SUMMARY | 2024-08-31 09:53 | XMS_ITS | Clinical Summary ---
Author Organization [facility] Address [address] [place] [address] Care Team Providers Care Contract Project Manager Name Role Phone Carlos Lind MD Primary Care Provider [phone] Allergies Active Allergy Reactions Criticality Noted Date [...] Care Team Description 07/02/2024 Orders Only [facility] Endocrinology [address] [place] [address] Delfino Atwood MD Status post thyroidectomy (Primary Dx) 06/28/2024 Results Follow-Up [facility] Endocrinology [address] [place] [address] Delfino Atwood MD 06/28/2024 Orders Only [facility] Endocrinology [address] [place] [address] Delfino Atwood MD 06/26/2024 2:40 PM EDT Office Visit [facility] Endocrinology [address] [place] [address] Delfino Atwood MD Thyroid cancer (CMS/HCC) (Primary Dx); Status post thyroidectomy; Fatigue, unspecified type; Iron deficiency; Dorsocervical fat pad 06/26/2024 Travel 06/11/2024 Results Follow-Up [facility] Endocrinology [address] [place] [address] Delfino Atwood MD 06/08/2024 Lab Requisition [facility] [address] [place] [address] Delfino Atwood MD Nontoxic single thyroid nodule [...] Description 12/03/2024 1:00 PM EDT [facility] [address] [place] [address] Delfino Atwood MD [address] [place] [address] Health Maintenance Due Date Last [...] [facility]-Cervical Cancer Screening 04/10/2021 [facility]-HPV/Cotest 04/10/2021 04/10/2016 [id number] Vaccine ( season) 2023 03/27/2021, 04/11/2020, 03/12/2020 [...] EDT) Case Report Sugical Pathology Consult Case: [id number] Authorizing Provider: Delfino Atwood MD Collected: 06/08/2024 1044 Ordering Location: [facility] Lab Received: 06/08/2024 1044 Pathologist: Lauro Alfaro MD Specimen: Thyroid, [id number] 06/11/2024 11:07 AM EDT [facility] Final Diagnosis A. THYROID, RIGHT, LOBECTOMY (OUTSIDE CASE NUMBER. 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 [id number] Received along with a corresponding pathology report from [facility] Laboratory are 14 slides labeled outside case: [id number] collected on 05/30/2024. 06/11/2024 11:07 AM EDT [facility] Note: A resident was involved in the service. I attest I examined the relevant preparations for the specimens and confirmed the diagnosis or interpretation. 06/11/2024 11:07 AM EDT [facility] Tissue Thyroid structure / Unknown 06/08/2024 10:44 AM EDT 06/08/2024 10:44 AM EDT us Delfino Atwood MD LAB PATHOLOGY ORDERABLES Final Result [facility] [address] [place] [address] * Hepatitis C Antibody (04/10/2016 5:47 PM EST) Hepatitis C Antibody NEGATIVE Reference Range: Negative SUNQUEST 04/10/2016 5:47 PM EST 04/10/2016 8:55 PM EST us Lara Padron MD LAB BLOOD ORDERABLES Final Result [facility] * Cytology (04/10/2016 12:00 AM EST) Cerebrospinal fluid specimen (specimen) 04/10/2016 04/12/2016 7 :16 AM EST Narrative [facility]QUEST - 04/12/2016 2:53 PM EST [facility] MR #: [id number] [facility] [address] [place] [address] 1985 (Age: 30) FW Collect Date: 04/10/2016 00:00 Receipt Date: 04/12/2016 07:16 Page 1 DEPARTMENT OF PATHOLOGY AND LABORATORY MEDICINE CYTOPATHOLOGY REPORT Email: [email or web address] ATTENDING MD/Practitioner: Charity Padron MD Service: [place] [...] Unspecified abnormal finding in cerebrospinal fluid F: 20382 SNOMED CODES: A; RP8415 ZO6100 [id number] A resident has participated in this service. A pathologist has performed and is responsible for the reported pathologic evaluation. Lara Padron MD LAB PATHOLOGY ORDERABLES Fi nal Result Performing Organization Address [facility] Co de Phone Number SUNQUEST * HIV 1 & 2 Antibody/Antigen Screen (04/08/2016 7:27 PM EST) HIV 1 Result NONREACTIVE Screening for HIV 1 and 2 antibodies is NONREACTIVE. No confirmatory testing is required. [facility]QUEST 04/08/2016 7:27 PM EST 04/08/2016 7:39 PM EST Historical Provider LAB BLOOD ORDERABLES Yennifer l Result Performing Organization Address City/[facility] Co de Phone Number SUNQUEST from Last 3 Months or Most Recently Relevant to Health Maintenance [address] [address] [facility] Care Teams Contract Project Manager Relationship Specialty Start Date End Date Carlos Lind MD [address] [place] [address] [place] [address] PCP - General 07/25/20
--- OUTSIDE RECORDS SUMMARY | 2024-08-31 09:53 | XMS_ITS | Encounter Summary ---
Author Organization [facility] Address [address] [place] [address] Care Team Providers Care Manager Fleet Name Role Phone Carlos Lind MD Primary Care Provider [phone] Reason for Referral * Consultation (Routine) - Closed Specialty Diagnoses / Procedures Referred By Contac t Referred To Contact Endocrinology Diagnoses Hot thyroid nodule Abnormal thyroid scan Carlos Coelho MD [address] [place] [address] Phone: tel: fax: Referral ID Status Reason Start Date Expiration Date V isits Requested Visits Authorized [id number] Closed Specialty Services Required 12/20/2022 06/20/2024 1 1 Encounter Details Date Type Department Care Team ([facility] Contact Info) Description 12/20/2022 [facility] [address] [place] [address] Carlos Coelho MD [address] [place] [address] Hot thyroid nodule (Primary Dx); Abnormal thyroid [...] Upcoming Encounters Date Type Department Care Team ([facility] Contact Info) Description 12/03/2024 1:00 PM EDT [facility] [address] [place] [address] Delfino Atwood MD [address] [address] Scheduled Referrals Name Type Priority Associated Diagnoses Order Schedule Ambulatory referral to Endocrinology Outpatient Referral Routine Hot thyroid nodule Abnormal thyroid scan Ordered: 12/20/2022 documented as of this encounter Visit Diagnoses Diagnosis Hot thyroid nodule- Primary Nontoxic uninodular goiter Abnormal thyroid scan Nonspecific abnormal results of thyroid function study documented in this encounter Care Teams Manager Fleet Relationship Specialty Start Date End Date Carlos Lind MD [address] [place] [address] PCP - General 07/25/20 documented as of this encounter
[2024-08-31 10:05] VITALS: BP 125/72; PULSE 90; RESP 18; TEMP 36.6; O2SAT 100
[2024-08-31] MEDS: SODIUM CHLORIDE 0.9% 50ML BAG 50 ML IV (10:05)
[2024-08-31] MEDS: SODIUM CHLORIDE 0.9% 10ML FLUSH SYRINGE 10 ML IV (10:05)
[2024-08-31] MEDS: IRON SUCROSE COMPLEX 200 MG in 0.9 % SODIUM CHLORIDE 100 ML 220 MG IV (10:07)
[2024-08-31 11:00] VITALS: BP 131/88; PULSE 84; RESP 20
== END 2024-08-31 11:00 | disposition home or self-care (01) ==
LOC: INF 09:50
PROVIDERS: PCP Nurse Practitioner; Visit Provider Nurse Practitioner
DX: D64.9 Anemia, unspecified (principal)
CPT/HCPCS: 96365; J1756

== ENCOUNTER 2024-09-11 09:13 | Outpatient (CLI) | payer OTHER, SELFPAY ==
--- OUTSIDE RECORDS SUMMARY | 2023-12-28 10:15 | XMS_ITS ---
Author Organization [facility] Address [address] [place] [address] Care Team Providers Care Pier Hand Name Role Phone Carlos Coelho Primary Care Provider Yaw Carrillo [phone] REASON FOR VISIT lab work Encounters Encounter Location Date Provider Diagnosis [facility] [address] [place] [address] 12/28/2023 Carlos Coelho Plan Of Treatment No Information Progress Notes * Pam HIGHTOWERB:1985 (38 yo F)Acc No.[id number]:12/28/2023 Progress Notes Patient: Garrett PAN Provider: Bartolo Coelho MD :1985 A ge:38 Y S ex:Female Date:12/28/2023 Address:[address], [id number] Subjective: * Chief Complaints: * 1 . Lab work. * Medical History: Objective: * Vitals: Assessment: Plan: * Treatment: * * Electronic signature of Yuri Coelho MD FAAP on 09/11/2024 at 09:16 AM EDT Sign off status: Pending * Provider: Bartolo Coelho MD Date: 1 Generated for Printi ng/Faxing/eTransmitting on: 0 09/11/2024 09:16 AM EDT
--- OUTSIDE RECORDS SUMMARY | 2024-06-16 17:30 | XMS_ITS ---
Author Organization [facility] PE D ROGER Address [address] [facility] [address] [place] [address] Care Team Providers Care Thermal Spray Operator Name Role Phone Carlos Coelho Primary Care Provider Yaw Carrillo Unavailable [phone] Migration, Provider Unavailable Unavailable Allergies Allergen (clinical drug ingredient) Drug/Non Drug Allergy documented on EMR Reaction Allergy Type Onset Date Status sulfamethoxazole / trimethoprim Bactrim epigatric pain Drug Allergy Active erythromycin Erythromycin rash Drug Allergy A ctive [facility] Conversion Encounter Medications Medication SIG (Take, Route, [...] [address] [place] [address] 06/16/2024 Provider Migration Plan Of Treatment No Information Progress Notes * Christiano HIGHTOWER:1985 (38 yo F)Acc No.[id number]:06/16/2024 Patient: Garrett PAN Provider: Rosetta Suarez :1985 A ge:38 Y S ex:Female Date:06/16/2024 Address: [address], [place], [id number] Pcp:Carlos Coelho Subjective: * Chief Complaints: * 1 . [facility] Conversion Encounter. * Medical History: * Medications: [...] Electronic signature of Prov ider Migration on 09/11/2024 at 09:15 AM EDT Sign off status: Pending * Provider: Rosetta Suarez Date: 0 06/16/2024 Generated for López garcia/Kurtis/Fred on: 09/11/2024 09:15 AM EDT
--- OUTSIDE RECORDS SUMMARY | 2024-09-11 09:16 | XMS_ITS | Clinical Summary ---
Author Organization [facility] Address [address] [place] [address] Care Team Providers Care Labor Trainer Name Role Phone Carlos Lind MD Primary Care Provider [phone] Allergies Active Allergy Reactions Criticality Noted Date [...] Care Team Description 07/02/2024 Orders Only [facility] Endocrinology [address] [place] [address] Delfino Atwood MD Status post thyroidectomy (Primary Dx) 06/28/2024 Results Follow-Up [facility] Endocrinology [address] [place] [address] Delfino Atwood MD 06/28/2024 [facility] [address] [place] [address] Delfino Atwood MD 06/26/2024 2:40 PM EDT Office [facility] Endocrinology [address] [place] [address] Delfino Atwood MD Thyroid cancer (CMS/HCC) (Primary Dx); Status post thyroidectomy; Fatigue, unspecified type; Iron deficiency; Dorsocervical fat pad 06/26/2024 Travel from Last 3 Months Immunizations Immunization Administration [...] Description 12/03/2024 1:00 PM EDT Office Visit [facility] Endocrinology [address] [place] [address] Delfino Atwood MD [address] [place] [address] Health Maintenance Due Date Last [...] [facility]-Cervical Cancer Screening 04/10/2021 [facility]-HPV/Cotest 04/10/2021 04/10/2016 [id number] Vaccine ( season) 2023 03/27/2021, 04/11/2020, 03/12/2020 [...] CBC W/DIFF Routine 06/27/2024 8:03 AM EDT HEPATITIS C ANTIBODY W/REFLEX TO HCV QUANT [...] LAB BLOOD ORDERABLES Final Resu lt * Hepatitis C Antibody (04/10/2016 5:47 PM EST) Hepatitis C Antibody NEGATIVE Reference Range: Negative [facility] 04/10/2016 5:47 PM EST 04/10/2016 8:55 PM EST us Lara Padron MD LAB BLOOD ORDERABLES Final Result [facility] * Cytology (04/10/2016 12:00 AM EST) Cerebrospinal fluid specimen (specimen) 04/10/2016 04/12/2016 7 :16 AM EST Narrative [facility]QUEST - 04/12/2016 2:53 PM EST [facility] MR #: [id number] [facility] [address] [place] [address] 1985 (Age: 30) FW Collect Date: 04/10/2016 00:00 Receipt Date: 04/12/2016 07:16 Page 1 DEPARTMENT OF PATHOLOGY AND LABORATORY MEDICINE CYTOPATHOLOGY REPORT Email: [email or web address] ATTENDING MD/Practitioner: Charity Padron MD Service: [place] [...] Unspecified abnormal finding in cerebrospinal fluid F: 25703 SNOMED CODES: A; [id number] [id number] A resident has participated in this service. A pathologist has performed and is responsible for the reported pathologic evaluation. Lara Padron MD LAB PATHOLOGY ORDERABLES Fi nal Result Performing Organization Address [facility] Co de Phone Number SUNThe Invisible Armor * HIV 1 & 2 Antibody/Antigen Screen (04/08/2016 7:27 PM EST) HIV 1 Result NONREACTIVE Screening for HIV 1 and 2 antibodies is NONREACTIVE. No confirmatory testing is required. [facility]QUEST 04/08/2016 7:27 PM EST 04/08/2016 7:39 PM EST [facility] Provider LAB BLOOD ORDERABLES Yennifer l Result Performing Organization Address [facility] Co de Phone Number SUNThe Invisible Armor from Last 3 Months or Most Recently Relevant to Health Maintenance Insurance [facility] Care Teams Labor Trainer Relationship Specialty Start Date End Date Carlos Lind MD [address] [facility] [place] [address] PCP - General 07/25/20
--- OUTSIDE RECORDS SUMMARY | 2024-09-11 09:16 | XMS_ITS | Encounter Summary ---
Author Organization [facility] Address [address] [place] [address] Care Team Providers Care Tallow Pumper Name Role Phone Carlos Lind MD Primary Care Provider [phone] Encounter Details Date Type Department Care Team (Late Contact Info) Description 06/28/2024 Results Follow-Up [facility] Endocrinology [address] [place] [address] Delfino Atwood MD [address] [address] Social History Tobacco Use [...] Description 12/03/2024 1:00 PM EDT Office Visit [facility] Endocrinology [address] [place] [address] Delfino Atwood MD [address] [address] documented as of this encounter Visit Diagnoses Not on filedocumented in this encounter Additional Health Concerns Assessment Noted Time A fall risk assessment has been complete d for the patient 09/01/2023 9:07 AM EDT A Body Mass Index follow-up plan has been documented for the patient 07/01/2024 8:33 PM EDT documented as of this encounter Care Teams Tallow Pumper Relationship Specialty Start Date End Date Carlos Lind MD [address] [place] [address] PCP - General 07/25/20 documented as of this encounter
--- OUTSIDE RECORDS SUMMARY | 2024-09-11 09:16 | XMS_ITS | Encounter Summary ---
Author Organization [facility] Address [address] [place] [address] Care Team Providers Care Medicaid Specialist Name Role Phone Carlos Lind MD Primary Care Provider [phone] Reason for Referral * Consultation (Routine) - Closed Specialty Diagnoses / Procedures Referred By Contac t Referred To Contact Endocrinology Diagnoses Hot thyroid nodule Abnormal thyroid scan Carlos Coelho MD [address] [place] [address] Phone: tel: fax: Referral ID Status Reason Start Date Expiration Date V isits Requested Visits Authorized [id number] Closed Specialty Services Required 12/20/2022 06/20/2024 1 1 Encounter Details Date Type Department Care Team ([facility] Contact Info) Description 12/20/2022 [facility] [address] [place] [address] Carlos Coelho MD [address] [place] [address] Hot thyroid nodule (Primary Dx); Abnormal thyroid [...] Upcoming Encounters Date Type Department Care Team ([facility] Contact Info) Description 12/03/2024 1:00 PM EDT [facility] [address] [place] [address] Delfino Atwood MD [address] [address] Scheduled Referrals Name Type Priority Associated Diagnoses Order Schedule Ambulatory referral to Endocrinology Outpatient Referral Routine Hot thyroid nodule Abnormal thyroid scan Ordered: 12/20/2022 documented as of this encounter Visit Diagnoses Diagnosis Hot thyroid nodule- Primary Nontoxic uninodular goiter Abnormal thyroid scan Nonspecific abnormal results of thyroid function study documented in this encounter Care Teams Medicaid Specialist Relationship Specialty Start Date End Date Carlos Lind MD [address] [place] [phone] PCP - General 07/25/20 documented as of this encounter
--- OUTSIDE RECORDS SUMMARY | 2024-09-11 09:16 | XMS_ITS | Data Portability ---
Author Organization [place] [facility] ADMIN Address [address] [place] [address] Care Team Providers Care Brass Sorter Name Role Phone LATONIA CROSS Primary Care [...] 3. Start tracking calories and protein with [employer] tammy 4. Add in 1 protein shake [...] 20 2024 01:20P M Raffi Pruitt, DNP, [employer], CHILD WELFARE MANAGER-C Not available Not available Not available Lab iron + TIBC + ferritin, serum 2024 025 [email or web address] [facility], [address], [address], [place], [address], 04/06/2024 12:14:45 folate, serum 2024 025 [email or web address] [facility], [address], [address], [place], [address], 04/06/2024 12:14:45 vitamin D, 25-hydrox y, total, serum 2024 025 VANESSA [facility], [address], [address], [place], [address], 03/24/2024 10:52:24 H pylori Ag, qual immunoass ay, stool 2024 025 [email or web address] Not available 04/06/2024 12:14:46 prealbumi n, serum 2024 025 VANESSA [facility], [address], [address], [place], [address], 03/29/2024 08:47:03 thiamine, QN, blood 2024 025 [email or web address] [facility], [address], [address], [place], [address], 04/06/2024 12:14:45 methylmal ruel, QN, serum or plasma 2024 025 [email or web address] [facility], [address], [address], [place], [address], 04/06/2024 12:14:45 vitamin E, serum 2024 025 VANESSA [facility], [address], [address], [place], [address], 03/29/2024 02:57:35 vitamin A (retinol) , serum 2024 025 [facility], [address], [address], [place], [address], 04/06/2024 12:14:45 CBC w/ auto diff 2024 025 VANESSA [facility], [address], [address], [place], [address], 03/24/2024 10:42:19 CMP, serum or plasma 2024 025 VANESSA [facility], [address], [address], [place], [address], 03/24/2024 11:09:55 HbA1c (hemoglob in A1c), blood 2024 025 [email or web address] [facility], [address], [address], [place], [address], 04/06/2024 12:14:45 TSH + free T4, serum 2024 025 [facility], [address], [address], [place], [address], 04/06/2024 12:14:46 lipid panel, serum 2024 025 [email or web address] [facility], [address], [address], [place], [address], 04/06/2024 12:14:46 vitamin D, 25-hydrox y, total, serum 2023 024 VANESSA [facility], [address], [address], [place], [address], 12/21/2023 13:08:14 iron + TIBC + ferritin, serum 2023 024 [email or web address] [facility], [address], [address], [place], [address], 12/27/2023 15:36:37 folate, serum 2023 [facility], [address], [address], [place], [address], 12/27/2023 15:36:37 prealbumi n, serum 2023 024 [facility], [address], [address], [place], [address], 12/27/2023 15:36:38 thiamine, QN, blood 2023 024 [email or web address] [facility], [address], [address], [place], [address], 12/27/2023 15:36:38 methylmal ruel, QN, serum or plasma 2023 024 [facility], [address], [address], [place], [address], 12/27/2023 15:36:38 vitamin E, serum 2023 024 [email or web address] [facility], [address], [address], [place], [address], 12/27/2023 15:36:38 vitamin A (retinol) , serum 2023 024 [email or web address] [facility], [address], [address], [place], [address], 12/27/2023 15:36:38 CBC w/ auto diff 2023 024 VANESSA [facility], [address], [address], [place], [address], 12/21/2023 12:38:48 CMP, serum or plasma 2023 024 VANESSA [facility], [address], [address], [place], [address], 12/21/2023 14:06:08 HbA1c (hemoglob in A1c), blood 2023 024 [email or web address] [facility], [address], [address], [place], [address], 12/27/2023 15:36:38 TSH + free T4, serum 2023 024 VANESSA [facility], [address], [address], [place], [address], 12/21/2023 14:06:09 lipid panel, serum 2023 024 VANESSA [facility], [address], [address], [place], [address], 12/21/2023 14:06:08 CBC w/ auto diff 2022 [...] 12/15/2022 11:47:49 vitamin B1 (thiamine ), blood 04/10/ 2023 05/01/2 023 [email or web address] 17 Not available 12/15/2022 11:47:49 [...] diff 2022 023 [email or web address] [facility], [address] [place] [address] [place], [id number], 07/14/2022 13:58:21 CMP, serum or plasma 2022 023 [email or web address] [facility], [address] [place] [address] E [place] G[place], [id number], 07/14/2022 13:58:22 HbA1c (hemoglob in A1c), blood 2022 023 [email or web address] 53 [facility], [address] [place] [address] E Ph[address] G[place]Vir[place], [id number], 07/14/2022 13:58:22 lipid panel, blood 2022 023 [email or web address] 53 [facility], [address] [place] [address] E Phan G-6Virgen [place], [id number], 07/14/2022 13:58:22 iron + TIBC + ferritin, serum 2022 023 [email or web address] 53 [facility], [address] [place] [address] E Phan G-[address]Vir[address] [place], [id number], 07/14/2022 13:58:22 folate, serum 2022 023 [facility] [place] [address] [facility]acy [facility], [address] [place] [address] E [place], [id number], 07/14/2022 13:58:22 mma (methylma lonic acid), serum [address], [address] [place] [address] [place], [id number], 07/14/2022 13:58:22 vitamin B1 (thiamine ), blood [address], [address] [place] [address] [place], [id number], 07/14/2022 13:58:23 vitamin D, 25-hydrox y, total, serum 2022 023 [facility] [place] [address], [address] [place] [address] E [place], [id number], 07/14/2022 13:58:23 vitamin E, serum 2022 023 [facility] [place] [address], [address] [place] [address] E [place], [id number], 07/14/2022 13:58:23 vitamin A (retinol) , serum 2022 023 [facility] [place] [address] Pharmacy [facility], [address] [place] [address] E Vir[place], [id number], 07/14/2022 13:58:23 Referral None recorded. Procedures None recorded. Surgeries esophagog astroduod enoscopy (SURG) 2023 024 [email or web address] Mar Dolan MD, [address], [address], [place], [address], 03/01/2024 13:21:48 Imaging XR, abdomen + RF, upper gastroint estinal tract, w/ contrast PO 2023 024 [email or web address] [facility] ([facility], [facility]), [address] [place] [address] [address], [place], [address], 03/08/2024 11:43:03 Medication Orders ondansetr on 4 mg disintegr ating tablet 2023 024 [facility], [address] [place] [address] [address], [place], [id number], 03/05/2024 17:09:00 Patient TargetsNo targets recorded. Patient InstructionsNo instructions recorded. Reason for Referral None Reported. Results Created Date Observation Date Name Description Value Unit Range Abnormal Flag Note LastModifiedBy Organization Detail LastModifiedTime 01/05/2001/06/[address] (H PYLOR I AB QUAL) meghan test 20 min NEGATI VE negati ve Not Available [facility] ([facility]) [address] , [place], [address], 01/06/2024 09:52:41 01/05/2001/06/[address] (H PYLOR I AB QUAL) meghan test 1HR NEGATI VE negati ve Not Available [facility] ([facility]) [address] , [place], [address], 01/06/2024 09:52:41 01/05/2001/06/[address] (H PYLOR I AB QUAL) meghan test 3 HR NEGATI VE negati ve Not Available [facility] ([facility]) [address] , [place], [address], 01/06/2024 09:52:41 01/05/2001/06/[address] (H PYLOR I AB QUAL) meghan test 24 HR POSITI VE negati ve delta Not Available [facility] ([facility]) [address], [place], [address], 01/06/2024 09:52:41 01/05/2001/06/[address] (H PYLOR I AB QUAL) meghan test kit lot# [id number] 0 Not Available [facility] ([facility]) [address] , [place], [address], 01/06/2024 09:52:41 01/05/2001/06/[address] (H PYLOR I AB QUAL) meghan test kit exp date 2023 Not Available [facility] ([facility]) [address], [place], [address], 01/06/2024 09:52:41 Result Notes None recorded. Problems Name Problem SNOMED Code Status Onset Date Resolution Date Notes Provider Name and Address Organization Details Recorded Time History of Helicobac ter pylori infection 894510575053 25377 Active 2024 Raffi Pruitt DNP, [employer], CHILD WELFARE MANAGER-C [address] , [place], [address] , [place] - [place] - [place] 5 11:01:52 Essential hypertens ion 39868938 Active 2022 Raffi Pruitt DNP, [employer], CHILD WELFARE MANAGER-C [address] [facility], [place], [address] , [place] - [place] 3 11:09:29 Low back pain 927393091 Active 2022 Raffi Pruitt DNP, [employer], CHILD WELFARE MANAGER-C [address] [facility], [place], [address] , [place] - [place] - [place] 3 11:57:53 Obstructi ve sleep apnea syndrome 32894127 Active 2020 Not Available [facility] 2 13:28:45 Morbid obesity 635106007 Active 2020 Morbid obesity Not Available [facility] 2 13:28:45 History of sleeve gastrecto my 708504926758 107 Active 2021 Not Available [facility] 2 13:28:45 Gastroeso phageal reflux disease without esophagit is 613265034 Active 2020 Not Available [facility] 2 13:28:45 Vitamin D deficienc y 35957217 Active 2023 Raffi Pruitt DNP, [employer], CHILD WELFARE MANAGER-C [address], [place], [address] , [place] - [place] 4 14:35:59 Unintenti onal weight gain 577684177644 104 Active 2023 Raffi Pruitt DNP, [employer], CHILD WELFARE MANAGER-C [address], [place], [place], [address] [place] [address] , [place] 4 14:40:00 Abdominal pain 22024198 Active 2023 Raffi Pruitt DNP, [employer], CHILD WELFARE MANAGER-C [address], [place], [address] , [place] - [place] 4 14:49:15 Nausea 903497794 Active 2023 Raffi Pruitt DNP, [employer], CHILD WELFARE MANAGER-C [address], [place], [address] , [place] - [place] 4 14:49:44 Dysphagia 11527848 Active 2023 Raffi Pruitt DNP, [employer], CHILD WELFARE MANAGER-C [address], [place], [address] , [place] - [place] 4 14:52:23 Fatigue 71921106 Active 2023 Raffi Pruitt DNP, [employer], CHILD WELFARE MANAGER-C [address], [place], [address] , [place] - [place] 4 15:12:50 Iron deficienc y 23654519 Active 2023 Raffi Pruitt DNP, [employer], CHILD WELFARE MANAGER-C [address], [place], [address] , [facility] & [place] 15:12:59 Problem Notes Documentation Provider Name and [...] oz/d Additional Notes/Concerns: Recommendations: Protein: 90+g/day Calories: 9905-1504/day 1. Closely self monitor kcals, protein, and weight to ensure adequate intake 2. Limit physically activity as instructed by providers . Raffi Pruitt, ROGER, [employer], CHILD WELFARE MANAGER-C [address], [place], [address], [facility] & [place] 12/20/2023 14:34:54 Procedures Surgical History Date Name Laterality Status Provider Name and Address Organization Details Recorded Time cholecystectomy completed Jim MEDEROS [facility] & [place] 12/16/2021 14:48:38 laparoscopic sleeve gastrectomy completed Jim MEDEROS [facility] & [place] 12/16/2021 14:49:01 ligation of fallopian tube completed Jim MEDEROS [facility] & [place] 12/16/2021 14:49:12 section completed Jim MEDEROS [facility] & [place] 12/16/2021 14:49:22 tonsillectomy completed Jim MEDEROS [facility] & [place] 12/16/2021 14:49:35 Imaging Results None recorded. Procedure Notes None recorded. Medical Equipment None Reported. Allergies Allergen ID Allergen Name Allergen Category Reaction Reaction Severity Criticality Documentation Date Start Date Code Code System Note Provider Name and Address Organization Details Recorded Time 179324 Medicinal product containin g tetracycl ine structure and acting as antibacte rial agent (product) medicatio n Not available Not available Not available 03/23/2024 00002 1004 SNOMED NAYELI Roldan SLAVA [facility] & [place] 5 10:45:03 4546 erythromy kendra medicatio n Not available Not available Not available 11/19/2021 4053 RxNorm React ion: Unkno wn, sever ity: Unkno wn Not Available [facility] 2 22:31:06 4548 peanut allergeni c extract food,medi cation Not available Not available Not available 11/19/2021 68499 8 RxNorm React ion: hives , swell ing, sever ity: Unkno wn Not Available [facility] 2 22:31:06 54445 Bactrim medicatio n Not available Not available Not available 03/22/2022 56788 9 RxNorm Jim nguyen, NAYELI Olivares LPNT [facility] & [place] 3 11:00:17 Medications Name Sig Start Date [...] cm 97.5 [degF] 65 /min 47.4 kg/m2 577623. 6 g 149 mm[Hg] 104 mm[Hg] Jim Martínez edwin [facility] & [place] 3 11:01:14 Date Recorded Body height Body temperature Heart rate Body mass index (BMI) Body weight Systolic blood pressure Diastolic blood pressure Provider Name and Address Organization Details Last Updated DateTime 5 160.02 cm 98.1 [degF] 68 /min 52.8 kg/m2 995676. 24 g 146 mm[Hg] 102 mm[Hg] Claudia Whittaker [facility] & [place] 5 10:49:47 Date Recorded Body height Body mass index (BMI) Body weight Body temperature Heart rate Systolic blood pressure Diastolic blood pressure Provider Name and Address Organization Details Last Updated DateTime 3 160.02 cm 46.6 kg/m2 583107. 79 g 97.5 [degF] 78 /min 151 mm[Hg] 98 mm[Hg] Sierra Mcconnell [place] - [place] - [place] & [place] 3 11:05:45 Date Recorded Body temperature Body weight Body mass index (BMI) Body height Heart rate Systolic blood pressure Diastolic blood pressure Provider Name and Address Organization Details Last Updated DateTime 4 97.1 [degF] 513536. 61 g 53.5 kg/m2 160.02 cm 78 /min 140 mm[Hg] 93 mm[Hg] Jim pineda [place] - [place] - [place] & [place] 4 14:21:38 Social History None recorded. Functional [...] SNOMED-CT Code Diagnosis ICD10 Code Diagnosis Note [id number] Raffi Pruitt, DNP, [employer], CHILD WELFARE MANAGER-C [facility] Adv S[facility] [address] [facility] [address] [place] [address] 12/16/2021 14:29:46 12/16/2021 15:35:52 History of bariatric surgical procedure 304842177 Z98.84 History of gastrectomy 971876788 Z90.3 Patient is status post bariatric surgery and at increased risk for vitamin deficienci es and malnutriti on. Bariatric vitamin panel ordered today. Patient will be contacted to correct any vitamin deficienci es. History of sleeve gastrectomy 9634649962 43877 Z90.3 Obstructiv e sleep apnea syndrome 96206192 G47.33 Gastroesop hageal reflux disease without esophagitis 991383964 K21.9 Morbid obesity 420697626 E66.01 Intentiona l weight loss 519870129 R63.8 [id number] Raffi Pruitt DNP, [employer], CHILD WELFARE MANAGER-C [facility] Adv S[facility] [address] [facility] [address] [place] [address] 03/22/2022 10:44:42 03/22/2022 11:24:55 History of bariatric surgical procedure 460479706 Z98.84 Advised qid intake 50% protein 3986-7331 calories/d y less than 100 carbs/dy Long [...] with any deficienci es. History of gastrectomy 810389749 Z90.3 Patient is status post bariatric surgery and at increased risk for vitamin deficienci es and malnutriti on. Bariatric vitamin panel ordered today. Patient will be contacted to correct any vitamin deficienci es. History of sleeve gastrectomy 2997317265 21722 Z90.3 Intentiona l weight loss 567762866 R63.8 Obstructiv e sleep apnea syndrome 49359867 G47.33 Morbid obesity 241991472 E66.01 [id number] Raffi Pruitt, ROGER, [employer], CHILD WELFARE MANAGER-C [facility]ariat[facility] and Adv Surg [address] [facility] [address] [place] [address] 07/12/2022 10:47:58 07/12/2022 11:51:25 History of bariatric surgical procedure 546623167 Z98.84 Advised qid intake 50% protein 5093-8292 calories/d y less than 100 carbs/dyLo ng [...] will see dietitian today. History of gastrectomy 631908729 Z90.3 Patient is status post bariatric surgery and at increased risk for vitamin deficienci es and malnutriti on. Bariatric vitamin panel ordered today. Patient will be contacted to correct any vitamin deficienci es. Essential hypertension 93837266 I10 History of sleeve gastrectomy 0434172568 04958 Z90.3 Intentiona l weight loss 160380266 R63.8 Morbid obesity 250632107 E66.01 Obstructiv e sleep apnea syndrome 91124180 G47.33 Low back pain 919233149 M54.50 [id number] Raffi Pruitt, DNP, [employer], CHILD WELFARE MANAGER-C [facility] Bariat[facility] and Adv Surg [address] [facility] [address] [facility] [place] [address] 12/20/2023 14:11:37 12/21/2023 09:03:12 History of bariatric surgical procedure 508745056 Z98.84 Advised qid intake 50% protein 5283-3557 calories/d y less than 100 carbs/dyLo ng [...] see dietitian today. Intentiona l weight loss 956741010 R63.8 History of gastrectomy 263115205 Z90.3 Advised qid intake 50% protein 8193-8639 calories/d y less than 100 carbs/dyLo ng [...] cheaper if she gets them done at [facility]. She verbalizes that she will get these done fasting 1st thing in the morning. I will notify her with any abnormal results. Patient is status post bariatric surgery and at increased risk for vitamin deficienci es and malnutriti on. Bariatric vitamin panel ordered today. Patient will be contacted to correct any vitamin deficienci es. At [facility] risk of nutritional deficit 547672983 Z91.89 Essential hypertension 79404919 I10 History of sleeve gastrectomy 0318437596 47049 Z90.3 Obstructiv e sleep apnea syndrome 43758536 G47.33 Vitamin D deficiency 347 09695 E55.9 Morbid obesity 983865881 E66.01 Unintentio nal weight gain 6390122527 27996 R63.5 Abdominal pain 75441451 R10.9 Nausea 250664960 R11.0 Dysphagia 29315446 R13.1 0 I would like to proceed with ordering upper GI as well as EGD. Patient will be notified of the time and date of these appointmen ts. I have asked that she contact me by Tuesday of this week if [facility] does not contact her about getting her scheduled for the upper GI. Patient verbalizes adequate understand ing. Iron deficiency 42224978 E61.1 [id number] JUWAN LIVINGSTON, RD [facility] n Bariatric s and Adv Surg [address] [facility] [address] [place] [address] 12/20/2023 15:12:42 12/20/2023 15:44:46 Dietary management surveillance 205503120 Z71.3 see klever caal for discussion and plan [id number] Raffi Pruitt, DNP, [employer], CHILD WELFARE MANAGER-C [facility] [address] [facility] [address] [facility], [place] [address] 03/23/2024 10:30:48 03/23/2024 11:58:53 History of bariatric surgical procedure 473868860 Z98.84 Advised qid intake 50% protein 2291-6489 calories/d y less than 100 carbs/dyLo ng [...] see dietitian today. Intentiona l weight loss 872215733 R63.8 History of gastrectomy 588510057 Z90.3 Advised qid intake 50% protein 1873-6917 calories/d y less than 100 carbs/dy Long [...] any vitamin deficienci es. At [facility] risk of nutritional deficit 091983422 Z91.89 Essential hypertension 18027338 I10 Iron deficiency 12438440 E61.1 Vitamin D deficiency 347 16516 E55.9 Morbid obesity 426983943 E66.01 History of Helicobacter pylori infection 4078253614 9964039 Z86.19 Health Concerns Section Related Observation LastModified by Organization Detai ls LastModified Time None Recorded Concern Status LastModified by Organization Details LastModified Time None Recorded Advance Directives Directive None Recorded Payers Insurance Date Sequence Insurance Name Policy Number Policy Bolivar Covered Member ID Bolivar Member ID Guarantor Name 06/29/2021 2 *SELF PAY* An rom Feliz 03/26/2024 1 UMR [id number] Garrett Feliz [id number] Garrett Feliz 06/22/2021 1 [place] [id number] Garrett Feliz [id number] Garrett Feliz 06/22/2021 2 [place] [id number] Garrett Feliz [id number] Garrett Feliz Notes Date Note Type Note Provider Name and Address Organization Details Recorded Time 03/22/2022 text/html Patient presents the office today for routine 9 month follow-up status post bariatric gastric sleeve surgery (.). Patient doing well. Reports q.i.d. small meal [...] = 1568 kilo calories Raffi Pruitt DNP, [employer], CHILD WELFARE MANAGER-C [address], [place], [address], [facility] & [place] 03/22/2022 11:24:09 07/12/2022 text/html Patient presents the [...] = 1550 kilo calories Raffi Pruitt DNP, [employer], CHILD WELFARE MANAGER-C [address] , [place], [address], [facility] & [place] 07/12/2022 11:58:21 12/20/2023 text/html Patient presents the [...] right thyroid. She has been followed by [facility] department of endocrinology. Biopsy has performed [...] her stomach. She is able to tolerate [place] fries because they are easy to eat [...] = 1644 kilo calories Raffi Pruitt, DNP, [employer], CHILD WELFARE MANAGER-C [address], [place], [address], [facility] & [place] 12/20/2023 15:22:44 12/20/2023 text/html RDN met w/ pt fo r 2 year f/up s/p sleeve . HT = 63 Current Weight: 302.2#BMI = 302.2 Notes on weight: desires continued weight loss at this time. Gained 39.2# from last visit a year ago. Inbody measurements:[facility] mass%: up 5.8%Body fat% up 2.8%BMR: 1644 Signs/SymptomsN/V /C/D: nausea, no vomiting, constipation/diar vinh both Meds and labs reviewed.Notes - b12, vit D, vit C. Has had 2 vitamin infusions. Physical activity: was doing walking and resistance bands but not lately Tracking meal intakes: was using RACTIV it tammy, but stopped using it Est. [...] JUWAN LIVINGSTON, RD [address] [facility], [place], [address], [facility] & [place] 12/20/2023 15:44:08 03/23/2024 text/html Patient presents the office today for routine follow-up status post bariatric gastric sleeve gastrectomy surgery (.). She has not been seen since July [...] = 1656 kilo calories Raffi Pruitt, DNP, [employer], CHILD WELFARE MANAGER-C [address] [facility], [place], [address], [facility] - [place] & [place] 03/23/2024 11:57:40 OBGyn Episode No OBEpisode recorded.
--- OUTSIDE RECORDS SUMMARY | 2024-09-11 09:16 | XMS_ITS | Encounter Summary ---
Author Organization [facility] Address [address] [place] [address] Care Team Providers Care Network Internship Name Role Phone Carlos Lind MD Primary Care Provider [phone] Encounter Details Date Type Department Care Team (Late st Contact Info) Description 06/11/2024 Results Follow-Up [facility] Endocrinology [address] [place] [address] Delfino Atwood MD [address] [address] Social History Tobacco Use Types [...] [facility] [address] [place] [address] Delfino Atwood MD [address] [facility] [address] [place] [address] documented as of this encounter Visit Diagnoses Not on filedocumented in this encounter Additional Health Concerns Assessment Noted Time A fall risk assessment has been complete d for the patient 09/01/2023 9:07 AM EDT A Body Mass Index follow-up plan has been documented for the patient 09/01/2023 7:36 PM EDT documented as of this encounter Care Teams Network Internship Relationship Specialty Start Date End Date Carlos Lind MD [address] [place] [address] PCP - General 07/25/20 documented as of this encounter
--- OUTSIDE RECORDS SUMMARY | 2024-09-11 09:16 | XMS_ITS | Patient Health Record ---
Author Organization [facility] Address [address] [place] [address] Care Team Providers Care Clinical Care Coordinator Name Role Phone NicoleCarlos qureshi Primary Care Provider Yaw Carrillo Unavailable [phone] Migration, Provider Unavailable Unavailable Allergies Allergen (clinical [...] 37-170 ug/dL DTIBC 469 265-497 ug/dL IRONSAT 6.85517 15-55 % Reason For Referral No Information [...] once a month; Duration: 90 days Active Social History Tobacco Use: Social History Observation Description Date Details (start date - stop date) Never Smoker NA - NA Smoking: Question Answer Notes Are you a: nonsmoker Problems Problem Type SNOMED Code ICD Code Onset Dates Problem Status W/U Status Risk Notes Problem Thyroid nodule (183166227) Thyroid nodule (E04.1) Active confirmed Problem Gastroesophageal reflux disease without esophagitis (997487129) Gastroesophageal reflux disease without esophagitis (K21.9) Active confirmed Problem Hyperthyroidism (21917092) Hyperthyroidism (E05.90) Active confirmed Problem Vitamin B12 deficiency (564725326) History of non anemic vitamin B12 deficiency (Z86.39) Active confirmed Problem Microcytic anemia (715106742) Microcytic anemia (D50.9) Active confirmed Problem Sciatica (22091791) Acute right- sided back pain with sciatica (M54.41) Active confirmed Problem S/P gastric slee ve procedure (Z90.3) Active confirmed Vital Signs Heart Rate 92 /min 12/05/2023 Temperature 97.9 degrees Fahrenheit 12/05/2023 Blood pressure diastolic 84 mm Hg 12/05/2023 Height 5 ft 3 in in 12/05/2023 Blood pressure systolic 130 mm Hg 12/05/2023 Weight 308.6 lbs 12/05/2023 BMI 54.66 kg/m2 12/05/2023 Encounters Encounter Location Date Provider Diagnosis [facility] [address] [place] [address] 06/16/2024 Provider Migration [facility] [address] [facility] [address] [place] [address] 10/24/2023 Carlosmaral Coelho Gastroesophageal ref lux disease without esophagitis K21.9 ; Hyperthyroidism E05.90 ; History of non anemic vitamin B12 deficiency Z86.39 ; Other malaise R53.81 ; Other fatigue R53.83 and Encounter for routine adult medical examination Z00.00 [facility] [address] [facility] [address] [place] [address] 12/05/2023 Carlosmaral Coelho Microcytic anemia D5 0.9 [facility] [address] [place] [address] 2023 Carlos Coelho History of non anemi [...] Thyroid Uptake Scan 2022 M-Thyroid Panel 09/10/2021 L-Smev-Kqcljjlwspsmv Antibody 10/13/2022 M-Vitamin B12 10/02/2022 M-Vitamin D 25 Hydroxy 10/02/2022 M-Thyroid Peroxidase Antibodies 10/14/19 Future Test Test Name Order Date M-Complete Blood Count Auto Diff 024 M-Basic Metabolic Panel 12/26/2023 M-Ferritin 12/26/2023 Insurance Providers Payer Name Payer Address Payer Phone Subscriber Number Group Number Insured Name Patient Relationship to Insured Coverage Start Date Coverage End Date [facility] [address] [address] [place] [address] [id number] Garrett Feliz Self - patient is the insured Medical (General) History Medical History History ICD Code GERd Migraines Anxiety Depression Jamie Peguero- 2016 Plantar fascaiitis Gastric sleeve- 2021 Hypothyroidism-thyroid nodule diagnosed 12/04 Surgical History Surgery Date(Month/Year) Tonsillectomy Cholecystectomy c/s x3 Tubal ligation Gastric sleeve- hiatal hernia repair 202 2 Hospitalization History Reason Date(Month/Year) [facility]uero 2016 c/s x 3 [facility]-Gastric sleeve 2021
--- OUTSIDE RECORDS SUMMARY | 2024-09-11 09:16 | XMS_ITS | Encounter Summary ---
Author Organization [facility] Address [address] [place] [address] Care Team Providers Care Tissue Coordinator Name Role Phone Carlos Lind MD Primary Care Provider [phone] Encounter Details Date Type Department Care Team (Late Contact Info) Description 06/08/2024 Lab Requisition [facility] [address] [place] [address] Delfino Atwood MD [address] [address] Nontoxic single thyroid nodule Social [...] Office Visit [facility] [address] [place] [address] Delfino Atwood MD [address] [address] documented as of this encounter Procedures Procedure Name Priority Date/Time Associated Diagnosis Comments SURGICAL PATHOLOGY CONSULT Routine 06/08/2024 10:44 AM EDT Nontoxic single thyroid nodule documented in this encounter Results * Surgical Pathology Consult (06/08/2024 10:44 AM EDT) Case Report Sugical Pathology Consult Case: [id number] Authorizing Provider: Delfino Atwood MD Collected: 06/08/2024 1044 Ordering Location: [facility] Lab Received: 06/08/2024 1044 Pathologist: Lauro Alfaro MD Specimen: Thyroid, [id number] 06/11/2024 11:07 AM EDT [facility] Final Diagnosis A. THYROID, RIGHT, LOBECTOMY (OUTSIDE CASE NUMBER. 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 [id number] Received along with a corresponding pathology report from [facility] are 14 slides labeled outside case: [id number] collected on 05/30/2024. 06/11/2024 11:07 AM EDT [facility] Note: A resident was involved in the service. I attest I examined the relevant preparations for the specimens and confirmed the diagnosis or interpretation. 06/11/2024 11:07 AM EDT [facility] Tissue Thyroid structure / Unknown 06/08/2024 10:44 AM EDT 06/08/2024 10:44 AM EDT us Delfino Atwood MD LAB PATHOLOGY ORDERABLES Final Result [facility] [address] [place] [address] documented in this encounter Visit Diagnoses Diagnosis Nontoxic single thyroid nodule Nontoxic uninodular goiter documented in this encounter Additional Health Concerns Assessment Noted Time A fall risk assessment has been complete d for the patient 09/01/2023 9:07 AM EDT A Body Mass Index follow-up plan has been documented for the patient 09/01/2023 7:36 PM EDT documented as of this encounter Care Teams Tissue Coordinator Relationship Specialty Start Date End Date Carlos Lind MD [address] [facility] [place] [address] PCP - General 07/25/20 documented as of this encounter
[2024-09-11 10:52] LABS: Free T4 (Free Thyroxine) 1.10 ng/dl (0.78-2.19)
[2024-09-11 11:05] LABS: Thyroid Stimulating Hormone 7.10 uIU/mL (0.465-4.68)
== END 2024-09-11 23:59 | disposition home or self-care (01) ==
LOC: LAB 09:14
PROVIDERS: Student in an Organized Health Care Education/Training Program; PCP Nurse Practitioner; Visit Provider Specialist
DX: C73 Malignant neoplasm of thyroid gland (principal); E04.1 Nontoxic single thyroid nodule; E06.3 Autoimmune thyroiditis
CPT/HCPCS: 84439; 84443

== ENCOUNTER 2024-10-14 21:37 | Emergency (ER) | payer OTHER, SELFPAY ==
--- OUTSIDE RECORDS SUMMARY | 2023-12-28 10:15 | XMS_ITS ---
Author Organization [facility] Address [address] [place] [address] Care Team Providers Care Forensic Photographer Name Role Phone Carlos Coelho Primary Care Provider Yaw Carrillo [phone] REASON FOR VISIT lab work Encounters Encounter Location Date Provider Diagnosis [facility] [address] [place], [place] [address] 12/28/2023 Carlos Coelho Plan Of Treatment No Information Progress Notes * Pam HIGHTOWERB:1985 (38 yo F)Acc No.[id number]:12/28/2023 Progress Notes Patient: Garrett PAN Provider: Bartolo Coelho MD :1985 A ge:38 Y S ex:Female Date:12/28/2023 Address:[address], [id number] Subjective: * Chief Complaints: * 1 . Lab work. * Medical History: Objective: * Vitals: Assessment: Plan: * Treatment: * * Electronic signature of Yuri Coelho MD FAAP on 10/14/2024 at 09:44 PM EDT Sign off status: Pending * Provider: Bartolo Coelho MD Date: 1 Generated for Printi ng/Faxing/eTransmitting on: 0 10/14/2024 09:44 PM EDT
--- OUTSIDE RECORDS SUMMARY | 2024-06-16 17:30 | XMS_ITS ---
Author Organization [facility] Address [address] [facility] [address] [place] [address] Care Team Providers Care Outside B2B Sales Name Role Phone Carlos Coelho Primary Care Provider Yaw Carrillo Unavailable [phone] Migration, Provider Unavailable Unavailable Allergies Allergen (clinical drug ingredient) Drug/Non Drug Allergy documented on EMR Reaction Allergy Type Onset Date Status sulfamethoxazole / trimethoprim Bactrim epigatric pain Drug Allergy Active erythromycin Erythromycin rash Drug Allergy A ctive [facility] Conversion Encounter Medications Medication SIG (Take, Route, Frequency, Duration) Notes Start Date End Date Status hydrOXYzine Pamoate 25 MG 1 cap(s) orall y 4 times a day; Duration: 14 days 05/04/2023 Active Propranolol HCl 20 MG 1 tab(s) orally 2 times a day; Duration: 90 days 11/20/2022 Active Esomeprazole Magnesium 40 MG 1 cap(s) orally once a day; Duration: 90 days 11/10/2022 Active Cyclobenzaprine HCl 10 MG 1 tab(s) orall y at bedtime; Duration: 90 days Activ e Cyanocobalamin 1000 MCG/ML as directed intramuscularly once a month; Duration: 90 days Active Encounters Encounter Location Date Provider Diagnosis [facility] [address] [place] [address] 06/16/2024 Provider Migration Plan Of Treatment No Information Progress Notes * Christiano HIGHTOWER:1985 (38 yo F)Acc No.[id number]:06/16/2024 Patient: Garrett PAN Provider: Rosetta Suarez :1985 A ge:38 Y S ex:Female Date:06/16/2024 Address: [address], [place], [id number] Pcp:Carlos Coelho Subjective: * Chief Complaints: * [facility] . [facility] Conversion Encounter. * Medical History: * Medications: T aking hydrOXYzine Pamoate 25 MG Capsule 1 cap(s) orally 4 times a day , Taking Propranolol HCl 20 MG Tablet 1 tab(s) orally 2 times a day , Taking Esomeprazole Magnesium 40 MG Capsule Delayed Release 1 cap(s) orally once a day , Taking Cyclobenzaprine HCl 10 MG Tablet 1 tab(s) orally at bedtime , Taking Cyanocobalamin 1000 MCG/ML Solution as directed intramuscularly once a month * Allergies: E rythromycin: rash - Allergy, Bactrim: epigatric pain - Allergy. Objective: * Vitals: Assessment: Plan: * Treatment: * * Electronic signature of Prov ider Migration on 10/14/2024 at 09:44 PM EDT Sign off status: Pending * Provider: Rosetta Suarez Date: 0 06/16/2024 Generated for López garcia/Kurtis/Fred on: 0 10/14/2024 09:44 PM EDT
[2024-10-14] VITALS (9 sets, daily range): BP systolic 111–154; BP diastolic 52–100; PULSE 68–91; RESP 14–24; TEMP 36.9–37.1; O2SAT 95–99; BMI 46.6
--- OUTSIDE RECORDS SUMMARY | 2024-10-14 21:44 | XMS_ITS | Patient Health Record ---
Author Organization [facility] Address [address] [place] [address] Care Team Providers Care Computer Engineer Name Role Phone NicoleCarlos qureshi Primary Care Provider Yaw Carrillo Unavailable [phone] Migration, Provider Unavailable Unavailable Allergies Allergen (clinical drug ingredient) Drug/Non Drug Allergy documented on EMR Reaction Allergy Type Onset Date Status sulfamethoxazole / trimethoprim Bactrim epigatric pain Drug Allergy Active erythromycin Erythromycin rash Drug Allergy A ctive Results Component Value Reference Range Notes H-FETIBC Reviewed date:12/02/2023 02:34:26 PM Interpretation: Performing Lab: Notes/Report: FE 32 37-170 ug/dL DTIBC 469 265-497 ug/dL IRONSAT 6.23954 15-55 % M-Ferritin Reviewed date:12/02/2023 02:34:26 PM [...] W/U Status Risk Notes Problem Thyroid nodule (522970826) Thyroid nodule (E04.1) Active confirmed Problem Gastroesophageal reflux disease without esophagitis (958236322) Gastroesophageal reflux disease without esophagitis (K21.9) Active confirmed Problem Hyperthyroidism (60793137) Hyperthyroidism (E05.90) Active confirmed Problem Vitamin B12 deficiency (894436295) History of non anemic vitamin B12 deficiency (Z86.39) Active confirmed Problem Microcytic anemia (369866332) Microcytic anemia (D50.9) Active confirmed Problem Sciatica (96191953) Acute right- sided back pain with sciatica [...] 12/05/2023 Encounters Encounter Location Date Provider Diagnosis [facility] [address] [place] [address] 06/16/2024 Provider Migration [facility] [address] [facility] [address] [place] [address] 10/24/2023 Carlosmaral Coelho Gastroesophageal ref lux disease without esophagitis K21.9 ; Hyperthyroidism E05.90 ; History of non anemic vitamin B12 deficiency Z86.39 ; Other malaise R53.81 ; Other fatigue R53.83 and Encounter for routine adult medical examination Z00.00 [facility] [address] [facility] [address] [place] [address] 12/05/2023 Carlosmaral Coelho Microcytic anemia D5 0.9 [facility] [address] [place] [address] 2023 Carlos Coelho History of non anemi [...] Thyroid Uptake Scan 2022 M-Thyroid Panel 09/10/2021 A-Mpik-Idbdzzvsiplvi Antibody 10/13/2022 M-Vitamin B12 10/02/2022 M-Vitamin D 25 Hydroxy 10/02/2022 M-Thyroid Peroxidase Antibodies 10/14/19 Future Test Test Name Order Date M-Complete Blood Count Auto Diff 024 M-Basic Metabolic Panel 12/26/2023 M-Ferritin 12/26/2023 Insurance Providers Payer Name Payer Address Payer Phone Subscriber Number Group Number Insured Name Patient Relationship to Insured Coverage Start Date Coverage End Date [facility] [address] [address] [place] [address] [id number] Garrett Feliz Self - patient is the insured Medical (General) History Medical History History ICD Code GERd Migraines Anxiety Depression Jamie Peguero- 2016 Plantar fascaiitis Gastric sleeve- 2021 Hypothyroidism-thyroid nodule diagnosed 12/04 Surgical History Surgery Date(Month/Year) Tonsillectomy Cholecystectomy c/s x3 Tubal ligation Gastric sleeve- hiatal hernia repair 202 2 Hospitalization History Reason Date(Month/Year) [facility]- [facility]uero 2016 c/s x 3 [facility]-Gastric sleeve 2021
--- OUTSIDE RECORDS SUMMARY | 2024-10-14 21:44 | XMS_ITS | Encounter Summary ---
Author Organization [facility] Address [address] [place] [address] Care Team Providers Care Cooker Mechanic Name Role Phone Carlos Lind MD Primary Care Provider [phone] Reason for Referral * Consultation (Routine) - Closed Specialty Diagnoses / Procedures Referred By Contac t Referred To Contact Endocrinology Diagnoses Hot thyroid nodule Abnormal thyroid scan Carlos Coelho MD [address] [place] [address] Phone: tel: fax: Referral ID Status Reason Start Date Expiration Date V isits Requested Visits Authorized [id number] Closed Specialty Services Required 12/20/2022 06/20/2024 1 1 Encounter Details Date Type Department Care Team (Late st Contact Info) Description 12/20/2022 Community [facility] [address] [place] [address] Carlos Coelho MD [address] [place] [address] Hot thyroid nodule (Primary Dx); Abnormal thyroid [...] as of this encounter Plan of Treatment Scheduled Referrals Name Type Priority Associated Diagnoses Order Schedule Ambulatory referral to Endocrinology Outpatient Referral Routine Hot thyroid nodule Abnormal thyroid scan Ordered: 12/20/2022 documented as of this encounter Visit Diagnoses Diagnosis Hot thyroid nodule- Primary Nontoxic uninodular goiter Abnormal thyroid scan Nonspecific abnormal results of thyroid function study documented in this encounter Care Teams Cooker Mechanic Relationship Specialty Start Date End Date Carlos Lind MD [address] [facility] [place] [address] PCP - General 07/25/20 documented as of this encounter
--- OUTSIDE RECORDS SUMMARY | 2024-10-14 21:44 | XMS_ITS | Clinical Summary ---
Author Organization [facility] Address [address] [place] [address] Care Team Providers Care Opener Name Role Phone Carlos Lind MD Primary Care Provider [phone] Allergies Active Allergy Reactions Criticality Noted Date [...] by mouth daily. 90 tablet 07/03/19 25 Active Active Problems Problem Noted Date Diagnosed Date Facial weakness 05/27/2023 Personal history of other diseases of the digest lamont system 05/27/2023 Immunizations Immunization Administration Dates Next Due IG [...] 06/26/2024 2:25 PM EDT Plan of Treatment Health Maintenance Due Date Last Done Comments [...] [facility]-Cervical Cancer Screening 04/10/2021 [facility]-HPV/Cotest 04/10/2021 04/10/2016 ACO-VMZPI-36 Vaccine ( season) 2023 03/27/2021, 04/11/2020, 03/12/2020 [facility]-Influenza Vaccine (#1) 2024 [facility]-Depression Screening 06/26/2025 06/26/2024 [facility]-HIV Screening [...] Procedure Name Priority Date/Time Associated Diagnosis Comments HEPATITIS C ANTIBODY W/REFLEX TO HCV QUANT PCR Routine 04/10/2016 5:47 PM EST CYTO DATA CONVERSION Routine 04/10/2016 12:00 AM EST HIV 1/2 ANTIBODY/ANTIGEN SCREEN WITH REFLEX TO HIV I/II DIFFERENTIATION Routine 04/08/2016 7:27 PM EST from Last 3 Months or Most Recently Relevant to Health Maintenance Results * Hepatitis C Antibody (04/10/2016 5:47 PM EST) Hepatitis C Antibody NEGATIVE Reference Range: Negative SUNQUEST 04/10/2016 5:47 PM EST 04/10/2016 8:55 PM EST Lara Padron MD LAB BLOOD ORDERABLES Final Result SUNQUEST * Cytology (04/10/2016 12:00 AM EST) Cerebrospinal fluid specimen (specimen) 04/10/2016 04/12/2016 7 :16 AM EST Narrative SUNQUEST - 04/12/2016 2:53 PM EST [facility] MR #: [id number] [facility] [place] [address] 1985 (Age: 30) FW Collect Date: 04/10/2016 00:00 Receipt Date: 04/12/2016 07:16 Page 1 DEPARTMENT OF PATHOLOGY AND LABORATORY MEDICINE CYTOPATHOLOGY REPORT Email: [email or web address] ATTENDING MD/Practitioner: Charity Padron MD Service: [place] Location: [facility] OTHER MD(S): Sosa Reardon MD ( RES ) Reported: 04/12/2016 14:53 Collected: 04/10/2016 00:00 DIAGNOSIS A. CEREBROSPINAL FLUID: NO EVIDENCE OF MALIGNANCY. COMMENT Results from Core Lab and Cytology have been reviewed and correlated. Electronically Signed Out NROMA Sierra (ASCP) Aj Rodriguez M.D. PROCEDURES/ADDENDA GROSS DESCRIPTION: Tube 3 with 5 ml of clear fluid CLINICAL INFORMATION: CLINICAL DIAGNOSIS Suspected meningitis SPECIMEN DESCRIPTION: A: CEREBROSPINAL FLUID THIN PREP PROCESS CELLULAR ENHANCEMENT, SLIDES RECEIVED ICD: R83.9 Unspecified abnormal finding in cerebrospinal fluid F: [id number] SNOMED CODES: A; ET6359 [id number] A resident has participated in this service. A pathologist has performed and is responsible for the reported pathologic evaluation. Lara Padron MD LAB PATHOLOGY ORDERABLES Fi nal Result Performing Organization Address City/[facility] Co de Phone Number [facility]Sun [facility] * HIV 1 & 2 Antibody/Antigen Screen (04/08/2016 7:27 PM EST) HIV 1 Result NONREACTIVE Screening for HIV 1 and 2 antibodies is NONREACTIVE. No confirmatory testing is required. SUNQUEST 04/08/2016 7:27 PM EST 04/08/2016 7:39 PM EST [facility] Provider LAB BLOOD ORDERABLES Yennifer l Result SUNQUEST from Last 3 Months or Most Recently Relevant to Health Maintenance Insurance [facility] Care Teams Opener Relationship Specialty Start Date End Date Carlos Lind MD [address] [place] [address] PCP - General 07/25/20
--- OUTSIDE RECORDS SUMMARY | 2024-10-14 21:44 | XMS_ITS | Encounter Summary ---
Author Organization [facility] Address [address] [place] [address] Care Team Providers Care Quality Assurance Coach Name Role Phone Carlos Lind MD Primary Care Provider [phone] Encounter Details Date Type Department Care Team (Late st Contact Info) Description 06/28/2024 Results Follow-Up [facility] Endocrinology [address] [place] [address] Delfino Atwood MD [address] [address] Social History Tobacco Use Types [...] as of this encounter Plan of Treatment Not on file documented as of this encounter Visit Diagnoses Not on filedocumented in this encounter Additional Health Concerns Assessment Noted Time A fall risk assessment has been complete d for the patient 09/01/2023 9:07 AM EDT A Body Mass Index follow-up plan has been documented for the patient 07/01/2024 8:33 PM EDT documented as of this encounter Care Teams Quality Assurance Coach Relationship Specialty Start Date End Date Carlos Lind [facility] [place] [address] PCP - General 07/25/20 documented as of this encounter
--- OUTSIDE RECORDS SUMMARY | 2024-10-14 21:44 | XMS_ITS | Encounter Summary ---
Author Organization [facility] Address [address] [place] [address] Care Team Providers Care Stock Blender Name Role Phone Carlos Lind MD Primary Care Provider [phone] Encounter Details Date Type Department Care Team (Late st Contact Info) Description 06/08/2024 Lab Requisition [facility] Lab [address] [place] [address] Delfino Atwood MD [address] [place] [address] Nontoxic single thyroid nodule Social History [...] on file documented as of this encounter Procedures Procedure Name Priority Date/Time Associated Diagnosis Comments SURGICAL PATHOLOGY CONSULT Routine 06/08/2024 10:44 AM EDT Nontoxic single thyroid nodule documented in this encounter Results * Surgical Pathology Consult (06/08/2024 10:44 AM EDT) Case Report Sugical Pathology Consult Case: [id number] Authorizing Provider: Delfino Atwood MD Collected: 06/08/2024 1044 Ordering Location: [facility] Lab Received: 06/08/2024 1044 Pathologist: Lauro Alfaro MD Specimen: Thyroid, [id number] 06/11/2024 11:07 AM EDT [facility] Final Diagnosis A. THYROID, RIGHT, LOBECTOMY (OUTSIDE CASE NUMBER. 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 [id number] Received along with a corresponding pathology report from [facility]ology Laboratory are 14 slides labeled outside case: [id number] collected on 05/30/2024. 06/11/2024 11:07 AM EDT [facility] Note: A resident was involved in the service. I attest I examined the relevant preparations for the specimens and confirmed the diagnosis or interpretation. 06/11/2024 11:07 AM EDT [facility] Tissue Thyroid structure / Unknown 06/08/2024 10:44 AM EDT 06/08/2024 10:44 AM EDT us Delfino Atwood MD LAB PATHOLOGY ORDERABLES Final Result [facility] [address] [place] [address] documented in this encounter Visit Diagnoses Diagnosis Nontoxic single thyroid nodule Nontoxic uninodular goiter documented in this encounter Additional Health Concerns Assessment Noted Time A fall risk assessment has been complete d for the patient 09/01/2023 9:07 AM EDT A Body Mass Index follow-up plan has been documented for the patient 09/01/2023 7:36 PM EDT documented as of this encounter Care Teams Stock Blender Relationship Specialty Start Date End Date Carlos Lind MD [address] [place] [address] PCP - General 07/25/20 documented as of this encounter
--- OUTSIDE RECORDS SUMMARY | 2024-10-14 21:44 | XMS_ITS | Clinical Summary ---
Author Organization [facility] Address [address] [place] [address] Care Team Providers Care Sergeant Of Officers Name Role Phone Philomena Jiang APRN Primary Care Provider [phone] Social History Tobacco Use Types Packs/Day Years Used Date Smoking Tobacco: Never Assessed Comments Unknown Sex and Gender Information Value Date Recorded Sex Assigned at Not on file Legal Sex Female 8:59 AM EDT Gender Identity Not on file Sexual Orientation Not on file Plan of Treatment Upcoming Encounters Date Type Department Care Team (Late st Contact Info) Description 12/17/2024 8:30 AM EDT Office Visit [facility] ENDOCRINOLOGY [address] [address] Shant Woo MD [address] [address] Health Maintenance Due Date Last Done Comments ANNUAL PHYSICAL 1985 Annual Gynecologic Pelvic an d Breast Exam 1985 TDAP/TD VACCINES (1 - Tdap) 10/25/2002 MAMMOGRAM 2023 COVID-19 Vaccine (2023-2 5 season) 2023 INFLUENZA VACCINE 12/12/2024 HEPATITIS C SCREENING Completed 04/10/2016 Pneumococcal Vaccine 0-49 Aged Out No longer eligible based on patient's age to complete this topic Procedures Procedure Name Priority Date/Time Associated Diagnosis Comments SCANNED - LABS 09/11/2024 from Last 3 Months Results * LABS SCANNED (09/11/2024) [facility] New Onbase LAB BLOOD ORDERABLES Final Re sult from Last 3 Months Insurance [employer] Care Teams Sergeant Of Officers Relationship Specialty Start Date End Date Philomena Jiang APRN [address] [place] [address] PCP - General Nurse Practitioner 09/21/24
--- NOTE | 2024-10-14 22:09 | CT_ITS ---
PROCEDURE INFORMATION: Exam: CT Abdomen And Pelvis With Contrast Exam date and time: 10/14/2024 10:37 PM Age: 38 years old Clinical indication: Abdominal pain; Additional info: Lower abd pain TECHNIQUE: Imaging protocol: Computed tomography of the abdomen and pelvis with contrast. Radiation optimization: All CT scans at this facility use at least one of these dose optimization techniques: automated exposure control; mA and/or kV adjustment per patient size (includes targeted exams where dose is matched to clinical indication); or iterative reconstruction. Contrast material: ISOVUE; Contrast volume: 75 ml; Contrast route: IV; COMPARISON: CT ABDOMEN PELVIS WO CON 07/06/2022 9:18 PM FINDINGS: Liver: Fatty infiltration. No mass. Gallbladder and biliary ducts: Surgically absent gallbladder. No biliary ductal dilatation. Pancreas: Unremarkable. No ductal dilation. Spleen: Unremarkable. No splenomegaly. Adrenal glands: Unremarkable. No mass. Kidneys and ureters: Unremarkable. No nephroureterolithiasis. No hydronephrosis. Stomach and bowel: Nonobstructive pattern. Chronic postoperative changes of stomach. Appendix: No evidence of appendicitis. Intraperitoneal space: Unremarkable. No free air. No significant fluid collection. Vasculature: Unremarkable. No abdominal aortic aneurysm. Lymph nodes: Unremarkable. No enlarged lymph nodes. Urinary bladder: Unremarkable as visualized. Reproductive: Unremarkable as visualized. Bones/joints: Unremarkable. No acute fracture. Soft tissues: Unremarkable. IMPRESSION: 1. No acute findings. 2. Fatty liver infiltration.
--- NOTE | 2024-10-14 22:10 | [facility].EDGENADL ---
Discharge Plan Disposition Patient Disposition: Home, Self-Care Prescriptions Prescriptions: No Action propranolol 20 mg tablet 20 mg PO BID Patient Comments: TAKE ONE TABLET BY MOUTH TWICE DAILY cyanocobalamin (vitamin B-12) 1,000 mcg/mL solution 1,000 mcg IM MONTHLY cyclobenzaprine 10 mg tablet 10 mg PO HS PRN (Reason: muscle spasms) famotidine 20 mg tablet 20 mg PO DAILY Qty: 90 0RF esomeprazole magnesium 40 mg capsule,delayed release(DR/EC) 40 mg PO DAILY Qty: 90 0RF levothyroxine 25 mcg capsule 25 mcg PO DAILY Qty: 30 3RF cholecalciferol (vitamin D3) [Vitamin D3] 10 mcg (400 unit) Capsule 10 mcg PO DAILY ondansetron HCl 4 mg tablet 4 mg PO TIDP PRN (Reason: Nausea) Qty: 10 0RF Referrals Follow up/Referrals: Philomena Jiang APRN [Primary Care Provider, Medical] - See instructions Activity Restrictions/Add. Instructions Additional Instructions/Restrictions: Please follow-up with your primary care provider. Please return to the emergency department if you develop any new or worsening symptoms or become concerned for your health. Clinical Impressions Clinical Impression: Lower abdominal pain Instructions Patient Instructions: DI for Acute Abdominal Pain Print Language Print Language: Azerbaijani Discharge ED Provider: Massimo Santana General Adult HPI <Celestina Portillo APRN - Last Filed: 10/14/24 22:34> General Chief complaint: Abdominal Pain Stated complaint: Lower abd pain Time Seen by Provider: 10/14/24 22:06 Mode of Arrival: Ambulatory Source of Information: Patient Description of Symptoms (Recalled from ER Triage Doc. by RN): PT presents to the ED for evaluation of lower abd pain. PT states the pain started at 1200 on this date. Stated the pain is behind the umbilicus's, into pelvis, and going into her back. No hx of heart conditions. No gallbladder. Has ovaries and appendix. History of Present Illness HPI narrative: patient is a 38-year-old female with PMHx GERD, gastric sleeve 3 years ago, tubal, who presents to the ED for sudden onset, severe lower abdominal pain that radiates to her back. Patient states this pain started abruptly at noon today, she has taken acetaminophen and ibuprofen without any symptomatic relief. Related Data Home Medications ?Medication ?Instructions ?Recorded ?Confirmed propranolol 20 mg tablet 20 mg PO BID 10/04/23 08/31/24 cyclobenzaprine 10 mg tablet 10 mg PO HS PRN muscle spasms 12/06/23 08/31/24 cyanocobalamin (vitamin B-12) 1,000 mcg IM MONTHLY 02/02/24 08/31/24 1,000 mcg/mL injection solution cholecalciferol (vitamin D3) 10 10 mcg PO DAILY 05/23/24 08/31/24 mcg (400 unit) capsule (Vitamin D3) Previous Rx's ?Medication ?Instructions ?Recorded ondansetron HCl 4 mg tablet 4 mg PO TIDP PRN Nausea #10 tabs 05/30/24 esomeprazole magnesium 40 mg 40 mg PO DAILY #90 caps 06/14/24 capsule,delayed release famotidine 20 mg tablet 20 mg PO DAILY #90 tabs 06/14/24 levothyroxine 25 mcg capsule 25 mcg PO DAILY #30 caps 09/12/24 Allergies Allergy/AdvReac Type Severity Reaction Status Date / Time tetracycline Allergy Severe Rash Verified 08/31/24 10:22 erythromycin base Allergy Intermediate I-RASH Verified 08/31/24 10:22 (ERYTHROMYCIN BASE) sulfamethoxazole (From Allergy Intermediate I-HIVES Verified 08/31/24 10:22 BACTRIM) trimethoprim (From BACTRIM) Allergy Intermediate I-HIVES Verified 08/31/24 10:22 PFSH <Celestina Portillo APRN - Last Filed: 10/14/24 22:34> PFS Disclaimer: The information contained in this section may have been updated after the patient was seen, as this information can be updated by other users. 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 pylori) Abdominal pain Dysmenorrhea Menorrhagia Hypertrophic lichen planus of vulva Vulvar abscess Family history of heart disease Abnormal EKG Encounter for pre-operative cardiovascular clearance Calcaneal spur of both feet Arch pain of left foot Pain in both feet Plantar fasciitis, bilateral Plantar fasciitis Muscle strain, lower leg Surgical History (Updated 08/31/24 @ 10:21 by Garrett Hendrickson RN) H/O partial thyroidectomy History of esophagogastroduodenoscopy (EGD) Hx of cholecystectomy History of sleeve gastrectomy Hx of tonsillectomy Hx of tubal ligation Hx of section Family History Other Cancer Diabetes Hyperlipidemia Hypertension Social History (Updated 08/31/24 @ 10:21 by Garrett Hendrickson RN) Smoking Status: Never smoker alcohol intake: never substance use type: denies use current occupational status: employed Travel in the last 8 weeks?: None housing: house Have you lived/traveled outside [place] in past 30 days?: No Contact w/someone who lives/traveled outside US past 30 days?: No Exposure to someone with infectious disease in past 14 days?: No Do you have a fever (greater than 100.4 F or 38 C)?: No Have you tested positive for COVID-19?: No Exposed to someone with COVID-19 in past 14 days?: No Do you have a sore throat?: No Do you have a cough?: No Do you have any weakness?: No Do you have any diarrhea?: No Are you experiencing any unusual bleeding?: No Do you have any muscle aches/pain?: No Do you have any abdominal pain?: Yes Are you experiencing loss of taste or smell?: No Other Medical History Have you received the Flu Vaccine for this season: No Have you received the Pneumonia Vaccine: Yes <Celestina Portillo APRN - Last Filed: 10/14/24 22:34> ROS Obtained: Yes Systems reviewed as appropriate & no additional complaints except as documented Physical Exam <Celestina Portillo APRN - Last Filed: 10/14/24 22:34> General General appearance: alert Eye Eye exam: Present PERRL and EOMI Neck Neck exam: Present full ROM Chest Chest inspection: Present normal inspection Respiratory Respiratory exam: Present normal lung sounds bilaterally Cardiovascular Cardiovascular exam: Present regular rate Abdominal Exam Abdominal exam: Present soft and tenderness (Lower abdominal tenderness ) Neurological Exam Neurological exam: Present alert and oriented X3 Medical Decision Making <Celestina Portillo APRN - Last Filed: 10/14/24 22:34> Medical Records Screening: Per USPSTF and CDC recommendations, given the prevalence of disease in our region, it is our hospital?s policy to screen for HIV and viral Hepatitis for all patients aged 18 and over and those with ongoing risk factors. [place] Inquiry Pt receiving controlled substance: No Vital Signs: 10/14/24 21:49 10/14/24 22:15 10/14/24 22:41 Temperature 98.7 F Temperature Source Oral Pulse Rate Pulse Rate [Right] 91 H Respiratory Rate 15 21 21 Blood Pressure Blood Pressure [Right Arm] 154/100 H Blood Pressure Mean Blood Pressure Mean [Right Arm] 118 Blood Pressure Source Blood Pressure Position 02 Sat by Pulse Oximetry 95 Oxygen Delivery Method 10/14/24 22:45 10/14/24 23:00 10/14/24 23:15 Temperature Temperature Source Pulse Rate 84 Pulse Rate [Right] Respiratory Rate 14 Blood Pressure 111/74 126/85 Blood Pressure [Right Arm] Blood Pressure Mean 88 97 Blood Pressure Mean [Right Arm] Blood Pressure Source Blood Pressure Position 02 Sat by Pulse Oximetry 95 Oxygen Delivery Method 10/14/24 23:16 10/14/24 23:30 10/14/24 23:30 Temperature 98.4 F Temperature Source Oral Pulse Rate 68 86 Pulse Rate [Right] Respiratory Rate 16 24 Blood Pressure 113/52 L 124/80 Blood Pressure [Right Arm] Blood Pressure Mean 89 Blood Pressure Mean [Right Arm] Blood Pressure Source Manual Cuff/ Doppler Blood Pressure Position 02 Sat by Pulse Oximetry 96 Oxygen Delivery Method Room Air 10/14/24 23:45 10/15/24 00:00 10/15/24 00:00 Temperature Temperature Source Pulse Rate 74 82 Pulse Rate [Right] Respiratory Rate 16 17 Blood Pressure 128/89 Blood Pressure [Right Arm] Blood Pressure Mean 98 Blood Pressure Mean [Right Arm] Blood Pressure Source Blood Pressure Position 02 Sat by Pulse Oximetry 99 96 Oxygen Delivery Method 10/15/24 00:15 Temperature 98.7 F Temperature Source Oral Pulse Rate 82 Pulse Rate [Right] Respiratory Rate 17 Blood Pressure 128/89 Blood Pressure [Right Arm] Blood Pressure Mean Blood Pressure Mean [Right Arm] Blood Pressure Source Automatic Cuff Blood Pressure Position Sitting 02 Sat by Pulse Oximetry Oxygen Delivery Method Room Air Lab Data Lab Results 10/14/24 21:45: WBC 8.9, RBC 4.78, Hgb 13.6, Hct 41.3, MCV 86.4, MCH 28.5, MCHC 32.9, RDW 17.5, Plt Count 306, MPV 10.2, Neut % (Auto) 57.3, Lymph % (Auto) 31.0, [place] % (Auto) 9.9 H, Eos % (Auto) 1.0, Baso % (Auto) 0.4, Neut # (Auto) 5.1, Lymph # (Auto) 2.8, [place] # (Auto) 0.9, Eos # (Auto) 0.1, Baso # (Auto) 0.0, Sodium 138, Potassium 4.1, Chloride 105, Carbon Dioxide 27, Anion Gap 10.1, BUN 21 H, Creatinine 1.10 H, Estimated Creat Clear 66, Estimated GFR 55 L, Est GFR ( Amer) 67, Glucose 98, Calcium 10.1, Total Bilirubin 0.3, AST 35, ALT 40, Alkaline Phosphatase 78, Total Protein 7.5, Albumin 4.5, Globulin 3.0, Albumin/Globulin Ratio 1.5, Lipase 148, Urine Color Yellow, Urine Appearance Clear, Urine pH 6.5, Ur Specific [place] 1.015, Urine Protein Negative, Urine Glucose (UA) Negative, Urine Ketones Negative, Urine Blood 1+ A, Urine Nitrate Negative, Urine Bilirubin Negative, Urine Urobilinogen 0.2, Ur Leukocyte Esterase Negative, Urine RBC Occasional, Urine WBC None, Ur Squamous Epith Cells 3-5, Urine Bacteria None 10/14/24 22:45: Lactate 0.6 L 10/14/24 21:45 10/14/24 21:45 Orders (Tests/Meds): ED MEDICATIONS Discontinued Medications Generic Name Dose Route Start Last Admin Trade Name Freq PRN Reason Stop Dose Admin Hydromorphone HCl 1 mg 10/14/24 22:09 10/14/24 22:22 Hydromorphone 2mg/Ml Syringe IV 10/14/24 22:10 1 mg ONCE ONE Administration Hydromorphone HCl 0.5 mg 10/14/24 23:53 10/15/24 00:03 Hydromorphone 2mg/Ml Syringe IV 10/14/24 23:54 0.5 mg ONCE ONE Administration Sodium Chloride 1,000 mls @ 999 mls/hr 10/14/24 22:09 10/14/24 22:21 Sod Chlor 0.9% 1000ml Bag IV 10/14/24 23:09 999 mls/hr .Q1H1M ONE Administration Iopamidol 75 ml 10/14/24 22:35 10/14/24 22:36 Iopamidol-370 (76%);100ml Bottle IV 10/14/24 22:36 75 ml ONCE ONE Administration Ondansetron HCl 4 mg 10/14/24 22:09 10/14/24 22:21 Ondansetron 4mg/2ml Vial IV 10/14/24 22:10 4 mg ONCE ONE Administration Oxycodone HCl 5 mg 10/14/24 23:53 10/15/24 00:03 Oxycodone 5mg Immediate Release Tablet PO 10/14/24 23:54 5 mg ONCE ONE Administration Sodium Chloride 10 ml 10/14/24 22:35 10/14/24 22:36 Sodium Chloride 0.9% 10ml Syr (Rad Only) IV 10/14/24 22:36 10 ml ONCE ONE Administration ORDERS Category Date Time Status CT abdomen pelvis w con Stat Cat Scan 10/14/24 22:09 Completed CBC w/Auto Diff [Complete Blood Count Auto Diff] Stat Lab 10/14/24 21:45 Completed CMP [Comprehensive Metabolic Panel] Stat Lab 10/14/24 21:45 Completed Lactic Acid Stat Lab 10/14/24 22:45 Completed Lipase Stat Lab 10/14/24 21:45 Completed Urinalysis and Microscopic Stat Lab 10/14/24 21:45 Completed Medical Decision Narrative: In summary, patient is a 38-year-old female with PMHx GERD, gastric sleeve 3 years ago, tubal, who presents to the ED for sudden onset, severe lower abdominal pain that radiates to her back. Patient states this pain started abruptly at noon today, she has taken acetaminophen and ibuprofen without any symptomatic relief. Patient states she is having a difficult time getting comfortable due to the pain. She states that if she presses on her stomach the pain eases a bit. Denies fever, chills, body aches, headache, visual disturbances, chest pain, shortness of breath, vomiting, dysuria. Upon initial evaluation patient is alert, oriented and cooperative. She has elevated blood pressure. Physical exam is remarkable for lower abdominal tenderness upon palpation, bilaterally. Discussed with patient we will proceed with labs & CT scan. Will administer IV fluids, Dilaudid and Zofran for symptomatic relief. Care transferred to attending. <Cassandra Yañez MD - Last Filed: 10/14/24 23:16> Vital Signs: 10/14/24 21:49 10/14/24 22:15 10/14/24 22:41 Temperature 98.7 F Temperature Source Oral Pulse Rate Pulse Rate [Right] 91 H Respiratory Rate 15 21 21 Blood Pressure Blood Pressure [Right Arm] 154/100 H Blood Pressure Mean Blood Pressure Mean [Right Arm] 118 Blood Pressure Source Blood Pressure Position 02 Sat by Pulse Oximetry 95 Oxygen Delivery Method 10/14/24 22:45 10/14/24 23:00 10/14/24 23:15 Temperature Temperature Source Pulse Rate 84 Pulse Rate [Right] Respiratory Rate 14 Blood Pressure 111/74 126/85 Blood Pressure [Right Arm] Blood Pressure Mean 88 97 Blood Pressure Mean [Right Arm] Blood Pressure Source Blood Pressure Position 02 Sat by Pulse Oximetry 95 Oxygen Delivery Method 10/14/24 23:16 10/14/24 23:30 10/14/24 23:30 Temperature 98.4 F Temperature Source Oral Pulse Rate 68 86 Pulse Rate [Right] Respiratory Rate 16 24 Blood Pressure 113/52 L 124/80 Blood Pressure [Right Arm] Blood Pressure Mean 89 Blood Pressure Mean [Right Arm] Blood Pressure Source Manual Cuff/ Doppler Blood Pressure Position 02 Sat by Pulse Oximetry 96 Oxygen Delivery Method Room Air 10/14/24 23:45 10/15/24 00:00 10/15/24 00:00 Temperature Temperature Source Pulse Rate 74 82 Pulse Rate [Right] Respiratory Rate 16 17 Blood Pressure 128/89 Blood Pressure [Right Arm] Blood Pressure Mean 98 Blood Pressure Mean [Right Arm] Blood Pressure Source Blood Pressure Position 02 Sat by Pulse Oximetry 99 96 Oxygen Delivery Method 10/15/24 00:15 Temperature 98.7 F Temperature Source Oral Pulse Rate 82 Pulse Rate [Right] Respiratory Rate 17 Blood Pressure 128/89 Blood Pressure [Right Arm] Blood Pressure Mean Blood Pressure Mean [Right Arm] Blood Pressure Source Automatic Cuff Blood Pressure Position Sitting 02 Sat by Pulse Oximetry Oxygen Delivery Method Room Air Lab Data Lab results reviewed: Yes I reviewed the patient's lab results. Lab Results 10/14/24 21:45: WBC 8.9, RBC 4.78, Hgb 13.6, Hct 41.3, MCV 86.4, MCH 28.5, MCHC 32.9, RDW 17.5, Plt Count 306, MPV 10.2, Neut % (Auto) 57.3, Lymph % (Auto) 31.0, [place] % (Auto) 9.9 H, Eos % (Auto) 1.0, Baso % (Auto) 0.4, Neut # (Auto) 5.1, Lymph # (Auto) 2.8, [place] # (Auto) 0.9, Eos # (Auto) 0.1, Baso # (Auto) 0.0, Sodium 138, Potassium 4.1, Chloride 105, Carbon Dioxide 27, Anion Gap 10.1, BUN 21 H, Creatinine 1.10 H, Estimated Creat Clear 66, Estimated GFR 55 L, Est GFR ( Amer) 67, Glucose 98, Calcium 10.1, Total Bilirubin 0.3, AST 35, ALT 40, Alkaline Phosphatase 78, Total Protein 7.5, Albumin 4.5, Globulin 3.0, Albumin/Globulin Ratio 1.5, Lipase 148, Urine Color Yellow, Urine Appearance Clear, Urine pH 6.5, Ur Specific [place] 1.015, Urine Protein Negative, Urine Glucose (UA) Negative, Urine Ketones Negative, Urine Blood 1+ A, Urine Nitrate Negative, Urine Bilirubin Negative, Urine Urobilinogen 0.2, Ur Leukocyte Esterase Negative, Urine RBC Occasional, Urine WBC None, Ur Squamous Epith Cells 3-5, Urine Bacteria None 10/14/24 22:45: Lactate 0.6 L Orders (Tests/Meds): ED MEDICATIONS Discontinued Medications Generic Name Dose Route Start Last Admin Trade Name Anjana PRN Reason Stop Dose Admin Hydromorphone HCl 1 mg 10/14/24 22:09 10/14/24 22:22 Hydromorphone 2mg/Ml Syringe IV 10/14/24 22:10 1 mg ONCE ONE Administration Hydromorphone HCl 0.5 mg 10/14/24 23:53 10/15/24 00:03 Hydromorphone 2mg/Ml Syringe IV 10/14/24 23:54 0.5 mg ONCE ONE Administration Sodium Chloride 1,000 mls @ 999 mls/hr 10/14/24 22:09 10/14/24 22:21 Sod Chlor 0.9% 1000ml Bag IV 10/14/24 23:09 999 mls/hr .Q1H1M ONE Administration Iopamidol 75 ml 10/14/24 22:35 10/14/24 22:36 Iopamidol-370 (76%);100ml Bottle IV 10/14/24 22:36 75 ml ONCE ONE Administration Ondansetron HCl 4 mg 10/14/24 22:09 10/14/24 22:21 Ondansetron 4mg/2ml Vial IV 10/14/24 22:10 4 mg ONCE ONE Administration Oxycodone HCl 5 mg 10/14/24 23:53 10/15/24 00:03 Oxycodone 5mg Immediate Release Tablet PO 10/14/24 23:54 5 mg ONCE ONE Administration Sodium Chloride 10 ml 10/14/24 22:35 10/14/24 22:36 Sodium Chloride 0.9% 10ml Syr (Rad Only) IV 10/14/24 22:36 10 ml ONCE ONE Administration ORDERS Category Date Time Status CT abdomen pelvis w con Stat Cat Scan 10/14/24 22:09 Completed CBC w/Auto Diff [Complete Blood Count Auto Diff] Stat Lab 10/14/24 21:45 Completed CMP [Comprehensive Metabolic Panel] Stat Lab 10/14/24 21:45 Completed Lactic Acid Stat Lab 10/14/24 22:45 Completed Lipase Stat Lab 10/14/24 21:45 Completed Urinalysis and Microscopic Stat Lab 10/14/24 21:45 Completed Medical Decision Narrative: In summary, patient is a 38-year-old female with PMHx GERD, gastric sleeve 3 years ago, tubal, who presents to the ED for sudden onset, severe lower abdominal pain that radiates to her back. Patient states this pain started abruptly at noon today, she has taken acetaminophen and ibuprofen without any symptomatic relief. Patient states she is having a difficult time getting comfortable due to the pain. She states that if she presses on her stomach the pain eases a bit. Denies fever, chills, body aches, headache, visual disturbances, chest pain, shortness of breath, vomiting, dysuria. Upon initial evaluation patient is alert, oriented and cooperative. She has elevated blood pressure. Physical exam is remarkable for lower abdominal tenderness upon palpation, bilaterally. Discussed with patient we will proceed with labs & CT scan. Will administer IV fluids, Dilaudid and Zofran for symptomatic relief. Care transferred to attending. I was consulted by the ROSALBA, and we discussed the complexity of the problems being addressed. I approved the treatment and management plan for this patient's care in the emergency department, thus performing a substantive portion of the medical decision making. Cassandra Yañez MD, KARIME, FACEP This is Dr. Yañez I personally interpreted the patient CT scan do not see any obvious intra-abdominal pathology but read is pending. Care will be transitioned to Dr. Santana for final disposition. <Massimo Santana MD - Last Filed: 10/15/24 01:07> Vital Signs: 10/14/24 21:49 10/14/24 22:15 10/14/24 22:41 Temperature 98.7 F Temperature Source Oral Pulse Rate Pulse Rate [Right] 91 H Respiratory Rate 15 21 21 Blood Pressure Blood Pressure [Right Arm] 154/100 H Blood Pressure Mean Blood Pressure Mean [Right Arm] 118 Blood Pressure Source Blood Pressure Position 02 Sat by Pulse Oximetry 95 Oxygen Delivery Method 10/14/24 22:45 10/14/24 23:00 10/14/24 23:15 Temperature Temperature Source Pulse Rate 84 Pulse Rate [Right] Respiratory Rate 14 Blood Pressure 111/74 126/85 Blood Pressure [Right Arm] Blood Pressure Mean 88 97 Blood Pressure Mean [Right Arm] Blood Pressure Source Blood Pressure Position 02 Sat by Pulse Oximetry 95 Oxygen Delivery Method 10/14/24 23:16 10/14/24 23:30 10/14/24 23:30 Temperature 98.4 F Temperature Source Oral Pulse Rate 68 86 Pulse Rate [Right] Respiratory Rate 16 24 Blood Pressure 113/52 L 124/80 Blood Pressure [Right Arm] Blood Pressure Mean 89 Blood Pressure Mean [Right Arm] Blood Pressure Source Manual Cuff/ Doppler Blood Pressure Position 02 Sat by Pulse Oximetry 96 Oxygen Delivery Method Room Air 10/14/24 23:45 10/15/24 00:00 10/15/24 00:00 Temperature Temperature Source Pulse Rate 74 82 Pulse Rate [Right] Respiratory Rate 16 17 Blood Pressure 128/89 Blood Pressure [Right Arm] Blood Pressure Mean 98 Blood Pressure Mean [Right Arm] Blood Pressure Source Blood Pressure Position 02 Sat by Pulse Oximetry 99 96 Oxygen Delivery Method 10/15/24 00:15 Temperature 98.7 F Temperature Source Oral Pulse Rate 82 Pulse Rate [Right] Respiratory Rate 17 Blood Pressure 128/89 Blood Pressure [Right Arm] Blood Pressure Mean Blood Pressure Mean [Right Arm] Blood Pressure Source Automatic Cuff Blood Pressure Position Sitting 02 Sat by Pulse Oximetry Oxygen Delivery Method Room Air Lab Data Lab Results 10/14/24 21:45: WBC 8.9, RBC 4.78, Hgb 13.6, Hct 41.3, MCV 86.4, MCH 28.5, MCHC 32.9, RDW 17.5, Plt Count 306, MPV 10.2, Neut % (Auto) 57.3, Lymph % (Auto) 31.0, [place] % (Auto) 9.9 H, Eos % (Auto) 1.0, Baso % (Auto) 0.4, Neut # (Auto) 5.1, Lymph # (Auto) 2.8, [place] # (Auto) 0.9, Eos # (Auto) 0.1, Baso # (Auto) 0.0, Sodium 138, Potassium 4.1, Chloride 105, Carbon Dioxide 27, Anion Gap 10.1, BUN 21 H, Creatinine 1.10 H, Estimated Creat Clear 66, Estimated GFR 55 L, Est GFR ( Amer) 67, Glucose 98, Calcium 10.1, Total Bilirubin 0.3, AST 35, ALT 40, Alkaline Phosphatase 78, Total Protein 7.5, Albumin 4.5, Globulin 3.0, Albumin/Globulin Ratio 1.5, Lipase 148, Urine Color Yellow, Urine Appearance Clear, Urine pH 6.5, Ur Specific [place] 1.015, Urine Protein Negative, Urine Glucose (UA) Negative, Urine Ketones Negative, Urine Blood 1+ A, Urine Nitrate Negative, Urine Bilirubin Negative, Urine Urobilinogen 0.2, Ur Leukocyte Esterase Negative, Urine RBC Occasional, Urine WBC None, Ur Squamous Epith Cells 3-5, Urine Bacteria None 10/14/24 22:45: Lactate 0.6 L Orders (Tests/Meds): ED MEDICATIONS Discontinued Medications Generic Name Dose Route Start Last Admin Trade Name Anjana PRN Reason Stop Dose Admin Hydromorphone HCl 1 mg 10/14/24 22:09 10/14/24 22:22 Hydromorphone 2mg/Ml Syringe IV 10/14/24 22:10 1 mg ONCE ONE Administration Hydromorphone HCl 0.5 mg 10/14/24 23:53 10/15/24 00:03 Hydromorphone 2mg/Ml Syringe IV 10/14/24 23:54 0.5 mg ONCE ONE Administration Sodium Chloride 1,000 mls @ 999 mls/hr 10/14/24 22:09 10/14/24 22:21 Sod Chlor 0.9% 1000ml Bag IV 10/14/24 23:09 999 mls/hr .Q1H1M ONE Administration Iopamidol 75 ml 10/14/24 22:35 10/14/24 22:36 Iopamidol-370 (76%);100ml Bottle IV 10/14/24 22:36 75 ml ONCE ONE Administration Ondansetron HCl 4 mg 10/14/24 22:09 10/14/24 22:21 Ondansetron 4mg/2ml Vial IV 10/14/24 22:10 4 mg ONCE ONE Administration Oxycodone HCl 5 mg 10/14/24 23:53 10/15/24 00:03 Oxycodone 5mg Immediate Release Tablet PO 10/14/24 23:54 5 mg ONCE ONE Administration Sodium Chloride 10 ml 10/14/24 22:35 10/14/24 22:36 Sodium Chloride 0.9% 10ml Syr (Rad Only) IV 10/14/24 22:36 10 ml ONCE ONE Administration ORDERS Category Date Time Status CT abdomen pelvis w con Stat Cat Scan 10/14/24 22:09 Completed CBC w/Auto Diff [Complete Blood Count Auto Diff] Stat Lab 10/14/24 21:45 Completed CMP [Comprehensive Metabolic Panel] Stat Lab 10/14/24 21:45 Completed Lactic Acid Stat Lab 10/14/24 22:45 Completed Lipase Stat Lab 10/14/24 21:45 Completed Urinalysis and Microscopic Stat Lab 10/14/24 21:45 Completed Medical Decision Narrative: In summary, patient is a 38-year-old female with PMHx GERD, gastric sleeve 3 years ago, tubal, who presents to the ED for sudden onset, severe lower abdominal pain that radiates to her back. Patient states this pain started abruptly at noon today, she has taken acetaminophen and ibuprofen without any symptomatic relief. Patient states she is having a difficult time getting comfortable due to the pain. She states that if she presses on her stomach the pain eases a bit. Denies fever, chills, body aches, headache, visual disturbances, chest pain, shortness of breath, vomiting, dysuria. Upon initial evaluation patient is alert, oriented and cooperative. She has elevated blood pressure. Physical exam is remarkable for lower abdominal tenderness upon palpation, bilaterally. Discussed with patient we will proceed with labs & CT scan. Will administer IV fluids, Dilaudid and Zofran for symptomatic relief. Care transferred to attending. I was consulted by the ROSALBA, and we discussed the complexity of the problems being addressed. I approved the treatment and management plan for this patient's care in the emergency department, thus performing a substantive portion of the medical decision making. Cassandra Yañez MD, KARIME, FACEP This is Dr. Yañez I personally interpreted the patient CT scan do not see any obvious intra-abdominal pathology but read is pending. Care will be transitioned to Dr. Santana for final disposition. Max BIRCH: I assumed care of the patient at the time of handoff from the prior provider. On reassessment patient reports moderate symptomatic improvement. Laboratory results were independently interpreted by me, urinalysis without evidence of infection or stone. Lactate is negative, white count is normal. Lipase is normal. CT imaging was independently interpreted by me, no evidence of emergent pathology such as bowel obstruction, perforation, renal stone, ovarian cyst, etc. Extensive interactive discussion was had with patient regarding her presentation and workup. Presentation does not seem consistent with ovarian pathology such as torsion at this time, I considered transvaginal ultrasound but after discussion with patient I do not think that it needs to be pursued at this time, because this pain has been slow in onset, is not sharp in quality, it is bilateral in nature, has not been associated with nausea or vomiting, and she has no ovarian enlargement on CT.'s are all reassuring factors. Overall, unclear what the underlying etiology of her pain is, though no emergent pathology has been found at this time. Could be an abdominal strain. Patient was discharged after additional dose of pain medication. Return precautions were given. Critical Care <Celestina Portillo APRN - Last Filed: 10/14/24 22:34> Critical Care Time Critical Care Time: No
[2024-10-14 22:17] LABS: Hematocrit 41.3 % (37.0-47.0); Hemoglobin 13.6 g/dL (12.2-16.2); Immature Granulocytes % 0.4 %; Mean Corpuscular HGB Conc 32.9 g/dL (31.8-35.4); Mean Corpuscular Hemoglobin 28.5 pg (27.0-31.2); Mean Corpuscular Volume 86.4 fl (81-99); Nucleated Red Blood Cells % 0 %; Platelet Count 306 K/mm3 (142-424); Red Blood Count 4.78 M/mm3 (4.20-5.40); Red Cell Distribution Width-SD 55.5 fL; White Blood Count 8.9 K/mm3 (4.8-10.8)
[2024-10-14 22:21] LABS: Alanine Aminotransferase 40 U/L (12-78); Albumin Level 4.5 g/dl (3.5-5.0); Albumin/Globulin Ratio 1.5 (1.1-1.8); Alkaline Phosphatase 78 U/L (38-126); Anion Gap 10.1 mEq/L (5-15); Aspartate Amino Transferase 35 U/L (14-36); Bilirubin,Total 0.3 mg/dl (0.2-1.3); Blood Urea Nitrogen 21 mg/dl (7-17); Calcium 10.1 mg/dl (8.4-10.2); Carbon Dioxide 27 mmol/L (22.0-30.0); Chloride 105 mmol/L (98-107); Creatinine Clearance Estimated 66 mL/min (50-200); Creatinine,Serum 1.10 mg/dl (0.52-1.04); Estimated Glomerular Filt Rate 55 ml/min (>60); GFR (African American) 67 ML/MIN (>60); Globulin 3.0 g/dL (1.3-3.2); Glucose 98 mg/dl (74-100); Lipase 148 U/L (23-300); Potassium 4.1 mmoL/L (3.5-5.1); Sodium 138 mmol/L (136-145); Total Protein,Serum 7.5 g/dl (6.3-8.2)
[2024-10-14] MEDS: ONDANSETRON 4MG/2ML VIAL 4 MG IV (22:21)
[2024-10-14] MEDS: 0.9 % SODIUM CHLORIDE 1000ML 1,000 ML 999 ML IV (22:21)
[2024-10-14] MEDS: HYDROMORPHONE 2MG/ML SYRINGE 1 MG IV (22:22)
[2024-10-14] MEDS: SODIUM CHLORIDE 0.9% 10ML SYR (RAD ONLY) 10 ML IV (22:36)
[2024-10-14] MEDS: IOPAMIDOL-370 (76%);100ML BOTTLE 75 ML IV (22:36)
[2024-10-14 23:29] LABS: Microscopic, Urine URINE MICROSCOPIC (MICROSCOPIC)
[2024-10-14 23:30] LABS: Bilirubin,Urine Negative (Negative); Color,Urine YELLOW (Yellow); Glucose,Urine (UA) Negative (Negative); Ketones,Urine Negative (Negative); Leukocyte Esterase,Urine Negative (Negative); PH,Urine 6.5 (5.0-8.5); Protein,Urine Negative (Negative); Specific Gravity, Urine 1.015 (1.005-1.030); Urobilinogen,Urine 0.2 EU/dl (0.2)
[2024-10-14 23:40] LABS: RBC,Urine Occasional #/hpf (0-3)
[2024-10-15] VITALS: BP 128/89; PULSE 82; RESP 17; O2SAT 96
[2024-10-15] MEDS: OXYCODONE 5MG IMMEDIATE RELEASE TABLET 5 MG PO (00:03)
[2024-10-15] MEDS: HYDROMORPHONE 2MG/ML SYRINGE 0.5 MG IV (00:03)
[2024-10-15 00:15] VITALS: BP 128/89; PULSE 82; RESP 17; TEMP 37.1; O2SAT 96
== END 2024-10-15 00:16 | disposition home or self-care (01) ==
PROVIDERS: Nurse Practitioner; Emergency Provider Emergency Medicine; PCP Nurse Practitioner
DX: R10.30 Lower abdominal pain, unspecified (principal); E05.90 Thyrotoxicosis, unspecified without thyrotoxic crisis or storm; E04.1 Nontoxic single thyroid nodule
CPT/HCPCS: 74177; 80053; 81001; 83605; 83690; 85025; 96361; 96374; 96375; 99285; J1171; J2405; J7030; Q9967